=== PATIENT | female | born 1965 | race Caucasian/White ===

== ENCOUNTER → 2017-12-18 07:50 | Outpatient (CLI) | payer MEDICARE, MEDICAID, SELFPAY ==
--- NOTE | 2017-12-18 07:58 | RAD_ITS ---
STUDY: X-RAY CHEST REASON FOR EXAM: Female, 52 years old. COPD and asthma. History of osteosarcoma. TECHNIQUE: PA and lateral views of the chest. COMPARISON: None. FINDINGS: Mild increased linear markings at the lung bases suggestive of underlying atelectasis and/or scarring. Hyperinflation. Scattered calcified granulomas. There is no demonstrated pleural abnormality. Normal size heart. Normal mediastinum and clarissa. Normal visualized pulmonary arteries. Normal visualized aortic arch and descending thoracic aorta. There are degenerative changes of the visualized thoracic spine. Increased kyphosis. Normal visualized ribs, clavicles, and shoulders. There is no demonstrated abnormality of the visualized soft tissue structures of the upper abdomen. RAD/Chest PA and Lateral IMPRESSION: Hyperinflation. Mild increased markings at the lung bases suggestive of likely atelectasis and/or scarring. Electronically Signed: Amado Mayen MD at 13:38 EST Tel [phone], Service support ,
== END ==
PROVIDERS: Family Provider Family Medicine; PCP Family Medicine; Visit Provider Family Medicine
DX: J44.9 Chronic obstructive pulmonary disease, unspecified (principal); R05 Cough
CPT/HCPCS: 71046

== ENCOUNTER → 2018-05-17 08:58 | Outpatient (CLI) | payer MEDICARE, MEDICAID, SELFPAY ==
--- NOTE | 2018-05-17 09:18 | RAD_ITS ---
STUDY: X-RAY - PELVIS AND BILATERAL HIPS REASON FOR EXAM: Female, 53 years old. Bilateral hip pain TECHNIQUE: Radiological exam, hip, bilateral, with pelvis when performed; minimum of 5 views, 5 views obtained COMPARISON: None. FINDINGS: There is a non-specific bowel gas pattern. Normal visualized soft tissue structures. Normal bilateral iliac wings, sacroiliac joints and visualized sacrum. Normal bilateral superior and inferior pubic rami. Normal pubic symphysis. Normal bilateral ischial tuberosities. Normal visualized right femoral head. Normal right acetabulum. Normal right hip joint. Normal visualized left femoral head. Normal left acetabulum. Normal left hip joint. Essure devices noted in the pelvis RAD/Hips B/L min 2 views w/ Pelvis IMPRESSION: Normal x-ray examination of the pelvis and bilateral hips. Electronically Signed: Yan Bird MD at 10:31 EDT , Service support ,
== END ==
PROVIDERS: Family Provider Family Medicine; PCP Family Medicine; Visit Provider Family Medicine
DX: M25.551 Pain in right hip (principal); M25.552 Pain in left hip
CPT/HCPCS: 73521

== ENCOUNTER → 2018-05-24 07:01 | Outpatient (CLI) | payer MEDICARE, MEDICAID, SELFPAY ==
[2018-05-24 10:26] LABS: Hemoglobin A1c 5.4 % (4.2-6.3)
[2018-05-24 10:28] LABS: Microalbumin:Creatinine Ratio 8.1 mg/g CRE (<30 mg/g CRE)
[2018-05-24 10:36] LABS: ALB/GLOB Ratio 1.1 RATIO (0.9-2.4); AST(SGOT) 19 U/L (15-37); Alanine Aminotransfer ALT/SGPT 31 U/L (13-56); Albumin, Serum 3.7 g/dL (3.2-5.0); Alkaline Phosphatase 72 U/L (45-117); Anion Gap 12 (5-15); BUN 24 mg/dL (7-18); BUN/Creat Ratio 20.9 RATIO (10-20); Calcium,Total 8.8 mg/dL (8.5-10.1); Chloride 105 mmol/L (98-107); Cholesterol 166 mg/dL (200); Creatinine, Serum 1.15 mg/dL (0.55-1.02); EST Glomerular Filtration Rate 52 mL/min (>60); Est Glom Filt Rate - Afr Amer 63 mL/min (>60); Globulin 3.3 g/dL (2.2-4.2); Glucose 117 mg/dL (74-106); High Density Lipoprotein 50 mg/dL; Sodium Level 143 mmol/L (136-145); T4 Free Direct 1.07 ng/dL (0.76-1.46); Thyroid Stim Hormone (TSH) 2.76 uIU/mL (0.358-3.74); Triglycerides 212 mg/dL; Very Low Density Lipoprotein 42 mg/dL (5-40)
[2018-05-25 10:23] LABS: T3 Total - Triiodothyronine 1.09 ng/mL (0.6-1.81); Vitamin D,25 Hydroxy 46.7 ng/mL (29.95-100.01)
== END ==
PROVIDERS: Family Provider Family Medicine; PCP Family Medicine; Visit Provider Family Medicine
DX: Z00.00 Encounter for general adult medical examination without abnormal findings (principal); E11.9 Type 2 diabetes mellitus without complications; E55.9 Vitamin D deficiency, unspecified; E03.9 Hypothyroidism, unspecified
CPT/HCPCS: 36415; 80053; 80061; 82043; 82306; 82570; 83036; 84439; 84443; 84480

== ENCOUNTER → 2019-05-27 | Outpatient (CLI) | payer MEDICARE, SELFPAY ==
[2018-09-19 09:04] VITALS: BMI 41.4
[2019-05-27 12:24] LABS: Absolute Lymphocyte Count 1.83 X10^3/uL (0.83-4.51); Absolute Neutrophil Count 3.3 X10^3/uL (2.0-7.7); Basophil# 0.03 X10^3/uL; Basophil% 0.5 % (0-1); Eosinophil# 0.16 X10^3/uL; Eosinophils% 2.8 % (0-5); Hemoglobin 11.1 g/dL (12.0-15.0); Lymphocyte # 1.83 X10^3/ul (4.0); Lymphocyte % 32.4 % (19-41); Mean Corp Hgb Conc 32.6 g/dL (32-36); Mean Corpuscular Hgb 31.3 pg (27.0-32.0); Mean Corpuscular Volume 95.8 fL (81-99); Mean Platelet Vol. 11.5 fl (6.2-12.0); Monocyte# 0.31 X10^3/uL; Monocyte% 5.5 % (0-10); NRBC Flagged by Analyzer 0 % (0-5); Neutrophil # 3.26 X10^3/uL (2.7-7.7); Neutrophil % 57.9 % (47-70); Platelet Count 191 K/mm3 (150-450); RBC Distribution Width CV 13.2 % (11.6-14.6); RBC Distribution Width SD 46.6 fl (35.1-43.9); Red Blood Count 3.55 M/mm3 (4.2-5.4); White Blood Count 5.6 K/mm3 (4.4-11.0)
[2019-05-27 12:48] LABS: ALB/GLOB Ratio 1.1 RATIO (0.9-2.4); AST(SGOT) 19 U/L (15-37); Alanine Aminotransfer ALT/SGPT 33 U/L (13-56); Albumin, Serum 3.6 g/dL (3.2-5.0); Alkaline Phosphatase 77 U/L (45-117); Anion Gap 11 (5-15); BUN 25 mg/dL (7-18); BUN/Creat Ratio 20.8 RATIO (10-20); Chloride 106 mmol/L (98-107); Cholesterol 152 mg/dL (200); EST Glomerular Filtration Rate 49 mL/min (>60); Est Glom Filt Rate - Afr Amer 60 mL/min (>60); Free T3 2.4 pg/mL (2.18-3.98); Globulin 3.4 g/dL (2.2-4.2); Glucose 113 mg/dL (74-106); High Density Lipoprotein 48 mg/dL; Potassium 4.1 mmol/L (3.5-5.1); Sodium Level 144 mmol/L (136-145); Thyroid Stim Hormone (TSH) 1.89 uIU/mL (0.358-3.74); Triglycerides 286 mg/dL; Very Low Density Lipoprotein 57 mg/dL (5-40); Vitamin D,25 Hydroxy 32.7 ng/mL (29.95-100.01)
[2019-05-27 12:55] LABS: Microalbumin,Random Urine 6.2 mg/L (NO RANGE EST.); Microalbumin:Creatinine Ratio 12.5 mg/g CRE (<30 mg/g CRE)
== END | disposition home or self-care (01) ==
LOC: BFHLAB 08:34
PROVIDERS: Family Provider Family Medicine; PCP Family Medicine; Visit Provider Family Medicine
DX: E03.9 Hypothyroidism, unspecified (principal); E11.22 Type 2 diabetes mellitus with diabetic chronic kidney disease; N18.3 Chronic kidney disease, stage 3 (moderate); E55.9 Vitamin D deficiency, unspecified; D64.9 Anemia, unspecified; E78.5 Hyperlipidemia, unspecified
CPT/HCPCS: 36415; 80053; 80061; 82043; 82306; 82570; 84439; 84443; 84481; 85025

== ENCOUNTER → 2019-08-16 | Outpatient (CLI) | payer MEDICARE, SELFPAY ==
[2019-07-12 09:01] VITALS: BMI 38.9
--- NOTE | 2019-08-16 06:00 | ECHOCS_ITS ---
Reason For Study: SOB Procedure This was a 2D Doppler, Color Flow transthoracic echocardiogram. The study was technically difficult. Exam performed in department. Left Ventricle Normal LV size. The estimated ejection fraction is 55 %. Left ventricular systolic function is normal. Stage 1 diastolic dysfunction. No regional wall motion abnormalities noted. Right Ventricle Normal RV size. Normal systolic function. Atria Normal left atrium. Normal right atrium. Mitral Valve Normal mitral valve. Tricuspid Valve Normal tricuspid valve. Aortic Valve The aortic valve is not well visualized. Pulmonic Valve The pulmonic valve is not well visualized. Great Vessels Normal aortic root. The pulmonary artery is normal size. Normal inferior vena cava. Pericardium/Pleural No pericardial effusion. Medication Diluted definity 3ml given slow IV push to enhance endocardial definition. MMode/2D Measurements & Calculations LVIDd: 4.3 cm IVSd: 0.92 cm Ao root diam: 3.3 cm LVIDs: 2.8 cm LVPWd: 1.3 cm RVDd: 2.7 cm FS: 35.8 % LAV(MOD-bp): 46.7 ml LA A4 area: 18.8 cm2 LA dimension(2D): 3.2 cm LAV(MOD-bp) Indexed: 23.8 ml/m2 LAV(MOD-sp2): 33.1 ml LAV(MOD-sp4): 61.9 ml RA A4 area: 11.0 cm2 Doppler Measurements & Calculations MV E max devin: 72.6 cm/sec Lat Peak E' Devin: 6.6 cm/sec Med Peak E' Devin: 6.2 cm/sec MV A max devin: 93.3 cm/sec E/E' lat: 11.0 E/E' med: 11.7 MV E/A: 0.78 Ao V2 max: 128.6 cm/sec LV V1 max: 110.8 cm/sec PA V2 max: 98.0 cm/sec Ao max P.6 mmHg LV V1 max P.9 mmHg Interpretation Summary Normal LV size. The estimated ejection fraction is 55 %. Left ventricular systolic function is normal. Stage 1 diastolic dysfunction. Contrast injection was performed. Ordering Physician: Chauncey Duong Referring Physician: Mimi Martin Performed By: Marie Lindquist RDCS
--- NOTE | 2019-08-16 09:10 | STRESSREP ---
Stress Test Report Pharmacologic myocardial perfusion stress test. 54-year-old lady with a history of shortness of breath. Resting EKG demonstrates normal sinus rhythm with a rate of 96 bpm normal intervals are noted resting blood pressures 132/88 mmHg. 0.4 mg of regadenoson was infused per usual protocol followed by rapid intravenous and flush injection continuous EKG monitoring was performed. Patient maintained sinus rhythm throughout the recording with occasional premature ventricular complexes were noted the maximum heart rate was 129 bpm with a maximum workload of 1 metabolic equivalent. The resting blood pressures 132/88 with a final blood pressure of the same. Myocardial perfusion protocol. 12.0 mCi of technetium 99m sestamibi was injected at rest. 0.4 mg of regadenoson was infused per usual protocol peak infusion 35.0 mCi of technetium 99m sestamibi was injected stress images were obtained stress and rest images were reconstructed and compared in the short axis vertical long horizontal long axis. Gated images were also obtained PACS Perfusion SPECT analysis: Review of the stress images demonstrate normal uptake of tracer noted in all areas of myocardium the resting images similar demonstrate normal uptake of tracer noted in all areas of the myocardium. No areas of reversibility are noted suggest ischemia no previous infarct is noted. Gated SPECT analysis: The gated ejection fraction is noted to be 51%. Conclusion: Normal pharmacologic myocardial perfusion stress test. Preserved ejection fraction.
== END | disposition home or self-care (01) ==
LOC: CVS 05:59
PROVIDERS: Family Provider Family Medicine; PCP Family Medicine; Referring Provider Internal Medicine Cardiovascular Disease; Visit Provider Internal Medicine Cardiovascular Disease
DX: R06.02 Shortness of breath (principal); R06.00 Dyspnea, unspecified; R93.1 Abnormal findings on diagnostic imaging of heart and coronary circulation; I34.0 Nonrheumatic mitral (valve) insufficiency; Z92.21 Personal history of antineoplastic chemotherapy
CPT/HCPCS: 78452; 93017; 93306; A9500; Q9957; A4216; C8929; J2785

== ENCOUNTER → 2019-11-25 08:52 | Outpatient (CLI) | payer MEDICARE, SELFPAY ==
[2019-07-12 09:01] VITALS: BMI 38.9
[2019-11-25 12:22] LABS: Absolute Lymphocyte Count 1.83 X10^3/uL (0.83-4.51); Absolute Neutrophil Count 3.1 X10^3/uL (2.0-7.7); Basophil# 0.03 X10^3/uL; Basophil% 0.5 % (0-1); Eosinophil# 0.17 X10^3/uL; Eosinophils% 3.1 % (0-5); Hemoglobin 11.4 g/dL (12.0-15.0); Lymphocyte # 1.83 X10^3/ul (4.0); Lymphocyte % 33.4 % (19-41); Mean Corp Hgb Conc 32.6 g/dL (32-36); Mean Corpuscular Hgb 31.1 pg (27.0-32.0); Mean Corpuscular Volume 95.6 fL (81-99); Mean Platelet Vol. 11.4 fl (6.2-12.0); Monocyte% 5.5 % (0-10); NRBC Flagged by Analyzer 0 % (0-5); Neutrophil # 3.12 X10^3/uL (2.7-7.7); Platelet Count 185 K/mm3 (150-450); RBC Distribution Width SD 44.9 fl (35.1-43.9); Red Blood Count 3.66 M/mm3 (4.2-5.4); White Blood Count 5.5 K/mm3 (4.4-11.0)
[2019-11-25 12:46] LABS: ALB/GLOB Ratio 1.1 RATIO (0.9-2.4); AST(SGOT) 18 U/L (15-37); Alanine Aminotransfer ALT/SGPT 32 U/L (13-56); Albumin, Serum 3.7 g/dL (3.2-5.0); Alkaline Phosphatase 71 U/L (45-117); Anion Gap 8 (5-15); BUN 29 mg/dL (7-18); Chloride 107 mmol/L (98-107); Creatinine, Serum 1.32 mg/dL (0.55-1.02); EST Glomerular Filtration Rate 44 mL/min (>60); Est Glom Filt Rate - Afr Amer 53 mL/min (>60); Free T3 2.1 pg/mL (2.18-3.98); Globulin 3.4 g/dL (2.2-4.2); Glucose 137 mg/dL (74-106); Potassium 3.9 mmol/L (3.5-5.1); Protein, Total 7.1 g/dL (6.4-8.2); Sodium Level 139 mmol/L (136-145); T4 Free Direct 1.11 ng/dL (0.76-1.46); Thyroid Stim Hormone (TSH) 1.66 uIU/mL (0.358-3.74)
== END ==
PROVIDERS: PCP Family Medicine; Visit Provider Family Medicine
DX: E11.9 Type 2 diabetes mellitus without complications (principal); E03.9 Hypothyroidism, unspecified; R19.7 Diarrhea, unspecified
CPT/HCPCS: 36415; 80053; 84439; 84443; 84481; 85025

== ENCOUNTER → 2019-12-03 08:36 | Outpatient (CLI) | payer MEDICARE, SELFPAY ==
[2019-07-12 09:01] VITALS: BMI 38.9
== END ==
PROVIDERS: PCP Family Medicine; Referring Provider Family Medicine; Visit Provider Family Medicine
DX: E11.9 Type 2 diabetes mellitus without complications (principal); E03.9 Hypothyroidism, unspecified; R19.7 Diarrhea, unspecified
CPT/HCPCS: 83630; 87493; 87506

== ENCOUNTER → 2019-12-11 08:39 | Outpatient (CLI) | payer MEDICARE, MEDICAID, SELFPAY ==
[2019-07-12 09:01] VITALS: BMI 38.9
--- NOTE | 2019-12-11 08:47 | BD_ITS ---
STUDY: DUAL ENERGY X-RAY ABSORPTIOMETRY / DXA REASON FOR EXAM: Female, 54 years old. 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 COMPARISON: None. FINDINGS: Lumbar Spine (L1-L4): g/cm2 (1.062) / T-score (-1.0) / Z-score (-0.1) Findings are suggestive of normal bone density with a low fracture risk. Left Femur Total: g/cm2 (0.848) / T-score (-1.3) / Z-score (-0.5) Left Femoral Neck: g/cm2 (0.877) / T-score (-1.2) / Z-score (-0.1) Right Femur Total: g/cm2 (0.81) / T-score (-1.6) / Z-score (-0.9) Right Femoral Neck: g/cm2 (0.887) / T-score (-1.1) / Z-score (0.0) BD/Dexa Bone Density Study IMPRESSION: The patient is considered osteopenic as outlined below according to World Rajinder Organization (WHO) criteria with a moderate fracture risk. Reference Information: The T-score is the number of standard deviations above or below the standard which is normal for young adults at their peak bone mineral density. The World Health Organization (WHO) interprets the T-scores as follows: Above -1 Normal bone density Between -1 and -2.5 Osteopenia Equal to / or below -2.5 Osteoporosis As a practical clinical guideline, osteopenia may be graded as follows: Mild -1 through -1.5 Moderate -1.6 through -2.0 Severe -2.1 through -2.4 The Z-score is the number of standard deviations above or below age-matched controls. A Z-score of less than -1.5 would be considered abnormal. References: 1. NIH Osteoporosis and Related Bone Diseases http://www.osteo.org 2. International Society for Clinical Densitometry http://www.iscd.org 3. National Osteoporosis Foundation http://www.nof.org Electronically Signed: Amado Mayen, at 9:04 EST , Service support ,
== END ==
PROVIDERS: PCP Family Medicine; Referring Provider Family Medicine; Visit Provider Family Medicine
DX: M81.0 Age-related osteoporosis without current pathological fracture (principal)
CPT/HCPCS: 77080

== ENCOUNTER 2020-03-23 07:55 | Day surgery (SDC) | payer MEDICARE, MEDICAID, SELFPAY ==
[2020-03-17 08:07] VITALS: BMI 42.3
--- NOTE | 2020-03-17 08:11 | HP_ITS ---
Intake Vital Signs 03/17/20 Height 5 ft 1 in 03/17/20 Weight: 224 lb 03/17/20 BMI 42.3 03/17/20 BP 146/89 H 03/17/20 Blood Pressure Location Rt brachial 03/17/20 Position Sitting 03/17/20 Respiration 18 03/17/20 Pulse 87 03/17/20 Pulse Source Monitor 03/17/20 Temp 97.3 F L 03/17/20 Temp Source Temporal 03/17/20 Pulse Oximetry (%) 99 03/17/20 Oxygen Delivery Method room air 03/17/20 BMI 38.9 Intake Visit Reasons: C-Scope/Chronic Diarrhea Chief Complaint: dysuria Allergies pregabalin [From Lyrica] Allergy (Intermediate, Verified 03/17/20 08:09) Diarrhea adhesive tape Allergy (Unknown, Unverified 07/12/19 09:02) uknown hydromorphone [From Dilaudid] Allergy (Unknown, Unverified 07/12/19 09:02) unknown oxycodone Allergy (Unknown, Unverified 07/12/19 09:02) unknown tramadol Allergy (Unknown, Unverified 07/12/19 09:02) unknown [facility] Medical History Hyperlipidemia (Chronic) History of change in bowel patterns (Acute) COPD (chronic obstructive pulmonary disease) (Chronic) Cancer (Chronic) Chronic kidney disease, stage III (moderate) (Chronic) Diabetic neuropathy (Chronic) Hypothyroidism (Chronic) Morbid obesity (Chronic) Obstructive sleep apnea (Chronic) Type 2 diabetes mellitus (Chronic) Osteosarcoma (Resolved 05/2007) Surgical History History of right below knee amputation (Resolved 12/2006) Family History Mother CAD (coronary artery disease) Thyroid disorder Son Asthma Sister Cancer skin cancer Other COPD (chronic obstructive pulmonary disease) Hypertension Social History (Updated 03/17/20 @ 08:[address] Ross Guadalupe MD) Smoking Status: Former smoker quit date: 08/23/06 alcohol intake: never substance use type: does not use HPI HPI Surgical H&P: Yes HPI: LYNDA CARDONA, is a 54 F who presents to the office today for Evaluation for endoscopy. Patient had a colonoscopy done in 2016 which was negative. Over the last year she has been placed on numerous medications for diabetes recently she was placed on Lyrica and developed diarrhea. She subsequently was taken off of that and her bowels started to normalize however she is still having intermittent diarrhea as well as fecal incontinence at nighttime. She has had stool cultures C. difficile has been negative negative for enteric pathogens. She is not complaining of any abdominal pain. She has not had any diarrhea or melena. ROS General General: No weight change, appetite, fatigue, colon cancer, breast cancer or weakness HEENT HEENT: No difficulty swallowing, eye injury, eye surgery, swollen glands or hoarseness Endo Endocrine: Yes thyroid disease and diabetes mellitus; no thyroid cancer, Hair loss, heat intolerance or cold intolerance Skin Skin: No rash or changing moles Breast Breast: No left breast lump, right breast lump, nipple discharge, breast pain, abnormal mammogram, abnormal US or breast enlargement Musc Musculoskeletal: No back problems, arthritis, rheumatoid arthritis, gout or joint pain Cardio Cardiovascular: No murmur, pacemaker, heart disease, atrial fibrillation, high blood pressure, heart attack, heart stent, palpitations, shortness of breat with exertion or chest pain Psych Psychiatric: No depression, anxiety or hearing voices Resp Respiratory: Yes shortness of breath, Yes sleep apnea, No cough, Yes COPD, Yes asthma, No emphysema, No wheezing Neuro Neurologic: No weakness Exam Const General: no acute distress, well developed, well hydrated Orientation: oriented to person, oriented to place, oriented to time [facility] Head: normocephalic, atraumatic Ears: external ears normal Mouth: moist mucous membranes Eyes Sclera: sclerae normal Pupils: normal by confrontation Neck Neck: no lymphadenopathy noted Neck mass: No Thyroid: thyroid normal, symmetrical Chest Chest palpation & inspection: normal inspection of the chest Breast Palpation: No nipple discharge Resp Effort & Inspection: normal respiratory effort Auscultation: clear to auscultation bilaterally Percussion: percussion normal Cardio Rate: regular rate Rhythm: regular rhythm Heart Sounds: no murmurs GI Inspection: obesity Palpation: soft, no hepatosplenomegaly, no masses, nontender Rectal Exam: other Other: Rectal exam deferred. Extrem General: normal to inspection, no clubbing, cyanosis or edema Assessment & Plan Problems 1. Diarrhea, unspecified type R19.7 Plan I have discussed the above with the patient. I have offered the patient colonoscopy for evaluation. I have explained the risks/benefits of the procedure and described the procedure. I have discussed the risks with the patient, including but not limited to: infection, bleeding, perforation of the GI tract requiring emergency surgery, inability to complete the procedure, injury to any internal organs, complications of anesthesia, etc. - the patient understands and agrees to proceed. I have answered all the patient's questions to the patient's satisfaction and the patient has no further questions. The patient has been given instructions for the colon cleansing preparation. We will be doing random colon biopsies. Coding Level of Care Code Off vis,new,level 3 Diagnoses Diarrhea, unspecified type R19.7 ??Diarrhea type: unspecified type 03/17/20 0811 <Electronically signed by Ross conteh MD> Date _ Ross Guadalupe MD I have re-examined the patient. There are no clinical changes since date of exam.
--- NOTE | 2020-03-23 | COLBX_PTH ---
PATIENT: LYNDA CARDONA LOC: EN U#:[id number] AGE/SX: 54/F ROOM: RE03/23/[address]: Dr. Ross Guadalupe MD : 1965 BED: DIS: 03/23/2020 SPEC #: [id number] RECD: 03/23/20 12:14 STATUS: JAUN CORNELIO #: [id number] DAY: 03/23/20 00:[address]: Ross Guadalupe DEPT: SURGICAL PATHOLOGY RECD BY: Caleb De Leon ENTERED: 03/23/20 12:14 SP TYPE: COLON BX OTHR DR: Dr. Mimi Martin DO Tissues: COLON BIOPSY Procedures: Surgery Specimen Level IV HEADER OPERATION: Colonoscopy (MAC) PRE-OP DIAGNOSIS: Diarrhea TISSUE SUBMITTED: Random colonic biopsy MICROSCOPIC DIAGNOSIS Colon, random biopsy: No significant pathologic change. No evidence of colitis. AM:melvina 03/24/20 MICROSCOPIC DESCRIPTION Slides are reviewed. GROSS DESCRIPTION Received in fixative is one container labeled with the patient's name and designated random colon biopsy. The specimen consists of multiple irregular fragments of light hu soft tissue that in aggregate measure 2 x 1 x 0.1 cm. The specimen is totally submitted in one cassette. / AM:melvina 03/23/20 TC:5 CPT: 17694
[2020-03-23 08:23] VITALS: BP 153/88; PULSE 82; RESP 16; TEMP 36.6; O2SAT 98; BMI 41.5
[2020-03-23] MEDS: Lactated Ringers 1,000 ML 100 ML IV (08:46)
[2020-03-23 08:56] LABS: Bedside Glucose 124 mg/dL (70-110)
[2020-03-23 09:35] VITALS: BP 125/82; BP 153/88; PULSE 64; RESP 18; TEMP 36.7; O2SAT 99
--- NOTE | 2020-03-23 09:35 | OP.COLON_ITS ---
Patient Name: Yajaira Bradley Procedure Date: 03/23/2020 9:11 AM Date of : 1965 Age: 54 Procedure: Colonoscopy Indications: Clinically significant diarrhea of unexplained origin Providers: Ross Guadalupe MD Referring MD: Mimi Martin Medicines: See the Anesthesia note for documentation of the administered medications Patient Profile: This is a 54 year old female. Refer to note in patient chart for documentation of history and physical. Last Colonoscopy: 2015. Complications: No immediate complications. Procedure: Pre-Anesthesia Assessment: - Prior to the procedure, a History and Physical was performed, and patient medications and allergies were reviewed. The patient's tolerance of previous anesthesia was also reviewed. The risks and benefits of the procedure and the sedation options and risks were discussed with the patient. All questions were answered, and informed consent was obtained. Prior Anticoagulants: The patient has taken no previous anticoagulant or antiplatelet agents. ASA Grade Assessment: II - A patient with mild systemic disease. After reviewing the risks and benefits, the patient was deemed in satisfactory condition to undergo the procedure. After I obtained informed consent, the scope was passed under direct vision. Throughout the procedure, the patient's blood pressure, pulse, and oxygen saturations were monitored continuously. The colonoscope was introduced through the anus and advanced to the cecum, identified by appendiceal orifice and ileocecal valve. The colonoscopy was performed without difficulty. The patient tolerated the procedure well. The quality of the bowel preparation was good. Scope In: 9:19:31 AM Scope Withdrawal Time 0 hours 7 minutes 18 seconds Scope Out: 9:32:13 AM Total Procedure Duration Time 0 hours 12 minutes 42 seconds Findings: The colon (entire examined portion) appeared normal. Biopsies for histology were taken with a cold forceps from the entire colon for evaluation of microscopic colitis. The exam was otherwise without abnormality. Impression: - The entire examined colon is normal. Biopsied. - The examination was otherwise normal. Recommendation: - Discharge patient to home. - Resume previous diet. - Continue present medications. - Await pathology results. - Repeat colonoscopy in 5 years for surveillance. - Return to my office in 1 week. Procedure Code(s): --- Professional --- 49285, Colonoscopy, flexible; with biopsy, single or multiple Diagnosis Code(s): --- Professional --- R19.7, Diarrhea, unspecified CPT copyright 2017 [employer]. All rights reserved. The codes documented in this report are preliminary and upon clinical nutrition manager review may be revised to meet current compliance requirements. MD Ross Valdovinos MD 03/23/2020 9:35:29 AM This report has been signed electronically. Number of Addenda: 0 Note Initiated On: 03/23/2020 9:11 AM
--- NOTE | 2020-03-23 09:36 | OP.CCLET_ITS ---
03/23/2020 Mimi Martin [address] [place] [address] Re : Colonoscopy procedure for Yajaira Bradley Dear Dr. Martin This procedure was performed on Monday, March 23, 2020. My impressions and recommendations are as follows: Impressions : - The entire examined colon is normal. Biopsied. - The examination was otherwise normal. Recommendations : - Discharge patient to home. - Resume previous diet. - Continue present medications. - Await pathology results. - Repeat colonoscopy in 5 years for surveillance. - Return to my office in 1 week. My findings are described in the full procedure note, which is enclosed. If I can be of further assistance, please feel free to contact me at Doctor phone number(s): , Fax: [phone], Work: . Sincerely, MD Ross Valdovinos MD 03/23/2020 9:35:29 AM This report has been signed electronically.
[2020-03-23 09:40] VITALS: BP 132/78; BP 153/88; PULSE 65; RESP 18; O2SAT 99
[2020-03-23 09:45] VITALS: BP 127/83; BP 153/88; PULSE 63; RESP 18; O2SAT 100
[2020-03-23 09:50] VITALS: BP 145/86; BP 153/88; PULSE 63; RESP 18; TEMP 36.1; O2SAT 100
[2020-03-23 10:26] VITALS: BP 153/88
== END 2020-03-23 10:26 | disposition home or self-care (01) ==
LOC: EN 07:57 → AC 07:58
PROVIDERS: PCP Family Medicine; Referring Provider Family Medicine; Visit Provider Surgery
PROC: 0DJD8ZZ Inspection of Lower Intestinal Tract, Via Natural or Artificial Opening Endoscopic (ICD-10-PCS; CPT 45378; principal; 2020-03-23 09:10)
DX: R19.7 Diarrhea, unspecified (principal); R30.0 Dysuria; E78.5 Hyperlipidemia, unspecified; E11.22 Type 2 diabetes mellitus with diabetic chronic kidney disease; E11.40 Type 2 diabetes mellitus with diabetic neuropathy, unspecified; G47.33 Obstructive sleep apnea (adult) (pediatric); E66.01 Morbid (severe) obesity due to excess calories; E03.9 Hypothyroidism, unspecified; N18.3 Chronic kidney disease, stage 3 (moderate); Z79.899 Other long term (current) drug therapy; Z79.84 Long term (current) use of oral hypoglycemic drugs; Z87.891 Personal history of nicotine dependence; Z11.59 Encounter for screening for other viral diseases
CPT/HCPCS: 45380; 82962; 87635; 88305; G2023; J7120; J2405; U0004

== ENCOUNTER → 2020-05-20 07:01 | Outpatient (CLI) | payer MEDICARE, SELFPAY ==
[2020-05-20 10:00] LABS: Absolute Lymphocyte Count 1.83 X10^3/uL (0.83-4.51); Absolute Neutrophil Count 3.2 X10^3/uL (2.0-7.7); Basophil# 0.03 X10^3/uL; Basophil% 0.5 % (0-1); Eosinophil# 0.19 X10^3/uL; Eosinophils% 3.4 % (0-5); Hematocrit 33.9 % (37-47); Hemoglobin 11.1 g/dL (12.0-15.0); Lymphocyte # 1.83 X10^3/ul (4.0); Lymphocyte % 33.1 % (19-41); Mean Corp Hgb Conc 32.7 g/dL (32-36); Mean Corpuscular Hgb 31.3 pg (27.0-32.0); Mean Corpuscular Volume 95.5 fL (81-99); Mean Platelet Vol. 11.5 fl (6.2-12.0); Monocyte# 0.31 X10^3/uL; Monocyte% 5.6 % (0-10); NRBC Flagged by Analyzer 0 % (0-5); Neutrophil # 3.15 X10^3/uL (2.7-7.7); Platelet Count 192 K/mm3 (150-450); RBC Distribution Width CV 13.4 % (11.6-14.6); RBC Distribution Width SD 46.2 fl (35.1-43.9); Red Blood Count 3.55 M/mm3 (4.2-5.4); White Blood Count 5.5 K/mm3 (4.4-11.0)
[2020-05-20 10:22] LABS: Microalbumin:Creatinine Ratio 13.3 mg/g CRE (<30 mg/g CRE)
[2020-05-20 10:38] LABS: Vitamin D,25 Hydroxy 51.7 ng/mL
[2020-05-20 10:44] LABS: ALB/GLOB Ratio 1.1 RATIO (0.9-2.4); AST(SGOT) 18 U/L (15-37); Alanine Aminotransfer ALT/SGPT 29 U/L (13-56); Albumin, Serum 3.8 g/dL (3.2-5.0); Alkaline Phosphatase 67 U/L (45-117); Anion Gap 6 (5-15); BUN 31 mg/dL (7-18); Calcium,Total 8.9 mg/dL (8.5-10.1); Chloride 105 mmol/L (98-107); Cholesterol 172 mg/dL (200); Creatinine, Serum 1.29 mg/dL (0.55-1.02); EST Glomerular Filtration Rate 45 mL/min (>60); Est Glom Filt Rate - Afr Amer 55 mL/min (>60); Free T3 2.3 pg/mL (2.18-3.98); Globulin 3.5 g/dL (2.2-4.2); Glucose 132 mg/dL (74-106); High Density Lipoprotein 48 mg/dL; Potassium 3.7 mmol/L (3.5-5.1); Protein, Total 7.3 g/dL (6.4-8.2); Sodium Level 137 mmol/L (136-145); T4 Free Direct 1.11 ng/dL (0.76-1.46); Thyroid Stim Hormone (TSH) 3.76 uIU/mL (0.358-3.74); Triglycerides 270 mg/dL; Very Low Density Lipoprotein 54 mg/dL (5-40)
== END ==
LOC: LAB.FUTURE 07:02 → MTLAB 13:05
PROVIDERS: PCP Family Medicine; Referring Provider Family Medicine; Visit Provider Family Medicine
DX: E11.9 Type 2 diabetes mellitus without complications (principal); E03.9 Hypothyroidism, unspecified; N18.3 Chronic kidney disease, stage 3 (moderate); E55.9 Vitamin D deficiency, unspecified; D64.9 Anemia, unspecified; E78.5 Hyperlipidemia, unspecified
CPT/HCPCS: 36415; 80053; 80061; 82043; 82306; 82570; 84439; 84443; 84481; 85025

== ENCOUNTER → 2020-07-09 06:42 | Outpatient (CLI) | payer MEDICARE, MEDICAID, SELFPAY ==
--- NOTE | 2020-07-09 08:15 | CT_ITS ---
STUDY: CT CHEST WITHOUT CONTRAST REASON FOR EXAM: Female, 55 years old. FOLLOW UP PULMONARY NODULES RADIATION DOSAGE (If Supplied By Facility): CTDIvol = ( 16.94 ) mGy, DLP = ( 567.37 ) mGycm TECHNIQUE: Transaxial imaging was performed without the administration of intravenous contrast material. Multiplanar coronal and sagittal images were reformatted. Individualized dose optimization techniques were used for this CT. COMPARISON: Comparison is made with prior study dated 06/20/2019. FINDINGS: Hyperinflation. Stable linear scarring at the left lung base. No significant nodules are seen. There is no demonstrated pleural abnormality. There are calcifications of the coronary arteries. Minimal anterior pericardial thickening. This is unchanged. There are multiple small lymph nodes within the mediastinum, which are normal in size and morphology most compatible with reactive lymph hyperplasia. Normal hilar regions. Normal unenhanced pulmonary arteries. There is atherosclerotic calcification of the aortic arch arch . There are degenerative changes of the thoracic spine. There is no demonstrated abnormality of the visualized upper abdomen. CT/Chest without Contrast IMPRESSION: Hyperinflation and left basilar scarring. No significant nodular densities are seen at this time. Electronically Signed: Amado Mayen, at 9:54 EDT , Service support ,
--- NOTE | 2020-07-09 10:26 | PFTCOMP_ITS ---
COMPLETE PULMONARY FUNCTION TEST INTERPRETATION Brief HPI: Patient is a 55 year old female, currently under the care of Dr. Martin, who presents to [facility] for complete pulmonary function tests secondary to diagnosis of lung nodule. Respiratory therapist reports good effort and reproducible results. Interpretation: Forced expiration spirometry shows a moderate large airways obstructive ventilatory defect with an FEV1 of 63% predicted. There is a significant bronchodilator response in FEV1 and FVC by strict ATS criteria. Spirograms are of good quality and plateau slowly, indicating slowly emptying areas of the lungs. The respiratory flow volume loop shows decreased expiratory flow rates at all lung volumes consistent with airway obstruction. Lung volumes by body plethysmography show a normal total lung capacity at 4.03 L, 93% predicted. All other lung volumes are within normal limits. Diffusion capacity by carbon monoxide is decreased at 67% predicted. The airway resistance is elevated. Compared to previous pulmonary function tests from 07/25/2017, there is been a significant reduction in lung volumes with improvement in DLCO. Impression: Partially reversible moderate large airways obstructive ventilatory defect with a symmetric reduction diffusion capacity, and a pattern consistent with COPD/asthma overlap syndrome.
== END ==
PROVIDERS: PCP Family Medicine; Referring Provider Family Medicine; Visit Provider Family Medicine
DX: J44.9 Chronic obstructive pulmonary disease, unspecified (principal); R91.8 Other nonspecific abnormal finding of lung field
CPT/HCPCS: 71250; 94060; 94726; 94729

== ENCOUNTER → 2020-07-15 08:43 | Outpatient (CLI) | payer MEDICARE, MEDICAID, SELFPAY ==
[2020-07-15 13:32] LABS: ALB/GLOB Ratio 1.1 RATIO (0.9-2.4); AST(SGOT) 22 U/L (15-37); Alanine Aminotransfer ALT/SGPT 30 U/L (13-56); Albumin, Serum 3.6 g/dL (3.2-5.0); Alkaline Phosphatase 73 U/L (45-117); Anion Gap 10 (5-15); BUN 25 mg/dL (7-18); BUN/Creat Ratio 18.4 RATIO (10-20); Calcium,Total 8.6 mg/dL (8.5-10.1); Chloride 106 mmol/L (98-107); Creatinine, Serum 1.36 mg/dL (0.55-1.02); EST Glomerular Filtration Rate 43 mL/min (>60); Est Glom Filt Rate - Afr Amer 52 mL/min (>60); Free T3 2.1 pg/mL (2.18-3.98); Globulin 3.3 g/dL (2.2-4.2); Glucose 164 mg/dL (74-106); Potassium 3.6 mmol/L (3.5-5.1); Protein, Total 6.9 g/dL (6.4-8.2); Sodium Level 139 mmol/L (136-145); T4 Free Direct 1.15 ng/dL (0.76-1.46); Thyroid Stim Hormone (TSH) 1.94 uIU/mL (0.358-3.74)
[2020-07-15 13:36] LABS: Hemoglobin A1c 6.1 % (3.8-5.6)
== END ==
PROVIDERS: PCP Family Medicine; Visit Provider Family Medicine
DX: E11.22 Type 2 diabetes mellitus with diabetic chronic kidney disease (principal); N18.3 Chronic kidney disease, stage 3 (moderate); E03.9 Hypothyroidism, unspecified
CPT/HCPCS: 36415; 80053; 83036; 84439; 84443; 84481

== ENCOUNTER → 2020-07-31 07:31 | Outpatient (CLI) | payer MEDICARE, MEDICAID, SELFPAY ==
[2020-07-28 09:02] VITALS: BMI 40.6
--- NOTE | 2020-07-31 07:35 | BI_ITS ---
MAMMOGRAPHY - BILATERAL SCREENING REASON FOR EXAM: Female, 55 years old. Routine annual screening examination. PERTINENT HISTORY: Non-contributory. TECHNIQUE: Digital bilateral breast jayme (3D mammographic acquisition) in the CC and MLO projections. 2-D mediolateral oblique (MLO) and craniocaudad (CC) views of both breasts were obtained. CAD: Full Field Digital Mammography with Computer Added Detection was performed. COMPARISON: Comparison is made with prior outside examination dated 05/28/2019 and 03/14/2016. FINDINGS: Breast Composition: There are scattered areas of fibroglandular density. There are no dominant masses or suspicious calcifications. No other significant abnormalities are identified. There has been no significant change since the prior study. BI/SCREEN MAMM (CAD) W/JAYME BILAT IMPRESSION: Stable bilateral screening mammogram. Yearly follow-up mammogram recommended. (A) ASSESSMENT CATEGORY: BIRADS Category 2: Benign. A letter regarding these results will be sent to the patient by the facility within 30 days. Approximately 10% of breast cancers are not detected by mammography. A normal mammogram should not delay biopsy of a clinically suspicious abnormality. [id number] Electronically Signed: Amado Mayen, at 14:48 EDT , Service support ,
== END ==
PROVIDERS: PCP Family Medicine; Referring Provider Family Medicine; Visit Provider Family Medicine
DX: Z12.31 Encounter for screening mammogram for malignant neoplasm of breast (principal)
CPT/HCPCS: 77063; 77067

== ENCOUNTER → 2020-09-28 07:48 | Outpatient (CLI) | payer MEDICARE, MEDICAID, SELFPAY ==
[2020-07-28 09:02] VITALS: BMI 40.6
[2020-09-28 10:20] LABS: Hemoglobin A1c 5.9 % (3.8-5.6)
[2020-09-28 10:22] LABS: ALB/GLOB Ratio 1.2 RATIO (0.9-2.4); AST(SGOT) 15 U/L (15-37); Alanine Aminotransfer ALT/SGPT 26 U/L (13-56); Albumin, Serum 3.7 g/dL (3.2-5.0); Alkaline Phosphatase 70 U/L (45-117); Anion Gap 6 (5-15); BUN 23 mg/dL (7-18); BUN/Creat Ratio 17.7 RATIO (10-20); Calcium,Total 9.1 mg/dL (8.5-10.1); Chloride 107 mmol/L (98-107); EST Glomerular Filtration Rate 45 mL/min (>60); Est Glom Filt Rate - Afr Amer 54 mL/min (>60); Free T3 2.1 pg/mL (2.18-3.98); Globulin 3.2 g/dL (2.2-4.2); Glucose 122 mg/dL (74-106); Potassium 3.7 mmol/L (3.5-5.1); Protein, Total 6.9 g/dL (6.4-8.2); Sodium Level 142 mmol/L (136-145); T4 Free Direct 1.14 ng/dL (0.76-1.46); Thyroid Stim Hormone (TSH) 3.26 uIU/mL (0.358-3.74)
== END ==
PROVIDERS: PCP Family Medicine; Referring Provider Family Medicine; Visit Provider Family Medicine
DX: E03.9 Hypothyroidism, unspecified (principal); E11.22 Type 2 diabetes mellitus with diabetic chronic kidney disease; N18.30 Chronic kidney disease, stage 3 unspecified
CPT/HCPCS: 36415; 80053; 83036; 84439; 84443; 84481

== ENCOUNTER → 2020-12-21 07:39 | Outpatient (CLI) | payer MEDICARE, MEDICAID, SELFPAY ==
[2020-07-28 09:02] VITALS: BMI 40.6
[2020-11-03 07:26] VITALS: BMI 40.4
[2020-12-21 10:54] LABS: ALB/GLOB Ratio 1.1 RATIO (0.9-2.4); AST(SGOT) 18 U/L (15-37); Alanine Aminotransfer ALT/SGPT 27 U/L (13-56); Albumin, Serum 3.5 g/dL (3.2-5.0); Alkaline Phosphatase 71 U/L (45-117); Anion Gap 11 (5-15); BUN 24 mg/dL (7-18); BUN/Creat Ratio 17.4 RATIO (10-20); Calcium,Total 8.7 mg/dL (8.5-10.1); Chloride 102 mmol/L (98-107); Creatinine, Serum 1.38 mg/dL (0.55-1.02); EST Glomerular Filtration Rate 42 mL/min (>60); Est Glom Filt Rate - Afr Amer 51 mL/min (>60); Free T3 2.2 pg/mL (2.18-3.98); Globulin 3.3 g/dL (2.2-4.2); Glucose 200 mg/dL (74-106); Potassium 3.8 mmol/L (3.5-5.1); Protein, Total 6.8 g/dL (6.4-8.2); Sodium Level 139 mmol/L (136-145); T4 Free Direct 1.19 ng/dL (0.76-1.46); Thyroid Stim Hormone (TSH) 3.11 uIU/mL (0.358-3.74)
== END ==
PROVIDERS: PCP Family Medicine; Referring Provider Family Medicine; Visit Provider Family Medicine
DX: E03.9 Hypothyroidism, unspecified (principal); N18.30 Chronic kidney disease, stage 3 unspecified
CPT/HCPCS: 36415; 80053; 84439; 84443; 84481

== ENCOUNTER → 2021-03-17 10:03 | Outpatient (CLI) | payer MEDICARE, SELFPAY ==
[2021-01-27 09:06] VITALS: BMI 40.9
--- NOTE | 2021-03-17 10:06 | RAD_ITS ---
STUDY: X-RAY - LEFT KNEE REASON FOR EXAM: Female, 55 years old. PAIN TECHNIQUE: 4 view(s) of the knee. COMPARISON: None. FINDINGS: Normal visualized distal femur. Normal visualized proximal tibia and fibula. Normal proximal tibiofibular articulation. Normal medial femorotibial compartment. Normal lateral femorotibial compartment. Normal patellofemoral articulation. The soft tissue structures are unremarkable. RAD/Knee 4 or More Views IMPRESSION: Normal x-ray examination of the knee. Electronically Signed: Amado Mayen MD at 15:42 EDT , Service support ,
== END ==
PROVIDERS: PCP Family Medicine; Referring Provider Family Medicine; Visit Provider Family Medicine
DX: M25.562 Pain in left knee (principal)
CPT/HCPCS: 73564

== ENCOUNTER → 2021-05-27 07:36 | Outpatient (CLI) | payer MEDICARE, SELFPAY ==
[2021-01-27 09:06] VITALS: BMI 40.9
[2021-05-24 14:40] VITALS: BMI 39.4
[2021-05-27 10:09] LABS: Absolute Lymphocyte Count 2.02 X10^3/uL (0.83-4.51); Absolute Neutrophil Count 3.7 X10^3/uL (2.0-7.7); Basophil# 0.04 X10^3/uL; Basophil% 0.6 % (0-1); Eosinophil# 0.27 X10^3/uL; Eosinophils% 4.2 % (0-5); Hematocrit 32.8 % (37-47); Hemoglobin 10.6 g/dL (12.0-15.0); Lymphocyte # 2.02 X10^3/ul (0.83-4.51); Lymphocyte % 31.4 % (19-41); Mean Corp Hgb Conc 32.3 g/dL (32-36); Mean Corpuscular Hgb 30.5 pg (27.0-32.0); Mean Corpuscular Volume 94.3 fL (81-99); Mean Platelet Vol. 11.2 fl (6.2-12.0); Monocyte# 0.36 X10^3/uL; Monocyte% 5.6 % (0-10); NRBC Flagged by Analyzer 0 % (0-5); Neutrophil # 3.72 X10^3/uL (2.7-7.7); Neutrophil % 57.9 % (47-70); Platelet Count 216 K/mm3 (150-450); RBC Distribution Width CV 13.3 % (11.6-14.6); RBC Distribution Width SD 45.5 fl (35.1-43.9); Red Blood Count 3.48 M/mm3 (4.2-5.4); White Blood Count 6.4 K/mm3 (4.4-11.0)
[2021-05-27 10:39] LABS: Hemoglobin A1c 6.1 % (3.8-5.6)
[2021-05-27 10:49] LABS: ALB/GLOB Ratio 1.1 RATIO (0.9-2.4); AST(SGOT) 15 U/L (15-37); Alanine Aminotransfer ALT/SGPT 25 U/L (13-56); Albumin, Serum 3.7 g/dL (3.2-5.0); Alkaline Phosphatase 71 U/L (45-117); Anion Gap 11 (5-15); BUN 23 mg/dL (7-18); BUN/Creat Ratio 19.2 RATIO (10-20); Calcium,Total 8.8 mg/dL (8.5-10.1); Chloride 102 mmol/L (98-107); Cholesterol 162 mg/dL (200); EST Glomerular Filtration Rate 49 mL/min (>60); Est Glom Filt Rate - Afr Amer 59 mL/min (>60); Free T3 2.4 pg/mL (2.18-3.98); Globulin 3.3 g/dL (2.2-4.2); Glucose 119 mg/dL (74-106); High Density Lipoprotein 52 mg/dL; Potassium 3.8 mmol/L (3.5-5.1); Sodium Level 138 mmol/L (136-145); Thyroid Stim Hormone (TSH) 1.02 uIU/mL (0.358-3.74); Triglycerides 194 mg/dL; Very Low Density Lipoprotein 39 mg/dL (5-40)
== END ==
PROVIDERS: PCP Family Medicine; Referring Provider Family Medicine; Visit Provider Family Medicine
DX: E03.9 Hypothyroidism, unspecified (principal); E11.22 Type 2 diabetes mellitus with diabetic chronic kidney disease; N18.30 Chronic kidney disease, stage 3 unspecified
CPT/HCPCS: 36415; 80053; 80061; 83036; 84439; 84443; 84481; 85025

== ENCOUNTER → 2021-08-02 06:49 | Outpatient (CLI) | payer MEDICARE, MEDICAID, SELFPAY ==
--- NOTE | 2021-08-02 06:51 | CT_ITS ---
STUDY: LOW DOSE CT LUNG CANCER SCREENING REASON FOR EXAM: Female, 56 years old. Smoker and gt; 40 pack years quit 2006 RADIATION DOSAGE (If Supplied By Facility): CTDIvol = ( 4.02 ) mGy, DLP = ( 133.91 ) mGycm TECHNIQUE: No contrast was administered. Low dose technique was utilized (average mAS-38 and kVp 120). 1.25 mm axial source images with a slice interval of 1.25-mm were reconstructed in lung windows. 2.5 mm axial source images with a slice interval of 2.5-mm were reconstructed in lung windows. 5.0 mm axial source images with a slice interval of 5.0-mm were reconstructed in soft tissue windows. Nodule measured using lung windows on PACS and/or independent workstation with automated measurement of minimum and maximum diameter. Nodule measurement reported as average diameter rounded to the nearest whole number. Growth is defined as an increase ins size of greater than 1.5 mm. COMPARISON: Comparison is made with prior examination dated 07/09/2020. NODULES: No suspicious nodules are seen. Emphysema: Hyperinflation. Stable linear scarring at the left lung base. Endobronchial lesion: None Aorta: Atherosclerotic plaque formation of the aortic arch. Coronary arteries: Coronary artery calcification. Heart: Unremarkable Pulmonary artery: Unremarkable Mediastinal nodes: Small mediastinal lymph nodes. Other chest and abdominal findings: CT/Low Dose CT Lung Screening IMPRESSION: Lung-RADS category 2 - Continue annual screening with LDCT in 12 months. IMPORTANT NOTES FOR USE: ACR Lung-RADS Version 1.1 Assessment Categories Release Date: 2018 Category: Coded 0-4 bases on nodule(s) with highest degree of suspicion. Negative screen is defined as categories 1 and 2; a positive screen is defined as categories 3 and 4. Category 3 and 4A nodules that are unchanged on interval CT should be coded as category 2, and individuals returned to screening in 12 months. Category 4X: Category 3 or 4 nodules with additional imaging findings that increase the suspicion of lung cancer, such as spiculation, GGN that doubles in size in 1 year, enlarged lymph notes, etc. Category Modifiers: S (significant finding unrelated to lung cancer) Electronically Signed: Amado Mayen MD at 13:57 EDT , Service support ,
--- NOTE | 2021-08-02 07:07 | BI_ITS ---
MAMMOGRAPHY - BILATERAL SCREENING REASON FOR EXAM: Female, 56 years old. Routine annual screening examination. PERTINENT HISTORY: Non-contributory. TECHNIQUE: Digital bilateral breast jayme (3D mammographic acquisition) in the CC and MLO projections. 2-D mediolateral oblique (MLO) and craniocaudad (CC) views of both breasts were obtained. CAD: Full Field Digital Mammography with Computer Added Detection was performed. COMPARISON: Comparison is made with prior study dated 07/31/2020 and 03/14/2016. FINDINGS: Breast Composition: The breasts are almost entirely fatty. There are no dominant masses or suspicious calcifications. No other significant abnormalities are identified. There has been no significant change since the prior study. BI/SCRN MAMM (CAD)W/JAYME BILAT IMPRESSION: Stable bilateral screening mammogram. Yearly follow-up mammogram recommended. (A) ASSESSMENT CATEGORY: BIRADS Category 1: Negative. A letter regarding these results will be sent to the patient by the facility within 30 days. Approximately 10% of breast cancers are not detected by mammography. A normal mammogram should not delay biopsy of a clinically suspicious abnormality. [id number] Electronically Signed: Amado Mayen MD at 9:07 EDT , Service support ,
== END ==
PROVIDERS: PCP Family Medicine; Referring Provider Nurse Practitioner Acute Care; Visit Provider Nurse Practitioner Acute Care
DX: F17.210 Nicotine dependence, cigarettes, uncomplicated (principal); Z12.31 Encounter for screening mammogram for malignant neoplasm of breast
CPT/HCPCS: 71271; 77063; 77067

== ENCOUNTER 2022-01-25 08:21 | Outpatient (CLI) | payer MEDICARE, MEDICAID, SELFPAY ==
--- NOTE | 2022-01-25 08:28 | BD_ITS ---
STUDY: DUAL ENERGY X-RAY ABSORPTIOMETRY / DXA REASON FOR EXAM: Female, 56 years old. 733.90OsteopeniaBONE DENSITY REASON FOR EXAM TECHNIQUE: Bone Mineral Density (BMD) measurements of lumbar spine and bilateral hips were obtained. COMPARISON: Comparison is made with prior examination of 12/11/2019. FINDINGS: Lumbar Spine (L1-L4): g/cm2 (0.986) / T-score (-0.6) / Z-score (0.8) Findings are suggestive of normal bone density with a low fracture risk. Left Femur Total: g/cm2 (0.830) / T-score (-0.9) / Z-score (0.0) Left Femoral Neck: g/cm2 (0.835) / T-score (-0.1) / Z-score (1.1) Right Femur Total: g/cm2 (0.772) / T-score (-1.4) / Z-score (-0.5) Right Femoral Neck: g/cm2 (0.720) / T-score (-1.2) / Z-score (0.1) The T-Scores on the most recent prior examination were: Lumbar Spine (L1-L4): There has been improvement of bone density since the previous examination. Left Femur Total: which represents an improvement of 5.6%. Right Femur Total: which represents an improvement of 4.2%. BD/Dexa Bone Density Study IMPRESSION: The patient is considered osteopenic as outlined below according to World Rajinder Organization (WHO) criteria with a moderate fracture risk. There has been improvement of bone density since the previous examination. Reference Information: The T-score is the number of standard deviations above or below the standard which is normal for young adults at their peak bone mineral density. The World Health Organization (WHO) interprets the T-scores as follows: Above -1 Normal bone density Between -1 and -2.5 Osteopenia Equal to / or below -2.5 Osteoporosis As a practical clinical guideline, osteopenia may be graded as follows: Mild -1 through -1.5 Moderate -1.6 through -2.0 Severe -2.1 through -2.4 The Z-score is the number of standard deviations above or below age-matched controls. A Z-score of less than -1.5 would be considered abnormal. References: 1. NIH Osteoporosis and Related Bone Diseases www osteo.org 2. International Society for Clinical Densitometry www iscd.org 3. National Osteoporosis Foundation www nof.org Electronically Signed: Amado Mayen MD at 8:35 EDT ,
== END 2022-01-25 23:59 | disposition home or self-care (01) ==
LOC: OPBD 08:22
PROVIDERS: PCP Family Medicine; Referring Provider Family Medicine; Visit Provider Family Medicine
DX: M85.89 Other specified disorders of bone density and structure, multiple sites (principal)
CPT/HCPCS: 77080

== ENCOUNTER → 2022-07-25 | Outpatient (CLI) | payer MEDICARE, SELFPAY ==
[2022-07-25 10:11] LABS: Absolute Lymphocyte Count 1.85 X10^3/uL (0.83-4.51); Absolute Neutrophil Count 3.3 X10^3/uL (2.0-7.7); Basophil# 0.04 X10^3/uL; Basophil% 0.7 % (0-1); Eosinophil# 0.21 X10^3/uL; Eosinophils% 3.7 % (0-5); Hematocrit 32.8 % (37-47); Hemoglobin 11.2 g/dL (12.0-15.0); Lymphocyte # 1.85 X10^3/ul (0.83-4.51); Lymphocyte % 32.5 % (19-41); Mean Corp Hgb Conc 34.1 g/dL (32-36); Mean Corpuscular Hgb 31.5 pg (27.0-32.0); Mean Corpuscular Volume 92.4 fL (81-99); Mean Platelet Vol. 10.4 fl (6.2-12.0); Monocyte# 0.32 X10^3/uL; Monocyte% 5.6 % (0-10); NRBC Flagged by Analyzer 0 % (0-5); Neutrophil # 3.28 X10^3/uL (2.7-7.7); Neutrophil % 57.5 % (47-70); Platelet Count 181 K/mm3 (150-450); RBC Distribution Width CV 12.9 % (11.6-14.6); RBC Distribution Width SD 43.8 fl (35.1-43.9); Red Blood Count 3.55 M/mm3 (4.2-5.4); White Blood Count 5.7 K/mm3 (4.4-11.0)
[2022-07-25 10:35] LABS: Hemoglobin A1c 5.9 % (3.8-5.6)
[2022-07-25 10:56] LABS: AST(SGOT) 18 U/L (15-37); Alanine Aminotransfer ALT/SGPT 24 U/L (13-56); Albumin, Serum 3.7 g/dL (3.2-5.0); Alkaline Phosphatase 75 U/L (45-117); Anion Gap 10 (5-15); BUN 31 mg/dL (7-18); BUN/Creat Ratio 22.8 RATIO (10-20); Calcium,Total 9.2 mg/dL (8.5-10.1); Chloride 107 mmol/L (98-107); Cholesterol 162 mg/dL (200); Creatinine, Serum 1.36 mg/dL (0.55-1.02); EST Glomerular Filtration Rate 42 mL/min (>60); Est Glom Filt Rate - Afr Amer 51 mL/min (>60); Free T3 2.3 pg/mL (2.18-3.98); Globulin 3.6 g/dL (2.2-4.2); Glucose 116 mg/dL (74-106); High Density Lipoprotein 54 mg/dL; Potassium 3.9 mmol/L (3.5-5.1); Protein, Total 7.3 g/dL (6.4-8.2); Sodium Level 141 mmol/L (136-145); T4 Free Direct 1.31 ng/dL (0.76-1.46); Thyroid Stim Hormone (TSH) 2.54 uIU/mL (0.358-3.74); Triglycerides 199 mg/dL; Very Low Density Lipoprotein 40 mg/dL (5-40)
[2022-07-25 11:01] LABS: Microalbumin,Random Urine 29.1 mg/L (NO RANGE EST.)
== END | disposition home or self-care (01) ==
PROVIDERS: PCP Family Medicine; Visit Provider Family Medicine
DX: E03.9 Hypothyroidism, unspecified (principal); E11.22 Type 2 diabetes mellitus with diabetic chronic kidney disease; N18.31 Chronic kidney disease, stage 3a; E55.9 Vitamin D deficiency, unspecified; Z51.81 Encounter for therapeutic drug level monitoring
CPT/HCPCS: 36415; 80053; 80061; 82043; 82306; 82570; 83036; 84439; 84443; 84481; 85025

== ENCOUNTER → 2022-08-11 | Outpatient (CLI) | payer MEDICARE, SELFPAY ==
--- NOTE | 2022-08-11 08:11 | BI_ITS ---
MAMMOGRAPHY - BILATERAL SCREENING 3-D TOMOSYNTHESIS REASON FOR EXAM: Female, 57 years old. Routine screening PERTINENT HISTORY: No significant family history. TECHNIQUE: 2-D mammograms and 3-D Tomosynthesis of the breast (s) were performed. CAD was performed. COMPARISON: 2020, 2019 FINDINGS: The breast composition is almost entirely fat. Scattered benign calcifications are seen. No dense spiculated masses or suspicious microcalcifications are identified. No architectural distortion is identified. There is no skin thickening or retraction. There has been no significant change since the prior study. BI/SCRN MAMM (CAD)W/JAYME BILAT IMPRESSION: No mammographic signs of malignancy. Routine yearly mammograms recommended. ASSESSMENT CATEGORY: BIRADS Category 1: Negative. A letter regarding these results will be sent to the patient by the facility within 30 days. FOLLOW UP RECOMMENDATION: Yearly follow up mammogram recommended. (A) Approximately 10% of breast cancers are not detected by mammography. A normal mammogram should not delay biopsy of a clinically suspicious abnormality. Electronically Signed: Yan Bird MD at 8:57 EDT ,
== END | disposition home or self-care (01) ==
LOC: OPBI 08:10
PROVIDERS: PCP Family Medicine; Referring Provider Family Medicine; Visit Provider Family Medicine
DX: Z12.31 Encounter for screening mammogram for malignant neoplasm of breast (principal)
CPT/HCPCS: 77063; 77067

== ENCOUNTER → 2022-08-22 | Outpatient (CLI) | payer MEDICARE, SELFPAY ==
--- NOTE | 2022-08-22 10:13 | US_ITS ---
INDICATION: Chronic kidney disease. EXAMINATION: Ultrasound US Kidney(s) complete (eg, kidneys and bladder) TECHNIQUE: Pelletier scale and color doppler images were obtained of the kidneys. COMPARISON: None. FINDINGS: RIGHT KIDNEY: The right kidney measures 10.4 cm in length. The renal cortex is of normal echogenicity and measures 1 cm in thickness.. There is no hydronephrosis. No shadowing calculus. There is a 1.8 x 1.9 x 1.6 cm simple cyst. LEFT KIDNEY: The left kidney measures 10.4 cm in length. The cortex is of normal echogenicity and measures 1.3 cm in diameter.. There is no hydronephrosis. No shadowing calculus. There are multiple renal cysts. In the upper pole there is a 1.3 x 1.3 x 1.2 cm simple cyst. In the lower pole there is a 1.4 x 1.2 x 1.2 cm simple cyst. Also in the lower pole there is a 1.9 x 1.1 x 1.4 cm simple cyst. URINARY BLADDER: No acute abnormality. Prevoid volume is 89 mL. Visualization of the left ureteral jet. The right ureteral jet is not seen. US/Kidney and Bladder IMPRESSION: 1. Multiple bilateral simple renal cysts. These require no follow-up. 2. Normal urinary bladder. Electronically Signed: Nikita Aranda DO at 21:44 EDT ,
== END | disposition home or self-care (01) ==
LOC: US 10:12
PROVIDERS: PCP Family Medicine; Referring Provider Internal Medicine Nephrology; Visit Provider Internal Medicine Nephrology
DX: N18.32 Chronic kidney disease, stage 3b (principal)
CPT/HCPCS: 76770

== ENCOUNTER → 2022-12-07 | Outpatient (CLI) | payer MEDICARE, SELFPAY ==
[2022-12-07 11:15] LABS: Albumin, Serum 3.7 g/dL (3.2-5.0); BUN 27 mg/dL (7-18); BUN/Creat Ratio 18.5 RATIO (10-20); Calcium,Total 8.9 mg/dL (8.5-10.1); Chloride 106 mmol/L (98-107); Creatinine, Serum 1.46 mg/dL (0.55-1.02); EST Glomerular Filtration Rate 39 mL/min (>60); Est Glom Filt Rate - Afr Amer 47 mL/min (>60); Glucose 189 mg/dL (74-106); Phosphorus 2.6 mg/dL (2.5-4.9); Potassium 3.6 mmol/L (3.5-5.1); Sodium Level 141 mmol/L (136-145)
== END | disposition home or self-care (01) ==
PROVIDERS: PCP Family Medicine; Referring Provider Internal Medicine Nephrology; Visit Provider Internal Medicine Nephrology
DX: N18.32 Chronic kidney disease, stage 3b (principal)
CPT/HCPCS: 36415; 80069

== ENCOUNTER 2023-01-25 11:57 | Emergency (ER) | payer MEDICARE, MEDICAID, SELFPAY ==
[2023-01-25 11:58] VITALS: BP 154/99; PULSE 90; RESP 18; TEMP 35.8; O2SAT 99
--- NOTE | 2023-01-25 12:33 | ED.VIS.FALL ---
HPI HPI - Fall History of Present Illness Chief Complaint: Fall Informant: patient Narrative Narrative: Patient was visiting a family member upstairs and fell onto her right anterior side. She thinks she may have slipped on something. She has some right anterior lateral rib pain. She did not lose consciousness or hit her head but she did take a moment and felt like she got her breath taken away. She is feeling better but still has some soreness on the right anterior rib cage. It was recommended she be evaluated. She is not on any blood thinners. She denies any pains in the legs or arms. In fact she is up walking when I see her. 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) Type 2 diabetes mellitus Home Medications metformin 1,000 mg tablet 1,000 mg PO BID 09/19/18 [History Last Taken Unknown] simvastatin 10 mg tablet 10 mg PO QHS 07/12/19 [History Last Taken Unknown] levothyroxine 125 mcg tablet 62.5 mcg PO SUTUTHSA 03/18/20 [History Last Taken Unknown] losartan 25 mg tablet 12.5 mg PO DAILY 07/28/20 [History Last Taken Unknown] cholecalciferol (vitamin D3) 25 mcg (1,000 unit) capsule 25 mcg PO DAILY 05/24/21 [History Last Taken Unknown] diclofenac sodium 1 % topical gel (Voltaren Arthritis Pain) 4 g topical ONCE Knee pain #100 grams 05/24/21 [Rx Last Taken Unknown] multivitamin 1 tab PO DAILY 05/24/21 [History Last Taken Unknown] sertraline 25 mg tablet 25 mg PO DAILY 05/24/21 [History Last Taken Unknown] tretinoin 0.025 % topical gel 1 applic topical QHS 05/24/21 [History Last Taken Unknown] cyclobenzaprine 5 mg tablet 5 mg PO QHS PRN 02/07/22 [History Last Taken Unknown] nirmatrelvir 300 mg (150 mg x2)-ritonavir 100 mg tablet,dose pack(EUA) (Paxlovid) See Rx Instructions PO .COMPLEX #30 tabs 04/29/22 [Rx Last Taken Unknown] fluticasone fur. 100 mcg-umeclid 62.5 mcg-vilant 25 mcg inhalat.powder (Trelegy Ellipta) 1 inh inhalation DAILY #60 ea 08/09/22 [Rx Last Taken Unknown] albuterol sulfate 90 mcg/actuation aerosol inhaler (ProAir HFA) 1 inh inhalation Q4H PRN shortness of breath or wheezing #8.5 grams 11/22/22 [Rx Last Taken Unknown] Allergy/AdvReac Type Severity Reaction Status Date / Time pregabalin [From Lyrica] Allergy Intermediate Diarrhea Verified 01/25/23 12:00 adhesive tape Allergy Unknown uknown Verified 01/25/23 12:00 hydromorphone [From Dilaudid] Allergy Unknown unknown Verified 01/25/23 12:00 oxycodone Allergy Unknown unknown Verified 01/25/23 12:00 tramadol Allergy Unknown unknown Verified 01/25/23 12:00 gabapentin Allergy unknown Verified 01/25/23 12:00 Family History Mother CAD (coronary artery disease) Thyroid disorder CVA (cerebral vascular accident) Hypertension Son Asthma Sister Cancer skin cancer Father COPD (chronic obstructive pulmonary disease) Grandmother Thyroid disorder Surgical History History of cataract surgery History of colonoscopy (03/23/20) History of right below knee amputation (12/2006) Social History household members: spouse housing: house Smoking Status: Former smoker quit date: 08/23/06 pack-years: 26 alcohol intake: never substance use type: does not use what type of physical activity do you participate in: walking and other details: silver sneakers frequency: daily do you feel safe at home: Yes ROS ROS ED Constitutional Constitutional ED: Denies fever(s) Eyes Eyes: Denies change in vision Cardiovascular Cardiovascular: Reports chest pain Respiratory/Chest Respiratory/Chest: Denies cough or dyspnea Gastrointestinal Gastrointestinal: Denies abdominal pain, nausea or vomiting Musculoskeletal Musculoskeletal: Denies back pain or neck pain Integumentary Denies Abrasions or rash Neurologic Neurologic: Denies headache(s) Hematologic/Lymphatic Hematologic/Lymphatic: Denies easy bleeding or easy bruising EXAM Physical Exam Narrative Exam Narrative: Patient is awake and alert. She is actually up walking when I entered the room. She is mobile. HEENT shows no sign of trauma Neck is supple no pain with motion Lungs are clear bilaterally. She does have a little bit of tenderness at the anterior lateral rib cage in the anterior axillary line down low. Heart is regular. Not muffled. Abdomen is actually soft and completely nontender. The pain seems to be more up in the rib cage and not in the abdomen. No posterior spinal tenderness Legs and arms show no tenderness or pain with motion. Const Vital Signs: 01/25/23 11:58 Temperature 96.4 F L Temperature Source Temporal Pulse Rate 90 Respiratory Rate 18 Blood Pressure 154/99 H Blood Pressure Mean 117 Pulse Ox 99 Oxygen Delivery Method Room Air MDM MDM MDM Narrative Medical decision making narrative: Independent interpretation the patient's 5 view series of right rib and chest x-ray shows no acute pneumothorax or rib fracture that was noted. Final reading by radiology is no evidence of displaced rib fracture. Patient states she is more sore than painful. She is okay using [id number] meds ice and rest. I explained that not all rib fractures will show up on initial images. Radiography Diagnostic Testing: Clinical Impression(s) from Imaging Studies Ribs w/Chest X-Ray 01/25/23 12:39 IMPRESSION: No evidence of displaced rib fracture. Electronically Signed: Ton Lakhani MD at 13:15 EDT , Discharge Plan Triage Chief Complaint: Fall ED Provider: Bridger Neil Dx/Rx/DC Orders Clinical Impression: Contusion of right chest wall Instructions: ED Chest Wall Contusion Prescriptions: No Action metformin 1,000 mg tablet 1,000 mg PO BID simvastatin 10 mg tablet 10 mg PO QHS losartan 25 mg tablet 12.5 mg PO DAILY sertraline 25 mg tablet 25 mg PO DAILY tretinoin 0.025 % gel 1 applic topical QHS multivitamin Tablet 1 tab PO DAILY cholecalciferol (vitamin D3) 25 mcg (1,000 unit) capsule 25 mcg PO DAILY diclofenac sodium [Voltaren Arthritis Pain] 1 % gel 4 g topical ONCE Qty: 100 0RF cyclobenzaprine 5 mg tablet 5 mg PO QHS PRN Trelegy Ellipta 100-62.5-25 mcg blister with device 1 inh INHALATION DAILY Qty: 60 5RF Paxlovid (EUA) 300 mg (150 mg x 2)-100 mg tablet See Rx Instructions PO .COMPLEX Qty: 30 0RF Rx Instructions: take TWO 150 mg tablets of nirmatrelvir with ONE 100 mg tablet of ritonavir twice daily for 5 days PO levothyroxine 125 MCG tablet [facility] albuterol sulfate [ProAir HFA] 90 mcg/actuation HFA aerosol inhaler 1 inh inhalation Q4H PRN (Reason: shortness of breath or wheezing) Qty: 8.5 2RF Primary Care Provider: Mimi Martin Referrals: Mimi Martin DO [Primary Care Provider] - 3-5 Days if not improving Disposition Disposition: Home, Self Care
--- NOTE | 2023-01-25 12:39 | RAD_ITS ---
INDICATION: Right chest wall pain after injury. EXAMINATION/TECHNIQUE: X-RAY - XR Ribs Unilateral W/ PA Chest Min 3 Views. 5 views. COMPARISON: Chest x-ray December 18, 2017. CT chest July 09, 2020. Report of CTA chest August 02, 2021. FINDINGS: SOFT TISSUES: No chest wall emphysema. Abdominal aortic calcification. BONES: No displaced fracture. No sclerotic or destructive changes observed. LUNGS: No focal contusion. Interstitial scarring most prominent in the lung bases, unchanged. No pneumothorax. MEDIASTINUM: Normal size of the cardiac silhouette. Stable appearance of the pulmonary vasculature. Stable aortic arch calcification. RAD/Ribs Uni Min 3V w/PA Chest IMPRESSION: No evidence of displaced rib fracture. Electronically Signed: Ton Lakhani MD at 13:15 EDT ,
== END 2023-01-25 14:03 | disposition home or self-care (01) ==
PROVIDERS: Emergency Provider Emergency Medicine; PCP Family Medicine; Visit Provider Emergency Medicine
DX: S20.20XA Contusion of thorax, unspecified, initial encounter (principal); I25.10 Atherosclerotic heart disease of native coronary artery without angina pectoris; G47.33 Obstructive sleep apnea (adult) (pediatric); W19.XXXA Unspecified fall, initial encounter; Z87.891 Personal history of nicotine dependence
CPT/HCPCS: 71101; 99282

== ENCOUNTER → 2023-05-17 | Outpatient (CLI) | payer MEDICARE, MEDICAID, SELFPAY ==
[2023-05-17 12:49] LABS: Absolute Lymphocyte Count 1.24 X10^3/uL (0.83-4.51); Absolute Neutrophil Count 3.7 X10^3/uL (2.0-7.7); Basophil# 0.03 X10^3/uL; Basophil% 0.5 % (0-1); Eosinophils% 3.7 % (0-5); Hematocrit 33.8 % (37-47); Hemoglobin 11.3 g/dL (12.0-15.0); Lymphocyte # 1.24 X10^3/ul (0.83-4.51); Lymphocyte % 22.7 % (19-41); Mean Corp Hgb Conc 33.4 g/dL (32-36); Mean Corpuscular Hgb 32.3 pg (27.0-32.0); Mean Corpuscular Volume 96.6 fL (81-99); Mean Platelet Vol. 11.4 fl (6.2-12.0); Monocyte# 0.23 X10^3/uL; Monocyte% 4.2 % (0-10); NRBC Flagged by Analyzer 0 % (0-5); Neutrophil # 3.73 X10^3/uL (2.7-7.7); Neutrophil % 68.4 % (47-70); Platelet Count 204 K/mm3 (150-450); RBC Distribution Width CV 13.4 % (11.6-14.6); RBC Distribution Width SD 47.3 fl (35.1-43.9); White Blood Count 5.5 K/mm3 (4.4-11.0)
[2023-05-17 13:04] LABS: Vitamin B12 458 pg/mL (211-911)
[2023-05-17 13:30] LABS: Ferritin 36 ng/mL (8-252); Free T3 2.2 pg/mL (2.18-3.98); Thyroid Stim Hormone (TSH) 3.06 uIU/mL (0.358-3.74)
== END | disposition home or self-care (01) ==
PROVIDERS: PCP Family Medicine; Referring Provider Family Medicine; Visit Provider Family Medicine
DX: E03.9 Hypothyroidism, unspecified (principal); E53.8 Deficiency of other specified B group vitamins; D64.9 Anemia, unspecified; R53.83 Other fatigue
CPT/HCPCS: 36415; 82607; 82728; 84439; 84443; 84481; 85025

== ENCOUNTER → 2023-08-11 | Outpatient (CLI) | payer MEDICARE, MEDICAID, SELFPAY ==
[2023-08-11 10:19] LABS: Hematocrit 33.4 % (37-47); Hemoglobin 10.6 g/dL (12.0-15.0); Mean Corp Hgb Conc 31.7 g/dL (32-36); Mean Corpuscular Hgb 30.7 pg (27.0-32.0); Mean Corpuscular Volume 96.8 fL (81-99); Mean Platelet Vol. 11.1 fl (6.2-12.0); Platelet Count 192 K/mm3 (150-450); RBC Distribution Width CV 13.4 % (11.6-14.6); RBC Distribution Width SD 47.6 fl (35.1-43.9); Red Blood Count 3.45 M/mm3 (4.2-5.4); White Blood Count 4.4 K/mm3 (4.4-11.0)
[2023-08-11 11:01] LABS: Albumin, Serum 3.4 g/dL (3.2-5.0); BUN 33 mg/dL (7-18); BUN/Creat Ratio 25.2 RATIO (10-20); Chloride 109 mmol/L (98-107); Creatinine, Serum 1.31 mg/dL (0.55-1.02); EST Glomerular Filtration Rate 44 mL/min (>60); Est Glom Filt Rate - Afr Amer 53 mL/min (>60); Glucose 141 mg/dL (74-106); Phosphorus 3.3 mg/dL (2.5-4.9); Sodium Level 140 mmol/L (136-145)
[2023-08-14 09:40] LABS: Vitamin B12 466 pg/mL (211-911)
[2023-08-14 09:44] LABS: Cholesterol 173 mg/dL (200); Ferritin 44 ng/mL (8-252); Free T3 2.4 pg/mL (2.18-3.98); High Density Lipoprotein 50 mg/dL; Iron 56 ug/dL (50-170); T4 Free Direct 1.23 ng/dL (0.76-1.46); Thyroid Stim Hormone (TSH) 0.46 uIU/mL (0.358-3.74); Triglycerides 227 mg/dL; Very Low Density Lipoprotein 45 mg/dL (5-40)
== END | disposition home or self-care (01) ==
PROVIDERS: PCP Family Medicine; Visit Provider Internal Medicine Nephrology
DX: E03.9 Hypothyroidism, unspecified (principal); E11.22 Type 2 diabetes mellitus with diabetic chronic kidney disease; E11.21 Type 2 diabetes mellitus with diabetic nephropathy; N18.32 Chronic kidney disease, stage 3b; E53.8 Deficiency of other specified B group vitamins; D50.9 Iron deficiency anemia, unspecified; E78.5 Hyperlipidemia, unspecified
CPT/HCPCS: 36415; 80061; 80069; 82607; 82728; 83540; 84439; 84443; 84481; 85027

== ENCOUNTER → 2023-08-14 | Outpatient (CLI) | payer MEDICARE, MEDICAID, SELFPAY ==
--- NOTE | 2023-08-14 07:09 | BI_ITS ---
MAMMOGRAPHY - BILATERAL SCREENING REASON FOR EXAM: Female, 58 years old. Routine annual screening examination. PERTINENT HISTORY: Non-contributory. TECHNIQUE: Digital bilateral breast jayme (3D mammographic acquisition) in the CC and MLO projections. 2-D mediolateral oblique (MLO) and craniocaudad (CC) views of both breasts were obtained. CAD: Full Field Digital Mammography with Computer Added Detection was performed. COMPARISON: Comparison is made with prior study August 11, 2022 and August 02, 2021. FINDINGS: Breast Composition: The breasts are almost entirely fatty. There are no dominant masses or suspicious calcifications. No other significant abnormalities are identified. There has been no significant change since the prior study. BI/SCRN MAMM (CAD)W/JAYME BILAT IMPRESSION: Stable bilateral screening mammogram. Yearly follow-up mammogram recommended. (A) ASSESSMENT CATEGORY: BIRADS Category 1: Negative. A letter regarding these results will be sent to the patient by the facility within 30 days. Approximately 10% of breast cancers are not detected by mammography. A normal mammogram should not delay biopsy of a clinically suspicious abnormality. [id number] Electronically Signed: Amado Mayen MD at 9:07 EDT ,
== END | disposition home or self-care (01) ==
LOC: OPBI 07:07
PROVIDERS: PCP Family Medicine; Referring Provider Family Medicine; Visit Provider Family Medicine
DX: Z12.31 Encounter for screening mammogram for malignant neoplasm of breast (principal)
CPT/HCPCS: 77063; 77067

== ENCOUNTER → 2024-01-10 | Outpatient (CLI) | payer MEDICARE, MEDICAID, SELFPAY ==
[2024-01-10 11:30] LABS: Free T3 2.3 pg/mL (2.18-3.98); T4 Free Direct 1.23 ng/dL (0.76-1.46); Thyroid Stim Hormone (TSH) 2.08 uIU/mL (0.358-3.74)
[2024-01-10 12:27] LABS: Vitamin B12 1131 pg/mL (211-911)
[2024-01-10 13:31] LABS: Hemoglobin A1c 5.9 % (3.8-5.6)
== END | disposition home or self-care (01) ==
PROVIDERS: PCP Family Medicine; Referring Provider Family Medicine; Visit Provider Family Medicine
DX: E11.9 Type 2 diabetes mellitus without complications (principal); E03.9 Hypothyroidism, unspecified; E53.8 Deficiency of other specified B group vitamins
CPT/HCPCS: 36415; 82607; 83036; 84439; 84443; 84481

== ENCOUNTER → 2024-05-06 | Outpatient (CLI) | payer MEDICARE, SELFPAY ==
[2024-05-06 10:49] LABS: Vitamin B12 > 2000 pg/mL (211-911); Vitamin D,25 Hydroxy 54.1 ng/mL
[2024-05-06 11:12] LABS: Anion Gap 10 (5-15); BUN 32 mg/dL (7-18); BUN/Creat Ratio 20.9 RATIO (10-20); Calcium,Total 9.2 mg/dL (8.5-10.1); Chloride 105 mmol/L (98-107); Creatinine, Serum 1.53 mg/dL (0.55-1.02); EST Glomerular Filtration Rate 37 mL/min (>60); Est Glom Filt Rate - Afr Amer 44 mL/min (>60); Ferritin 68 ng/mL (8-252); Glucose 105 mg/dL (74-106); Iron 63 ug/dL (50-170); Potassium 3.7 mmol/L (3.5-5.1); Sodium Level 139 mmol/L (136-145); T4 Free Direct 1.11 ng/dL (0.76-1.46); Thyroid Stim Hormone (TSH) 2.56 uIU/mL (0.358-3.74)
== END | disposition home or self-care (01) ==
PROVIDERS: PCP Family Medicine; Referring Provider Family Medicine; Visit Provider Family Medicine
DX: E03.9 Hypothyroidism, unspecified (principal); E11.22 Type 2 diabetes mellitus with diabetic chronic kidney disease; N18.31 Chronic kidney disease, stage 3a; E55.9 Vitamin D deficiency, unspecified; E53.8 Deficiency of other specified B group vitamins; D50.9 Iron deficiency anemia, unspecified
CPT/HCPCS: 36415; 80048; 82306; 82607; 82728; 83540; 84439; 84443

== ENCOUNTER → 2024-05-27 | Outpatient (CLI) | payer MEDICARE, MEDICAID, SELFPAY ==
[2024-05-27 10:44] LABS: Microalbumin,Random Urine 43.8 mg/L (NO RANGE EST.); Microalbumin:Creatinine Ratio 48.7 mg/g CRE (<30 mg/g CRE)
== END | disposition home or self-care (01) ==
LOC: MTLAB 07:08
PROVIDERS: PCP Family Medicine; Referring Provider Family Medicine; Visit Provider Family Medicine
DX: E11.22 Type 2 diabetes mellitus with diabetic chronic kidney disease (principal); N18.31 Chronic kidney disease, stage 3a
CPT/HCPCS: 82043; 82570

== ENCOUNTER → 2024-06-03 | Outpatient (CLI) | payer MEDICARE, MEDICAID, SELFPAY ==
--- NOTE | 2024-06-03 12:43 | US_ITS ---
STUDY: RENAL ULTRASOUND - COMPLETE REASON FOR EXAM: Female, 59 years old. ACUTE ON CHRONIC KIDNEY DISEASE TECHNIQUE: Ultrasound evaluation of the kidneys was performed with real-time and static henson-scale imaging. COMPARISON: 08/22/2022. FINDINGS: RIGHT KIDNEY: Normal location of the right kidney, which is normal in size. The right kidney measures 10.7 x 6.4 x 5.2 cm. There is focal scarring of the renal cortex. The renal cortex measures 1.4 cm. There is a 2.3 cm cyst. There is a 6 mm nonobstructing stone. There is no right hydronephrosis. DISTAL RIGHT URETER: There is non-visualization of the distal right ureter. There is no demonstrated right ureterovesical junction calculus. There is a visualized right ureteral jet. LEFT KIDNEY: Normal location of the left kidney, which is normal in size. The left kidney measures 10.4 x 4.8 x 5.1 cm. There is focal scarring of the renal cortex. The renal cortex measures 1.3 cm. There are cysts measuring 1.7, 2.1, and 2.3 cm. There is a renal stone measuring 5 mm There is no left hydronephrosis. DISTAL LEFT URETER: There is non-visualization of the distal left ureter. There is no demonstrated left ureterovesical junction calculus. There is a visualized left ureteral jet. BLADDER: The distended urinary bladder has volume of 246 ml. There is a normal wall thickness of the distended urinary bladder. There is no demonstrated mass within the urinary bladder. There are no demonstrated bladder calculi. US/Kidney and Bladder IMPRESSION: No acute abnormality. Bilateral cortical scarring. Grossly stable renal cysts. Bilateral nonobstructing stones. Electronically Signed: Tony Jimenez MD at 23:01 EDT ,
== END | disposition home or self-care (01) ==
LOC: US 12:43
PROVIDERS: PCP Family Medicine; Referring Provider Family Medicine; Visit Provider Family Medicine
DX: N18.32 Chronic kidney disease, stage 3b (principal)
CPT/HCPCS: 76770

== ENCOUNTER → 2024-08-15 | Outpatient (CLI) | payer MEDICARE, MEDICAID, SELFPAY ==
--- OUTSIDE RECORDS SUMMARY | 2024-08-15 08:25 | XMS RPT_ITS | CCD ---
Author Organization [facility] Care Team Providers Care Clay Washer Name Role Phone MIMI VALLES Primary Care Unavailable Allergies Allergy Classification Reported Allergen(s) Allergy Type Date of Onset Reaction(s) Facility Adhesive Tape (1 source) Adhesive Tape Substance Allergy 6 Rash [facility] Anti-Epileptic Agents (1 source) gabapentin Drug Allergy 4 Diarrhea [facility] Opioid Agonists (3 sources) HYDROmorphone Drug Allergy 6 Rash, Vomiting [facility] pregabalin (1 source) pregabalin Drug Allergy 4 Diarrhea [facility] (1 source) Adhesive Tape; Translations: [ADHESIVE TAPE (ROSINS)] Propensity to adverse reactions (disorder) 6 [facility] Repository (1 source) HYDROmorphone; Translations: [HYDROMORPHONE (BULK)] Drug Allergy 6 [facility] Repository (1 source) oxyCODONE; Translations: [OXYCODONE HCL] Drug Allergy 6 [facility] Repository (1 source) traMADol; Translations: [TRAMADOL] Drug Allergy 6 [facility] Repository Medications Current Medications Medication Drug Class(es) Dates Sig (Normalized) Sig (Original) [id number] 200 actuat albuterol 0.09 mg/actuat metered dose inhaler (1 source) beta2-Adrenergic Agonist Start: 03-09-2017 take 2 puff(s) by inhalation every four hours as needed for wheezing VENTOLIN HFA 90 mcg/actuation inhaler INHALE 2 PUFFS INSTRUCTED EVERY 4 HOURS NEEDED FOR SHORTNESS OF BREATH OR WHEEZING 54 g 3 03/09/2017 Active aspirin 81 mg oral tablet (1 source) Platelet Aggregation Inhibitor, Nonsteroidal Anti-inflammatory Drug Start: 02-23-2011 take 1 tablet by mouth once daily Aspirin 81 mg ORAL Tab Indications: Type II or unspecified type diabetes mellitus without mention of complication, not stated as uncontrolled Take 1 tablet by mouth once daily. 30 tablet 11 02/23/2011 Active Budesonide / formoterol (1 source) Corticosteroid, beta2-Adrenergic Agonist Start: 03-31-2017 take 2 puff(s) by inhalation twice daily budesonide-formotero l (SYMBICORT) 160-4.5 mcg/actuation inhaler Inhale 2 Puffs as instructed twice daily. 3 Inhaler 3 03/31/2017 Active chlorpheniramine maleate 4 mg oral tablet (1 source) Histamine-1 Receptor Antagonist Start: 03-01-2017 take 1 tablet by mouth every six hours chlorpheniramine (ALLER-CHLOR) 4 mg tablet Indications: Chronic ALFONSO (middle ear effusion), right Take 1 tablet by mouth every 6 hours. 20 tablet 0 03/01/2017 Active COMPOUNDED PRESCRIPTION (1 source) Start: 05-28-2014 COMPOUNDED PRESCRIPTION Left foot brace, arch support. [employer] Dx DM 2 1 Device 0 05/28/2014 Active CPAP (1 source) Start: 08-10-2011 CPAP Indications: Obstructive sleep apnea (adult) (pediatric) 1 Device. 15 CM H2O WITH A 20 MINUTE RAMP, CHIN STRAP, HUMIDITY. LIFETIME SUPPLIES. Dx Code 327.23 1 Units 0 08/10/2011 Active ERGOCALCIFEROL, VITAMIN D2, (VITAMIN D ORAL) (1 source) take 1000 [IU] by mouth once daily ERGOCALCIFEROL, VITAMIN D2, (VITAMIN D ORAL) Take 1,000 Units by mouth once daily. 0 Active 30 actuat fluticasone furoate 0.1 mg/actuat / umeclidinium 0.0625 mg/actuat / vilanterol 0.025 mg/actuat dry powder inhaler (1 source) Anticholinergic, Corticosteroid, beta2-Adrenergic Agonist Start: 02-26-2024 TRELEGY ELLIPTA 100-62.5-25 mcg inhalation powder glimepiride 1 mg oral tablet (1 source) Sulfonylurea Start: 03-17-2024 glimepiride (AMARYL) 1 mg tablet levothyroxine sodium 0.125 mg oral tablet (1 source) l-Thyroxine Start: 03-24-2017 levothyroxine (SYNTHROID) 125 mcg tablet TAKES 1 TABLET FOUR DAYS PER WEEK AND 1/2 TABLET THREE DAYS PER WEEK. 72 tablet 3 03/24/2017 Active losartan potassium 25 mg oral tablet (1 source) Angiotensin 2 Receptor Sai Start: 03-24-2024 losartan (COZAAR) 25 mg tablet meclizine hydrochloride 12.5 mg oral tablet (1 source) Antiemetic Start: 03-01-2017 take 2 tablets by mouth three times daily meclizine (ANTIVERT) 12.5 mg tab Indications: Vertigo Take 2 tablets by mouth three times daily. 20 tablet 0 03/01/2017 Active metFORMIN hydrochloride 1000 mg oral tablet (1 source) Biguanide Start: 09-19-2017 metFORMIN (GLUCOPHAGE) 1,000 mg tablet TAKE 1 TABLET TWICE DAILY 180 tablet 1 09/19/2017 Active predniSONE 10 mg oral tablet (1 source) Start: 03-25-2024 End: 04-03-2024 predniSONE (DELTASONE) 10 mg tablet Indications: Swelling of eyelid, unspecified laterality , Insect bite of head, unspecified part, initial encounter Take 4 tabs daily for 3 days, then 2 tabs daily for 3 days, then 1 tab daily for 3 days with food. 21 tablet 0 03/25/2024 04/03/2024 Active raNITIdine 150 mg oral tablet (1 source) Histamine-2 Receptor Antagonist Start: 12-18-2015 take 1 tablet by mouth twice daily ranitidine (ZANTAC) 150 mg tablet Take 1 tablet by mouth twice daily. 180 tablet 3 12/18/2015 Active simvastatin 10 mg oral tablet (1 source) HMG-CoA Reductase Inhibitor Start: 09-19-2017 simvastatin (ZOCOR) 10 mg tablet TAKE 1 TABLET EVERY DAY AT BEDTIME 90 tablet 1 09/19/2017 Active Zinc (1 source) ZINC ORAL Take 5 0 mg by mouth. 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; Translations: [Malignant neoplasm of long bones of unspecified lower limb] Onset: 09-11-2006 03-09-2009 Chronic Diabetes mellitus without complication (2 sources) Type 2 diabetes mellitus without complication; Translations: [Type 2 diabetes mellitus without complications] Onset: 05-04-2009 Resolved: 12-27-2013 12-27-2013 Chronic Diseases of white blood cells (1 source) Other drug-induced agranulocytosis; Translations: [Drug induced neutropenia] Onset: 10-06-2006 10-06-2006 Chronic Disorders of lipid metabolism (1 source) Hyperlipidemia; Translations: [Hyperlipidemia, unspecified] Onset: 07-07-2014 07-07-2014 Chronic Essential hypertension (1 source) Hypertensive disorder; Translations: [Essential (primary) hypertension] Onset: 05-04-2009 05-31-2016 Chronic Menopausal disorders (1 source) Postmenopausal bleeding; Translations: [Postmenopausal bleeding] Onset: 12-27-2013 12-27-2013 Chronic Nutritional deficiencies (1 source) Vitamin D deficiency; Translations: [Vitamin D deficiency, unspecified] Onset: 03-09-2010 03-09-2010 Chronic Other eye disorders (1 source) Swelling of eyelid; Translations: [Edema of unspecified eye, unspecified eyelid] 03-25-2024 Episodic Other nutritional; endocrine; and metabolic disorders (1 source) Body mass index 30+ - obesity; Translations: [Body mass index (BMI) 39.0-39.9, adult] Onset: 12-27-2014 12-27-2014 Chronic Residual codes; unclassified (1 source) Obstructive sleep apnea syndrome; Translations: [Obstructive sleep apnea (adult) (pediatric)] Onset: 08-10-2011 10-18-2021 Chronic Superficial injury; contusion (1 source) Insect bite of head; Translations: [Insect bite (nonvenomous) of unspecified part of head, initial encounter] 03-25-2024 Episodic Thyroid disorders (2 sources) Toxic multinodular goiter; Translations: [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 storm] Onset: 06-26-2009 06-26-2009 Chronic Past or Other Problems Problem Classification Problem Date Documented Date Episodic/Chronic Complications of surgical procedures or medical care (1 source) Mucositis following therapy; Translations: [Oral mucositis (ulcerative) due to other drugs] Onset: 11-13-2006 11-13-2006 Episodic Other lower respiratory disease (1 source) Disorder of lung; Translations: [Other disorders of lung] Onset: 10-02-2006 03-09-2009 Episodic Other nervous system disorders (1 source) Abnormal gait; Translations: [Unspecified abnormalities of gait and mobility] Onset: 07-27-2007 07-27-2007 Episodic Other nutritional; endocrine; and metabolic disorders (1 source) Obesity; Translations: [Obesity, unspecified] Onset: 08-10-2011 Resolved: 12-27-2014 12-27-2014 Chronic Results Test Name Value Interpretation Reference Range Facil itwero CNOVon 03-25-2024 CNOV Office Visit (UCWSTR ) LYNDA BRADLEY ([id number]) 1965 F Date Time Provider Department 03/25/24 8:15 AM MELANY SAEZ [facility] During your visit today, we recorded the following information about you: Temperature Pulse Respiration Blood pressure 97.9 degrees 90/minute 16/minute 142/70 Weight 98.8 kg Melany Saez APRN.CNP 03/25/2024 8:11 AM Signed ASSESSMENT/PLAN: 1. Swelling of eyelid, unspecified laterality - ICD9: 374.82, ICD10: H02.849 (primary diagnosis) - PREDNISONE 10 MG TABLET - continue cool compresses/ice packs 2. Insect bite of head, unspecified part, initial encounter - ICD9: 910.4, E906.4, ICD10: S00.96XA, W57.XXXA - PREDNISONE 10 MG TABLET - antibiotic ointment over bite area. - Follow-up with your PCP in 3-5 days if symptoms have not improved or sooner if symptoms worsen - Discussed red flags and need for immediate medical evaluation if any occur. - Discussed supportive care treatment with fluids, rest and analgesia. - Discussed expected course of illness ANDIE Ramsey Kathy, APRN.CNP 03/25/2024 8:15 AM Signed Subjective Eye Problem Pertinent negatives include no chills, fever, rash or sore throat. Lynda Mark Anthony Bradley is a 58 year old female who presents with bilateral eyelid swelling. She was bitten or stung by an insect Rickey night (2 days ago) above her right eyebrow. The next morning she had swelling of the right upper eyelid. It has now spread across the bridge of her nose and involves the left upper eyelid. She has used ice packs and put hydrocortisone cream over insect bite. She denies eye pain, visual changes, shortness of breath or trouble swallowing. No fever at home. Review of Systems Constitutional: Negative for chills and fever. HENT: Negative for sore throat. Respiratory: Negative for shortness of breath. Skin: Negative for itching and rash. BP 142/70 Pulse 90 Temp 36.6 ?C (97.9 ?F) Resp 16 Wt 98.8 kg (217 lb 13 oz) LMP 09/02/2011 SpO2 95% BMI 41.16 kg/m? 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 ALLERGIES Dilaudid [Hydromorphone (Bulk)], Adhesive Tape (Rosins), Gabapentin, Lyrica [Pregabalin], Oxycontin [Oxycodone Hcl], and Tramadol MEDICATIONS TRELEGY ELLIPTA 100-62.5-25 mcg inhalation powder glimepiride (AMARYL) 1 mg tablet losartan (COZAAR) 25 mg tablet simvastatin (ZOCOR) 10 mg tablet TAKE 1 TABLET EVERY DAY AT BEDTIME levothyroxine (SYNTHROID) 125 mcg tablet TAKES 1 TABLET FOUR DAYS PER WEEK AND 1/2 TABLET THREE DAYS PER WEEK. VENTOLIN HFA 90 mcg/actuation inhaler INHALE 2 PUFFS INSTRUCTED EVERY 4 HOURS NEEDED FOR SHORTNESS OF BREATH OR WHEEZING chlorpheniramine (ALLER-CHLOR) 4 mg tablet Take 1 tablet by mouth every 6 hours. ranitidine (ZANTAC) 150 mg tablet Take 1 tablet by mouth twice daily. COMPOUNDED PRESCRIPTION Left foot brace, arch support. [employer] Dx DM 2 blood sugar diagnostic (FREESTYLE LITE STRIPS) test strip TEST BLOOD SUGARS DAILY. 250.00 ERGOCALCIFEROL, VITAMIN D2, (VITAMIN D ORAL) Take 1,000 Units by mouth once daily. CPAP 1 Device. 15 CM H2O WITH A 20 MINUTE RAMP, CHIN STRAP, HUMIDITY. LIFETIME SUPPLIES. Dx Code 327.23 ZINC ORAL Take 50 mg by mouth. predniSONE (DELTASONE) 10 mg tablet Take 4 tabs daily for 3 days, then 2 tabs daily for 3 days, then 1 tab daily for 3 days with food. metFORMIN (GLUCOPHAGE) 1,000 mg tablet TAKE 1 TABLET TWICE DAILY (Patient not taking: Reported on 03/25/2024) budesonide-formoterol (SYMBICORT) 160-4.5 mcg/actuation inhaler Inhale 2 Puffs as instructed twice daily. (Patient not taking: Reported on 03/25/2024) meclizine (ANTIVERT) 12.5 mg tab Take 2 tablets by mouth three times daily. (Patient not taking: Reported on 05/28/2019 ) Aspirin 81 mg ORAL Tab Take 1 tablet by mouth once daily. FAMILY HISTORY Problem Relation Age of Onset COPD Father Osteoporosis Mother Heart Mother Murmur Thyroid Mother Heart Attack Mother 2 stents other (Elevated creatinine level) Sister Thyroid Maternal Grandmother Emphysema Paternal Grandmother Diabetes Paternal Grandfather Kidney Disease Paternal Aunt (more content not included)... Normal [facility] Vital Signs Date Time Vital Sign Value Performing Clinician Thaisi mariah 03-25-2024 08:02-0400 Body mass index (BMI) [Ratio] 41.16 kg/m2 Melany Saez APRN.CNP Work Phone: [facility] 03-25-2024 08:02-0400 Body temperature 97.9 [degF] Melany Saez APRN.CNP Work Phone: [facility] 03-25-2024 08:02-0400 Body weight 98.8 kg Melany Saez APRN.CNP Work Phone: [facility] 03-25-2024 08:02-0400 Diastolic blood pressure 70 mm[Hg] Melany Saez APRN.[employer] Work Phone: [facility] 03-25-2024 08:02-0400 Heart rate 90 /min Melany Saez APRN.[employer] Work Phone: [facility] 03-25-2024 08:02-0400 Respiratory rate 16 /min Melany Saez APRN.[employer] Work Phone: [facility] 03-25-2024 08:02-0400 SaO2% (BldA) [Mass fraction] 95 % Melany Saez APRN.CNP Work Phone: [facility] 03-25-2024 08:02-0400 Systolic blood pressure 142 mm[Hg] Melany Saez APRN.[employer] Work Phone: [facility] Encounters Encounter Date Encounter Type Care Provider Facility Start: 03-25-2024 End: 03-25-2024 ambulatory MIMI Sol VALLES Facility:[facility] Start: 03-25-2024 End: 03-25-2024 Patient encounter procedure Melany Saez APRN.CNP Work Phone: [facility] Comment on above: Swelling of eyelid, unspecified laterality (Primary Dx); Insect bite of head, unspecified part, initial encounter Procedures Date Procedure Procedure Detail Performing Clinician Start: 11-26-2015 Colonoscopy Melany Charles APRN.CNP Work Phone: Start: 07-27-2007 History of amputatio n of leg through tibia and fibula Status post below knee amputation Melany Saez APRN.[employer] Work Phone: Plan of Treatment Date Care Activity Detail Author Start: 11-26-2025 Screening for malign ant neoplasm of colon [facility] Start: 06-23-2024 Influenza vaccination Influenz a Vaccine (Season Ended) [facility] Start: 05-28-2024 Screening for malign ant neoplasm of cervix [facility] Start: 10-23-2023 Behavioral Health Screening Behavioral Health Screening [facility] Start: 06-23-2023 Covid-19 Vaccine ( season) Covid-19 Vaccine ( season) [facility] Start: 2023 RSV Vaccine (1 - 1-d ose 60+ series) RSV Vaccine (1 - 1-dose 60+ series) [facility] Start: 05-28-2020 Screening for malign ant neoplasm of breast Mammogram Screening [facility] Start: 03-09-2019 Urine microalbumin profile DTaP,Tdap,Td Vaccine (2 - Td or Tdap) [facility] Start: 01-04-2018 Diabetic foot examination Diabetic F oot Exam [facility] Start: 08-04-2017 Hemoglobin A1c measurement HbA1C [facility] Start: 07-11-2017 Glaucoma screening Dilated Retinal E xam [facility] Start: 05-31-2017 Hepatitis B screening Urine Al bumin:Creatinine Ratio [facility] Start: 05-31-2017 Hepatitis B surface antibody level LDL Cholesterol [facility] Start: 01-23-2016 Screening for malign ant neoplasm of colon Fecal Occult Blood [facility] Start: 2013 Shingrix Vaccine (1 of 2) Shingrix V accine (1 of 2) [facility] Start: 07-27-2008 Pneumococcal vaccination Pneum ococcal Vaccine (2 of 2 - PCV) [facility] Start: 2008 Screening for malign ant neoplasm of colon [facility] Start: 1981 Annual PCP Team Chief Load Dispatcher christian Disease Visit Annual PCP Team Chronic Disease Visit [facility] Start: 1981 BP Controlled (<130/80) BP Controlle d (<130/80) [facility] Start: 1981 HIV screening HIV Screening [facility] Immunizations Immunization Date Immunization Notes Care Provider Agus ziegler 08-05-2019 influenza virus vacc ine, unspecified formulation Melany Saez APRN.[employer] Work Phone: [facility] 07-29-2015 influenza, seasonal, injectable Melany Saez APRN.CNP Work Phone: [facility] 07-17-2013 influenza virus vacc ine, unspecified formulation Melany Saez APRN.[employer] Work Phone: [facility] 08-06-2009 influenza virus vacc ine, unspecified formulation Melany Saez PET TECHNOLOGIST.[employer] Work Phone: [facility] 03-09-2009 tetanus toxoid, redu robert diphtheria toxoid, and acellular pertussis vaccine, adsorbed Melany Parikh-Milan PET TECHNOLOGIST.[employer] Work Phone: [facility] Work Phone: 08-22-2008 influenza virus vacc ine, unspecified formulation Melany Saez PET TECHNOLOGIST.[employer] Work Phone: [facility] Work Phone: 08-21-2007 influenza virus vacc ine, unspecified formulation Melany Parikh-Milan PET TECHNOLOGIST.[employer] Work Phone: [facility] Work Phone: 07-27-2007 pneumococcal polysaccharide vaccine, 23 valent Melany Saez PET TECHNOLOGIST.[employer] Work Phone: [facility] 09-27-2006 influenza virus vacc ine, unspecified formulation Melany Saez PET TECHNOLOGIST.[employer] Work Phone: [facility] 09-27-2006 pneumococcal polysaccharide vaccine, 23 valent Melany Parikh-Milan PET TECHNOLOGIST.[facility] Work Phone: [facility] Payers Date Payer Category Payer Medicaid [employer] [id number] 2023-Present [phone] [address] [place] [address] Medicaid [id number] 2023 Medicaid [id number] Social History Date Type Detail Facility Start: 03-25-[facility]24 [facility] End: 09-08-2006 History of tobacco use Current smoker [facility] End: 09-08-2006 History of tobacco use Cigarette Smoker [facility] Start: 09-27-2020 End: 03-25-2024 Cigarettes smoked current (pack per day) - Reported 2 [facility] Start: 03-25-2024 Tobacco use and exposure Smoke less tobacco non-user [facility] Start: 03-25-2024 Alcohol intake Current non-dr federal appellate law clerk of alcohol (finding) [facility] Start: 09-27-2020 End: 03-25-2024 Tobacco use panel [facility] National Score (1-10 0), lower number is lower risk Not on file [facility] Start: 1965 Sex Assigned At Not on file [facility] Medical Equipment Procedure Code Equipment Code Equipment Origin al Text Equipment Identifier Dates Dev Cncptv Essur e Perm - [id number] Start: 10-27-2011 TEST BLOOD SUGAR S DAILY. 250.00 [id number] Start: 12-13-2013 Progress note 03-25-2024 Note Date & Type Note Facility 03-25-2024 Note HNO ID: [id number] Author: MELANY SAEZ APRN.[employer] Service: ? Author Type: Nurse Practitioner Type: Progress Notes Filed: 03/25/2024 08:15 Note Text: Subjective Eye Problem Pertinent negatives include no chills, fever, rash or sore throat. Lynda Bradley is a 58 year old female who presents with bilateral eyelid swelling. She was bitten or stung by an insect Rickey night (2 days ago) above her right eyebrow. The next morning she had swelling of the right upper eyelid. It has now spread across the bridge of her nose and involves the left upper eyelid. She has used ice packs and put hydrocortisone cream over insect bite. She denies eye pain, visual changes, shortness of breath or trouble swallowing. No fever at home. Review of Systems Constitutional: Negative for chills and fever. HENT: Negative for sore throat. Respiratory: Negative for shortness of breath. Skin: Negative for itching and rash. BP 142/70 Pulse 90 Temp 36.6 ?C (97.9 ?F) Resp 16 Wt 98.8 kg (217 lb 13 oz) LMP 09/02/2011 SpO2 95% BMI 41.16 kg/m? 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) PAST SURGICAL HISTORY OF 10/27/11 Sterilization - Essure procedure PAST SURGICAL HISTORY OF wisdom tooth extraction PAST SURGICAL HISTORY OF port acath right- removed. ALLERGIES Dilaudid [Hydromorphone (Bulk)], Adhesive Tape (Rosins), Gabapentin, Lyrica [Pregabalin], Oxycontin [Oxycodone Hcl], and Tramadol MEDICATIONS TRELEGY ELLIPTA 100-62.5-25 mcg inhalation powder glimepiride (AMARYL) 1 mg tablet losartan (COZAAR) 25 mg tablet simvastatin (ZOCOR) 10 mg tablet TAKE 1 TABLET EVERY DAY AT BEDTIME levothyroxine (SYNTHROID) 125 mcg tablet TAKES 1 TABLET FOUR DAYS PER WEEK AND 1/2 TABLET THREE DAYS PER WEEK. VENTOLIN HFA 90 mcg/actuation inhaler INHALE 2 PUFFS INSTRUCTED EVERY 4 HOURS NEEDED FOR SHORTNESS OF BREATH OR WHEEZING chlorpheniramine (ALLER-CHLOR) 4 mg tablet Take 1 tablet by mouth every 6 hours. ranitidine (ZANTAC) 150 mg tablet Take 1 tablet by mouth twice daily. COMPOUNDED PRESCRIPTION Left foot brace, arch support. [employer] Dx DM 2 blood sugar diagnostic (FREESTYLE LITE STRIPS) test strip TEST BLOOD SUGARS DAILY. 250.00 ERGOCALCIFEROL, VITAMIN D2, (VITAMIN D ORAL) Take 1,000 Units by mouth once daily. CPAP 1 Device. 15 CM H2O WITH A 20 MINUTE RAMP, CHIN STRAP, HUMIDITY. LIFETIME SUPPLIES. Dx Code 327.23 ZINC ORAL Take 50 mg by mouth. predniSONE (DELTASONE) 10 mg tablet Take 4 tabs daily for 3 days, then 2 tabs daily for 3 days, then 1 tab daily for 3 days with food. metFORMIN (GLUCOPHAGE) 1,000 mg tablet TAKE 1 TABLET TWICE DAILY (Patient not taking: Reported on 03/25/2024) budesonide-formoterol (SYMBICORT) 160-4.5 mcg/actuation inhaler Inhale 2 Puffs as instructed twice daily. (Patient not taking: Reported on 03/25/2024) meclizine (ANTIVERT) 12.5 mg tab Take 2 tablets by mouth three times daily. (Patient not taking: Reported on 05/28/2019 ) Aspirin 81 mg ORAL Tab Take 1 tablet by mouth once daily. FAMILY HISTORY Problem Relation Age of Onset COPD Father Osteoporosis Mother Heart Mother Murmur Thyroid Mother Heart Attack Mother 2 stents other (Elevated creatinine level) Sister Thyroid Maternal Grandmother Emphysema Paternal Grandmother Diabetes Paternal Grandfather Kidney Disease Paternal Aunt Social History Tobacco Use Smoking status: Former Packs/day: 2.00 Years: 25.00 Additional pack years: 0.00 Total pack years: 50.00 Types: Cigarettes Quit date: 09/08/2006 Years since quittin.5 Smokeless tobacco: Never Substance Use Topics Alcohol use: No Drug use: No Objective Physical Exam Vitals and nursing note reviewed. Constitutional: General: She is not in acute distress. Appearance: Normal appearance. She is not ill-appearing. HENT: Head: Mouth/Throat: Mouth: Mucous membranes are moist. Pharynx: Oropharynx is clear. No pharyngeal swelling or uvula swelling. Eyes: General: Gaze aligned appropriately. No allergic shiner. Right eye: No discharge. Left eye: No discharge. Conjunctiva/sclera: Right eye: Right conjunctiva is not injected. Left eye: Left conjunctiva is not injected. Cardiovascular: Rate and Rhythm: Normal rate. Pulmonary: Effort: Pulmonary effort is normal. Skin: General: Skin is warm and dry. Findings: No erythema or rash. Neurologica (more content not included)... [facility] History of Present illness Narrative 03-25-2024 Melany Seaz, JERAD.[facility] - 03/25/2024 8:11 AM EDT Note Date & Type Note Facility 03-25-2024 History of Presen t illness Narrative Images from the original note were not included. Subjective Eye Problem Pertinent negatives include no chills, fever, rash or sore throat. Lynda Bradley is a 58 year old female who presents with bilateral eyelid swelling. She was bitten or stung by an insect Rickey night (2 days ago) above her right eyebrow. The next morning she had swelling of the right upper eyelid. It has now spread across the bridge of her nose and involves the left upper eyelid. She has used ice packs and put hydrocortisone cream over insect bite. She denies eye pain, visual changes, shortness of breath or trouble swallowing. No fever at home. Review of Systems Constitutional: Negative for chills and fever. HENT: Negative for sore throat. Respiratory: Negative for shortness of breath. Skin: Negative for itching and rash. 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 ALLERGIES Dilaudid [Hydromorphone (Bulk)], Adhesive Tape (Rosins), Gabapentin, Lyrica [Pregabalin], Oxycontin [Oxycodone Hcl], and Tramadol MEDICATIONS TRELEGY ELLIPTA 100-62.5-25 mcg inhalation powder glimepiride (AMARYL) 1 mg tablet losartan (COZAAR) 25 mg tablet simvastatin (ZOCOR) 10 mg tablet TAKE 1 TABLET EVERY DAY AT BEDTIME levothyroxine (SYNTHROID) 125 mcg tablet TAKES 1 TABLET FOUR DAYS PER WEEK AND 1/2 TABLET THREE DAYS PER WEEK. VENTOLIN HFA 90 mcg/actuation inhaler INHALE 2 PUFFS INSTRUCTED EVERY 4 HOURS NEEDED FOR SHORTNESS OF BREATH OR WHEEZING chlorpheniramine (ALLER-CHLOR) 4 mg tablet Take 1 tablet by mouth every 6 hours. ranitidine (ZANTAC) 150 mg tablet Take 1 tablet by mouth twice daily. COMPOUNDED PRESCRIPTION Left foot brace, arch support. [employer] Dx DM 2 blood sugar diagnostic (FREESTYLE LITE STRIPS) test strip TEST BLOOD SUGARS DAILY. 250.00 ERGOCALCIFEROL, VITAMIN D2, (VITAMIN D ORAL) Take 1,000 Units by mouth once daily. CPAP 1 Device. 15 CM H2O WITH A 20 MINUTE RAMP, CHIN STRAP, HUMIDITY. LIFETIME SUPPLIES. Dx Code 327.23 ZINC ORAL Take 50 mg by mouth. predniSONE (DELTASONE) 10 mg tablet Take 4 tabs daily for 3 days, then 2 tabs daily for 3 days, then 1 tab daily for 3 days with food. metFORMIN (GLUCOPHAGE) 1,000 mg tablet TAKE 1 TABLET TWICE DAILY (Patient not taking: Reported on 03/25/2024) budesonide-formoterol (SYMBICORT) 160-4.5 mcg/actuation inhaler Inhale 2 Puffs as instructed twice daily. (Patient not taking: Reported on 03/25/2024) meclizine (ANTIVERT) 12.5 mg tab Take 2 tablets by mouth three times daily. (Patient not taking: Reported on 05/28/2019 ) Aspirin 81 mg ORAL Tab Take 1 tablet by mouth once daily. FAMILY HISTORY Problem Relation Age of Onset COPD Father Osteoporosis Mother Heart Mother Murmur Thyroid Mother Heart Attack Mother 2 stents other (Elevated creatinine level) Sister Thyroid Maternal Grandmother Emphysema Paternal Grandmother Diabetes Paternal Grandfather Kidney Disease Paternal Aunt Social History Tobacco Use Smoking status: Former Packs/day: 2.00 Years: 25.00 Additional pack years: 0.00 Total pack years: 50.00 Types: Cigarettes Quit date: 09/08/2006 Years since quittin.5 Smokeless tobacco: Never Substance Use Topics Alcohol use: No Drug use: No Objective Physical Exam Vitals and nursing note reviewed. Constitutional: General: She is not in acute distress. Appearance: Normal appearance. She is not ill-appearing. HENT: Head: Mouth/Throat: Mouth: Mucous membranes are moist. Pharynx: Oropharynx is clear. No pharyngeal swelling or uvula swelling. Eyes: General: Gaze aligned appropriately. No allergic shiner. Right eye: No discharge. Left eye: No discharge. Conjunctiva/sclera: Right eye: Right conjunctiva is not injected. Left eye: Left conjunctiva is not injected. Cardiovascular: Rate and Rhythm: Normal rate. Pulmonary: Effort: Pulmonary effort is normal. Skin: General: Skin is warm and dry. Findings: No erythema or rash. Neurological: Mental Status: She is alert. ASSESSMENT/PLAN: 1. Swelling of eyelid, unspecified laterality - ICD9: 374.82, ICD10: H02.849 (primary diagnosis) - PREDNISONE 10 MG TABLET - continue cool compresses/ice packs 2. Insect bite of head, unspecified part, initial encounter - ICD9: 910.4, E906.4, ICD10: S00.96XA, W57.XXXA - PREDNISONE 10 MG TABLET - antibiotic ointment over bite area. - Follow-up with your PCP in 3-5 days if symptoms have not improved or sooner if symptoms worsen - Discussed red flags and need for immediate medical evaluation if any occur. - Discussed supportive care treatment with fluids, rest and analgesia. - Discussed expected course of illness Melany Saez APRN.[employer] CAMERAMAN documented in this encounter [facility] Instructions 03-25-2024 Patient Instructions Note Date & Type Note Facility 03-25-2024 Instructions Melany Saez APRN.[employer] - 03/25/2024 8:11 AM EDT ASSESSMENT/PLAN: 1. Swelling of eyelid, unspecified laterality - ICD9: 374.82, ICD10: H02.849 (primary diagnosis) - PREDNISONE 10 MG TABLET - continue cool compresses/ice packs 2. Insect bite of head, unspecified part, initial encounter - ICD9: 910.4, E906.4, ICD10: S00.96XA, W57.XXXA - PREDNISONE 10 MG TABLET - antibiotic ointment over bite area. - Follow-up with your PCP in 3-5 days if symptoms have not improved or sooner if symptoms worsen - Discussed red flags and need for immediate medical evaluation if any occur. - Discussed supportive care treatment with fluids, rest and analgesia. - Discussed expected course of illness Melany Saez APRN.[employer]ERAM[employer] documented in this encounter [facility] Evaluation note Note Date & Type Note Facility Evaluation note Diagnosis Swelling of eyelid, unspecified laterality- Primary Insect bite of head, unspecified part, initial encounter documented in this encounter [facility] Summary Purpose Family History No Family History Records Found Advance Directives No Advanced Directives Records Found Additional Source Comments INFORMATION SOURCE (unrecogn ized section and content) DATE CREATED AUTHOR 03/25/2024 [facility] Source Comments (unrecognize d section and content) In the event this informatio n is protected by the Federal Confidentiality of Alcohol and Drug Abuse Patient Records regulations: The Federal rules restrict any use of the information to criminally investigate or prosecute any alcohol or drug abuse patient.[facility] Reason for Visit (unrecogniz ed section and content) Reason Comments Eye Problem bilateral eye swelli ng, itching, bites x 1 day Care Teams (unrecognized sec tion and content) Clay Washer Relationship Specialty Start Date End Date Mimi Valles DO [address] [place] [address] PCP - General Family Medicine 09/19/17 FOR RECORDS PERTAINING TO PATIENTS WHO ARE OR HAVE BEEN ENROLLED IN A CHEMICAL DEPENDENCY/SUBSTANCEABUSE PROGRAM, SOME INFORMATION MAY BE OMITTED. This clinical summary was aggregated from multiple sources. Caution should be exercised in using it in the provision of clinical care. This summary normalizes information from multiple sources, and as a consequence, information in this document may materially change the coding, format and clinical context of patient data. In addition, data may be omitted in some cases. CLINICAL DECISIONS SHOULD BE BASED ON THE PRIMARY CLINICAL RECORDS. [employer] provides no warranty or guarantee of the accuracy or completeness of information in this document.
--- NOTE | 2024-08-15 08:26 | BI_ITS ---
MAMMOGRAPHY - BILATERAL SCREENING REASON FOR EXAM: Female, 59 years old. Routine annual screening examination. PERTINENT HISTORY: Non-contributory. TECHNIQUE: Digital bilateral breast jayme (3D mammographic acquisition) in the CC and MLO projections. 2-D mediolateral oblique (MLO) and craniocaudad (CC) views of both breasts were obtained. CAD: Full Field Digital Mammography with Computer Added Detection was performed. COMPARISON: Comparison is made with prior study dated August 14, 2023 and August 11, 2022. FINDINGS: Breast Composition: The breasts are almost entirely fatty. There is a 3.7 mm x 5 mm nodule in the upper lateral aspect of the right breast. Correlation with ultrasound recommended. No other significant abnormalities are identified. BI/SCRN MAMM (CAD)W/JAYME BILAT IMPRESSION: 3.7 mm x 5 mm nodule in the upper lateral aspect of the right breast as described. Correlation with ultrasound recommended. ASSESSMENT CATEGORY: BIRADS Category 0: Incomplete. Need additional imaging evaluation. A letter regarding these results will be sent to the patient by the facility within 30 days. Approximately 10% of breast cancers are not detected by mammography. A normal mammogram should not delay biopsy of a clinically suspicious abnormality. [id number] Electronically Signed: Amado Mayen MD at 9:38 EDT ,
[2024-08-15 08:36] LABS: Hematocrit 34.6 % (37-47); Hemoglobin 11.4 g/dL (12.0-15.0); Mean Corp Hgb Conc 32.9 g/dL (32-36); Mean Corpuscular Hgb 31.2 pg (27.0-32.0); Mean Corpuscular Volume 94.8 fL (81-99); Mean Platelet Vol. 10.3 fl (6.2-12.0); Platelet Count 189 K/mm3 (150-450); RBC Distribution Width CV 13.2 % (11.6-14.6); RBC Distribution Width SD 45.1 fl (35.1-43.9); Red Blood Count 3.65 M/mm3 (4.2-5.4); White Blood Count 7.1 K/mm3 (4.4-11.0)
[2024-08-15 10:58] LABS: Microalbumin,Random Urine 19.8 mg/L (NO RANGE EST.); Microalbumin:Creatinine Ratio 50.1 mg/g CRE (<30 mg/g CRE)
[2024-08-15 14:52] LABS: Albumin, Serum 3.7 g/dL (3.2-5.0); BUN 36 mg/dL (7-18); BUN/Creat Ratio 20.2 RATIO (10-20); Calcium,Total 9.2 mg/dL (8.5-10.1); Chloride 109 mmol/L (98-107); Creatinine, Serum 1.78 mg/dL (0.55-1.02); EST Glomerular Filtration Rate 31 mL/min (>60); Est Glom Filt Rate - Afr Amer 37 mL/min (>60); Ferritin 69 ng/mL (8-252); Glucose 155 mg/dL (74-106); Iron 64 ug/dL (50-170); Iron Binding Capacity,Total 308 ug/dL (250-450); PERCENT IRON SATURATION 20.8 % (15.0-55.0); Phosphorus 3.6 mg/dL (2.5-4.9); Potassium 3.8 mmol/L (3.5-5.1); Sodium Level 138 mmol/L (136-145)
== END | disposition home or self-care (01) ==
LOC: OPBI 08:05
PROVIDERS: PCP Family Medicine; Referring Provider Internal Medicine Nephrology; Visit Provider Family Medicine
DX: Z12.31 Encounter for screening mammogram for malignant neoplasm of breast (principal); E11.22 Type 2 diabetes mellitus with diabetic chronic kidney disease; E11.21 Type 2 diabetes mellitus with diabetic nephropathy; N18.32 Chronic kidney disease, stage 3b; D50.9 Iron deficiency anemia, unspecified
CPT/HCPCS: 36415; 77063; 77067; 80069; 82043; 82570; 82728; 83540; 83550; 85027

== ENCOUNTER → 2024-08-16 | Outpatient (CLI) | payer MEDICARE, MEDICAID, SELFPAY ==
--- OUTSIDE RECORDS SUMMARY | 2024-08-16 07:48 | XMS RPT_ITS | CCD ---
Author Organization [facility] Care Team Providers Care Senior Operations Manager Name Role Phone MIMI VALLES Primary Care Unavailable Allergies Allergy Classification Reported Allergen(s) Allergy Type Date of Onset Reaction(s) Facility Adhesive Tape (1 source) Adhesive Tape Substance Allergy 6 Rash [facility] Anti-Epileptic Agents (1 source) gabapentin Drug Allergy 4 Diarrhea [facility] Opioid Agonists (3 sources) HYDROmorphone Drug Allergy 6 Rash, Vomiting [facility] pregabalin (1 source) pregabalin Drug Allergy 4 Diarrhea [facility] (1 source) Adhesive Tape; Translations: [ADHESIVE TAPE (ROSINS)] Propensity to adverse reactions (disorder) 6 [facility] Repository (1 source) HYDROmorphone; Translations: [HYDROMORPHONE (BULK)] Drug Allergy 6 [facility] Repository (1 source) oxyCODONE; Translations: [OXYCODONE HCL] Drug Allergy 6 [facility] Repository (1 source) traMADol; Translations: [TRAMADOL] Drug Allergy 6 [facility] Repository Medications Current Medications Medication Drug Class(es) Dates Sig (Normalized) Sig (Original) [id number] 200 actuat albuterol 0.09 mg/actuat metered dose [...] COMPOUNDED PRESCRIPTION Left foot brace, arch support. [employer] Dx DM 2 1 Device 0 05/28/2014 [...] CNOV Office Visit (UCWSTR ) LYNDA BRADLEY ([id number]) 1965 F Date Time Provider Department 03/25/24 8:15 AM MELANY SAEZ [facility] During your visit today, we recorded the [...] COMPOUNDED PRESCRIPTION Left foot brace, arch support. [employer] Dx DM 2 blood sugar diagnostic (FREESTYLE [...] Paternal Aunt (more content not included)... Normal [facility] Vital Signs Date Time Vital Sign Value Performing Clinician Thaisi mariah 03-25-2024 08:02-0400 Body mass index (BMI) [Ratio] 41.16 kg/m2 Melany Saez APRN.CNP Work Phone: [facility] 03-25-2024 08:02-0400 Body temperature 97.9 [degF] Melany Saez APRN.CNP Work Phone: [facility] 03-25-2024 08:02-0400 Body weight 98.8 kg Melany Saez APRN.CNP Work Phone: [facility] 03-25-2024 08:02-0400 Diastolic blood pressure 70 mm[Hg] Melany Saez APRN.HEALTH SCIENCES MANAGER Work Phone: [facility] 03-25-2024 08:02-0400 Heart rate 90 /min Melany Saez APRN.HEALTH SCIENCES MANAGER Work Phone: [facility] 03-25-2024 08:02-0400 Respiratory rate 16 /min Melany Saez APRN.HEALTH SCIENCES MANAGER Work Phone: [facility] 03-25-2024 08:02-0400 SaO2% (BldA) [Mass fraction] 95 % Melany Saez APRN.CNP Work Phone: [facility] 03-25-2024 08:02-0400 Systolic blood pressure 142 mm[Hg] Melany Saez APRN.HEALTH SCIENCES MANAGER Work Phone: [facility] Encounters Encounter Date Encounter Type Care Provider Facility Start: 03-25-2024 End: 03-25-2024 ambulatory MIMI Sol VALLES Facility:[facility] Start: 03-25-2024 End: 03-25-2024 Patient encounter procedure Melany Saez APRN.CNP Work Phone: [facility] Comment on above: Swelling of eyelid, unspecified laterality (Primary Dx); Insect bite of head, unspecified part, initial encounter Procedures Date Procedure Procedure Detail Performing Clinician Start: 11-26-2015 Colonoscopy Melany Charles APRN.CNP Work Phone: Start: 07-27-2007 History of amputatio n of leg through tibia and fibula Status post below knee amputation Melany Saez APRN.HEALTH SCIENCES MANAGER Work Phone: Plan of Treatment Date Care Activity Detail Author Start: 11-26-2025 Screening for malign ant neoplasm of colon [facility] Start: 06-23-2024 Influenza vaccination Influenz a Vaccine (Season Ended) [facility] Start: 05-28-2024 Screening for malign ant neoplasm of cervix [facility] Start: 10-23-2023 Behavioral Health Screening Behavioral Health Screening [facility] Start: 06-23-2023 Covid-19 Vaccine ( season) Covid-19 Vaccine ( season) [facility] Start: 2023 RSV Vaccine (1 - 1-d ose 60+ series) RSV Vaccine (1 - 1-dose 60+ series) [facility] Start: 05-28-2020 Screening for malign ant neoplasm of breast Mammogram Screening [facility] Start: 03-09-2019 Urine microalbumin profile DTaP,Tdap,Td Vaccine (2 - Td or Tdap) [facility] Start: 01-04-2018 Diabetic foot examination Diabetic F oot Exam [facility] Start: 08-04-2017 Hemoglobin A1c measurement HbA1C [facility] Start: 07-11-2017 Glaucoma screening Dilated Retinal E xam [facility] Start: 05-31-2017 Hepatitis B screening Urine Al bumin:Creatinine Ratio [facility] Start: 05-31-2017 Hepatitis B surface antibody level LDL Cholesterol [facility] Start: 01-23-2016 Screening for malign ant neoplasm of colon Fecal Occult Blood [facility] Start: 2013 Shingrix Vaccine (1 of 2) Shingrix V accine (1 of 2) [facility] Start: 07-27-2008 Pneumococcal vaccination Pneum ococcal Vaccine (2 of 2 - PCV) [facility] Start: 2008 Screening for malign ant neoplasm of colon [facility] Start: 1981 Annual PCP Team Keg Inspector christian Disease Visit Annual PCP Team Chronic Disease Visit [facility] Start: 1981 BP Controlled (<130/80) BP Controlle d (<130/80) [facility] Start: 1981 HIV screening HIV Screening [facility] Immunizations Immunization Date Immunization Notes Care Provider Agus ziegler 08-05-2019 influenza virus vacc ine, unspecified formulation Melany Saez APRN.HEALTH SCIENCES MANAGER Work Phone: [facility] 07-29-2015 influenza, seasonal, injectable Melany Saez APRN.CNP Work Phone: [facility] 07-17-2013 influenza virus vacc ine, unspecified formulation Melany Saez APRN.HEALTH SCIENCES MANAGER Work Phone: [facility] 08-06-2009 influenza virus vacc ine, unspecified formulation Melany Saez SHOE MAKER.HEALTH SCIENCES MANAGER Work Phone: [facility] 03-09-2009 tetanus toxoid, redu robert diphtheria toxoid, and acellular pertussis vaccine, adsorbed Melany Parikh-Milan SHOE MAKER.HEALTH SCIENCES MANAGER Work Phone: [facility] Work Phone: 08-22-2008 influenza virus vacc ine, unspecified formulation Melany Saez SHOE MAKER.HEALTH SCIENCES MANAGER Work Phone: [facility] Work Phone: 08-21-2007 influenza virus vacc ine, unspecified formulation Melany Parikh-Milan SHOE MAKER.HEALTH SCIENCES MANAGER Work Phone: [facility] Work Phone: 07-27-2007 pneumococcal polysaccharide vaccine, 23 valent Melany Saez SHOE MAKER.HEALTH SCIENCES MANAGER Work Phone: [facility] 09-27-2006 influenza virus vacc ine, unspecified formulation Melany Saez SHOE MAKER.HEALTH SCIENCES MANAGER Work Phone: [facility] 09-27-2006 pneumococcal polysaccharide vaccine, 23 valent Melany Parikh-Milan SHOE MAKER.[facility] Work Phone: [facility] Payers Date Payer Category Payer Medicaid [employer] [id number] 2023-Present [phone] [address] [place] [address] Medicaid [id number] 2023 Medicaid [id number] Social History Date Type Detail Facility Start: 03-25-2024 [facility] End: 09-08-2006 History of tobacco use Current smoker [facility] End: 09-08-2006 History of tobacco use Cigarette Smoker [facility] Start: 09-27-2020 End: 03-25-2024 Cigarettes smoked current (pack per day) - Reported 2 [facility] Start: 03-25-2024 Tobacco use and exposure Smoke less tobacco non-user [facility] Start: 03-25-2024 Alcohol intake Current non-dr conference center coordinator of alcohol (finding) [facility] Start: 09-27-2020 End: 03-25-2024 Tobacco use panel [facility] National Score (1-10 0), lower number is lower risk Not on file [facility] Start: 1965 Sex Assigned At Not on file [facility] Medical Equipment Procedure Code Equipment Code Equipment Origin al Text Equipment Identifier Dates Dev Cncptv Essur e Perm - [id number] Start: 10-27-2011 TEST BLOOD SUGAR S DAILY. 250.00 [id number] Start: 12-13-2013 Progress note 03-25-2024 Note Date & Type Note Facility 03-25-2024 Note HNO ID: [id number] Author: MELANY SAEZ APRN.HEALTH SCIENCES MANAGER Service: ? Author Type: Nurse Practitioner Type: [...] 01/01/2007 right ESOPHAGOGASTRODUODENOSCOPY TRANSORAL DIAGNOSTIC 11/26/15 [place] [place] PAST SURGICAL HISTORY OF 10/27/11 Sterilization - [...] COMPOUNDED PRESCRIPTION Left foot brace, arch support. [employer] Dx DM 2 blood sugar diagnostic (FREESTYLE [...] or rash. Neurologica (more content not included)... [facility] History of Present illness Narrative 03-25-2024 Melany Saez, JERAD.[facility] - 03/25/2024 8:11 AM EDT Note Date [...] COMPOUNDED PRESCRIPTION Left foot brace, arch support. [employer] Dx DM 2 blood sugar diagnostic (FREESTYLE [...] Discussed expected course of illness Melany Saez APRN.HEALTH SCIENCES MANAGER documented in this encounter [facility] Instructions 03-25-2024 Patient Instructions Note Date & Type Note Facility 03-25-2024 Instructions Melany Saez APRN.HEALTH SCIENCES MANAGER - 03/25/2024 8:11 AM EDT ASSESSMENT/PLAN: 1. [...] Discussed expected course of illness Melany Saez APRN.HEALTH SCIENCES MANAGER documented in this encounter [facility] Evaluation note Note Date & Type Note Facility Evaluation note Diagnosis Swelling of eyelid, unspecified laterality- Primary Insect bite of head, unspecified part, initial encounter documented in this encounter [facility] Summary Purpose Family History No Family History Records Found Advance Directives No Advanced Directives Records Found Additional Source Comments INFORMATION SOURCE (unrecogn ized section and content) DATE CREATED AUTHOR 03/25/2024 [facility] Source Comments (unrecognize d section and content) In the event this informatio n is protected by the Federal Confidentiality of Alcohol and Drug Abuse Patient Records regulations: The Federal rules restrict any use of the information to criminally investigate or prosecute any alcohol or drug abuse patient.[facility] Reason for Visit (unrecogniz ed section and content) Reason Comments Eye Problem bilateral eye swelli ng, itching, bites x 1 day Care Teams (unrecognized sec tion and content) Senior Operations Manager Relationship Specialty Start Date End Date Mimi Vallse DO [address] [place] [address] PCP - General Family Medicine 09/19/17 FOR [...] BE BASED ON THE PRIMARY CLINICAL RECORDS. [employer] provides no warranty or guarantee of the accuracy or completeness of information in this document.
--- NOTE | 2024-08-16 07:50 | US_ITS ---
STUDY: ULTRASOUND BREAST - RIGHT REASON FOR EXAM: Female, 59 years old. Abnormal screening mammogram. TECHNIQUE: Axial and longitudinal images of the RIGHT breast were performed with a high resolution ultrasound transducer. # OF IMAGES: 32 COMPARISON: Comparison is made with prior study August 15, 2024. FINDINGS: RIGHT Breast: The upper outer quadrant of the right breast was examined with ultrasound. The mammographic abnormality corresponds to a 5 mm x 5 mm x 2 mm benign-appearing lymph node at the 11:00 position of the breast at 7 cm from the nipple. US/Breast Limited Unilateral IMPRESSION: The mammographic abnormality corresponds to a 5 mm x 5 mm x 2 mm benign-appearing appearing lymph node at the 11:00 position of the breast at 7 cm from the nipple. ASSESSMENT CATEGORY: BIRADS Category 2: Benign. A letter regarding these results will be sent to the patient by the facility within 30 days. Electronically Signed: Amado Mayen MD at 12:21 EDT ,
== END | disposition home or self-care (01) ==
LOC: OPUS 07:46
PROVIDERS: PCP Family Medicine; Referring Provider Family Medicine; Visit Provider Family Medicine
DX: R92.8 Other abnormal and inconclusive findings on diagnostic imaging of breast (principal)
CPT/HCPCS: 76642

== ENCOUNTER → 2024-09-09 | Outpatient (CLI) | payer MEDICARE, MEDICAID, SELFPAY ==
[2024-09-09 10:23] LABS: Hematocrit 37.8 % (37-47); Hemoglobin 12.4 g/dL (12.0-15.0); Mean Corp Hgb Conc 32.8 g/dL (32-36); Mean Corpuscular Hgb 31.3 pg (27.0-32.0); Mean Corpuscular Volume 95.5 fL (81-99); Mean Platelet Vol. 11.1 fl (6.2-12.0); Platelet Count 215 K/mm3 (150-450); RBC Distribution Width CV 13.4 % (11.6-14.6); Red Blood Count 3.96 M/mm3 (4.2-5.4); White Blood Count 7.3 K/mm3 (4.4-11.0)
[2024-09-09 10:39] LABS: Hemoglobin A1c 6.4 % (3.8-5.6)
[2024-09-09 10:50] LABS: Albumin, Serum 3.7 g/dL (3.2-5.0); BUN 36 mg/dL (7-18); BUN/Creat Ratio 21.8 RATIO (10-20); Chloride 108 mmol/L (98-107); Cholesterol 238 mg/dL (200); Creatinine, Serum 1.65 mg/dL (0.55-1.02); EST Glomerular Filtration Rate 34 mL/min (>60); Est Glom Filt Rate - Afr Amer 41 mL/min (>60); Ferritin 83 ng/mL (8-252); Glucose 151 mg/dL (74-106); High Density Lipoprotein 57 mg/dL; Iron 106 ug/dL (50-170); Iron Binding Capacity,Total 324 ug/dL (250-450); PERCENT IRON SATURATION 32.7 % (15.0-55.0); Phosphorus 2.9 mg/dL (2.5-4.9); Potassium 3.7 mmol/L (3.5-5.1); Sodium Level 138 mmol/L (136-145); Triglycerides 296 mg/dL; Very Low Density Lipoprotein 59 mg/dL (5-40)
== END | disposition home or self-care (01) ==
LOC: MTLAB 07:01
PROVIDERS: PCP Family Medicine; Referring Provider Internal Medicine Nephrology; Visit Provider Internal Medicine Nephrology
DX: E11.22 Type 2 diabetes mellitus with diabetic chronic kidney disease (principal); N18.32 Chronic kidney disease, stage 3b; D50.9 Iron deficiency anemia, unspecified; E78.5 Hyperlipidemia, unspecified
CPT/HCPCS: 36415; 80061; 80069; 82728; 83036; 83540; 83550; 85027

== ENCOUNTER → 2025-01-14 | Outpatient (CLI) | payer MEDICARE, MEDICAID, SELFPAY ==
[2025-01-14 11:55] LABS: ALB/GLOB Ratio 1.4 RATIO (0.9-2.4); AST(SGOT) 21 U/L (<=31); Alanine Aminotransfer ALT/SGPT 15 U/L (<=34); Albumin, Serum 3.9 g/dL (3.4-4.8); Alkaline Phosphatase 80 U/L (35-104); Anion Gap 13 (5-15); BUN 23 mg/dL (4-19); BUN/Creat Ratio 14.6 RATIO (10-20); Calcium,Total 8.9 mg/dL (7.6-11.0); Carbon Dioxide 20.3 mmol/L (21.0-32.0); Chloride 108 mmol/L (98-108); EST Glomerular Filtration Rate 36 (>60); Globulin 2.8 g/dL (2.2-4.2); Glucose 114 mg/dL (70-99); Potassium 3.9 mmol/L (3.3-5.1); Protein, Total 6.7 g/dL (5.9-8.4); Sodium Level 141 mmol/L (133-145); Total Bilirubin 0.46 mg/dL (0.00-1.30)
== END | disposition home or self-care (01) ==
LOC: MTLAB 07:25
PROVIDERS: PCP Family Medicine; Referring Provider Nurse Practitioner Family; Visit Provider Nurse Practitioner Family
DX: N17.9 Acute kidney failure, unspecified (principal)
CPT/HCPCS: 36415; 80053

== ENCOUNTER → 2025-04-10 | Outpatient (CLI) | payer MEDICARE, MEDICAID, SELFPAY ==
--- OUTSIDE RECORDS SUMMARY | 2025-04-10 07:08 | XMS RPT_ITS | CCD ---
Author Organization [facility] Care Team Providers Care Bulk Station Operator Name Role Phone Dr. Mimi Martin Primary Care Provider Dr. Mimi Martin Referring Provider YASH Cisse Attending Provider [phone] Dr. Eddy Chen Attending Provider [phone] Mimi Martin Primary Care Provider Dr. Mimi Martin Referring Provider [phone] Jacey CHIEF SCIENTIST, CHIEF SCIENTIST-C Richa Attending Provider MALYS, MIMI A Primary Care Unavailable Veronica DOMimi Primary Care Provider [phone] Dr. Mimi Martin DO Primary Care Provider [phone] Dr. Mimi Martin DO Referring Provider Janey Monteiro Attending Provider Dr. Alena Ahn DO Other Provider Matt DURÁN-Janey Lu Referring Provider Jacey DURÁN-CRicha Attending Provider Malys, Mimi Primary Care Unavailable Malys, Mimi Attending Unavailable Malys, Mimi Referring Unavailable Malys, Mimi Primary Care Unavailable Malys, Mimi Attending Unavailable Alena Ahn Referring Unavailable Malys, Mimi Attending Unavailable Malys, Mimi Primary Care Unavailable Malys, Mimi Referring Unavailable Malys, Mimi Primary Care Unavailable Malys, Mimi Consulting Unavailable Alena Ahn Attending Unavailable Alnea Ahn Referring Unavailable Malys, Mmii Primary Care Unavailable Malys, Mimi Attending Unavailable Malys, Mimi Referring Unavailable Malys, Mimi Primary Care Unavailable Alena Ahn Consulting Unavailable Matt, Janey Attending Unavailable Matt, Janey Referring Unavailable Malys, Mimi Referring Unavailable Malys, Mimi Attending Unavailable Malys, Mimi Primary Care Unavailable Malys, Mimi Primary Care Unavailable Matt, Janey Attending Unavailable Malys, Mimi Referring Unavailable Malys, Mimi Referring Unavailable Richa Mari NP Attending Unavailable Malys, Mimi Primary Care Unavailable Malys, Mimi Primary Care Unavailable Matt, Janey Attending Unavailable Malys, Mimi Referring Unavailable Malys, Mimi Referring Unavailable Malys, Mimi Primary Care Unavailable Malys, Mimi Attending Unavailable Allergies Allergy Classification Reported Allergen(s) Allergy Type Date of Onset Reaction(s) Facility Adhesive Tape (1 source) Adhesive Tape Substance Allergy 6 Rash [facility] Anti-Epileptic Agents (1 source) gabapentin Drug Allergy 4 Diarrhea [facility] Opioid Agonists (3 sources) HYDROmorphone Drug Allergy 6 Rash, Vomiting [facility] pregabalin (1 source) pregabalin Drug Allergy 4 Diarrhea [facility] (13 sources) Adhesive Tape; Translations: [adhesive tape] [facility] All[facility] 1 [facility] (12 sources) HYDROmorphone Drug Allergy 1 unknown, Hives [facility] (12 sources) oxyCODONE Drug Allergy 1 [facility] (12 sources) pregabalin Drug Allergy [address] [facility] (13 sources) traMADol; Translations: [TRAMADOL] Drug Allergy 6 [facility] (1 source) Adhesive Tape; Translations: [ADHESIVE TAPE (ROSINS)] Propensity to adverse reactions (disorder) 6 [facility] (1 source) HYDROmorphone; Translations: [HYDROMORPHONE (BULK)] Drug Allergy 6 [facility] (1 source) oxyCODONE; Translations: [OXYCODONE HCL] Drug Allergy 6 [facility] (3 sources) Lisinopril Drug Allergy 5 Cough [facility] (1 source) gabapentin Drug Allergy 5 [facility] (1 source) HYDROmorphone Drug Allergy 5 [facility] (1 source) Lisinopril Drug Allergy 5 [facility] (1 source) oxyCODONE Drug Allergy 5 [facility] (1 source) pregabalin Drug Allergy 5 [facility] (1 source) traMADol Drug Allergy 5 [facility] Medications Current Medications Medication Drug Class(es) Dates Sig (Normalized) Sig (Original) aspirin 81 mg oral tablet (1 source) Platelet Aggregation Inhibitor, Nonsteroidal Anti-inflammatory Drug Start: 02-23-2011 take 1 tablet by mouth once daily Aspirin 81 mg ORAL Tab Indications: Type II or unspecified type diabetes mellitus without mention of complication, not stated as uncontrolled Take 1 tablet by mouth once daily. 30 tablet 11 02/23/2011 Active chlorpheniramine maleate 4 mg oral tablet (1 source) Histamine-1 Receptor Antagonist Start: 03-01-2017 take 1 tablet by mouth every six hours chlorpheniramine (ALLER-CHLOR) 4 mg tablet Indications: Chronic ALFONSO (middle ear effusion), right Take 1 tablet by mouth every 6 hours. 20 tablet 0 03/01/2017 Active cholecalciferol 0.025 mg oral capsule (20 sources) Vitamin D Start: 01-17-2025 take 1 capsule by mouth once daily Cholecalciferol (Vitamin D3) 25 mcg (1,000 unit) capsule Active 50 ug PO DAILY January 17, 2025 3:40pm Start: 05-24-2021 End: 01-17-2025 take 1 capsule by mouth once daily Cholecalciferol (Vitamin D3) 25 mcg (1,000 unit) capsule Discontinued 25 ug PO DAILY May 24, 2021 12:00am January 17, 2025 3:43pm Start: 03-17-2020 End: 05-24-2021 take 1 capsule by mouth once daily Cholecalciferol (Vitamin D3) 25 mcg (1,000 unit) capsule Discontinued 2000 U PO DAILY March 17, 2020 12:00am May 24, 2021 2:56pm COMPOUNDED PRESCRIPTION (1 source) Start: 05-28-2014 COMPOUNDED PRESCRIPTION Left foot brace, arch support. [place] Dx DM 2 1 Device 0 05/28/2014 Active CPAP (1 source) Start: 08-10-2011 CPAP Indications: Obstructive sleep apnea (adult) (pediatric) 1 Device. 15 CM H2O WITH A 20 MINUTE RAMP, CHIN STRAP, HUMIDITY. LIFETIME SUPPLIES. Dx Code 327.23 1 Units 0 08/10/2011 Active empagliflozin 10 mg oral tablet (11 sources) Sodium-Glucose Cotransporter 2 Inhibitor Start: 09-11-2024 End: 02-26-2025 take 1 tablet by mouth once daily in the morning Empagliflozin (Jardiance) 10 mg tablet Active 10 mg PO EVERY MORNING February 26, 2025 8:03am Start: 09-11-2024 End: 09-11-2024 take 1 tablet by mouth once daily in the morning Empagliflozin (Jardiance) 25 mg tablet Discontinued 25 mg PO EVERY MORNING September 11, 2024 1:00am September 11, 2024 11:05am ERGOCALCIFEROL, VITAMIN D2, (VITAMIN D ORAL) (1 source) take 1000 [IU] by mouth once daily ERGOCALCIFEROL, VITAMIN D2, (VITAMIN D ORAL) Take 1,000 Units by mouth once daily. 0 Active ferrous sulfate 325 mg oral tablet (4 sources) Start: End: Ferrous Sulfate (Ferosul) 325 mg (65 mg iron) tablet Active 325 mg PO .Qweekly April 09, 2025 8:38am Rhiljoyztne-Yrjojgocc-Qr lanter (20 sources) Anticholinergic, Corticosteroid, beta2-Adrenergic Agonist Start: 5 Hivsxumtpdo-Oswhhtams-G ilanter (Trelegy Ellipta) 100-62.5-25 mcg blister with device Active 1 NMA INHALATION DAILY February 10, 2025 8:11am Start: 02-26-2024 TRELEGY ELLIPT A 100-62.5-25 mcg inhalation powder Start: 02-26-2024 End: 02-10-2025 Btlxgmabsxw-Tqvfmpqfu-Fsbhsh er (Trelegy Ellipta) 100-62.5-25 mcg blister with device Discontinued 1 NMA INHALATION DAILY February 26, 2024 8:20am February 10, 2025 8:12am Start: 02-26-2024 Fluticasone-Um eclidin-Vilanter (Trelegy Ellipta) 100-62.5-25 mcg blister with device Active 1 NMA INHALATION DAILY 3 February 26, 2024 8:20am Start: 01-24-2024 End: 02-26-2024 Eoottgstrtx-Tzkffkqzj-Xsvpci er (Trelegy Ellipta) 100-62.5-25 mcg blister with device Discontinued 1 NMA INHALATION DAILY January 24, 2024 8:12am February 26, 2024 8:20am Start: 02-08-2023 End: 01-24-2024 Nytnqkbirbe-Srftzlwvo-Jtpbnz er (Trelegy Ellipta) 100-62.5-25 mcg blister with device Discontinued 1 NMA INHALATION DAILY February 08, 2023 8:05am January 24, 2024 8:13am Start: 02-08-2023 Fluticasone-Um eclidin-Vilanter (Trelegy Ellipta) 100-62.5-25 mcg blister with device Active 1 INH INHALATION DAILY February 08, 2023 8:05am Start: 08-09-2022 End: 02-08-2023 Ewjlrhfodqq-Hgdqmmdlg-Pzggkz er (Trelegy Ellipta) 100-62.5-25 mcg blister with device Discontinued 1 NMA INHALATION DAILY August 09, 2022 6:53am February 08, 2023 8:05am Start: 08-09-2022 End: 02-08-2023 Inljqphbuet-Iujxotuag-Xmfjzk er (Trelegy Ellipta) 100-62.5-25 mcg blister with device Discontinued 1 INH INHALATION DAILY August 09, 2022 6:53am February 08, 2023 8:05am Start: 08-09-2022 Fluticasone-Um eclidin-Vilanter (Trelegy Ellipta) 100-62.5-25 mcg blister with device Active 1 INH INHALATION DAILY August 09, 2022 5:53am Start: 08-09-2022 Fluticasone-Um eclidin-Vilanter (Trelegy Ellipta) 100-62.5-25 mcg blister with device Active 1 INH INHALATION DAILY 60 August 09, 2022 6:53am Start: 02-07-2022 End: 08-09-2022 Wpipzchdpef-Mwuutrxfa-Xtztks er (Trelegy Ellipta) 100-62.5-25 mcg blister with device Discontinued 1 NMA INHALATION DAILY 60 February 07, 2022 8:12am August 09, 2022 6:53am Start: 02-07-2022 End: 08-09-2022 Jpntvrnmqus-Siqxkywom-Hvrugw er (Trelegy Ellipta) 100-62.5-25 mcg blister with device Discontinued 1 INH INHALATION DAILY 60 February 07, 2022 7:12am August 09, 2022 5:53am Start: 02-07-2022 End: 08-09-2022 Wkxkoumxvlb-Foskrsbpl-Ehbysh er (Trelegy Ellipta) 100-62.5-25 mcg blister with device Discontinued 1 INH INHALATION DAILY 60 February 07, 2022 8:12am August 09, 2022 6:53am Start: 08-06-2021 End: 02-07-2022 Xfsrdwdobgp-Qbatqcxte-Klyuhe er (Trelegy Ellipta) 100-62.5-25 mcg blister with device Discontinued 1 NMA INHALATION DAILY 60 August 06, 2021 11:25am February 07, 2022 8:13am Start: 08-06-2021 End: 02-07-2022 Drwtmuqwpyy-Qocufmtrd-Uqrygp er (Trelegy Ellipta) 100-62.5-25 mcg blister with device Discontinued 1 INH INHALATION DAILY 60 August 06, 2021 10:25am February 07, 2022 7:13am Start: 08-06-2021 End: 02-07-2022 Payzxjothbz-Xuvxarjen-Wvhcta er (Trelegy Ellipta) 100-62.5-25 mcg blister with device Discontinued 1 INH INHALATION DAILY 60 August 06, 2021 11:25am February 07, 2022 8:13am Start: 08-06-2021 Fluticasone-Um eclidin-Vilanter (Trelegy Ellipta) 100-62.5-25 mcg blister with device Active 1 INH INHALATION DAILY 60 August 06, 2021 11:25am Start: 11-03-2020 End: 08-06-2021 Bxsuorhbqnp-Ymttsajvu-Hmumek er (Trelegy Ellipta) 100-62.5-25 mcg blister with device Discontinued 1 INH INHALATION DAILY 60 November 03, 2020 8:53am August 06, 2021 11:25am Start: 11-03-2020 End: 08-06-2021 Ydthhmakxxu-Tifufizan-Upaoqj er (Trelegy Ellipta) 100-62.5-25 mcg blister with device Discontinued 1 NMA INHALATION DAILY 60 November 03, 2020 1:00am August 06, 2021 11:25am Start: 11-03-2020 End: 08-06-2021 Wrsuktqfexg-Mawwplabp-Keouhf er (Trelegy Ellipta) 100-62.5-25 mcg blister with device Discontinued 1 INH INHALATION DAILY 60 November 03, 2020 12:00am August 06, 2021 10:25am Start: 11-03-2020 End: 08-06-2021 Qbpjwymuzjv-Zbvvahfad-Sibcwp er (Trelegy Ellipta) 100-62.5-25 mcg blister with device Discontinued 1 INH INHALATION DAILY 60 November 03, 2020 1:00am August 06, 2021 11:25am levothyroxine sodium 0.125 mg oral tablet (20 sources) l-Thyroxine Start: 08-22-2023 End: 01-06-2025 take 1 tablet by mouth once daily Levothyroxine 125 mcg tablet Active 125 ug PO DAILY January 06, 2025 11:14am .5 on monday Start: 03-18-2020 End: 08-22-2023 Levothyroxine 125 MCG tablet Discontinued 62.5 ug PO every Monday, , , Sat March 18, 2020 12:00am August 22, 2023 7:44am Start: 03-18-2020 End: 08-22-2023 take 62.5 ug by mouth once Levothyroxine Discontinued 62.5 MCG PO every Monday, , , Sat March 18, 2020 12:00am August 22, 2023 7:44am Start: 07-12-2019 End: 05-24-2021 Levothyroxine 125 mcg capsul e Discontinued 125 ug PO MOWEJuly 12, 2019 12:00am May 24, 2021 2:55pm Start: 03-24-2017 levothyroxine (SYNTHROID) 125 mcg tablet TAKES 1 TABLET FOUR DAYS PER WEEK AND 1/2 TABLET THREE DAYS PER WEEK. 72 tablet 3 03/24/2017 Active losartan potassium 25 mg oral tablet (16 sources) Angiotensin 2 Receptor Sai Start: 02-26-2024 take 1 tablet by mouth once daily Losartan 25 mg tablet Active 25 mg PO DAILY February 26, 2024 7:58am Start: 07-28-2020 End: 02-26-2024 Losartan 25 mg tablet Discon tinued 12.5 mg PO DAILY July 28, 2020 12:00am February 26, 2024 8:01am Start: 07-28-2020 take 12.5 mg by mout h once daily Losartan Active 12.5 MG PO DAILY July 28, 2020 12:00am meclizine hydrochloride 12.5 mg oral tablet (1 source) Antiemetic Start: 03-01-2017 take 2 tablets by mouth three times daily meclizine (ANTIVERT) 12.5 mg tab Indications: Vertigo Take 2 tablets by mouth three times daily. 20 tablet 0 03/01/2017 Active Multivitamin preparation (9 sources) Start: 05-24-2021 take 1 tablet by mouth once daily Multivitamin Active 1 TABLET PO DAILY May 24, 2021 2:54pm Start: 05-24-2021 take 1 tablet by ana maria th once daily Multivitamin Active 1 TABLET PO DAILY May 23, 2021 11:00pm Start: 05-24-2021 take 1 tablet by ana maria th once daily Multivitamin Active 1 TABLET PO DAILY May 24, 2021 12:00am Polyethylene Glycol 3350 (Miralax) 17 gram/dose powder (3 sources) Start: 01-06-2025 Polyethylene G lycol 3350 (Miralax) 17 gram/dose powder Active 4 g PO ONCE 119 January 06, 2025 12:00am predniSONE 10 mg oral tablet (1 source) [...] twice daily. 180 tablet 3 12/18/2015 Active Semaglutide (11 sources) Start: 02-10-2025 Semaglutide (Ozempic) 0.25 mg or 0.5 mg (2 mg/3 mL) pen injector Active 0.5 mg SC EVERY WEEK 3 February 10, 2025 12:00am Start: 01-16-2025 End: 01-17-2025 Semaglutide (Ozempic) 0.25 m g or 0.5 mg (2 mg/3 mL) pen injector Discontinued 0.5 mg SC EVERY WEEK 3 January 16, 2025 4:11pm January 17, 2025 3:42pm Start: 12-20-2024 End: 01-16-2025 Semaglutide (Ozempic) 0.25 m g or 0.5 mg (2 mg/3 mL) pen injector Discontinued 0.5 mg SC EVERY WEEK 3 December 20, 2024 5:56pm January 16, 2025 4:11pm Start: 10-01-2024 End: 12-20-2024 Semaglutide (Ozempic) 0.25 m g or 0.5 mg (2 mg/3 mL) pen injector Discontinued 0.5 mg SC EVERY WEEK 3 October 01, 2024 1:00am December 20, 2024 5:56pm vitamin b12 0.5 mg oral tablet (4 sources) Vitamin B12 Start: 08-22-2023 take 1 tablet by mouth once daily Cyanocobalamin (Vitamin B-12) 500 mcg tablet Active 500 ug PO DAILY August 22, 2023 12:00am Zinc (1 source) ZINC ORAL Take 5 0 mg by mouth. 0 Active zinc acetate 50 mg oral capsule (3 sources) Start: 02-26-2024 take 1 capsule by mouth once daily Zinc Acetate 50 mg (zinc) capsule Active 50 mg PO DAILY February 26, 2024 12:00am zinc oxide 100 mg/ml topical cream (3 sources) Start: 09-12-2024 Zinc Oxide 10 % cream Active 1 NMA TOPICAL THREE TIMES A DAY September 12, 2024 1:00am Completed/Discontinued Medications Medication Drug Class(es) Dates Sig (Normalized) Sig (Original) [id number] actuat albuterol 0.09 mg/actuat metered dose inhaler (20 sources) beta2-Adrenergic Agonist Start: 08-09-2022 End: 03-05-2025 Albuterol Sulfate 90 mcg/actuation HFA aerosol inhaler Discontinued 1 NMA INHALATION Q4H as needed for shortness of breath or wheezing 8.October 14, 2024 9:49am March 05, 2025 8:04am Start: 08-09-2022 End: 11-29-2023 Albuterol Sulfate (Proair Hf a) 90 mcg/actuation HFA aerosol inhaler Active 1 INH INHALATION Q4H 8.November 29, 2023 8:52am Start: 12-14-2021 Albuterol Sulf ate (Proair Hfa) 90 mcg/actuation HFA aerosol inhaler Active 1 INH INHALATION ONCE 8.December 14, 2021 11:27am Start: 12-09-2021 End: 12-14-2021 Albuterol Sulfate (Proair Hf a) 90 mcg/actuation HFA aerosol inhaler Discontinued 1 INH INHALATION ONCE 8.December 09, 2021 10:56am December 14, 2021 11:27am Start: 08-06-2021 End: 12-09-2021 Albuterol Sulfate (Proair Hf a) 90 mcg/actuation HFA aerosol inhaler Discontinued 1 INH INHALATION ONCE 8.August 06, 2021 11:25am December 09, 2021 10:56am Start: 05-24-2021 End: 08-09-2022 Albuterol Sulfate (Proair Hf a) 90 mcg/actuation HFA aerosol inhaler Discontinued 1 NMA INHALATION ONCE 8.December 14, 2021 11:27am February 07, 2022 8:13am Start: 05-24-2021 End: 08-09-2022 Albuterol Sulfate (Proair Hf a) 90 mcg/actuation HFA aerosol inhaler Discontinued 1 INH INHALATION ONCE 8.5 December 14, 2021 11:27am February 07, 2022 8:13am Start: 03-17-2020 End: 05-24-2021 Albuterol Sulfate (Ventolin Hfa) 90 mcg/actuation HFA aerosol inhaler Discontinued 2 NMA INHALATION Q4H as needed for Sob &/Or Wheezing March 17, 2020 8:10am May 24, 2021 2:55pm Start: 03-17-2020 End: 05-24-2021 take 1 puff(s) by inhalation every four hours Albuterol Sulfate (Ventolin Hfa) 90 mcg/actuation HFA aerosol inhaler Discontinued 2 PUFF INHALATION Q4H March 17, 2020 8:10am May 24, 2021 2:55pm Start: 07-12-2019 End: 03-17-2020 Albuterol Sulfate (Ventolin Hfa) 90 mcg/actuation HFA aerosol inhaler Discontinued 2 NMA INHALATION EVERY 6 HOURS July 12, 2019 12:00am March 17, 2020 8:12am Start: 07-12-2019 End: 03-17-2020 take 1 puff(s) by inhalation every six hours Albuterol Sulfate (Ventolin Hfa) 90 mcg/actuation HFA aerosol inhaler Discontinued 2 PUFF INHALATION EVERY 6 HOURS July 12, 2019 12:00am March 17, 2020 8:12am Start: 03-09-2017 take 2 puff(s) by in halation every four hours as needed for wheezing VENTOLIN HFA 90 mcg/actuation inhaler INHALE 2 PUFFS INSTRUCTED EVERY 4 HOURS NEEDED FOR SHORTNESS OF BREATH OR WHEEZING 54 g 3 03/09/2017 Active Budesonide-Formoterol (13 sources) Corticosteroid, beta2-Adrenergic Agonist Start: 07-28-2020 End: 01-27-2021 take 1 puff(s) by inhalation twice daily Budesonide-Formoterol (Symbicort) 160-4.5 mcg/actuation HFA aerosol inhaler Discontinued 2 PUFF INHALATION TWICE A DAY July 28, 2020 9:11am January 27, 2021 9:08am Start: 07-28-2020 End: 01-27-2021 Budesonide-Formoterol (Symbi alfonso) 160-4.5 mcg/actuation HFA aerosol inhaler Discontinued 2 NMA INHALATION TWICE A DAY July 28, 2020 12:00am January 27, 2021 9:08am Start: 07-28-2020 End: 01-27-2021 take 1 puff(s) by inhalation twice daily Budesonide-Formoterol (Symbicort) 160-4.5 mcg/actuation HFA aerosol inhaler Discontinued 2 PUFF INHALATION TWICE A DAY July 27, 2020 11:00pm January 27, 2021 8:08am Start: 07-28-2020 End: 01-27-2021 take 1 puff(s) by inhalation twice daily Budesonide-Formoterol (Symbicort) 160-4.5 mcg/actuation HFA aerosol inhaler Discontinued 2 PUFF INHALATION TWICE A DAY July 28, 2020 12:00am January 27, 2021 9:08am Start: 03-31-2017 take 2 puff(s) by in halation twice daily budesonide-formoterol (SYMBICORT) 160-4.5 mcg/actuation inhaler Inhale 2 Puffs as instructed twice daily. 3 Inhaler 3 03/31/2017 Active calcium carbonate 1500 mg oral tablet (12 sources) Start: 03-18-2020 End: 05-24-2021 take 1 tablet by mouth once daily Calcium Carbonate 600 MG tablet Discontinued 600 mg PO DAILY March 18, 2020 12:00am May 24, 2021 2:56pm cyclobenzaprine hydrochloride 5 mg oral tablet (20 sources) Muscle Relaxant Start: 05-24-2021 End: 02-26-2024 take 1 tablet by mouth at bedtime as needed Cyclobenzaprine 5 mg tablet Discontinued 5 mg PO AT BEDTIME as needed February 07, 2022 7:52am February 26, 2024 7:58am diclofenac sodium 0.01 mg/mg topical gel (12 sources) Nonsteroidal Anti-inflammatory Drug Start: 05-24-2021 End: 02-08-2023 Diclofenac Sodium (Voltaren Arthritis Pain) 1 % gel Discontinued 4 g TOPICAL ONCE May 24, 2021 12:00am February 08, 2023 7:51am Start: 05-24-2021 End: 02-08-2023 Diclofenac Sodium (Voltaren Arthritis Pain) 1 % gel Discontinued 4 GM TOPICAL ONCE May 24, 2021 12:00am February 08, 2023 7:51am 0.5 ml dulaglutide 3 mg/ml auto-injector (3 sources) GLP-1 Receptor Agonist Start: 01-17-2025 End: 02-10-2025 Dulaglutide (Trulicity) 1.5 mg/0.5 mL pen injector Discontinued 1.5 mg SC EVERY WEEK January 17, 2025 12:00am February 10, 2025 7:35am ferrous fumarate 325 mg oral tablet (4 sources) Start: 08-22-2023 End: 02-26-2024 take 1 tablet by mouth once daily Ferrous Fumarate 325 mg (106 mg iron) tablet Discontinued 325 mg PO DAILY August 22, 2023 12:00am February 26, 2024 7:58am gabapentin 300 mg oral capsule (12 sources) Anti-epileptic Agent Start: 07-12-2019 End: 07-12-2019 take 1 capsule by mouth twice daily Gabapentin 300 mg capsule Discontinued 300 mg PO TWICE A DAY July 12, 2019 12:00am July 12, 2019 10:34am glimepiride 1 mg oral tablet (7 sources) Sulfonylurea Start: 01-17-2025 End: 04-09-2025 take 1 tablet by mouth once daily Glimepiride 1 mg tablet Discontinued 1 mg PO daily January 17, 2025 12:00am April 09, 2025 8:38am Start: 02-26-2024 End: 09-11-2024 take 1 tablet by mouth once daily Glimepiride 1 mg tablet Discontinued 1 mg PO DAILY February 26, 2024 12:00am September 11, 2024 10:26am metFORMIN hydrochloride 1000 mg oral tablet (13 sources) Biguanide Start: 09-19-2017 End: 02-26-2024 take 1 tablet by mouth twice daily Metformin 1,000 mg tablet Discontinued 1000 mg PO TWICE A DAY September 19, 2018 1:00am February 26, 2024 7:59am Multivitamin tablet (6 sources) Start: 01-17-2025 End: 04-09-2025 Multivitamin tablet Discontinued 1 {tbl} PO daily January 17, 2025 12:00am April 09, 2025 8:38am Start: 01-17-2025 Multivitamin t ablet Active 1 {tbl} PO daily January 17, 2025 12:00am Start: 05-24-2021 End: 01-06-2025 Multivitamin tablet Disconti nued 1 {tbl} PO DAILY May 24, 2021 12:00am January 06, 2025 11:15am Nirmatrelvir-Ritonavir (11 sources) Start: 04-29-2022 End: 02-08-2023 Nirmatrelvir-Ritonavir (Paxl ovid (Eua)) 300 mg (150 mg x 2)-100 mg tablet Discontinued 0 PO .COMPLEX April 29, 2022 12:00am February 08, 2023 7:51am take TWO 150 mg tablets of nirmatrelvir with ONE 100 mg tablet of ritonavir twice daily for 5 days PO Start: 04-29-2022 Nirmatrelvir-R itonavir (Paxlovid (Eua)) 300 mg (150 mg x 2)- 100 mg tablet Active 0 PO .COMPLEX April 28, 2022 11:00pm take TWO 150 mg tablets of nirmatrelvir with ONE 100 mg tablet of ritonavir twice daily for 5 days PO Start: 04-29-2022 Nirmatrelvir-R itonavir (Paxlovid (Eua)) 300 mg (150 mg x 2)- 100 mg tablet Active 0 PO .COMPLEX April 29, 2022 12:00am take TWO 150 mg tablets of nirmatrelvir with ONE 100 mg tablet of ritonavir twice daily for 5 days PO nitrofurantoin, macrocrystals 25 mg / nitrofurantoin, monohydrate 75 mg oral capsule (12 sources) Nitrofuran Antibacterial Start: 09-19-2018 End: 07-12-2019 take 1 capsule by mouth twice daily at mealtime Nitrofurantoin Monohyd/M-Cryst (Macrobid) 100 mg capsule Discontinued 100 mg PO TWICE A DAY September 19, 2018 1:00am July 12, 2019 10:34am must administer with a meal/food Tiotropium-Olodatero l (20 sources) Anticholinergic, beta2-Adrenergic Agonist Start: 03-17-2020 End: 07-28-2020 Tiotropium-Olodater ol (Stiolto Respimat) 2.5-2.5 mcg/actuation mist Discontinued 2 NMA INHALATION DAILY March 17, 2020 8:10am July 28, 2020 9:10am Start: 03-17-2020 End: 07-28-2020 Tiotropium-Olodaterol (Stiol to Respimat) 2.5-2.5 mcg/actuation mist Discontinued 2 PUFF INHALATION DAILY March 17, 2020 7:10am July 28, 2020 8:10am Start: 03-17-2020 End: 07-28-2020 Tiotropium-Olodaterol (Stiol to Respimat) 2.5-2.5 mcg/actuation mist Discontinued 2 PUFF INHALATION DAILY March 17, 2020 8:10am July 28, 2020 9:10am Start: 07-12-2019 End: 03-17-2020 Tiotropium-Olodaterol (Stiol to Respimat) 2.5-2.5 mcg/actuation mist Discontinued 2 NMA INHALATION DAILY July 12, 2019 12:00am March 17, 2020 8:12am Start: 07-12-2019 End: 03-17-2020 Tiotropium-Olodaterol (Stiol to Respimat) 2.5-2.5 mcg/actuation mist Discontinued 2 PUFF INHALATION DAILY July 12, 2019 12:00am March 17, 2020 8:12am sertraline 25 mg oral tablet (12 sources) Serotonin Reuptake Inhibitor Start: 05-24-2021 End: 02-08-2023 take 1 tablet by mouth once daily Sertraline 25 mg tablet Discontinued 25 mg PO DAILY May 24, 2021 12:00am February 08, 2023 7:51am simvastatin 5 mg oral tablet (20 sources) HMG-CoA Reductase Inhibitor Start: 09-19-2018 End: 07-12-2019 take 1 tablet by mouth at bedtime Simvastatin 5 mg tablet Discontinued 5 mg PO AT BEDTIME September 19, 2018 1:00am July 12, 2019 9:14am Start: 09-19-2017 take 1 tablet by ana maria th at bedtime Simvastatin 10 mg tablet Active 10 mg PO AT BEDTIME July 12, 2019 12:00am tretinoin 0.62401 mg/mg topical gel (12 sources) Retinoid Start: 05-24-2021 End: 02-26-2024 Tretinoin 0.025 % gel Discontinued 1 NMA TOPICAL AT BEDTIME May 24, 2021 12:00am May 6th, 2024 8:00am Start: 05-24-2021 Tretinoin Acti ve 1 APPLIC TOPICAL AT BEDTIME May 24, 2021 12:00am Problems Active Problems Problem Classification Problem Date Documented Da te Episodic/Chronic Acute and unspecified renal failure (1 source) Acute kidney failure, unspecified; Translations: [Acute kidney failure, unspecified] Onset: 01-18-2025 Episodic Cancer of bone and connective tissue (13 sources) Osteosarcoma of bone; 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, unspecified] Onset: 09-11-2006 07-27-2020 Chronic Comment on above: chemo 05/2007 Chronic kidney disease (7 sources) Chronic kidney disease stage 3; Translations: [Stage 3 chronic kidney disease] Onset: 09-11-2024 01-17-2025 Chronic Chronic kidney disease (1 source) Chronic kidney disease; Translations: [Chronic kidney disease, stage 3b] Onset: 01-06-2025 Chronic obstructive pulmonary disease and bronchiectasis (16 sources) Asthma-chronic obstructive pulmonary disease overlap syndrome; Translations: [Chronic obstructive pulmonary disease, unspecified] Chronic Coronary atherosclerosis and other heart disease (12 sources) Calcification of coronary artery; Translations: [Atherosclerotic heart disease of [place] coronary artery without angina pectoris] 07-27-2020 Chronic Diabetes mellitus with complications (4 sources) Neuropathy due to diabetes mellitus; Translations: [Type 2 diabetes mellitus with diabetic neuropathy, unspecified] Onset: 01-06-2025 01-17-2025 Chronic Diabetes mellitus without complication (12 sources) Type 2 diabetes mellitus without complication; Translations: [Type 2 diabetes mellitus without complications] Onset: 05-04-2009 Resolved: 12-27-2013 12-27-2013 Chronic Diseases of white blood cells (1 source) Other drug-induced agranulocytosis; Translations: [Drug induced neutropenia] Onset: 10-06-2006 10-06-2006 Chronic Disorders of lipid metabolism (17 sources) Hyperlipidemia; Translations: [Hyperlipidemia, unspecified] Onset: 07-07-2014 07-12-2019 Chronic Essential hypertension (7 sources) Hypertensive disorder; Translations: [Essential (primary) hypertension] Onset: 05-04-2009 05-31-2016 Chronic Fever of unknown origin (11 sources) Fever; Translations: [Fever, unspecified] 04-29-2022 Episodic Genitourinary symptoms and ill-defined conditions (7 sources) Microalbuminuria; Translations: [Proteinuria, unspecified] Onset: 09-11-2024 01-17-2025 Episodic Menopausal disorders (1 source) Postmenopausal bleeding; Translations: [Postmenopausal bleeding] Onset: 12-27-2013 12-27-2013 Chronic Nutritional deficiencies (5 sources) Vitamin D deficiency; Translations: [Vitamin D deficiency, unspecified] Onset: 03-09-2010 03-09-2010 Chronic Nutritional deficiencies (1 source) Deficiency of other specified B group vitamins; Translations: [Deficiency of other specified B group vitamins] Onset: 03-10-2025 Episodic Other eye disorders (1 source) Swelling of eyelid; Translations: [Edema of unspecified eye, unspecified eyelid] 03-25-2024 Episodic Other inflammatory condition of skin (3 sources) Disorder of female perineum; Translations: [Anogenital pruritus, unspecified] 01-17-2025 Episodic Other nervous system disorders (4 sources) Abnormal gait; Translations: [Unspecified abnormalities of gait and mobility] Onset: 07-27-2007 07-27-2007 Episodic Other nutritional; endocrine; and metabolic disorders (11 sources) Morbid obesity; Translations: [Morbid (severe) obesity due to excess calories] 11-03-2020 Chronic Other nutritional; endocrine; and metabolic disorders (3 sources) Morbid (severe) obesity due to excess calories; Translations: [Morbid obesity] Chronic Other nutritional; endocrine; and metabolic disorders (1 source) Body mass index 30+ - obesity; Translations: [Body mass index (BMI) 39.0-39.9, adult] Onset: 12-27-2014 12-27-2014 Chronic Other nutritional; endocrine; and metabolic disorders (7 sources) Obesity; Translations: [Obesity, unspecified] Onset: 08-10-2011 Resolved: 12-27-2014 12-27-2014 Chronic Other screening for suspected conditions (not mental disorders or infectious disease) (14 sources) Computed tomography result abnormal; Translations: [Abnormal findings on diagnostic imaging of heart and coronary circulation] Onset: 09-05-2024 07-27-2020 Episodic Residual codes; unclassified (14 sources) Obstructive sleep apnea syndrome; Translations: [Obstructive sleep apnea (adult) (pediatric)] Onset: 08-10-2011 08-06-2021 Chronic Comment on above: CPAP 17 cm of water with residual AHI of 0.2 Residual codes; unclassified (3 sources) Obstructive sleep apnea (adult) (pediatric); Translations: [Obstructive sleep apnea (adult)(pediatric)] Chronic Substance-related disorders (9 sources) Cigarette smoker ; Translations: [Nicotine dependence, cigarettes, uncomplicated] 01-27-2021 Chronic Superficial injury; contusion (9 sources) Contusion of right chest wall; Translations: [Contusion of right front wall of thorax, initial encounter] 01-25-2023 Episodic Thyroid disorders (9 sources) Toxic multinodular goiter; Translations: [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 storm] Onset: 06-26-2009 06-26-2009 Chronic Urinary tract infections (12 sources) Urinary tract infectious disease; Translations: [Urinary tract infection, site not specified] 07-12-2019 Episodic Viral infection (13 sources) Disease caused by 2019-nCoV; Translations: [COVID-19] Episodic Past or Other Problems Problem Classification Problem Date Documented Da te Episodic/Chronic Complications of surgical procedures or medical care (1 source) Mucositis following therapy; Translations: [Oral mucositis (ulcerative) due to other drugs] Onset: 11-13-2006 11-13-2006 Episodic Other lower respiratory disease (1 source) Disorder of lung; Translations: [Other disorders of lung] Onset: 10-02-2006 03-09-2009 Episodic Results Test Name Value Interpretation Reference Range Facility Pulmonary Visit Reporton Pulmonary Visit Report [facility] Pulmonary Medicine of [address] [place] [address] OFFICE VISIT Date of Service: 03/05/25 MR#: [id number] Acct: [id number] Name: LYNDA BRADLEY Rep #: [id number] : 1965 Provider: TRAV Mari Age/Sex: 59/F Location: [facility] [place].[facility] Status: Signed Assessment and Plan Assessment and Plan (1) Asthma-COPD overlap syndrome: Status: Chronic Plan: Stable, she does not appear to be an exacerbation of asthma/COPD today. No need for prednisone or antibiotic. Continue current maintenance medication, symptomatically controlled with the use of Trelegy. No additional testing at this time. Contact the office for any new or worsening symptoms. An acute visit and typically be arranged within 1-2 days. Follow-up in 1 year. (2) Obstructive sleep apnea syndrome: Status: Chronic Comment: CPAP 17 cm of water with residual AHI of 0.2 Plan: She is using and benefiting from PAP therapy. No indication for titration study at this time. Follow-up in 1 year. Contact the office with any new or worsening symptoms in the meantime. (3) Morbid obesity due to excess calories: Status: Chronic Plan: Improving, the patient has now achieved better diabetes/blood sugar control with the use of Jardiance and Ozempic. She has also had some slow weight loss, 6 pounds since August. I instructed her that after a 30 to 40 pound weight loss she may require lower pressure and she should contact the office to add an office visit. She conveys understanding and is agreeable with this plan. Continue to encourage healthy weight loss. Medications: Refilled albuterol sulfate 90 mcg/actuation 1 inh inhalation Q4H PRN 8.5 grams 6RF shortness of breath or wheezing Plan Details Additional Comments: This note was generated with Ever[employer] dictation software. It may contain incorrect words, spelling, and punctuation that were not noted in checking the note before signing. Follow Up: 1 Year HPI 1 Y FU Chief Complaint: Routine follow-up HPI Comments Details: This patient presents to the office today for follow-up of her asthma/COPD overlap syndrome complicated by obstructive sleep apnea. She is ambulatory and currently on room air. She has not recently been seen in the ED or urgent care for any respiratory illness. She has not required any antibiotics or prednisone for any breathing problems. If you recall, she quit smoking back in 2005. She is compliant with use of Trelegy 1 puff daily. She does report rinsing her mouth out after each use. She denies any medication side effects such as sore throat or thrush. She is currently utilizing albuterol 1-2 times per day. She uses it for exercise, she is walking 10-12,000 steps a day. She does have shortness of breath on exertion. She has occasional wheezing, also not more than usual. She denies any cough, sputum production or hemoptysis. She denies any chest pain, chest tightness or palpitations. She also denies any fever, chills or body aches. She wakes up feeling rested and refreshed with use of her Pap device. She is not requiring naps. She is not nodding off to sleep unintentionally. She denies any difficulty with excessive nocturia. She rarely has difficulty with dry mouth. She is not having morning headaches. Compliance report for the past 30 days shows 100% compliance with an average use of 8 hours and 30 minutes per night. Current setting is CPAP 17 cmH2O with residual AHI 0.3 events per hour. Leaks do not appear to be problematic. Intake Vital Signs 02/26/24 08:03 09/11/24 09:27 01/06/25 11:11 03/05/25 07:42 03/05/25 08:02 Height 5 ft 1 in 5 ft 1 in 5 ft 1 in 5 ft 1 in 5 ft 1 in Weight: 206 lb BMI 38.9 BP 155/92 H Blood Pressure Location Lt brachial Position Sitting Respiration 16 Pulse 76 Pulse Source Monitor Temp 96.5 F L Pulse Oximetry (%) 96 Oxygen Delivery Method room air Intake Visit Reasons: 1 Y FU Chief Complaint: f/u diabetes Allergies pregabalin (From Lyrica) Allergy (Intermediate, Verified 03/05/25 07:40) Diarrhea adhesive tape Allergy (Unknown, Verified 03/05/25 07:40) uknown hydromorphone (From Dilaudid) Allergy (Unknown, Verified 03/05/25 07:40) Hives oxycodone Allergy (Unknown, Verified 03/05/25 07:40) unknown tramadol Allergy (Unknown, Verified 03/05/25 07:40) unknown gabapentin Allergy (Verified 03/05/25 07:40) unknown lisinopril Adverse Reaction (Intermediate, Verified 03/05/25 07:40) Cough Medications ???Medication ???Instructions ???Recorded ???Confirmed ???Type simvastatin 10 mg tablet 10 mg PO QHS 07/12/19 03/05/25 His tory cyanocobalamin (vitamin B-12) 500 500 mcg PO DAILY 08/22/23 5 History mcg tablet losartan 25 mg tablet 25 mg PO DAILY 02/26/24 03/05/25 H istory zinc acetate 50 (more content not included)... Normal [facility] Anion gap in Serum or Plasma Ordered By: Janey Gutierrez on 01-14-2025 Anion gap [Moles/Vol] 13 mmol/L 5-15 [facility] BUN/creatinine ratioOrdered By: Janey Gutierrez on 01-14-2025 Urea nitrogen/Creatinine [Mass ratio] 14.6 mg/mg 10-20 [facility] Bilirubin, totalOrdered By: Janey Gutierrez on 01-14-2025 Bilirubin [Mass/Vol] 0.46 mg/dL 0.00-1.30 [facility] Carbon dioxide, total [Moles /volume] in Central venous bloodOrdered By: Janey Gutierrez on 01-14-2025 CO2 [Moles/Vol] 20.3 mmol/L Low 21.0-32.0 [facility] Chloride assayOrdered By: Me kevon Gutierrez on 01-14-2025 Chloride [Moles/Vol] 108 mmol/L 98-108 [facility] Comprehensive Metabolic Prof ilon 01-14-2025 Albumin [Mass/Vol] 3.9 g/dL Normal 3.4-4.8 [facility] Comment on above: Order Comment: JANEY AHN GET RESULTS OF LAB TEST Performed By: #### L [id number] ####[facility] [address] [place], [address] Albumin/Globulin [Mass ratio] 1.4 {ratio} Normal 0.9-2.4 [facility] Comment on above: Order Comment: JANEY AHN GET RESULTS OF LAB TEST Performed By: #### L [id number] ####[facility] [address] [place], [address] ALK PHOS 80 U/L Normal 35-104 [facility] Comment on above: Order Comment: JANEY AHN GET RESULTS OF LAB TEST Performed By: #### L [id number] ####[facility] [address] [place], [address] ALT [Catalytic activity/Vol] 15 U/L Normal <=34 [facility] Comment on above: Order Comment: JANEY AHN GET RESULTS OF LAB TEST Performed By: #### L [id number] ####[facility] [address] [place], [address] AST [Catalytic activity/Vol] 21 U/L Normal <=31 [facility] Comment on above: Order Comment: JANEY GUTIERREZ AND DR. AHN GET RESULTS OF LAB TEST Performed By: #### L [id number] ####[facility] [address] [place], [address] Bilirubin [Mass/Vol] 0.46 mg/dL Normal 0.00-1.30 [facility] Comment on above: Order Comment: JANEY GUTIERREZ AND DR. AHN GET RESULTS OF LAB TEST Performed By: #### L [id number] ####[facility] [address] [place], [address] BUN/CRE 14.6 RATIO Normal 10-20 [facility] Comment on above: Order Comment: JANEY AHN GET RESULTS OF LAB TEST Performed By: #### L [id number] ####[facility] [address] [place], [address] Calcium [Mass/Vol] 8.9 mg/dL Normal 7.6-11.0 [facility] Comment on above: Order Comment: JANEY AHN GET RESULTS OF LAB TEST Performed By: #### L [id number] ####[facility] [address] [place], [address] Chloride [Moles/Vol] 108 mmol/L Normal 98-108 [facility] Comment on above: Order Comment: JANEY AHN GET RESULTS OF LAB TEST Performed By: #### L [id number] ####[facility] [address] [place], [address] CO2 [Moles/Vol] 20.3 mmol/L Low 21.0-32.0 [facility] Comment on above: Order Comment: JANEY AHN GET RESULTS OF LAB TEST Performed By: #### L [id number] ####[facility] [address] [place], [address] Creatinine [Mass/Vol] 1.60 mg/dL High 0.70-1.20 [facility] Comment on above: Order Comment: JANEY GUTIERREZ AND DR. AHN GET RESULTS OF LAB TEST Performed By: #### L [id number] ####[facility] [address] [place], [address] GAP 13 Normal 5-15 [facility] Comment on above: Order Comment: JANEY GUTIERREZ AND DR. AHN GET RESULTS OF LAB TEST Performed By: #### L [id number] ####[facility] [address] [place], [address] GFR/1.73 sq M.predicted among non-blacks MDRD (S/P/Bld) [Vol rate/Area] 36 mL/min/{1.73_m2} Low >60 [facility] Comment on above: Order Comment: JANEY GUTIERREZ AND DR. AHN GET RESULTS OF LAB TEST Result Comment: mL/m in/1.73m2 CKD-EPI Creatinine Equation (2020) Performed By: #### L [id number] ####[facility] [address] [place], [address] Globulin (S) [Mass/Vol] 2.8 g/dL Normal 2.2-4.2 [facility] Comment on above: Order Comment: JANEY AHN GET RESULTS OF LAB TEST Performed By: #### L [id number] ####[facility] [address] [place], [address] Glucose [Mass/Vol] 114 mg/dL High 70-99 [facility] Comment on above: Order Comment: JANEY GUTIERREZ AND DR. AHN GET RESULTS OF LAB TEST Performed By: #### L [id number] ####[facility] [address] [place], [address] Potassium [Moles/Vol] 3.9 mmol/L Normal 3.3-5.1 [facility] Comment on above: Order Comment: JANEY GUTIERREZ AND DR. AHN GET RESULTS OF LAB TEST Performed By: #### L [id number] ####[facility] [address] [place], [address] Sodium [Moles/Vol] 141 mmol/L Normal 133-145 [facility] Comment on above: Order Comment: JANEY GUTIERREZ AND DR. AHN GET RESULTS OF LAB TEST Performed By: #### L [id number] ####[facility] [address] [place], [address] T PROT 6.7 g/dL Normal 5.9-8.4 [facility] Comment on above: Order Comment: JANEY GUTIERREZ AND DR. AHN GET RESULTS OF LAB TEST Performed By: #### L [id number] ####[facility] [address] [place], [address] Urea nitrogen [Mass/Vol] 23 mg/dL High 4-19 [facility] Comment on above: Order Comment: JANEY GUTIERREZ AND DR. AHN GET RESULTS OF LAB TEST Performed By: #### L [id number] ####[facility] [address] [place], [address] GFR/1.73 sq M.predicted shira g non-blacks MDRD (S/P/Bld) [Vol rate/Area]Ordered By: Janey Gutierrez on 01-14-2025 Estimated GFR (MDRD) Non-Af Amer 36 Low >60 [facility] Comment on above: mL/min/1.73m2 CKD-EP I Creatinine Equation (2020) Glomerular filtration rate ( GFR) estimation/1.73 sq m using serum, plasma, or whole bOrdered By: Janey Gutierrez on 01-14-2025 GFR/1.73 sq M.predicted among non-blacks MDRD (S/P/Bld) [Vol rate/Area] 36 mL/min/{1.73_m2} Low >60 [facility] Comment on above: mL/min/1.73m2 CKD-EP I Creatinine Equation (2020) Laboratory - Chemistry and C hemistry - challengeOrdered By: Janey Gutierrez on 01-14-2025 AST [Catalytic activity/Vol] 21 U/L <32 [facility] Potassium (Unsp spec) [Mass/ Vol]Ordered By: Janey Gutierrez on 01-14-2025 Potassium [Moles/Vol] 3.9 mmol/L 3.3-5.1 [facility] Potassium measurement (mass/ volume)Ordered By: Janey Gutierrez on 01-14-2025 Potassium (Unsp spec) [Mass/Vol] 3.9 mmol/L 3.3-5.1 [facility] Serum creatinine measurement (mass/volume)Ordered By: Janey Gutierrez on 01-14-2025 Creatinine [Mass/Vol] 1.60 mg/dL High 0.70-1.20 [facility] Serum globulin measurementOr dered By: Janey Gutierrez on 01-14-2025 Globulin (S) [Mass/Vol] 2.8 g/dL 2.2-4.2 [facility] Serum glucose measurement (m ass/volume)Ordered By: Janey Gutierrez on 01-14-2025 Glucose [Mass/Vol] 114 mg/dL High 70-99 [facility] Serum or plasma alanine sabillon otransferase (ALT) measurementOrdered By: Janey Gutierrez on 01-14-2025 ALT [Catalytic activity/Vol] 15 U/L <35 [facility] Serum or plasma albumin anamaria urement (mass/volume)Ordered By: Janey Gutierrez on 01-14-2025 Albumin [Mass/Vol] 3.9 g/dL 3.4-4.8 [facility] Serum or plasma albumin/glob ulin mass ratioOrdered By: Janey Gutierrez on 01-14-2025 Albumin/Globulin [Mass ratio] 1.4 {ratio} 0.9-2.4 [facility] Serum or plasma alkaline wayne sphatase measurementOrdered By: Janey Gutierrez on 01-14-2025 ALP [Catalytic activity/Vol] 80 U/L 35-104 [facility] Serum or plasma calcium anamaria urement (mass/volume)Ordered By: Janey Gutierrez on 01-14-2025 Calcium [Mass/Vol] 8.9 mg/dL 7.6-11.0 [facility] Serum or plasma urea nitroge n measurement (mass/volume)Ordered By: Janey Gutierrez on 01-14-2025 Urea nitrogen [Mass/Vol] 23 mg/dL High 4-19 [facility] Sodium levelOrdered By: Alek phani Gutierrez on 01-14-2025 Sodium [Moles/Vol] 141 mmol/L 133-145 [facility] Total proteinOrdered By: Karen levi Matt on 01-14-2025 Protein [Mass/Vol] 6.7 g/dL 5.9-8.4 [facility] Endocrinology Visit Reporton 01-06-2025 Endocrinology Visit Report [facility] [address] [place] [address] OFFICE VISIT Date of Service: 01/06/25 MR#: [id number] Acct: [id number] Name: LYNDA BRADLEY Rep #: [id number] : 1965 Provider: TRAV crooks Age/Sex: 59/F Location: [facility] Status: Signed Intake Vital Signs 09/11/24 09:27 01/06/25 11:11 Height 5 ft 1 in 5 ft 1 in Weight: 213 lb 209 lb 2 oz BMI 40.2 39.5 BP 142/82 H 139/92 H Blood Pressure Location Lt brachial Rt brachial Position Sitting Sitting Pulse 79 84 Pulse Source Monitor Monitor Pulse Oximetry (%) 94 96 Oxygen Delivery Method room air room air Intake Visit Reasons: 4 M FU, RS 12/12 Chief Complaint: f/u diabetes Is patient in pain?: No Allergies pregabalin (From Lyrica) Allergy (Intermediate, Verified 01/06/25 11:12) Diarrhea adhesive tape Allergy (Unknown, Verified 01/06/25 11:12) uknown hydromorphone (From Dilaudid) Allergy (Unknown, Verified 01/06/25 11:12) unknown oxycodone Allergy (Unknown, Verified 01/06/25 11:12) unknown tramadol Allergy (Unknown, Verified 01/06/25 11:12) unknown gabapentin Allergy (Verified 01/06/25 11:12) unknown Medications ???Medication ???Instructions ???Recorded ???Confirmed ???Type simvastatin 10 mg tablet 10 mg PO QHS 07/12/19 01/06/25 His tory cholecalciferol (vitamin D3) 25 25 mcg PO DAILY 05/24/21 01/06/25 History mcg (1,000 unit) capsule cyanocobalamin (vitamin B-12) 500 500 mcg PO DAILY 08/22/23 5 History mcg tablet fluticasone fur. 100 mcg-umeclid 1 inh inhalation DAILY #3 ea 02/2501/06/25 Rx 62.5 mcg-vilant 25 mcg inhalat.powder (Trelegy Ellipta) losartan 25 mg tablet 25 mg PO DAILY 02/26/24 01/06/25 H istory zinc acetate 50 mg (zinc) capsule 50 mg PO DAILY 02/26/24 01/06/25 History empagliflozin 10 mg tablet 10 mg PO QAM #30 tabs 09/11/24 Rx (Jardiance) zinc oxide 10 % topical cream 1 applic topical TID #78 grams 01/06/25 Rx albuterol sulfate 90 mcg/actuation 1 inh inhalation Q4H PRN shortne ss 10/14/24 01/06/25 Rx aerosol inhaler of breath or wheezing #8.5 grams semaglutide 0.25 mg or 0.5 mg (2 0.5 mg (0.736 mL) subcut QWEEK #3 12/20/24 01/06/25 Rx mg/3 mL) subcutaneous pen injector mL (Ozempic) levothyroxine 125 mcg tablet 125 mcg PO DAILY 01/06/25 01/06/25 History polyethylene glycol 3350 17 4 g PO ONCE #119 grams 01/06/25 Rx gram/dose oral powder (Miralax) PFSH Medical History Fall Coronary artery calcification History of change in bowel patterns 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) Diabetic neuropathy Chronic kidney disease, stage III (moderate) Obstructive sleep apnea Morbid obesity COPD (chronic obstructive pulmonary disease) Hyperlipidemia Type 2 diabetes mellitus Hypothyroidism Cancer Surgical History History of cataract surgery History of colonoscopy (03/23/20) History of right below knee amputation (12/2006) Family History Mother CAD (coronary artery disease) Thyroid disorder CVA (cerebral vascular accident) Hypertension Son Asthma Sister Cancer skin cancer Father COPD (chronic obstructive pulmonary disease) Grandmother Thyroid disorder Social History household members: spouse housing: house Smoking Status: Former smoker quit date: 08/23/06 pack-years: 26 alcohol intake: never substance use type: does not use what type of physical activity do you participate in: walking and other details: silver sneakers frequency: daily do you feel safe at home: Yes HPI HPI Chief Complaint: f/u diabetes Details: LYNDA BRADLEY, is a 59 F who presents to the office today for evaluation and management of diabetes. A1C today is 5.9%, improved from 09/09/24 at 6.4%. She has lost 4 lbs since her initial appt here on 09/11/24. Currently taking Jardiance 25 mg once daily and Ozempic 0.25 mg qweek- tolerating well. She states that she has made dietary and lifestyle modifications. She is hypothyroid. Currently taking levothyroxine 125 mcg once daily. Reports compliance with medication. BP somewhat improved from initial appt. Currently taking losartan 25 mg once daily. She seems nephrology routinely. She has CKD and microalbuminuria. She has poorly controlled cholesterol. She started taking simvastatin 10 mg every other day for the past month+ as she is fearful of potential association with Alzheimers/dementia. Denies any acute concerns. ROS Const Constitutional: Positive for weight change; No fatigue ENT ENT: No dizziness/ve (more content not included)... Normal [facility] Laboratory - Hematology and Cell countsOrdered By: Janey Gutierrez on 01-06-2025 HbA1c (Bld) [Mass fraction] 5.9 % 4.2-6.3 [facility] Endocrinology Visit Reporton 09-11-2024 Endocrinology Visit Report [facility] [place] [address] OFFICE VISIT Date of Service: 09/11/24 MR#: [id number] Acct: [id number] Name: LYNDA BRADLEY Rep #: [id number] : 1965 Provider: TRAV crooks Age/Sex: 59/F Location: [facility] Status: Signed Intake Vital Signs 02/26/24 08:03 09/11/24 09:27 Height 5 ft 1 in 5 ft 1 in Weight: 213 lb BMI 40.2 BP 142/82 H Blood Pressure Location Lt brachial Position Sitting Pulse 79 Pulse Source Monitor Pulse Oximetry (%) 94 Oxygen Delivery Method room air Intake Visit Reasons: Diabetes Chief Complaint: establish care- diabetes Binding Bench Worker Required: No Accompanied by: Self Is patient in pain?: Yes (Lt side) Pain scale (1-10): 2 Allergies pregabalin (From Lyrica) Allergy (Intermediate, Verified 09/11/24 09:26) Diarrhea adhesive tape Allergy (Unknown, Verified 09/11/24 09:26) uknown hydromorphone (From Dilaudid) Allergy (Unknown, Verified 09/11/24 09:26) unknown oxycodone Allergy (Unknown, Verified 09/11/24 09:26) unknown tramadol Allergy (Unknown, Verified 09/11/24 09:26) unknown gabapentin Allergy (Verified 09/11/24 09:26) unknown Medications ???Medication ???Instructions ???Recorded ???Confirmed ???Type simvastatin 10 mg tablet 10 mg PO QHS 07/12/19 09/11/24 History cholecalciferol (vitamin D3) 25 25 mcg PO DAILY 05/24/21 09/11/24 History mcg (1,000 unit) capsule multivitamin 1 tab PO DAILY 05/24/21 09/11/24 History cyanocobalamin (vitamin B-12) 500 500 mcg PO DAILY 08/22/23 09/11/24 History mcg tablet levothyroxine 125 mcg tablet 125 mcg PO DAILY 08/22/23 09/11/24 History fluticasone fur. 100 mcg-umeclid 1 inh inhalation DAILY #3 ea 02/26/24 09/11/24 Rx 62.5 mcg-vilant 25 mcg inhalat.powder (Trelegy Ellipta) losartan 25 mg tablet 25 mg PO DAILY 02/26/24 09/11/24 History zinc acetate 50 mg (zinc) capsule 50 mg PO DAILY 02/26/24 09/11/24 History albuterol sulfate 90 mcg/actuation 1 inh inhalation Q4H PRN shortness 04/29/24 09/11/24 Rx aerosol inhaler of breath or wheezing #8.5 grams empagliflozin 10 mg tablet 10 mg PO QAM #30 tabs 09/11/24 09/11/24 Rx (Jardiance) PFSH Medical History (Updated 09/11/24 @ 14:12 by Janey Gutierrez NP-C) Fall Coronary artery calcification History of change in bowel patterns 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) Diabetic neuropathy Chronic kidney disease, stage III (moderate) Obstructive sleep apnea Morbid obesity COPD (chronic obstructive pulmonary disease) Hyperlipidemia Type 2 diabetes mellitus Hypothyroidism Cancer Surgical History History of cataract surgery History of colonoscopy (03/23/20) History of right below knee amputation (12/2006) Family History Mother CAD (coronary artery disease) Thyroid disorder CVA (cerebral vascular accident) Hypertension Son Asthma Sister Cancer skin cancer Father COPD (chronic obstructive pulmonary disease) Grandmother Thyroid disorder Social History household members: spouse housing: house Smoking Status: Former smoker quit date: 08/23/06 pack-years: 26 alcohol intake: never substance use type: does not use what type of physical activity do you participate in: walking and other details: silver sneakers frequency: daily do you feel safe at home: Yes HPI HPI Chief Complaint: establish care- diabetes Details: LYNDA BRADLEY, is a 59 F who presents to the office today for evaluation and management of diabetes. Referred by PCP for diabetes and hypothyroid. She was diagnosed with diabetes in 2006 after she started chemotherapy for osteosarcoma. + family history of diabetes. She has neuropathy to left lower extremity. 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 She has CKD and microalbuminuria. Recent A1C with PCP on 09/09/24 was 6.4%, increased from 01/10/24 at 5.9%. She has been on multiple different medications for diabetes. Metformin was discontinued d/t CKD. She was on Farixga; however, she had recurrent yeast infections with use. She was on Trulicity for a little over a month and reported GI upset. She is currently taking Jardiance 10 mg once daily, tolerating well without episodes of yeast infection. Her diet contains a significant amount of processed carbohydrates. Hx of hypertension. BP today slightly elevated. Currently taking losartan 25 mg once daily. Diagnosed with hyperthyroid in 2006 and underweight SANCHEZ. Currently taking levothyroxine 125 mcg 1/2 tab Sundays, 1 full tab Monday-Monday. She takes levothyroxine with her other AM medications, this includes multivitamin. She takes a daily statin. Labs a (more content not included)... Normal [facility] CBC-Complete Blood Cnt No Di ffon 09-09-2024 Erythrocyte distribution width (RBC) [Ratio] 13.4 % Normal 11.6-14.6 [facility] Comment on above: Performed By: #### L 100.0500, L501.9985, L500.3600, L500.4100, L503.6030, L503.6550 ####[facility] [address], [address] Hematocrit (Bld) [Volume fraction] 37.8 % Normal 37-47 [facility] Comment on above: Performed By: #### L 100.0500, L501.9985, L500.3600, L500.4100, L503.6030, L503.6550 ####[facility] [address] [place], [address] Hemoglobin (Bld) [Mass/Vol] 12.4 g/dL Normal 12.0-15.0 [facility] Comment on above: Performed By: #### L 100.0500, L501.9985, L500.3600, L500.4100, L503.6030, L503.6550 ####[facility] [address] [place], [address] MCH (RBC) [Entitic mass] 31.3 pg Normal 27.0-32.0 [facility] Comment on above: Performed By: #### L 100.0500, L501.9985, L500.3600, L500.4100, L503.6030, L503.6550 ####[facility] [address] [place], [address] MCHC (RBC) [Mass/Vol] 32.8 g/dL Normal 32-36 [facility] Comment on above: Performed By: #### L 100.0500, L501.9985, L500.3600, L500.4100, L503.6030, L503.6550 ####[facility] [address] [place], [address] MCV (RBC) [Entitic vol] 95.5 fL Normal 81-99 [facility] Comment on above: Performed By: #### L 100.0500, L501.9985, L500.3600, L500.4100, L503.6030, L503.6550 ####[facility] [address] [place], [address] Platelet mean volume (Bld) [Entitic vol] 11.1 fL Normal 6.2-12.0 [facility] Comment on above: Performed By: #### L 100.0500, L501.9985, L500.3600, L500.4100, L503.6030, L503.6550 ####[facility] [address] [place], [address] Platelets (Bld) [#/Vol] 215 10*3/uL Normal 150-450 [facility] Comment on above: Performed By: #### L 100.0500, L501.9985, L500.3600, L500.4100, L503.6030, L503.6550 ####[facility] [address] [place], [address] RBC (Bld) [#/Vol] 3.96 10*6/uL Low 4.2-5.4 [facility] Comment on above: Performed By: #### L 100.0500, L501.9985, L500.3600, L500.4100, L503.6030, L503.6550 ####[facility] [address] [place], [address] RDW SD 47.0 fl High 35.1-43.9 [facility] Comment on above: Performed By: #### L 100.0500, L501.9985, L500.3600, L500.4100, L503.6030, L503.6550 ####[facility] [address] [place], [address] WBC (Bld) [#/Vol] 7.3 10*3/uL Normal 4.4-11.0 [facility] Comment on above: Performed By: #### L 100.0500, L501.9985, L500.3600, L500.4100, L503.6030, L503.6550 ####[facility] [address] [place], [address] Ferritinon 09-09-2024 Ferritin [Mass/Vol] 83 ng/mL Normal 8-252 [facility] Comment on above: Performed By: #### L 100.0500, L501.9985, L500.3600, L500.4100, L503.6030, L503.6550 ####[facility] [address] [place], [address] Hemoglobin A1con 09-09-2024 HbA1c (Bld) [Mass fraction] 6.4 % High 3.8-5.6 [facility] Comment on above: Result Comment: Norm al < 5.7 % Prediabetic 5.7 - 6.4 % Diabetic >or= 6.5 % Please note range changes. Performed By: #### L 100.0500, L501.9985, L500.3600, L500.4100, L503.6030, L503.6550 ####[facility] [address] [place], [address] Iron+Iron Binding Capacityon 09-09-2024 Iron [Mass/Vol] 106 ug/dL Normal 50-170 [facility] Comment on above: Performed By: #### L 100.0500, L501.9985, L500.3600, L500.4100, L503.6030, L503.6550 ####[facility] [address] [place], [address] IRON SATURATION 32.7 Normal 15.0-55.0 [facility] Comment on above: Performed By: #### L 100.0500, L501.9985, L500.3600, L500.4100, L503.6030, L503.6550 ####[facility] [address] [place], [address] TIBC 324 ug/dL Normal 250-450 [facility] Comment on above: Performed By: #### L 100.0500, L501.9985, L500.3600, L500.4100, L503.6030, L503.6550 ####[facility] [address] [place], [address] Lipid Profileon 09-09-2024 Cholesterol [Mass/Vol] 238 mg/dL High 200 [facility] Comment on above: Result Comment: <200 mg/dL Desirable 200-240 mg/dL Borderline >240 mg/dL High Risk Performed By: #### L 100.0500, L501.9985, L500.3600, L500.4100, L503.6030, L503.6550 ####[facility] [address] [place], [address] Cholesterol in HDL [Mass/Vol] 57 mg/dL Normal [facility] Comment on above: Result Comment: The drugs N-Acetylcysteine and Metamizole may falsely depress this assay. Reference Range HDL <40 mg/dL Low HDL Cholesterol HDL >or= 60 mg/dL High HDL Cholesterol Performed By: #### L 100.0500, L501.9985, L500.3600, L500.4100, L503.6030, L503.6550 ####[facility] [address] [place], [address] Cholesterol in LDL [Mass/Vol] 122 mg/dL Normal 0-130 [facility] Comment on above: Performed By: #### L 100.0500, L501.9985, L500.3600, L500.4100, L503.6030, L503.6550 ####[facility] [address] [place], [address] Cholesterol in VLDL [Mass/Vol] 59 mg/dL High 5-40 [facility] Comment on above: Performed By: #### L 100.0500, L501.9985, L500.3600, L500.4100, L503.6030, L503.6550 ####[facility] [address] [place], [address] Triglyceride [Mass/Vol] 296 mg/dL High [facility] Comment on above: Result Comment: The drugs N-Acetylcysteine and Metamizole may falsely depress this assay. Serum Triglycerides Reference Interval Normal <150 mg/dL Borderline high 150 - 199 mg/dL High 200 - 499 mg/dL Very High > or = 500 mg/dL Performed By: #### L 100.0500, L501.9985, L500.3600, L500.4100, L503.6030, L503.6550 ####[facility] [address] [place], [address] Renal Profileon 09-09-2024 Albumin [Mass/Vol] 3.7 g/dL Normal 3.2-5.0 [facility] Comment on above: Performed By: #### L 100.0500, L501.9985, L500.3600, L500.4100, L503.6030, L503.6550 ####[facility] [address] [place], [address] BUN/CRE 21.8 RATIO High 10-20 [facility] Comment on above: Performed By: #### L 100.0500, L501.9985, L500.3600, L500.4100, L503.6030, L503.6550 ####[facility] [address] [place], [address] CA,Total 9.0 mg/dL Normal 8.5-10.1 [facility] Comment on above: Performed By: #### L 100.0500, L501.9985, L500.3600, L500.4100, L503.6030, L503.6550 ####[facility] [address] [place], [address] Chloride [Moles/Vol] 108 mmol/L High 98-107 [facility] Comment on above: Performed By: #### L 100.0500, L501.9985, L500.3600, L500.4100, L503.6030, L503.6550 ####[facility] [address] [place], [address] CO2 [Moles/Vol] 24.0 mmol/L Normal 21.0-32.0 [facility] Comment on above: Performed By: #### L 100.0500, L501.9985, L500.3600, L500.4100, L503.6030, L503.6550 ####[facility] [address] [place], [address] Creatinine [Mass/Vol] 1.65 mg/dL High 0.55-1.02 [facility] Comment on above: Result Comment: The validity of the calculated GFR GFRAA in patients over 70 years has not been determined. Clinical correlation is essential. Performed By: #### L 100.0500, L501.9985, L500.3600, L500.4100, L503.6030, L503.6550 ####[facility] [address] [place], [address] EST GFR - AA 41 mL/min Low >60 [facility] Comment on above: Result Comment: Afri can Beninese GFR Calc Performed By: #### L 100.0500, L501.9985, L500.3600, L500.4100, L503.6030, L503.6550 ####[facility] [address] [place], [address] GFR/1.73 sq M.predicted among non-blacks MDRD (S/P/Bld) [Vol rate/Area] 34 mL/min/{1.73_m2} Low >60 [facility] Comment on above: Result Comment: Non- GFR Calc Performed By: #### L 100.0500, L501.9985, L500.3600, L500.4100, L503.6030, L503.6550 ####[facility] [address] [place], [address] Glucose [Mass/Vol] 151 mg/dL High 74-106 [facility] Comment on above: Result Comment: Fast ing Glucose result greater than or equal to 126 mg/dL suggests DIABETES MELLITUS per A.D.A. criteria. Performed By: #### L 100.0500, L501.9985, L500.3600, L500.4100, L503.6030, L503.6550 ####[facility] [address] [place], [address] Phosphate [Mass/Vol] 2.9 mg/dL Normal 2.5-4.9 [facility] Comment on above: Performed By: #### L 100.0500, L501.9985, L500.3600, L500.4100, L503.6030, L503.6550 ####[facility] [address] [place], [address] Potassium [Moles/Vol] 3.7 mmol/L Normal 3.5-5.1 [facility] Comment on above: Performed By: #### L 100.0500, L501.9985, L500.3600, L500.4100, L503.6030, L503.6550 ####[facility] [address] [place], [address] Sodium [Moles/Vol] 138 mmol/L Normal 136-145 [facility] Comment on above: Performed By: #### L 100.0500, L501.9985, L500.3600, L500.4100, L503.6030, L503.6550 ####[facility] [address] [place], [address] Urea nitrogen [Mass/Vol] 36 mg/dL High 7-18 [facility] Comment on above: Performed By: #### L 100.0500, L501.9985, L500.3600, L500.4100, L503.6030, L503.6550 ####[facility] [address] [place], [address] Breast Limited Unilateralon 08-16-2024 Breast Limited Unilateral [facility] Imaging Services [address] [place] [address] Breast Limited Unilateral MR#: [id number] Acct: [id number] Name: LYNDA BRADLEY Rep #: [id number] : 1965 F 59 From: Amado horowitz MD PCP: Dr. Mimi Martin DO Status: REG CLI Study: Breast Limited Unilateral Date of Exam: Exam# [id number] Ordering Dr: Mimi Martin DO [id number] STUDY: ULTRASOUND BREAST - RIGHT REASON FOR EXAM: Female, 59 years old. Abnormal screening mammogram. TECHNIQUE: Axial and longitudinal images of the RIGHT breast were performed with a high resolution ultrasound transducer. # OF IMAGES: 32 COMPARISON: Comparison is made with prior study August 15, 2024. FINDINGS: RIGHT Breast: The upper outer quadrant of the right breast was examined with ultrasound. The mammographic abnormality corresponds to a 5 mm x 5 mm x 2 mm benign-appearing lymph node at the 11:00 position of the breast at 7 cm from the nipple. US/Breast Limited Unilateral IMPRESSION: The mammographic abnormality corresponds to a 5 mm x 5 mm x 2 mm benign-appearing appearing lymph node at the 11:00 position of the breast at 7 cm from the nipple. ASSESSMENT CATEGORY: BIRADS Category 2: Benign. A letter regarding these results will be sent to the patient by the facility within 30 days. Electronically Signed: Amado Mayen MD at 12:21 EDT Reading Location ID and State: [address] [place] [address] , Service support , CC: Dr. Mimi Martin, [employer] Executive Director: Signed Normal [facility] CBC-Complete Blood Cnt No Di ffon 08-15-2024 Erythrocyte distribution width (RBC) [Ratio] 13.2 % Normal 11.6-14.6 [facility] Comment on above: Performed By: #### L 100.0500, L502.0250, L500.3600, L503.6030, L503.6550 #### [facility] [address] [place], [place], [address] Hematocrit (Bld) [Volume fraction] 34.6 % Low 37-47 [facility] Comment on above: Performed By: #### L 100.0500, L502.0250, L500.3600, L503.6030, L503.6550 #### [facility] [address] [place], [address] Hemoglobin (Bld) [Mass/Vol] 11.4 g/dL Low 12.0-15.0 [facility] Comment on above: Performed By: #### L 100.0500, L502.0250, L500.3600, L503.6030, L503.6550 #### [facility] [address] [place], [address] MCH (RBC) [Entitic mass] 31.2 pg Normal 27.0-32.0 [facility] Comment on above: Performed By: #### L 100.0500, L502.0250, L500.3600, L503.6030, L503.6550 #### [facility] [address] [place], [address] MCHC (RBC) [Mass/Vol] 32.9 g/dL Normal 32-36 [facility] Comment on above: Performed By: #### L 100.0500, L502.0250, L500.3600, L503.6030, L503.6550 #### [facility] [address] [place], [address] MCV (RBC) [Entitic vol] 94.8 fL Normal 81-99 [facility] Comment on above: Performed By: #### L 100.0500, L502.0250, L500.3600, L503.6030, L503.6550 #### [facility] [address] [place], [address] Platelet mean volume (Bld) [Entitic vol] 10.3 fL Normal 6.2-12.0 [facility] Comment on above: Performed By: #### L 100.0500, L502.0250, L500.3600, L503.6030, L503.6550 #### [facility] [address] [place], [address] Platelets (Bld) [#/Vol] 189 10*3/uL Normal 150-450 [facility] Comment on above: Performed By: #### L 100.0500, L502.0250, L500.3600, L503.6030, L503.6550 #### [facility] [address] [place], [address] RBC (Bld) [#/Vol] 3.65 10*6/uL Low 4.2-5.4 [facility] Comment on above: Performed By: #### L 100.0500, L502.0250, L500.3600, L503.6030, L503.6550 #### [facility] [address] [place], [address] RDW SD 45.1 fl High 35.1-43.9 [facility] Comment on above: Performed By: #### L 100.0500, L502.0250, L500.3600, L503.6030, L503.6550 #### [facility] [address] [place], [address] WBC (Bld) [#/Vol] 7.1 10*3/uL Normal 4.4-11.0 [facility] Comment on above: Performed By: #### L 100.0500, L502.0250, L500.3600, L503.6030, L503.6550 #### [facility] [address] [place], [address] Ferritinon 08-15-2024 Ferritin [Mass/Vol] 69 ng/mL Normal 8-252 [facility] Comment on above: Order Comment: F Performed By: #### L 100.0500, L502.0250, L500.3600, L503.6030, L503.6550 ####[facility] [address] [place], [address] Iron+Iron Binding Capacityon 08-15-2024 Iron [Mass/Vol] 64 ug/dL Normal 50-170 [facility] Comment on above: Order Comment: F Performed By: #### L 100.0500, L502.0250, L500.3600, L503.6030, L503.6550 #### [facility] [address] [place], [address] IRON SATURATION 20.8 Normal 15.0-55.0 [facility] Comment on above: Order Comment: F Performed By: #### L 100.0500, L502.0250, L500.3600, L503.6030, L503.6550 #### [facility] [address] [place], [address] TIBC 308 ug/dL Normal 250-450 [facility] Comment on above: Order Comment: F Performed By: #### L 100.0500, L502.0250, L500.3600, L503.6030, L503.6550 #### [facility] [address] [place], [address] Microalb:Creat Ratio,Random URon 08-15-2024 Creatinine [Mass/Vol] 39.50 mg/dL Normal NO RANGE EST. [facility] Comment on above: Performed By: #### L 100.0500, L502.0250, L500.3600, L503.6030, L503.6550 #### [facility] [address] [place], [address] MALB:CRE 50.1 mg/g CRE High <30 mg/g CRE [facility] Comment on above: Performed By: #### L 100.0500, L502.0250, L500.3600, L503.6030, L503.6550 #### [facility] [address] [place], [address] MICROALBUMIN,UR 19.8 mg/L Normal NO RANGE EST. [facility] Comment on above: Performed By: #### L 100.0500, L502.0250, L500.3600, L503.6030, L503.6550 #### [facility] [address] [place], [address] Renal Profileon 08-15-2024 Albumin [Mass/Vol] 3.7 g/dL Normal 3.2-5.0 [facility] Comment on above: Order Comment: F Performed By: #### L 100.0500, L502.0250, L500.3600, L503.6030, L503.6550 #### [facility] [address] [place], [address] BUN/CRE 20.2 RATIO High 10-20 [facility] Comment on above: Order Comment: F Performed By: #### L 100.0500, L502.0250, L500.3600, L503.6030, L503.6550 #### [facility] [address] [place], [address] CA,Total 9.2 mg/dL Normal 8.5-10.1 [facility] Comment on above: Order Comment: F Performed By: #### L 100.0500, L502.0250, L500.3600, L503.6030, L503.6550 #### [facility] [address] [place], [address] Chloride [Moles/Vol] 109 mmol/L High 98-107 [facility] Comment on above: Order Comment: F Performed By: #### L 100.0500, L502.0250, L500.3600, L503.6030, L503.6550 #### [facility] [address] [place], [address] CO2 [Moles/Vol] 20.0 mmol/L Low 21.0-32.0 [facility] Comment on above: Order Comment: F Performed By: #### L 100.0500, L502.0250, L500.3600, L503.6030, L503.6550 #### [facility] [address] [place], [address] Creatinine [Mass/Vol] 1.78 mg/dL High 0.55-1.02 [facility] Comment on above: Order Comment: F Result Comment: The validity of the calculated GFR GFRAA in patients over 70 years has not been determined. Clinical correlation is essential. Performed By: #### L 100.0500, L502.0250, L500.3600, L503.6030, L503.6550 #### [facility] [address] [place], [address] EST GFR - AA 37 mL/min Low >60 [facility] Comment on above: Order Comment: F Result Comment: Afri can Beninese GFR Calc Performed By: #### L 100.0500, L502.0250, L500.3600, L503.6030, L503.6550 #### [facility] [address] [place], [address] GFR/1.73 sq M.predicted among non-blacks MDRD (S/P/Bld) [Vol rate/Area] 31 mL/min/{1.73_m2} Low >60 [facility] Comment on above: Order Comment: F Result Comment: Non- GFR Calc Performed By: #### L 100.0500, L502.0250, L500.3600, L503.6030, L503.6550 #### [facility] [address] [place], [address] Glucose [Mass/Vol] 155 mg/dL High 74-106 [facility] Comment on above: Order Comment: F Result Comment: Fast ing Glucose result greater than or equal to 126 mg/dL suggests DIABETES MELLITUS per A.D.A. criteria. Performed By: #### L 100.0500, L502.0250, L500.3600, L503.6030, L503.6550 #### [facility] [address] [place], [address] Phosphate [Mass/Vol] 3.6 mg/dL Normal 2.5-4.9 [facility] Comment on above: Order Comment: F Performed By: #### L 100.0500, L502.0250, L500.3600, L503.6030, L503.6550 #### [facility] [address] [place], [address] Potassium [Moles/Vol] 3.8 mmol/L Normal 3.5-5.1 [facility] Comment on above: Order Comment: F Performed By: #### L 100.0500, L502.0250, L500.3600, L503.6030, L503.6550 #### [facility] [address] [place], [address] Sodium [Moles/Vol] 138 mmol/L Normal 136-145 [facility] Comment on above: Order Comment: F Performed By: #### L 100.0500, L502.0250, L500.3600, L503.6030, L503.6550 #### [facility] [address] [place], [address] Urea nitrogen [Mass/Vol] 36 mg/dL High 7-18 [facility] Comment on above: Order Comment: F Performed By: #### L 100.0500, L502.0250, L500.3600, L503.6030, L503.6550 #### [facility] [address] [place], [address] SCRN MAMM (CAD)W/JAYME Murray n 08-15-2024 SCRN MAMM (CAD)W/JAYME BILAT [facility] Imaging Services [address] [place] [address] SCRN MAMM (CAD)W/JAYME BILAT MR#: [id number] Acct: [id number] Name: LYNDA BRADLEY Rep #: [id number] : 1965 F 59 From: Amado horowitz MD PCP: Dr. Mimi Martin DO Status: REG CLI Study: SCRN MAMM (CAD)W/JAYME BILAT Date of Exam: 07/24 02/13 Exam# [id number] Ordering Dr: Mimi Martin DO [id number] MAMMOGRAPHY - BILATERAL SCREENING REASON FOR EXAM: Female, 59 years old. Routine annual screening examination. PERTINENT HISTORY: Non-contributory. TECHNIQUE: Digital bilateral breast jayme (3D mammographic acquisition) in the CC and MLO projections. 2-D mediolateral oblique (MLO) and craniocaudad (CC) views of both breasts were obtained. CAD: Full Field Digital Mammography with Computer Added Detection was performed. COMPARISON: Comparison is made with prior study dated August 14, 2023 and August 11, 2022. FINDINGS: Breast Composition: The breasts are almost entirely fatty. There is a 3.7 mm x 5 mm nodule in the upper lateral aspect of the right breast. Correlation with ultrasound recommended. No other significant abnormalities are identified. BI/SCRN MAMM (CAD)W/JAYME BILAT IMPRESSION: 3.7 mm x 5 mm nodule in the upper lateral aspect of the right breast as described. Correlation with ultrasound recommended. ASSESSMENT CATEGORY: BIRADS Category 0: Incomplete. Need additional imaging evaluation. A letter regarding these results will be sent to the patient by the facility within 30 days. Approximately 10% of breast cancers are not detected by mammography. A normal mammogram should not delay biopsy of a clinically suspicious abnormality. [id number] Electronically Signed: Amado Mayen MD at 9:38 EDT , CC: Dr. Mimi Martin DO [employer] Director: Signed Normal [facility] Kidney and Bladderon 024 Kidney and Bladder [facility] Imaging Services [address] [place], [place] [address] Kidney and Bladder MR#: [id number] Acct: [id number] Name: LYNDA BRADLEY Rep #: [id number] : 1965 F 59 From: Tony fournier MD PCP: Dr. Mimi Martin DO Status: REG CLI Study: Kidney and Bladder Date of Exam: 06/03/24 Exam# [id number] Ordering Dr: Mimi Martin DO [id number] STUDY: RENAL ULTRASOUND - COMPLETE REASON FOR EXAM: Female, 59 years old. ACUTE ON CHRONIC KIDNEY DISEASE TECHNIQUE: Ultrasound evaluation of the kidneys was performed with real-time and static henson-scale imaging. COMPARISON: 08/22/2022. FINDINGS: RIGHT KIDNEY: Normal location of the right kidney, which is normal in size. The right kidney measures 10.7 x 6.4 x 5.2 cm. There is focal scarring of the renal cortex. The renal cortex measures 1.4 cm. There is a 2.3 cm cyst. There is a 6 mm nonobstructing stone. There is no right hydronephrosis. DISTAL RIGHT URETER: There is non-visualization of the distal right ureter. There is no demonstrated right ureterovesical junction calculus. There is a visualized right ureteral jet. LEFT KIDNEY: Normal location of the left kidney, which is normal in size. The left kidney measures 10.4 x 4.8 x 5.1 cm. There is focal scarring of the renal cortex. The renal cortex measures 1.3 cm. There are cysts measuring 1.7, 2.1, and 2.3 cm. There is a renal stone measuring 5 mm There is no left hydronephrosis. DISTAL LEFT URETER: There is non-visualization of the distal left ureter. There is no demonstrated left ureterovesical junction calculus. There is a visualized left ureteral jet. BLADDER: The distended urinary bladder has volume of 246 ml. There is a normal wall thickness of the distended urinary bladder. There is no demonstrated mass within the urinary bladder. There are no demonstrated bladder calculi. US/Kidney and Bladder IMPRESSION: No acute abnormality. Bilateral cortical scarring. Grossly stable renal cysts. Bilateral nonobstructing stones. Electronically Signed: Tony Jimenez MD at 23:01 EDT , CC: Dr. Mimi Martin DO [employer] Director: Signed Normal [facility] Microalb:Creat Ratio,Random URon 05-27-2024 Creatinine [Mass/Vol] 90.00 mg/dL Normal NO RANGE EST. [facility] Comment on above: Performed By: #### L 502.0250 ####[facility] [address] [place], [place], [id number] MALB:CRE 48.7 mg/g CRE High <30 mg/g CRE [facility] Comment on above: Performed By: #### L 502.0250 ####[facility] [address] [facility] [place], [place], [id number] MICROALBUMIN,UR 43.8 mg/L Normal NO RANGE EST. [facility] Comment on above: Performed By: #### L 502.0250 ####[facility] [address] [place], [address] Basic Metabolic Profile (BMP )on 05-06-2024 BUN/CRE 20.9 RATIO High 10-20 [facility] Comment on above: Performed By: #### L 503.0105, L506.1000, L500.2500, L501.9520, L503.6150, L503.6550, L506.0400 ####[facility] [address] [place], [address] CA,Total 9.2 mg/dL Normal 8.5-10.1 [facility] Comment on above: Performed By: #### L 503.0105, L506.1000, L500.2500, L501.9520, L503.6150, L503.6550, L506.0400 ####[facility] [address] [place], [address] Chloride [Moles/Vol] 105 mmol/L Normal 98-107 [facility] Comment on above: Performed By: #### L 503.0105, L506.1000, L500.2500, L501.9520, L503.6150, L503.6550, L506.0400 ####[facility] [address] [place], [address] CO2 [Moles/Vol] 24.0 mmol/L Normal 21.0-32.0 [facility] Comment on above: Performed By: #### L 503.0105, L506.1000, L500.2500, L501.9520, L503.6150, L503.6550, L506.0400 ####[facility] [address] [place], [address] Creatinine [Mass/Vol] 1.53 mg/dL High 0.55-1.02 [facility] Comment on above: Result Comment: The validity of the calculated GFR GFRAA in patients over 70 years has not been determined. Clinical correlation is essential. Performed By: #### L 503.0105, L506.1000, L500.2500, L501.9520, L503.6150, L503.6550, L506.0400 ####[facility] [address] [place], [address] EST GFR - AA 44 mL/min Low >60 [facility] Comment on above: Result Comment: Afri can Beninese GFR Calc Performed By: #### L 503.0105, L506.1000, L500.2500, L501.9520, L503.6150, L503.6550, L506.0400 ####[facility] [address] [place], [address] GAP 10 Normal 5-15 [facility] Comment on above: Performed By: #### L 503.0105, L506.1000, L500.2500, L501.9520, L503.6150, L503.6550, L506.0400 ####[facility] [address] [place], [address] GFR/1.73 sq M.predicted among non-blacks MDRD (S/P/Bld) [Vol rate/Area] 37 mL/min/{1.73_m2} Low >60 [facility] Comment on above: Result Comment: Non- GFR Calc Performed By: #### L 503.0105, L506.1000, L500.2500, L501.9520, L503.6150, L503.6550, L506.0400 ####[facility] [address] [place], [address] Glucose [Mass/Vol] 105 mg/dL Normal 74-106 [facility] Comment on above: Result Comment: Fast ing Glucose result from 100 to 125 mg/dL suggests IMPAIRED HOMEOSTASIS per A.D.A. criteria. Performed By: #### L 503.0105, L506.1000, L500.2500, L501.9520, L503.6150, L503.6550, L506.0400 ####[facility] [address] [place], [address] Potassium [Moles/Vol] 3.7 mmol/L Normal 3.5-5.1 [facility] Comment on above: Performed By: #### L 503.0105, L506.1000, L500.2500, L501.9520, L503.6150, L503.6550, L506.0400 ####[facility] [address] [place], [address] Sodium [Moles/Vol] 139 mmol/L Normal 136-145 [facility] Comment on above: Performed By: #### L 503.0105, L506.1000, L500.2500, L501.9520, L503.6150, L503.6550, L506.0400 ####[facility] [address] [place], [address] Urea nitrogen [Mass/Vol] 32 mg/dL High 7-18 [facility] Comment on above: Performed By: #### L 503.0105, L506.1000, L500.2500, L501.9520, L503.6150, L503.6550, L506.0400 ####[facility] [address] [place], [address] Ferritinon 05-06-2024 Ferritin [Mass/Vol] 68 ng/mL Normal 8-252 [facility] Comment on above: Performed By: #### L 503.0105, L506.1000, L500.2500, L501.9520, L503.6150, L503.6550, L506.0400 ####[facility] [address] [place], [address] Ironon 05-06-2024 Iron [Mass/Vol] 63 ug/dL Normal 50-170 [facility] Comment on above: Performed By: #### L 503.0105, L506.1000, L500.2500, L501.9520, L503.6150, L503.6550, L506.0400 ####[facility] [address] [place], [address] T4 Free Directon 05-06-2024 T4 FREE DIRECT 1.11 ng/dL Normal 0.76-1.46 [facility] Comment on above: Performed By: #### L 503.0105, L506.1000, L500.2500, L501.9520, L503.6150, L503.6550, L506.0400 ####[facility] [address] [place], [address] Thyroid Stim Hormone (TSH)on 05-06-2024 TSH 2.56 uIU/mL Normal 0.358-3.74 [facility] Comment on above: Performed By: #### L 503.0105, L506.1000, L500.2500, L501.9520, L503.6150, L503.6550, L506.0400 ####[facility] [address] [place], [address] Vitamin B12on 05-06-2024 Cobalamin (Vitamin B12) [Mass/Vol] pg/mL High 211-911 [facility] Comment on above: Performed By: #### L 503.0105, L506.1000, L500.2500, L501.9520, L503.6150, L503.6550, L506.0400 ####[facility] [address] [place], [address] Vitamin D,25 Hydroxyon 05-06 Vitamin D 25-OH 54.1 ng/mL Normal [facility] Comment on above: Result Comment: Leisa min D 25(OH) Status Range Deficiency <20 ng/mL (50nmol/L) Insufficiency 20 - 30 ng/mL (50 - 75 nmol/L) Sufficiency 30 - 100 ng/mL (75 - 250 nmol/L) Toxicity >100 ng/mL (>250 nmol/L) Performed By: #### L 503.0105, L506.1000, L500.2500, L501.9520, L503.6150, L503.6550, L506.0400 ####[facility] [address] [place], [address] CNOVon 03-25-2024 CNOV Office Visit (UCWSTR) BRENDANSUSANALYNDA J ([id number]) 1965 F Date Time Provider Department 03/25/24 8:15 AM [facility] During your visit today, we recorded [...] 11/26/15 Colonoscopy (MAC) DISARTICULATION KNEE 01/01/2007 right ESOPHAGOGASTRODUODEN OSCOPY TRANSORAL DIAGNOSTIC 11/26/15 EGD (MAC) PAST SURGICAL [...] COMPOUNDED PRESCRIPTION Left foot brace, arch support. [place] Dx DM 2 blood sugar diagnostic (FREESTYLE [...] DAILY (Patient not taking: Reported on 03/25/2024) budesonide-formotero l (SYMBICORT) 160-4.5 mcg/actuation inhaler Inhale [...] Paternal Aunt (more content not included)... Normal [facility] - Chemistry and C hemistry - challengeOrdered By: Mimi Martin on 01-10-2024 Cobalamin (Vitamin B12) [Mass/Vol] 1131 pg/mL 211-911 [facility] No Panel InformationOrdered By: Mimi Martin on 01-10-2024 Free Triiodothyronine (T3) pg/dL 2.3 pg/mL 2.18-3.98 [facility] Serum or plasma thyroid stim ulating hormone (TSH) measurement (units/volume)Ordered By: Mimi Martin on 01-10-2024 TSH Qn 2.08 uIU/mL 0.358-3.74 [facility] Thin prep Papanicolaou smear with manual screeningOrdered By: Mimi Martin on 01-10-2024 Thin prep Papanicolaou smear with manual screening 1.23 ng/dL 0.76-1.46 [facility] Whole blood hemoglobin A1c/t otal hemoglobin ratio (mass fraction)Ordered By: Mimi Martin on 01-10-2024 HbA1c (Bld) [Mass fraction] 5.9 % 3.8-5.6 [facility] Comment on above: Normal < 5.7 % Predi abetic 5.7 - 6.4 % Diabetic >or= 6.5 % Please note range changes. Laboratory - Chemistry and C hemistry - challengeOrdered By: Alena Ahn on 08-14-2023 Cobalamin (Vitamin B12) [Mass/Vol] 466 pg/mL 211-911 [facility] Basophil percentageOrdered B y: Alena Ahn on 08-11-2023 Basophil percentage 3.3 mg/dL 2.5-4.9 [facility] Chloride [Moles/Vol] 109 mmol/L 98-107 [facility] Cholesterol [Mass/Vol] 173 mg/dL <200 [facility] Comment on above: <200 mg/dL Desirable 200-240 mg/dL Borderline >240 mg/dL High Risk Glucose [Mass/Vol] 141 mg/dL 74-106 [facility] Comment on above: Fasting Glucose resu lt greater than or equal to 126 mg/dL suggests DIABETES MELLITUS per A.D.A. criteria. Potassium [Moles/Vol] 4.0 mmol/L 3.5-5.1 [facility] Sodium [Moles/Vol] 140 mmol/L 136-145 [facility] Triglyceride [Mass/Vol] 227 mg/dL <199 [facility] Comment on above: The drugs N-Acetylcy steine and Metamizole may falsely depress this assay.Serum Triglycerides Reference Interval Normal <150 mg/dL Borderline high 150 - 199 mg/dL High 200 - 499 mg/dL Very High > or = 500 mg/dL WBC (Bld) [#/Vol] 4.4 10*3/uL 4.4-11.0 [facility] Blood erythrocytes count (nu mber/volume)Ordered By: Alena Ahn on 08-11-2023 RBC (Bld) [#/Vol] 3.45 10*6/uL 4.2-5.4 [facility] Blood hemoglobin measurement (mass/volume)Ordered By: Alena Ahn on 08-11-2023 Hemoglobin (Bld) [Mass/Vol] 10.6 g/dL 12.0-15.0 [facility] Blood platelet mean volumeOr dered By: Alena Ahn on 08-11-2023 Platelet mean volume (Bld) [Entitic vol] 11.1 fL 6.2-12.0 [facility] Determination of erythrocyte mean corpuscular volume (MCV)Ordered By: Alena Ahn on 08-11-2023 MCV (RBC) [Entitic vol] 96.8 fL 81-99 [facility] Hematocrit Auto (Bld) [Volum e fraction]Ordered By: Alena Ahn on 08-11-2023 Hematocrit (Bld) [Volume fraction] 33.4 % 37-47 [facility] Iron measurement (mass/mass) Ordered By: Alena Ahn on 08-11-2023 Iron (Unsp spec) [Mass/Mass] 56 ug/dL 50-170 [facility] - Chemistry and C hemistry - challengeOrdered By: Alena Ahn on 08-11-2023 CO2 [Moles/Vol] 23.0 mmol/L 21.0-32.0 [facility] Free T4 [Mass/Vol] 1.23 ng/dL 0.76-1.46 [facility] Urea nitrogen/Creatinine [Mass ratio] 25.2 mg/mg 08-11 [facility] - Hematology and Cell countsOrdered By: Alena Ahn on 08-11-2023 Erythrocyte distribution width (RBC) [Entitic vol] 47.6 fL 35.1-43.9 [facility] Erythrocyte distribution width (RBC) [Ratio] 13.4 % 11.6-14.6 [facility] MCH (RBC) [Entitic mass] 30.7 pg 27.0-32.0 [facility] MCHC Auto (RBC) [Mass/Vol]Or dered By: Alena Ahn on 08-11-2023 MCHC (RBC) [Mass/Vol] 31.7 g/dL 32-36 [facility] No Panel InformationOrdered By: Alena Ahn on 08-11-2023 Estimated GFR (MDRD) Amer 53 mL/min >60 [facility] Comment on above: GFR Calc Estimated GFR (MDRD) Non-Af Amer 44 mL/min >60 [facility] Comment on above: Non- GFR Calc Free Triiodothyronine (T3) pg/dL 2.4 pg/mL 2.18-3.98 [facility] Thyroid Stimulating Hormone (TSH) 0.46 uIU/mL 0.358-3.74 [facility] Platelets bldOrdered By: Destiny Ahn on 08-11-2023 Platelets (Bld) [#/Vol] 192 10*3/uL 150-450 [facility] Serum or plasma albumin anamaria urement (mass/volume)Ordered By: Alena Ahn on 08-11-2023 Albumin [Mass/Vol] 3.4 g/dL 3.2-5.0 [facility] Serum or plasma calcium anamaria urement (mass/volume)Ordered By: Alena Ahn on 08-11-2023 Calcium [Mass/Vol] 9.0 mg/dL 8.5-10.1 [facility] Serum or plasma cholesterol in HDL measurement (mass/volume)Ordered By: Alena Ahn on 08-11-2023 Cholesterol in HDL [Mass/Vol] 50 mg/dL >40 [facility] Comment on above: The drugs N-Acetylcy steine and Metamizole may falsely depress this assay. Reference Range HDL <40 mg/dL Low HDL Cholesterol HDL >or= 60 mg/dL High HDL Cholesterol Serum or plasma cholesterol in VLDL measurement (mass/volume)Ordered By: Alena Ahn on 08-11-2023 Cholesterol in VLDL [Mass/Vol] 45 mg/dL 5-40 [facility] Serum or plasma creatinine m easurement (mass/volume)Ordered By: Alena Ahn on 08-11-2023 Creatinine [Mass/Vol] 1.31 mg/dL 0.55-1.02 [facility] Comment on above: The validity of the calculated GFR & GFRAA in patients over 70 years has not been determined. Clinical correlation is essential. Serum or plasma ferritin rk surement (mass/volume)Ordered By: Alena Ahn on 08-11-2023 Ferritin [Mass/Vol] 44 ng/mL 8-252 [facility] Serum or plasma low density lipoprotein (LDL) cholesterol measurement (mass/volume)Ordered By: Alena Ahn on 08-11-2023 Cholesterol in LDL [Mass/Vol] 78 mg/dL 0-130 [facility] Serum or plasma urea nitroge n measurement (mass/volume)Ordered By: Alena Ahn on 08-11-2023 Urea nitrogen [Mass/Vol] 33 mg/dL 7-18 [facility] Absolute lymphocyte countOrd ered By: Mimi Martin on 05-17-2023 Lymphocytes Auto (Unsp spec) [#/Vol] 1.24 10*3/uL 0.83-4.51 [facility] Basophil percentageOrdered B y: Mimi Martin on 05-17-2023 Basophils/100 WBC (Bld) 0.5 % 0-1 [facility] Eosinophils/100 WBC (Bld) 3.7 % 0-5 [facility] Neutrophils (Bld) [#/Vol] 3.7 10*3/uL 2.0-7.7 [facility] Neutrophils/100 WBC (Bld) 68.4 % 47-70 [facility] WBC (Bld) [#/Vol] 5.5 10*3/uL 4.4-11.0 [facility] Blood erythrocytes count (nu mber/volume)Ordered By: Mimi Martin on 05-17-2023 RBC (Bld) [#/Vol] 3.50 10*6/uL 4.2-5.4 [facility] Blood hemoglobin measurement (mass/volume)Ordered By: Mimi Martin on 05-17-2023 Hemoglobin (Bld) [Mass/Vol] 11.3 g/dL 12.0-15.0 [facility] Blood lymphocytes/100 leukoc ytesOrdered By: Mimi Martin on 05-17-2023 Lymphocytes/100 WBC (Bld) 22.7 % 19-41 [facility] Blood monocytes/100 leukocyt esOrdered By: Mimi Martin on 05-17-2023 Monocytes/100 WBC (Bld) 4.2 % 0-10 [facility] Blood platelet mean volumeOr dered By: Mimi Martin on 05-17-2023 Platelet mean volume (Bld) [Entitic vol] 11.4 fL 6.2-12.0 [facility] Determination of erythrocyte mean corpuscular volume (MCV)Ordered By: Mimi Martin on 05-17-2023 MCV (RBC) [Entitic vol] 96.6 fL 81-99 [facility] Hematocrit Auto (Bld) [Volum e fraction]Ordered By: Mimi Martin on 05-17-2023 Hematocrit (Bld) [Volume fraction] 33.8 % 37-47 [facility] Laboratory - Chemistry and C hemistry - challengeOrdered By: Mimi Martin on 05-17-2023 Cobalamin (Vitamin B12) [Mass/Vol] 458 pg/mL 211-911 [facility] Free T4 [Mass/Vol] 1.20 ng/dL 0.76-1.46 [facility] Laboratory - Hematology and Cell countsOrdered By: Mimi Martin on 05-17-2023 Erythrocyte distribution width (RBC) [Entitic vol] 47.3 fL 35.1-43.9 [facility] Erythrocyte distribution width (RBC) [Ratio] 13.4 % 11.6-14.6 [facility] Immature granulocytes/100 WBC (Bld) 0.500 % 0.0-0.9 [facility] Comment on above: IG% - Immature Granu locytes (promyelocytes, myelocytes and metamyelocytes) > 1% indicates that a LEFT SHIFT is Present. MCH (RBC) [Entitic mass] 32.3 pg 27.0-32.0 [facility] Nucleated RBC/100 WBC (Bld) [Ratio] 0 % 0-5 [facility] MCHC Auto (RBC) [Mass/Vol]Or dered By: Mimi Martin on 05-17-2023 MCHC (RBC) [Mass/Vol] 33.4 g/dL 32-36 [facility] No Panel InformationOrdered By: Mimi Martin on 05-17-2023 Free Triiodothyronine (T3) pg/dL 2.2 pg/mL 2.18-3.98 [facility] Miscellaneous Test See comment [facility] Comment on above: TEST RESULTS LIMITSI anthony 55 ug/dL 38 - 169 TESTING PERFORMED AT [facility]. ORIGINAL REPORT ON FILE IN LAB CONTAINS ADDITIONAL TEST SITE INFORMATION. Thyroid Stimulating Hormone (TSH) 3.06 uIU/mL 0.358-3.74 [facility] Platelets bldOrdered By: Kelly Martin on 05-17-2023 Platelets (Bld) [#/Vol] 204 10*3/uL 150-450 [facility] Serum or plasma ferritin rk surement (mass/volume)Ordered By: Mimi Martin on 05-17-2023 Ferritin [Mass/Vol] 36 ng/mL 8-252 [facility] Basophil percentageOrdered B y: Dr. Ahn on 12-07-2022 Basophil percentage 2.6 mg/dL 2.5-4.9 [facility] Chloride [Moles/Vol] 106 mmol/L 98-107 [facility] Glucose [Mass/Vol] 189 mg/dL 74-106 [facility] Comment on above: Fasting Glucose resu lt greater than or equal to 126 mg/dL suggests DIABETES MELLITUS per A.D.A. criteria. Potassium [Moles/Vol] 3.6 mmol/L 3.5-5.1 [facility] Sodium [Moles/Vol] 141 mmol/L 136-145 [facility] Laboratory - Chemistry and C hemistry - challengeOrdered By: Dr. Ahn on 12-07-2022 CO2 [Moles/Vol] 24.0 mmol/L 21.0-32.0 [facility] Urea nitrogen/Creatinine [Mass ratio] 18.5 mg/mg 10-20 [facility] No Panel InformationOrdered By: Dr. Ahn on 12-07-2022 Estimated GFR (MDRD) Amer 47 mL/min >60 [facility] Comment on above: GFR Calc Estimated GFR (MDRD) Non-Af Amer 39 mL/min >60 [facility] Comment on above: Non- GFR Calc Serum or plasma albumin anamaria urement (mass/volume)Ordered By: Dr. Ahn on 12-07-2022 Albumin [Mass/Vol] 3.7 g/dL 3.2-5.0 [facility] Serum or plasma calcium anamaria urement (mass/volume)Ordered By: Dr. Ahn on 12-07-2022 Calcium [Mass/Vol] 8.9 mg/dL 8.5-10.1 [facility] Serum or plasma creatinine m easurement (mass/volume)Ordered By: Dr. Ahn on 12-07-2022 Creatinine [Mass/Vol] 1.46 mg/dL 0.55-1.02 [facility] Comment on above: The validity of the calculated GFR & GFRAA in patients over 70 years has not been determined. Clinical correlation is essential. Serum or plasma urea nitroge n measurement (mass/volume)Ordered By: Dr. Ahn on 12-07-2022 Urea nitrogen [Mass/Vol] 27 mg/dL 7-18 [facility] Absolute lymphocyte counton 07-25-2022 Lymphocytes Auto (Unsp spec) [#/Vol] 1.85 10*3/uL 0.83-4.51 [facility] Work Phone: Basophil percentageon 2021 Basophils/100 WBC (Bld) 0.7 % 0-1 [facility] Work Phone: Bilirubin [Mass/Vol] 0.60 mg/dL 0.20-1.00 [facility] Work Phone: Comment on above: For patients on eltr ombopag therapy, use of Dimension [place] TBIL is not recommended. Chloride [Moles/Vol] 107 mmol/L 98-107 [facility] [facility] Work Phone: Cholesterol [Mass/Vol] 162 mg/dL <200 [facility] Work Phone: Comment on above: <200 mg/dL Desirable 200-240 mg/dL Borderline >240 mg/dL High Risk Eosinophils/100 WBC (Bld) 3.7 % 0-5 [facility] Work Phone: Glucose [Mass/Vol] 116 mg/dL 74-106 [facility] Work Phone: Comment on above: Fasting Glucose resu lt from 100 to 125 mg/dL suggests IMPAIRED HOMEOSTASIS per A.D.A. criteria. Neutrophils (Bld) [#/Vol] 3.3 10*3/uL 2.0-7.7 [facility] Work Phone: Neutrophils/100 WBC (Bld) 57.5 % 47-70 [facility] Work Phone: Potassium [Moles/Vol] 3.9 mmol/L 3.5-5.1 [facility] Work Phone: Protein [Mass/Vol] 7.3 g/dL 6.4-8.2 [facility] Work Phone: Sodium [Moles/Vol] 141 mmol/L 136-145 [facility] Work Phone: Triglyceride [Mass/Vol] 199 mg/dL <199 [facility] Work Phone: Comment on above: The drugs N-Acetylcy steine and Metamizole may falsely depress this assay.Serum Triglycerides Reference Interval Normal <150 mg/dL Borderline high 150 - 199 mg/dL High 200 - 499 mg/dL Very High > or = 500 mg/dL WBC (Bld) [#/Vol] 5.7 10*3/uL 4.4-11.0 [facility] Work Phone: Blood erythrocytes count (nu mber/volume)on 07-25-2022 RBC (Bld) [#/Vol] 3.55 10*6/uL 4.2-5.4 [facility] Work Phone: Blood hemoglobin measurement (mass/volume)on 07-25-2022 Hemoglobin (Bld) [Mass/Vol] 11.2 g/dL 12.0-15.0 [facility] Work Phone: [phone] Blood lymphocytes/100 leukoc yteson 07-25-2022 Lymphocytes/100 WBC (Bld) 32.5 % 19-41 [facility] Work Phone: Blood monocytes/100 leukocyt eson 07-25-2022 Monocytes/100 WBC (Bld) 5.6 % 0-10 [facility] Work Phone: Blood platelet mean volumeon 07-25-2022 Platelet mean volume (Bld) [Entitic vol] 10.4 fL 6.2-12.0 [facility] Work Phone: Determination of erythrocyte mean corpuscular volume (MCV)on 07-25-2022 MCV (RBC) [Entitic vol] 92.4 fL 81-99 [facility] Work Phone: Hematocrit Auto (Bld) [Volum e fraction]on 07-25-2022 Hematocrit (Bld) [Volume fraction] 32.8 % 37-47 [facility] Work Phone: Laboratory - Chemistry and C hemistry - challengeon 07-25-2022 ALP [Catalytic activity/Vol] 75 U/L 45-117 [facility] Work Phone: ALT [Catalytic activity/Vol] 24 U/L 13-56 [facility] Work Phone: CO2 [Moles/Vol] 24.0 mmol/L 21.0-32.0 [facility] Work Phone: Free T4 [Mass/Vol] 1.31 ng/dL 0.76-1.[address] [facility] Work Phone: Globulin (S) [Mass/Vol] 3.6 g/dL 2.2-4.2 [facility] Work Phone: Urea nitrogen/Creatinine [Mass ratio] 22.8 mg/mg 10-20 [facility] Work Phone: Laboratory - Hematology and Cell countson 10-03-2022 Erythrocyte distribution width (RBC) [Entitic vol] 43.8 fL 35.1-43.9 [facility] Work Phone: Erythrocyte distribution width (RBC) [Ratio] 12.9 % 11.6-14.6 [facility] Work Phone: Immature granulocytes/100 WBC (Bld) 0.000 % 0.0-0.9 [facility] Work Phone: Comment on above: IG% - Immature Granu locytes (promyelocytes, myelocytes and metamyelocytes) > 1% indicates that a LEFT SHIFT is Present. MCH (RBC) [Entitic mass] 31.5 pg 27.0-32.0 [facility] Work Phone: Nucleated RBC/100 WBC (Bld) [Ratio] 0 % 0-5 [facility] Work Phone: MCHC Auto (RBC) [Mass/Vol]on 07-25-2022 MCHC (RBC) [Mass/Vol] 34.1 g/dL 32-36 [facility] Work Phone: No Panel Informationon 07-25 Estimated GFR (MDRD) Amer 51 mL/min >60 [facility] Work Phone: Comment on above: GFR Calc Estimated GFR (MDRD) Non-Af Amer 42 mL/min >60 [facility] Work Phone: Comment on above: Non- GFR Calc Free Triiodothyronine (T3) pg/dL 2.3 pg/mL 2.18-3.98 [facility] Work Phone: Thyroid Stimulating Hormone (TSH) 2.54 uIU/mL 0.358-3.74 [facility] Work Phone: Urine Microalbumin/Creatinine Ratio 35.0 mg/g CRE <30 [facility] Work Phone: Vitamin D 25-Hydroxy 52.0 ng/mL [facility] Work Phone: Comment on above: Vitamin D 25(OH) Sta tus Range Deficiency <20 ng/mL (50nmol/L) Insufficiency 20 - 30 ng/mL (50 - 75 nmol/L) Sufficiency 30 - 100 ng/mL (75 - 250 nmol/L) Toxicity >100 ng/mL (>250 nmol/L) Platelets bldon 07-25-2022 Platelets (Bld) [#/Vol] 181 10*3/uL 150-450 [facility] Work Phone: Serum or plasma albumin anamaria urement (mass/volume)on 07-25-2022 Albumin [Mass/Vol] 3.7 g/dL 3.2-5.0 [facility] Work Phone: Serum or plasma albumin/glob ulin mass ratioon 07-25-2022 Albumin/Globulin [Mass ratio] 1.0 {ratio} 0.9-2.4 [facility] Work Phone: Serum or plasma calcium anamaria urement (mass/volume)on 07-25-2022 Calcium [Mass/Vol] 9.2 mg/dL 8.5-10.1 [facility] Work Phone: Serum or plasma cholesterol in HDL measurement (mass/volume)on 07-25-2022 Cholesterol in HDL [Mass/Vol] 54 mg/dL >40 [facility] Work Phone: Comment on above: The drugs N-Acetylcy steine and Metamizole may falsely depress this assay. Reference Range HDL <40 mg/dL Low HDL Cholesterol HDL >or= 60 mg/dL High HDL Cholesterol Serum or plasma cholesterol in VLDL measurement (mass/volume)on 07-25-2022 Cholesterol in VLDL [Mass/Vol] 40 mg/dL 5-40 [facility] Work Phone: Serum or plasma creatinine m easurement (mass/volume)on 07-25-2022 Creatinine [Mass/Vol] 1.36 mg/dL 0.55-1.02 [facility] Work Phone: Comment on above: The validity of the calculated GFR & GFRAA in patients over 70 years has not been determined. Clinical correlation is essential. Serum or plasma low density lipoprotein (LDL) cholesterol measurement (mass/volume)on 07-25-2022 Cholesterol in LDL [Mass/Vol] 68 mg/dL 0-130 [facility] Work Phone: Serum or plasma urea nitroge n measurement (mass/volume)on 07-25-2022 Urea nitrogen [Mass/Vol] 31 mg/dL 7-18 [facility] Work Phone: Thin prep Papanicolaou smear with manual screeningon 07-25-2022 Thin prep Papanicolaou smear with manual screening 18 U/L 15-37 [facility] Work Phone: Thin prep Papanicolaou smear with manual screening 10 5-15 [facility] Work Phone: Thin prep Papanicolaou smear with manual screening 29.1 mg/L NO RANGE EST. [facility] Work Phone: Urine creatinine measurement (mass/volume)on 07-25-2022 Creatinine (U) [Mass/Vol] 83.20 mg/dL NO RANGE EST. [facility] Work Phone: Whole blood hemoglobin A1c/t otal hemoglobin ratio (mass fraction)on 07-25-2022 HbA1c (Bld) [Mass fraction] 5.9 % 3.8-5.6 [facility] Work Phone: Comment on above: Normal < 5.7 % Predi abetic 5.7 - 6.4 % Diabetic >or= 6.5 % Please note range changes. No Panel Informationon 04-29 POC SARS CoV-2 Antigen Positive [facility] Work Phone: Vital Signs Date Time Vital Sign Value Performing Clinician Faci mariah 04-09-2025 08:33-0400 Body height 154.[address] Mimi Martin DO Work Phone: [facility] 04-09-2025 08:33-0400 Body mass index (BMI) [Ratio] 38.1 kg/m2 Dr. Mimi Martin DO Work Phone: [facility] 04-09-2025 08:33-0400 Body weight 91.[address] Mimi Martin DO Work Phone: [facility] 04-09-2025 08:33-0400 Diastolic blood pressure 80 mm[Hg] Dr. Mimi Martin DO Work Phone: [facility] 04-09-2025 08:33-0400 Heart rate 71 /min Dr. Mimi Martin DO Work Phone: [facility] 04-09-2025 08:33-0400 SaO2% (BldA) [Mass fraction] 97 % Dr. Mimi Martin DO Work Phone: [facility] 04-09-2025 08:33-0400 Systolic blood pressure 123 mm[Hg] Dr. Mimi Martin DO Work Phone: [facility] 03-05-2025 08:02-0400 Body height 154.[address] Mimi Martin DO Work Phone: [facility] 03-05-2025 07:42-0400 Body mass index (BMI) [Ratio] 38.9 kg/m2 Dr. Mimi Martin DO Work Phone: [facility] 03-05-2025 07:42-0400 Body temperature 96.5 [degF] Dr. Mimi Martin DO Work Phone: [facility] 03-05-2025 07:42-0400 Body weight 93.[address] Mimi Martin DO Work Phone: [facility] 03-05-2025 07:42-0400 Diastolic blood pressure 92 mm[Hg] Dr. Mimi Martin DO Work Phone: [facility] 03-05-2025 07:42-0400 Heart rate 76 /min Dr. Mimi Martin DO Work Phone: [facility] 03-05-2025 07:42-0400 Respiratory rate 16 /min Dr. Mimi Martin DO Work Phone: [facility] 03-05-2025 07:42-0400 SaO2% (BldA) [Mass fraction] 96 % Dr. Mimi Martin DO Work Phone: [facility] 03-05-2025 07:42-0400 Systolic blood pressure 155 mm[Hg] Dr. Mimi Martin DO Work Phone: [facility] 01-06-2025 11:11-0400 Body height 154.[address] Mimi Martin DO Work Phone: [facility] 01-06-2025 11:11-0400 Body mass index (BMI) [Ratio] 39.5 kg/m2 Dr. Mimi Martin DO Work Phone: [facility] 01-06-2025 11:11-0400 Body weight 94.[address] Mimi Martin DO Work Phone: [facility] 01-06-2025 11:11-0400 Diastolic blood pressure 92 mm[Hg] Dr. Mimi Martin DO Work Phone: [facility] 01-06-2025 11:11-0400 Heart rate 84 /min Dr. Mimi Martin DO Work Phone: [facility] 01-06-2025 11:11-0400 SaO2% (BldA) [Mass fraction] 96 % Dr. Mimi Martin DO Work Phone: [facility] 01-06-2025 11:11-0400 Systolic blood pressure 139 mm[Hg] Dr. Mimi Martin DO Work Phone: [facility] 03-25-2024 08:02-0400 Body mass index (BMI) [Ratio] 41.16 kg/m2 Melany Saez APRN.SOLAR PROJECT ENGINEER Work Phone: [facility] 03-25-2024 08:02-0400 Body temperature 97.9 [degF] Melany Saez APRN.SOLAR PROJECT ENGINEER Work Phone: [facility] 03-25-2024 08:02-0400 Body weight 98.8 kg Melany Praisler-Wood BILL PEDDLER.SOLAR PROJECT ENGINEER Work Phone: [facility] 03-25-2024 08:02-0400 Diastolic blood pressure 70 mm[Hg] Melany Praisler-Wood BILL PEDDLER.SOLAR PROJECT ENGINEER Work Phone: [facility] 03-25-2024 08:02-0400 Heart rate 90 /min Melany Praisler-Wood BILL PEDDLER.SOLAR PROJECT ENGINEER Work Phone: [facility] 03-25-2024 08:02-0400 Respiratory rate 16 /min Melany Praisler-Wood BILL PEDDLER.SOLAR PROJECT ENGINEER Work Phone: [facility] 03-25-2024 08:02-0400 SaO2% (BldA) [Mass fraction] 95 % Melany Praisler-Wood BILL PEDDLER.SOLAR PROJECT ENGINEER Work Phone: [facility] 03-25-2024 08:02-0400 Systolic blood pressure 142 mm[Hg] Melany Praisler-Wood BILL PEDDLER.SOLAR PROJECT ENGINEER Work Phone: [facility] 02-08-2023 07:39-0400 Body height 154.[address] Mimi Martin Work Phone: [facility] 02-08-2023 07:39-0400 Body mass index (BMI) [Ratio] 40 kg/m2 Dr. Mimi Martin Work Phone: [facility] 02-08-2023 07:39-0400 Body temperature 97.6 [degF] Dr. Mimi Martin Work Phone: [facility] 02-08-2023 07:39-0400 Body weight 96.[address] Mimi Martin Work Phone: [facility] 02-08-2023 07:39-0400 Diastolic blood pressure 95 mm[Hg] Dr. Mimi Martin Work Phone: [facility] 02-08-2023 07:39-0400 Heart rate 98 /min Dr. Mimi Martin Work Phone: [facility] 02-08-2023 07:39-0400 Respiratory rate 18 /min Dr. Mimi Martin Work Phone: [facility] 02-08-2023 07:39-0400 SaO2% (BldA) [Mass fraction] 98 % Dr. Mimi Martin Work Phone: [facility] 02-08-2023 07:39-0400 Systolic blood pressure 171 mm[Hg] Dr. Mimi Martin Work Phone: [facility] 01-25-2023 11:58-0400 Body height 154.94 cm [facility] 01-25-2023 11:58-0400 Body temperature 96.4 [degF] [facility] 01-25-2023 11:58-0400 Diastolic blood pressure 99 mm[Hg] [facility] 01-25-2023 11:58-0400 Heart rate 90 /min [facility] 01-25-2023 11:58-0400 Respiratory rate 18 /min [facility] 01-25-2023 11:58-0400 SaO2% (BldA) [Mass fraction] 99 % [facility] 01-25-2023 11:58-0400 Systolic blood pressure 154 mm[Hg] [facility] 08-09-2022 06:38-0400 Body height 154.[address] Mimi Martin Work Phone: [facility] Work Phone: 08-09-2022 06:38-0400 Body mass index (BMI) [Ratio] 39.5 kg/m2 Dr. Mimi Martin Work Phone: [facility] Work Phone: 08-09-2022 06:38-0400 Body temperature 98.2 [degF] Dr. Mimi Martin Work Phone: [facility] Work Phone: 08-09-2022 06:38-0400 Body weight 94.[address] Mimi Martin Work Phone: [facility] Work Phone: 08-09-2022 06:38-0400 Diastolic blood pressure 88 mm[Hg] Dr. Mimi Martin Work Phone: [facility] Work Phone: 08-09-2022 06:38-0400 Heart rate 67 /min Dr. Mimi Martin Work Phone: [facility] Work Phone: 08-09-2022 06:38-0400 Respiratory rate 16 /min Dr. Mimi Martin Work Phone: [facility] Work Phone: 08-09-2022 06:38-0400 SaO2% (BldA) [Mass fraction] 97 % Dr. Mimi Martin Work Phone: [facility] Work Phone: 08-09-2022 06:38-0400 Systolic blood pressure 154 mm[Hg] Dr. Mimi Martin Work Phone: [facility] Work Phone: 04-29-2022 15:35-0400 Body temperature 99.9 [degF] Dr. Mimi Martin Work Phone: [facility] Work Phone: 04-29-2022 15:35-0400 Diastolic blood pressure 100 mm[Hg] Dr. Mimi Martin Work Phone: [facility] Work Phone: 04-29-2022 15:35-0400 Heart rate 112 /min Dr. Mimi Martin Work Phone: [facility] Work Phone: 04-29-2022 15:35-0400 Respiratory rate 16 /min Dr. Mimi Martin Work Phone: [facility] Work Phone: 04-29-2022 15:35-0400 SaO2% (BldA) [Mass fraction] 99 % Dr. Mimi Martin Work Phone: [facility] Work Phone: 04-29-2022 15:35-0400 Systolic blood pressure 178 mm[Hg] Dr. Mimi Martin Work Phone: [facility] Work Phone: 01-25-2022 08:26-0400 Body height 162.56 cm [facility] Work Phone: Encounters Encounter Date Encounter Type Care Provider Facility Start: 04-09-2025 End: 04-09-[address] Mimi Martin DO Work Phone: [facility] Work Phone: Start: 04-09-2025 End: 04-09-2025 Patient encounter procedure Janey Gutierrez CHIEF SCIENTIST-C -[facility] Work Phone: Start: 03-14-2025 ambulatory Mimi Martin Facility:[facility] Start: 03-05-2025 End: 03-05-2025 Patient encounter procedure Richa Mari CHIEF SCIENTIST-C -[facility] Work Phone: Start: 03-05-2025 End: 03-05-[address] Mimi Martin DO Work Phone: [facility] Work Phone: Start: 01-14-2025 End: 01-14-[address] Mimi Martin DO Work Phone: [facility] Work Phone: Start: 01-14-2025 End: 01-14-2025 Patient encounter procedure Janey Gutierrez CHIEF SCIENTIST-C -[facility] Work Phone: Start: 01-14-2025 End: 01-14-2025 ambulatory Mimi Martin Facility:[facility] Start: 01-06-2025 End: 01-06-2025 Patient encounter procedure Janey RAVI -[facility] Work Phone: Start: 01-06-2025 End: 01-06-2025 ambulatory Mimi Malys Facility:[facility] Start: 09-11-2024 End: 09-11-2024 ambulatory Mimi Malys Facility:[facility] Start: 09-09-2024 End: 09-09-2024 ambulatory Mimi Malys Facility:[facility] Start: 08-16-2024 End: 08-16-2024 ambulatory Mimi Malys Facility:[facility] Start: 08-15-2024 End: 08-15-2024 ambulatory Mimi Malys Facility:[facility] Start: 06-03-2024 End: 06-03-2024 ambulatory Mimi Malys Facility:[facility] Start: 05-27-2024 End: 05-27-2024 ambulatory Mimi Malys Facility:[facility] Start: 05-06-2024 End: 05-06-2024 ambulatory Mimi Malys Facility:[facility] Start: 03-25-2024 End: 03-25-2024 ambulatory MIMI A MALYS Facility:[facility] Start: 03-25-2024 End: 03-25-2024 Patient encounter procedure Melany Saez APRN.[employer]AR PRO[employer] ENGINEER Work Phone: [facility] Comment on above: Swelling of eyelid, unspecified laterality (Primary Dx); Insect bite of head, unspecified part, initial encounter Start: 01-10-2024 End: 01-10-2024 ambulatory [facility] Work Phone: Start: 01-10-2024 End: 01-10-2024 Patient encounter procedure [facility] Work Phone: Start: 08-14-2023 End: 08-14-2023 ambulatory [facility] Work Phone: Start: 08-14-2023 End: 08-14-2023 Patient encounter procedure [facility]-Outpatient Breast Imaging Work Phone: Start: 08-11-2023 End: 08-11-2023 ambulatory [facility] Work Phone: Start: 08-11-2023 End: 08-11-2023 Patient encounter procedure [facility] Work Phone: Start: 05-17-2023 End: 05-17-[address] Mimi Martin Work Phone: [facility] Work Phone: Start: 05-17-2023 End: 05-17-[address] Mimi Martin Work Phone: [facility] Start: 02-08-2023 End: 02-08-[address] Mimi Martin Work Phone: [facility]-Pulmonary Medicine [facility] Work Phone: Start: 01-25-2023 End: 01-25-2023 Emergency department patient visit [facility]-Emergency Department Start: 12-07-2022 End: 12-07-2022 ambulatory [facility] Work Phone: Start: 12-07-2022 End: 12-07-2022 Patient encounter procedure [facility] Start: 08-22-2022 End: 08-22-[address] Mimi Martin Work Phone: [facility] Work Phone: Start: 08-22-2022 End: 08-22-[address] Mimi Martin Work Phone: [facility]-Ultrasound, [facility] Start: 08-11-2022 End: 08-11-[address] Mimi Martin Work Phone: [facility] Work Phone: Start: 08-11-2022 End: 08-11-[address] Mimi Martin Work Phone: [facility]-Outpatient Breast Imaging Start: 08-09-2022 End: 08-09-[address] Mimi Martin Work Phone: [facility]-Pulmonary Medicine [facility] Start: 07-25-2022 End: 07-25-[address] Mimi Martin Work Phone: [facility] Start: 04-29-2022 End: 04-29-[address] Mimi Martin Work Phone: [facility] Start: 01-25-2022 End: 01-25-2022 Patient encounter procedure [facility]-Outpatient Bone Densitometry Procedures Date Procedure Procedure Detail Performing Clinician Start: 08-14-2023 Screening mammography Start: 01-25-2023 X-ray of chest posteroanterior view Start: 08-22-[address] Yaima Martin Work Phone: Start: 08-11-2022 Screening mammography Tomer Martin Work Phone: Start: 01-25-2022 Dual energy X-ray absorptiometry Start: 11-26-2015 Colonoscopy Melany Charles APRN.CNP Work Phone: Start: 07-27-2007 History of amputatio n of leg through tibia and fibula Status post below knee amputation Melany Saez APRN.UBALDO Work Phone: History of cataract extraction History of cataract surgery Comment on above: 03/2021 Plan of Treatment Date Care Activity Detail Author Start: 11-26-2025 Screening for malignant neoplasm of colon [facility] Start: 06-23-2024 Influenza vaccination Influenza Vaccine (Season Ended) [facility] Start: 05-28-2024 Screening for malignant neoplasm of cervix [facility] Start: 10-23-2023 Behavioral Health Screening Behavioral Health Screening [facility] Start: 06-23-2023 Covid-19 Vaccine ( season) Covid-19 Vaccine ( season) [facility] Start: 2023 RSV Vaccine (1 - 1-dose 60+ series) RSV Vaccine (1 - 1-dose 60+ series) [facility] Start: 05-28-2020 Screening for malignant neoplasm of breast Mammogram Screening [facility] Start: 03-09-2019 Urine microalbumin profile DTaP,Tdap,Td Vaccine (2 - Td or Tdap) [facility] Start: 01-04-2018 Diabetic foot examination Diabetic Foot Exam [facility] Start: 08-04-2017 Hemoglobin A1c measurement HbA1C [facility] Start: 07-11-2017 Glaucoma screening Dilated Retinal Exam [facility] Start: 05-31-2017 Hepatitis B screening Urine Albumin:Creatinine Ratio [facility] Start: 05-31-2017 Hepatitis B surface antibody level LDL Cholesterol [facility] Start: 01-23-2016 Screening for malignant neoplasm of colon Fecal Occult Blood [facility] Start: 2013 Shingrix Vaccine (1 of 2) Shingrix Vaccine (1 of 2) [facility] Start: 07-27-2008 Pneumococcal vaccination Pneumococcal Vaccine (2 of 2 - PCV) [facility] Start: 2008 Screening for malignant neoplasm of colon [facility] Start: 1981 Annual PCP Team Chronic Disease Visit Annual PCP Team Chronic Disease Visit [facility] Start: 1981 BP Controlled (<130/80) BP Controlled (<130/80) [facility] in Start: 1981 HIV screening HIV Screening [facility] DXA Bone [Mass/Area] Bone density [facility] Lipid 1996 panel - S vannessa or Plasma [facility] Patient Education ED Chest Wall Contusion [facility] Work Phone: Patient referral [facility] Work Phone: T4 free measurement [facility] Thyroid stimulating hormone measurement [facility] Vitamin D, 25-hydrox y measurement [facility] Immunizations Immunization Date Immunization Notes Care Provider Fa toney 08-05-2019 influenza virus vacc ine, unspecified formulation Melany Saez APRN.[employer]AR PRO[employer] ENGINEER Work Phone: [facility] 07-29-2015 influenza, seasonal, injectable Melany Saez APRN.UBALDO Work Phone: [facility] 07-17-2013 influenza virus vacc ine, unspecified formulation Melany Saez BILL PEDDLER.SOLAR PROJECT ENGINEER Work Phone: [facility] 08-06-2009 influenza virus vacc ine, unspecified formulation Melany Parikh-Wood BILL PEDDLER.SOLAR PROJECT ENGINEER Work Phone: [facility] 03-09-2009 tetanus toxoid, redu robert diphtheria toxoid, and acellular pertussis vaccine, adsorbed Melanydolores Parikh-Wood BILL PEDDLER.SOLAR PROJECT ENGINEER Work Phone: [facility] Work Phone: 08-22-2008 influenza virus vacc ine, unspecified formulation Melany Praisler-Wood BILL PEDDLER.SOLAR PROJECT ENGINEER Work Phone: [facility] Work Phone: 08-21-2007 influenza virus vacc ine, unspecified formulation Melany Praisler-Wood BILL PEDDLER.SOLAR PROJECT ENGINEER Work Phone: [facility] Work Phone: 07-27-2007 pneumococcal polysaccharide vaccine, 23 valent Melany Praisler-Wood BILL PEDDLER.SOLAR PROJECT ENGINEER Work Phone: [facility] 09-27-2006 influenza virus vacc ine, unspecified formulation Melany Parikh-Wood BILL PEDDLER.SOLAR PROJECT ENGINEER Work Phone: [facility] 09-27-2006 pneumococcal polysaccharide vaccine, 23 valent Melany Limaisler-Wood BILL PEDDLER.[facility] Work Phone: [facility] Payers Date Payer Category Payer Unknown [id number] 2024 Medicaid [id number] 2024 Private Health Insurance 101 [id number] 2024 Self-pay [id number] 2023 Medicaid [employer]ICA[employer] [id number] 2023-Present [phone] [address] [place] [address] Medicaid [id number] 2023 Unknown [id number] 2009 Medicare [id number] Unknown [id number]. 462 Unknown [id number] [id number]. 462 Unknown [id number] [id number]. 462 Unknown [id number] 2.16.840.1.514203.3.579.2. 462 Unknown [id number] 2.16.840.1.244190.3.579.2. 462 Unknown [id number] [id number]. 462 Unknown [id number] [id number]. 462 Unknown [id number] [id number]. 462 Unknown [id number] 2.16.840.1.519240.3.579.2. 462 Unknown [id number] [id number]. 462 Unknown [id number]. 462 Social History Date Type Detail Facility Start: 08-06-2021 End: 08-22-2023 Tobacco smoking status [facility] Unknown if ever smoked [facility] Start: 03-18-2020 Non-smoker [facility] Start: 1965 Sex Assigned At Female [facility] Start: 08-22-2023 End: 03-25-2024 Tobacco smoking status NHIS Ex-smoker [facility] End: 09-08-2006 History of tobacco use Current smoker [facility] End: 09-08-2006 History of tobacco use Cigarette Smoker [facility] Start: 09-27-2020 End: 03-25-2024 Cigarettes smoked current (pack per day) - Reported 2 [facility] Start: 03-25-2024 Tobacco use and exposure Smokeless tobacco non-user [facility] Start: 03-25-2024 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 Start: 01-18-2025 Sex Female (finding) [facility] Medical Equipment Procedure Code Equipment Code Equipment Origin al Text Equipment Identifier Dates Dev Cncptv Essur e Perm - [id number] Start: 10-27-2011 TEST BLOOD SUGAR S DAILY. 250.00 [id number] Start: 12-13-2013 Clinical Notes 01-25-2023 to 01-06-2025 Note Date & Type Note Facility 01-06-2025 Evaluation note Diagnosis Onset Date Resolution Diabetes chronic January 06 11:05am Hyperlipidemia chronic December 11:05am Hypertension chronic January 06, 2025 11:05am Hypothyroidism chronic December 11:05am Obesity chronic January 06 11:05am Microalbuminuria resolved January 062024 11:05am CKD (chronic kidney disease) deleted January 06, 2025 11:05am [facility] Work Phone: 1(565) 946-677503-17-2025 Evaluation note* Diagnosis Onset Date Resolution Status Admit Date Diabetes chronic January 06 11:05am Hyperlipidemia chronic December 11:05am Hypertension chronic January 06, 2025 11:05am Hypothyroidism chronic December 11:05am Obesity chronic January 06 11:05am Microalbuminuria resolved January 062024 11:05am CKD (chronic kidney disease) deleted January 06, 2025 11:05am Asthma-COPD overlap syndrome chronic March 05, 2025 7:39am Morbid obesity due to excess calories chronic March 05, 2025 7 :39am Obstructive sleep apnea syndrome chr onic March 05, 2025 7:39am [facility] Work Phone: 1(452) 678-949706-03-2024 NoteHNO ID: [id number] Author: MELANY SAEZ APRN.SOLAR PROJECT ENGINEER Service: ? Author Type: Nurse Practitioner Type: [...] COMPOUNDED PRESCRIPTION Left foot brace, arch support. [place]co Dx DM 2 blood sugar diagnostic (FREESTYLE [...] erythema or rash. Neurologica (more content not included)...[facility]06-03-2024 History of Present illness Narrative* Melany Saez APRN.SOLAR PROJECT ENGINEER - 03/25/2024 8:11 AM EDT Images from the original note were not [...] [Hydromorphone (Bulk)], Adhesive Tape (Rosins), Gabapentin, Lyrica [Pregabalin],Oxycontin [Oxycodone Hcl], and Tramadol MEDICATIONS TRELEGY ELLIPTA [...] COMPOUNDED PRESCRIPTION Left foot brace, arch support. [place] Dx DM 2 blood sugar diagnostic (FREESTYLE [...] initial encounter - ICD9: 910.4, E906.4, ICD10: S00.96XA,W57.XXXA - PREDNISONE 10 MG TABLET - antibiotic ointment over bite area. - Follow-up with your PCP in 3-5 days if symptoms have not improved or sooner if symptoms worsen - Discussed red flags and need for immediate medical evaluation if any occur. - Discussed supportive care treatment with fluids, rest and analgesia. - Discussed expected course of illness Melany Saez APRN.CNP [facility] Instructions* Patient Instructions* Melany Saez APRN.CNP - 03/25/2024 8:11 AM EDT ASSESSMENT/PLAN: 1. Swelling of eyelid, unspecified laterality - ICD9: 374.82, ICD10: H02.849 (primary diagnosis) - PREDNISONE 10 MG TABLET - continue cool compresses/ice packs 2. Insect bite of head, unspecified part, initial encounter - ICD9: 910.4, E906.4, ICD10: S00.96XA,W57.XXXA - PREDNISONE 10 MG TABLET - antibiotic ointment over bite area. - Follow-up with your PCP in 3-5 days if symptoms have not improved or sooner if symptoms worsen - Discussed red flags and need for immediate medical evaluation if any occur. - Discussed supportive care treatment with fluids, rest and analgesia. - Discussed expected course of illness Melany Saez APRN.CNP documented [facility] Neil [facility] January 25, 2023 1:40pm Note Date/Time January 25, 2023 12:3 6pm [facility] Medical Records Department [address] [place] [address] Emergency Department Summary 01/25/23 MR#: [id number] Acct: [id number] Name: FREEDOM BRADLEYSol Hopson Rep #:[id number] : 1965 57 From: Bridger Neil MD PCP: Dr. Mimi Martin, DO Status:REG ER Location: ED HPI HPI - Fall History of Present Illness Chief Complaint: Fall Informant: patient Narrative Narrative: Patient was visiting a family member upstairs and fell onto her right anterior side. She thinks she may have slipped on something. She has some right anterior lateral rib pain. She did not lose consciousness or hit her head but she did take a moment and felt like she got her breath taken away. She is feeling better but still has some soreness on the right anterior rib cage. It was recommended she be evaluated. She is not on any blood thinners. She deniesany pains in the legs or arms. In fact she is up walking when I see her. 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) Type 2 diabetes mellitus Home Medications metformin 1,000 mg tablet 1,000 mg PO BID 09/19/18 [History Last Taken Unknown] simvastatin 10 mg tablet 10 mg PO QHS 07/12/19 [History Last Taken Unknown] levothyroxine 125 mcg tablet 62.5 mcg PO SUTUTHSA 03/18/20 [History Last Taken Unknown] losartan 25 mg tablet 12.5 mg PO DAILY 07/28/20 [History Last Taken Unknown] cholecalciferol (vitamin D3) 25 mcg (1,000 unit) capsule 25 mcg PO DAILY 05/24/21 [History Last Taken Unknown] diclofenac sodium 1 % topical gel (Voltaren Arthritis Pain) 4 g topical ONCE Knee pain #100 grams 05/24/21 [Rx Last Taken Unknown] multivitamin 1 tab PO DAILY 05/24/21 [History Last Taken Unknown] sertraline 25 mg tablet 25 mg PO DAILY 05/24/21 [History Last Taken Unknown] tretinoin 0.025 % topical gel 1 applic topical QHS 05/24/21 [History Last Taken Unknown] cyclobenzaprine 5 mg tablet 5 mg PO QHS PRN 02/07/22 [History Last Taken Unknown] nirmatrelvir 300 mg (150 mg x2)-ritonavir 100 mg tablet,dose pack(EUA) (Paxlovid) See Rx Instructions PO .COMPLEX #30 tabs 04/29/22 [Rx Last Taken Unknown] fluticasone fur. 100 mcg-umeclid 62.5 mcg-vilant 25 mcg inhalat.powder (Trelegy Ellipta) 1 inh inhalation DAILY #60 ea 08/09/22 [Rx Last Taken Unknown] albuterol sulfate 90 mcg/actuation aerosol inhaler (ProAir HFA) 1 inh [id number] PRN shortness of breath or wheezing #8.5 grams 11/22/22 [Rx Last Taken Unknown] Allergy/AdvReac Type Severity Reaction Status Date / Time pregabalin [From Lyrica] Allergy Intermediate Diarrhea Verified 01/25/23 12:00 adhesive tape Allergy Unknown uknown Verified 01/25/23 12:00 hydromorphone [From Dilaudid] Allergy Unknown unknown Verified 01/25/23 12:00 oxycodone Allergy Unknown unknown Verified 01/25/23 12:00 tramadol Allergy Unknown unknown Verified 01/25/23 12:00 gabapentin Allergy unknown Verified 01/25/23 12:00 Family History Mother CAD (coronary artery disease) Thyroid disorder CVA (cerebral vascular accident) Hypertension Son Asthma Sister Cancer skin cancer Father COPD (chronic obstructive pulmonary disease) Grandmother Thyroid disorder Surgical History History of cataract surgery History of colonoscopy (03/23/20) History of right below knee amputation (12/2006) Social History household members: spouse housing: house Smoking Status: Former smoker quit date: 08/23/06 pack-years: 26 alcohol intake: never substance use type: does not use what type of physical activity do you participate in: walking and other details: silver sneakers frequency: daily do you feel safe at home: Yes ROS ROS ED Constitutional Constitutional ED: Denies fever(s) Eyes Eyes: Denies change in vision Cardiovascular Cardiovascular: Reports chest pain Respiratory/Chest Respiratory/Chest: Denies cough or dyspnea Gastrointestinal Gastrointestinal: Denies abdominal pain, nausea or vomiting Musculoskeletal Musculoskeletal: Denies back pain or neck pain Integumentary Denies Abrasions or rash Neurologic Neurologic: Denies headache(s) Hematologic/Lymphatic Hematologic/Lymphatic: Denies easy bleeding or easy bruising EXAM Physical Exam Narrative Exam Narrative: Patient is awake and alert. She is actually up walking when I entered the room. She is mobile. HEENT shows no sign of trauma Neck is supple no pain with motion Lungs are clear bilaterally. She does have a little bit of tenderness at the anterior lateral rib cage in the anterior axillary line down low. Heart is regular. Not muffled. Abdomen is actually soft and completely nontender. The pain seems to be more upin the rib cage and not in the abdomen. No posterior spinal tenderness Legs and arms show no tenderness or pain with motion. Const Vital Signs: 01/25/23 11:58 Temperature 96.4 F L Temperature Source Temporal Pulse Rate 90 Respiratory Rate 18 Blood Pressure 154/99 H Blood Pressure Mean 117 Pulse Ox 99 Oxygen Delivery Method Room Air MDM MDM MDM Narrative Medical decision making narrative: Independent interpretation the patient's 5 view series of right rib and chest x- ray shows no acute pneumothorax or rib fracture that was noted. Final reading by radiology is no evidence of displaced rib fracture. Patient states she is more sore than painful. She is okay using snra-dof-vptieoh meds ice and rest. I explained that not all rib fractures willshow up on initial images. Radiography Diagnostic Testing: Clinical Impression(s) from Imaging Studies Ribs w/Chest X-Ray 01/25/23 12:39 IMPRESSION: No evidence of displaced rib fracture. Electronically Signed: Ton Lakhani MD at 13:15 EDT , Discharge Plan Triage Chief Complaint: Fall ED Provider: Bridger Neil Dx/Rx/DC Orders Clinical Impression: Contusion of right chest wall Instructions: ED Chest Wall Contusion Prescriptions: No Action metformin 1,000 mg tablet 1,000 mg PO BID simvastatin 10 mg tablet 10 mg PO QHS losartan 25 mg tablet 12.5 mg PO DAILY sertraline 25 mg tablet 25 mg PO DAILY tretinoin 0.025 % gel 1 applic topical QHS multivitamin Tablet 1 tab PO DAILY cholecalciferol (vitamin D3) 25 mcg (1,000 unit) capsule 25 mcg PO DAILY diclofenac sodium [Voltaren Arthritis Pain] 1 % gel 4 g topical ONCE Qty: 100 0RF cyclobenzaprine 5 mg tablet 5 mg PO QHS PRN Trelegy Ellipta 100-62.5-25 mcg blister with device 1 inh INHALATION DAILY Qty: 60 5RF Paxlovid (EUA) 300 mg (150 mg x 2)-100 mg tablet See Rx Instructions PO .COMPLEX Qty: 30 0RF Rx Instructions: take TWO 150 mg tablets of nirmatrelvir with ONE 100 mg tablet of ritonavir twice daily for 5 days PO levothyroxine 125 MCG tablet 62.5 mcg PO SUTUTHSA albuterol sulfate [ProAir HFA] 90 mcg/actuation HFA aerosol inhaler 1 inh inhalation Q4H PRN (Reason: shortness of breath or wheezing) Qty: 8.5 2RF Primary Care Provider: Mimi Martin Referrals: Mimi Martin DO [Primary Care Provider] - 3-5 Days if not improving Disposition Disposition: Home, Self Care What to do if you have Problems For any increased pain, shortness of breath, bleeding, nausea or vomiting, chestpain, or any unexpected problems, contact your Primary Care Provider. Call [facility] ([phone]) or report to the closest Emergency Room. Call 911 if necessary. 01/25/23 1340 <Electronically signed by Bridger Neil MD> Cosigner Signature (if applicable): CC: Dr. Mimi Martin DO ~ Signed [facility] Work Phone: Chief complaint+Reason for visit Narrative* Chief Complaint SINUS INFECTION/COVI D TEST 6 M FU SCREENING Reason for Visit COVID-19 Asthma-COPD overlap syndrome Morbid obesity due to excess calories Obstructive sleep apnea syndrome [facility] Work Phone: Evaluation noteNo assessment information available [facility] Work Phone: Evaluation note* Diagnosis Onset Date Resolution Status COVID-19 acute Asthma-COPD overlap syndrome chronic Morbid obesity due to excess calories chronic Obstructive sleep apnea syndrome chronic [facility] Work Phone: Evaluation note* Diagnosis Onset Date Resolution Status Asthma-COPD overlap syndrome chronic Morbid obesity due to excess calories chronic Obstructive sleep apnea syndrome [facility] Work Phone: Evaluation note* Diagnosis Swelling of eyelid, unspecified laterality- Primary Insect bite of head, unspecified part, initial encounter documented in this encounter [facility] for referral (narrative)No reason for referral information availableWReg[facility] Work Phone: Chief Complaint and Reason for Visit Chief Complaint OSTEOPENIA Chief Complaint SINUS INFECTION/COVI D TEST 6 M FU SCREENING CHRONIC KIDNEY DISEASE Reason for Visit COVID-19 Asthma-COPD overlap syndrome Morbid obesity due to excess calories Obstructive sleep apnea syndrome Chief Complaint CHRONIC KIDNEY DISEA SE Chief Complaint FALL Chief Complaint FALL 6 M FU Reason for Visit Asthma-COPD overlap syndrome Morbid obesity due to excess calories Obstructive sleep apnea syndrome Chief Complaint LABS SCREENING Chief Complaint Admit Date 4 M FU, RS 12/12January 06, 2025 11: 05am EORDER AND ADDT. ORDER January 14, 2025 7:22am Reason for Visit Admit Date Diabetes January 06, 2025 11: 05am Hyperlipidemia January 06, 2025 11: 05am Hypertension January 06, 2025 11: 05am Hypothyroidism January 06, 2025 11: 05am Obesity January 06, 2025 11: 05am Microalbuminuria January 06, 2025 11: 05am CKD (chronic kidney disease) January 06, 2025 11:05am Chief Complaint Admit Date 4 M FU, RS 12/12January 06, 2025 11: 05am EORDER AND ADDT. ORDER January 14, 2025 7:22am 1 Y FU March 05, 2025 7:39a m Chief Complaint Admit Date 4 M FU, RS 12/12January 06, 2025 11: 05am EORDER AND ADDT. ORDER January 14, 2025 7:22am 1 Y FU March 05, 2025 7:39a m 3 M FU April 09, 2025 8:32 am Reason for Visit Admit Date Diabetes January 06, 2025 11: 05am Hyperlipidemia January 06, 2025 11: 05am Hypertension January 06, 2025 11: 05am Hypothyroidism January 06, 2025 11: 05am Obesity January 06, 2025 11: 05am Microalbuminuria January 06, 2025 11: 05am CKD (chronic kidney disease) January 06, 2025 11:05am Asthma-COPD overlap syndrome March 05, 2 025 7:39am Morbid obesity due to excess calories Ma y 2024 7:39am Obstructive sleep apnea syndrome February 7:39am Family History Relationship Condition Age at Onset Recorded Date/T danni mother Coronary artery disease Unknown Disorder of thyroid Unknown Cerebrovascular accident (CVA) Unknown Hypertension Unknown son Asthma Unknown sister Malignant neoplasm Unknown father Chronic obstructive pulmonary disease Unk nown grandmother Disorder of thyroid Unknown Advance Directives Advance Directive Response Recorded Date/ Time Living Will No March 18, 2020 1 0:29am Power of Position Description Manager No March 18, 2020 10:29am Advance Directive Response Recorded Date/ Time Living Will No March 18, 2020 9 :29am Power of Position Description Manager No March 18, 2020 9:29am Advance Directive Response Recorded Date/ Time Living Will No January 25, 2023 2:01pm Power of Position Description Manager No January 25 2:01pm Advance Directive Response Recorded Date/ Time Living Will No January 25, 2023 2:01pm Do you have a Healthcare Power of Position Description Manager? No January 25, 2023 2:01pm Summary Purpose Additional Source Comments Goals (unrecognized section and content) Goals may be documented in a n alternate sectionGoals may be documented in an alternate sectionGoals may be documented in an alternate sectionGoals may be documented in an alternate sectionGoals may be documented in an alternate sectionGoals may be documented in an alternate sectionGoals may be documented in an alternate sectionGoals may be documented in an alternate sectionGoals may be documented in an alternate sectionGoals may be documented in an alternate sectionGoals may be documented in an alternate sectionGoals may be documented in an alternate section Care Teams (unrecognized sec tion and content) Team Status: Active Member Role Status Dates Dr. Mimi Martin DO Family Provider Active Dr. Mimi Martin , DO Primary Care Provider Active Team Status: Inactive Member Role Status Dates Dr. Mimi Martin , DO Primary Care Provider Active Dr. Alena Ahn , DO Attending Provider, Referring P rafia Active Team Status: Inactive Member Role Status Dates Dr. Mimi Martin , DO Primary Care Provider Active Dr. Bridger Neil MD Emergency Provider Active Team Status: Inactive Member Role Status Dates Dr. Mimi Martin , DO Primary Care Provider, Referring P rovider Active Richa Mari CHIEF SCIENTIST, CHIEF SCIENTIST-C Attending Provider Active Team Status: Inactive Member Role Status Dates Dr. Mimi Martin DO Primary Care Provider Active Dr. Bridger Neil MD Attending Provider, Emergency Provider Active Team Status: Inactive Member Role Status Dates Dr. Mimi Martin DO Primary Care Provide r, Attending Provider, Referring Provider Active Team Status: Inactive Member Role Status Dates Dr. Mimi Martin DO Primary Care Provider, Other Provi matt Active Dr. Alena Ahn DO Attending Provider Active Alena PETER MD Referring Provider Active Team Status: Active Member Role Status Dates Dr. 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 Mimi Martin DO Primary Care Provider Active Team Status: Inactive Member Role Status Dates Dr. Mimi Martin DO Primary Care Provider Active Start: January 06, 2025 End: January 06, 2025 Dr. Mimi Martin DO Referring Provider Active St art: January 06, 2025 End: January 06, 2025 TRAV Calderón Attending Provider Active Start: January 06, 2025 End: January 06, 2025 Team Status: Inactive Member Role Status Dates Dr. Mimi Martin DO Primary Care Provider Active Start: January 14, 2025 End: January 14, 2025 Dr. Alena Ahn DO Other Provider Active Sta rt: January 14, 2025 End: January 14, 2025 TRAV Calderón Attending Provider Active Start: January 14, 2025 End: January 14, 2025 TRAV Calderón Referring Provider Active Start: January 14, 2025 End: January 14, 2025 Team Status: Inactive Member Role Status Dates Dr. Mimi Martin DO Primary Care Provider Active Start: March 05, 2025 End: March 05, 2025 Dr. Mimi Martin DO Referring Provider Active St art: March 05, 2025 End: March 05, 2025 Richa Mari CHIEF SCIENTIST, CHIEF SCIENTIST-C Attending Provider Active Start: March 05, 2025 End: March 05, 2025 Team Status: Inactive Member Role Status Dates Dr. Mimi Martin DO Primary Care Provider Active Start: April 09, 2025 End: April 09, 2025 Dr. Mimi Martin DO Referring Provider Active St art: April 09, 2025 End: April 09, 2025 RITA CalderónC Attending Provider Active Start: April 09, 2025 End: April 09, 2025 INFORMATION SOURCE (unrecogn ized section and content) DATE CREATED AUTHOR 03/25/2024 [facility] DATE CREATED AUTHOR AUTHOR'S ORGANIZ ATION 03/11/2025 [facility] Source Comments (unrecognize d section and content) In the event this informatio n is protected by the Federal Confidentiality of Alcohol and Drug Abuse Patient Records regulations: The Federal rules restrict any use of the information to criminally investigate or prosecute any alcohol or drug abuse patient.[facility] Reason for Visit (unrecogniz ed section and content) Reason Comments Eye Problem bilateral eye swelli ng, itching, bites x 1 day FOR RECORDS PERTAINING TO PATIENTS WHO ARE [...] BE BASED ON THE PRIMARY CLINICAL RECORDS. [employer] [facility]. provides no warranty or guarantee of the accuracy or completeness of information in this document.
[2025-04-10 11:02] LABS: Cholesterol 170 mg/dL (<=200); High Density Lipoprotein 50 mg/dL; Low Density Lipoprotein Calc. 92 mg/dL; Thyroid Stim Hormone (TSH) 0.972 uIU/mL (0.300-4.200); Triglycerides 139 mg/dL; Very Low Density Lipoprotein 28 mg/dL (5-40); cholesterol:hdl ratio screen 3.39
== END | disposition home or self-care (01) ==
PROVIDERS: PCP Family Medicine; Referring Provider Nurse Practitioner Family; Visit Provider Nurse Practitioner Family
DX: E11.9 Type 2 diabetes mellitus without complications (principal); E55.9 Vitamin D deficiency, unspecified
CPT/HCPCS: 36415; 80061; 82306; 84439; 84443

== ENCOUNTER → 2025-04-17 | Outpatient (CLI) | payer MEDICARE, MEDICAID, SELFPAY ==
--- NOTE | 2025-04-17 08:30 | BD_ITS ---
PROCEDURE: DEXA BONE DENSITY STUDY 04/17/2025 REASON FOR EXAM: POST MENOPAUSAL F, age 59 y/o . Postmenopausal. TECHNIQUE: DEXA BONE DENSITY STUDY COMPARISON: Prior study dated January 25, 2022. FINDINGS: BMD and T-SCORES Lumbar spine: 0.880 g/cm2, T-score -1.5 Levels: L1 through L4 Change from prior: Loss of 10.8%. Left femoral neck: 0.771 g/cm2, T-score -0.7 Femoral neck comparison data not recommended for monitoring change. Left total hip: 0.833 g/cm2, T-score -0.9 Change from prior: Improvement of 0.4%. Right femoral neck: 0.682 g/cm2, T-score -1.5 Femoral neck comparison data not recommended for monitoring change. Right total hip: 0.744 g/cm2, T-score -1.6 Change from prior: Loss of 3.7%. The World Health Organization has defined the following categories based on bone density: Normal bone density: T-score equal to or greater than -1.0 Osteopenia: T-score between -1.0 and -2.5 Osteoporosis: T-score equal to or less than -2.5 The patient does meet the pharmacological treatment recommendations for prevention of osteoporosis. BD/Dexa Bone Density Study IMPRESSION: OSTEOPENIA. Recommend follow-up as clinically warranted. Reading Location: [id number]
== END | disposition home or self-care (01) ==
LOC: OPBD 08:17
PROVIDERS: PCP Family Medicine; Referring Provider Nurse Practitioner Family; Visit Provider Nurse Practitioner Family
DX: Z78.0 Asymptomatic menopausal state (principal)
CPT/HCPCS: 77080

== ENCOUNTER → 2025-05-21 | Outpatient (CLI) | payer MEDICARE, MEDICAID, SELFPAY ==
--- OUTSIDE RECORDS SUMMARY | 2025-05-21 07:07 | XMS RPT_ITS | CCD ---
Author Organization [facility] Care Team Providers Care Keeler Polygraph Operator Name Role Phone Dr. Mimi Martin Primary Care Provider Dr. Mimi Martin Referring Provider YASH Cisse Attending Provider Dr. Eddy Chen Attending Provider Dr. Mimi Martin Primary Care Provider [phone] Dr. Mimi Martin Referring Provider [phone] Jacey FOOD SERVICE ASSOCIATE, FOOD SERVICE ASSOCIATE-C Richa Attending Provider MALYS, MIMI A Primary Care Unavailable Veronica DOMimi Primary Care Provider Dr. Mimi Martin DO Primary Care Provider Dr. Mimi Martin DO Referring Provider Matt DURÁN-Janey Lu Attending Provider [phone] Dr. Alena Ahn DO Other Provider [phone] Matt FOOD SERVICE ASSOCIATE-CJaney Referring Provider Jacey DURÁN-CRicha Attending Provider Rhoda BOJORQUEZ, Dr. Grossman Attending Provider Alena Ahn Attending Unavailable Malys, Mimi Primary Care Unavailable Malys, Mimi Primary Care Unavailable Malys, Mimi Referring Unavailable Malys, Mimi Attending Unavailable Janey Gutierrez Attending Unavailable Janey Gutierrez Referring Unavailable Malys, Mimi Primary Care Unavailable Malys, Mimi Primary Care Unavailable Malys, Mimi Referring Unavailable Jacey FOOD SERVICE ASSOCIATERicha Attending Unavailable Malys, Mimi Primary Care Unavailable Malys, Mimi Referring Unavailable Matt, Janey Attending Unavailable Matt, Janey Attending Unavailable Malys, Mimi Referring Unavailable Malys, Mimi Primary Care Unavailable Malys, Mimi Primary Care Unavailable Malys, Mimi Referring Unavailable Rhoad, [place] Attending Unavailable Malys, Mimi Primary Care Unavailable Malys, Mimi Referring Unavailable Matt, Janey Attending Unavailable Malys, Mimi Referring Unavailable Malys, Mimi Attending Unavailable Malys, Mimi Primary Care Unavailable Malys, Mimi Referring Unavailable Malys, Mimi Attending Unavailable Malys, Mimi Primary Care Unavailable Rashad, Alena Referring Unavailable Malys, Mimi Attending Unavailable Malys, Mimi Primary Care Unavailable Malys, Mimi Primary Care Unavailable Rashad, Alena Referring Unavailable Rashad, Alena Attending Unavailable Malys, Mimi Consulting Unavailable Malys, Mimi Primary Care Unavailable Matt, Janey Referring Unavailable Matt, Janey Attending Unavailable Rashad, Alena Consulting Unavailable Malys, Mimi Referring Unavailable Malys, Mimi Attending Unavailable Malys, Mimi Primary Care Unavailable Matt, Janey Attending Unavailable Matt, Janey Referring Unavailable Malys, Mimi Primary Care Unavailable Malys, Mimi Primary Care Unavailable Rhoda, Chauncey Referring Unavailable Rhoda, Chauncey Attending Unavailable Allergies Allergy Classification Reported Allergen(s) Allergy Type Date of Onset Reaction(s) Facility Adhesive Tape (1 source) Adhesive Tape Substance Allergy 6 Rash [facility] Anti-Epileptic Agents (1 source) gabapentin Drug Allergy 4 Diarrhea [facility] Opioid Agonists (3 sources) HYDROmorphone Drug Allergy 6 Rash, Vomiting [facility] pregabalin (1 source) pregabalin Drug Allergy 4 Diarrhea [facility] (16 sources) Adhesive Tape; Translations: [adhesive tape] Allergy to substance 1 uknon [facility] (15 sources) gabapentin Drug Allergy 1 unknown [facility] (15 sources) HYDROmorphone Drug Allergy 1 unknown, Hives [facility] (15 sources) oxyCODONE Drug Allergy 1 unknown [facility] (15 sources) pregabalin Drug Allergy 1 [facility] (16 sources) traMADol; Translations: [TRAMADOL] Drug Allergy 6 unknown [facility] (1 source) Adhesive Tape; Translations: [ADHESIVE TAPE (ROSINS)] Propensity to adverse reactions (disorder) 6 [facility] (1 source) HYDROmorphone; Translations: [HYDROMORPHONE (BULK)] Drug Allergy 6 [facility] (1 source) oxyCODONE; Translations: [OXYCODONE HCL] Drug Allergy 6 [facility] (6 sources) Lisinopril Drug Allergy 5 [facility] (1 source) gabapentin Drug Allergy 5 [facility] (1 source) HYDROmorphone Drug Allergy 5 [facility] (1 source) Lisinopril Drug Allergy 5 [facility] (1 source) oxyCODONE Drug Allergy 5 [facility] (1 source) pregabalin Drug Allergy 5 [facility] (1 source) traMADol Drug Allergy 5 [facility] Medications Current Medications Medication Drug [...] COMPOUNDED PRESCRIPTION Left foot brace, arch support. Simris Alg Dx DM 2 1 Device 0 05/28/2014 Active CPAP (1 source) Start: 08-10-2011 CPAP Indications: Obstructive sleep apnea (adult) (pediatric) 1 Device. 15 CM H2O WITH A 20 MINUTE RAMP, CHIN STRAP, HUMIDITY. LIFETIME SUPPLIES. Dx Code 327.23 1 Units 0 08/10/2011 Active empagliflozin 10 mg oral tablet (20 sources) Sodium-Glucose Cotransporter 2 Inhibitor Start: 09-11-2024 End: 02-26-2025 take 1 tablet by mouth once daily in the morning Empagliflozin (Jardiance) 10 mg tablet Active 10 mg PO EVERY MORNING 30 5 February 26, 2025 8:03am Microalbuminuria Chronic kidney disease Diabetes mellitus Proteinuria, unspecified Chronic kidney disease, unspecified Type 2 diabetes mellitus without complications Start: 09-11-2024 End: 09-11-2024 take 1 tablet [...] Active ferrous sulfate 325 mg oral tablet (10 sources) Start: End: Ferrous Sulfate (Ferosul) 325 mg (65 mg iron) tablet Active 325 mg PO .Qweekly April 09, 2025 8:38am Niknvdtlejh-Pqzbxjbkg-Ur lanter (20 sources) Anticholinergic, Corticosteroid, beta2-Adrenergic Agonist Start: Whztxkyageg-Fexpsmndi-N ilanter (Trelegy Ellipta) 100-62.5-25 mcg blister with device Active 1 NMA INHALATION DAILY 3 February 10, 2025 8:11am Start: 02-10-2025 Fluticasone-Um eclidin-Vilanter (Trelegy Ellipta) 100-62.5-25 mcg blister with device Active 1 NMA INHALATION DAILY February 10, 2025 8:11am Start: 02-26-2024 TRELEGY ELLIPT A 100-62.5-25 mcg inhalation powder Start: 02-26-2024 End: 02-10-2025 Kbirhmspdnb-Qwlheywpf-Dwialu er (Trelegy Ellipta) 100-62.5-25 mcg blister with device Discontinued 1 NMA INHALATION DAILY 3 February 26, 2024 8:20am February 10, 2025 8:12am Start: 02-26-2024 End: 02-10-2025 Oueqsihdfkb-Dgikmhduf-Eluoak er (Trelegy Ellipta) 100-62.5-25 mcg blister with device Discontinued 1 NMA INHALATION DAILY February 26, 2024 8:20am February 10, 2025 8:12am Start: 02-26-2024 Fluticasone-Um eclidin-Vilanter (Trelegy Ellipta) 100-62.5-25 mcg blister with device Active 1 NMA INHALATION DAILY February 26, 2024 8:20am Start: 01-24-2024 End: 02-26-2024 Mtikllriswv-Erkazktao-Ykbbht er (Trelegy Ellipta) 100-62.5-25 mcg blister with device Discontinued 1 NMA INHALATION DAILY 60 January 24, 2024 8:12am February 26, 2024 8:20am Start: 01-24-2024 End: 02-26-2024 Vjmywdqcxmk-Vseoemgwz-Bzkdff er (Trelegy Ellipta) 100-62.5-25 mcg blister with device Discontinued 1 NMA INHALATION DAILY January 24, 2024 8:12am February 26, 2024 8:20am Start: 02-08-2023 End: 01-24-2024 Qtyyptpwlxf-Dxzdfnpbm-Ehvfzs er (Trelegy Ellipta) 100-62.5-25 mcg blister with device Discontinued 1 NMA INHALATION DAILY 60 February 08, 2023 8:05am January 24, 2024 8:13am Start: 02-08-2023 End: 01-24-2024 Eanmdhsiekc-Jmgkhbwko-Caijna er (Trelegy Ellipta) 100-62.5-25 mcg blister with device Discontinued 1 NMA INHALATION DAILY 60 February 08, 2023 8:05am January 24, 2024 8:13am Start: 02-08-2023 Fluticasone-Um eclidin-Vilanter (Trelegy Ellipta) 100-62.5-25 mcg blister with device Active 1 INH INHALATION DAILY 60 February 08, 2023 8:05am Start: 08-09-2022 End: 02-08-2023 Eivmefefsmp-Nyfhlnxyb-Emkxtx er (Trelegy Ellipta) 100-62.5-25 mcg blister with device Discontinued 1 NMA INHALATION DAILY 60 August 09, 2022 6:53am February 08, 2023 8:05am Start: 08-09-2022 End: 02-08-2023 Disrzjsyckv-Nbzgtjtcf-Wqljyv er (Trelegy Ellipta) 100-62.5-25 mcg blister with device Discontinued 1 NMA INHALATION DAILY August 09, 2022 6:53am February 08, 2023 8:05am Start: 08-09-2022 End: 02-08-2023 Pdcxfqvtltq-Hwjjzdsoa-Tdjbda er (Trelegy Ellipta) 100-62.5-25 mcg blister with [...] 09, 2022 6:53am Start: 02-07-2022 End: 08-09-2022 Wfnwxszotfd-Sejnbcuft-Hnqokb er (Trelegy Ellipta) 100-62.5-25 mcg blister with device Discontinued 1 NMA INHALATION DAILY 60 5 February 07, 2022 8:12am August 09, 2022 6:53am Start: 02-07-2022 End: 08-09-2022 Quhapfstvrm-Drbffjovv-Cdnzhl er (Trelegy Ellipta) 100-62.5-25 mcg blister with device Discontinued 1 NMA INHALATION DAILY 60 February 07, 2022 8:12am August 09, 2022 6:53am Start: 02-07-2022 End: 08-09-2022 Iudutuhunny-Uyobfgdbq-Cttyes er (Trelegy Ellipta) 100-62.5-25 mcg blister with device Discontinued 1 INH INHALATION DAILY 60 February 07, 2022 7:12am August 09, 2022 5:53am Start: 02-07-2022 End: 08-09-2022 Hkhpivhbcjl-Avirmxvxt-Ciefcs er (Trelegy Ellipta) 100-62.5-25 mcg blister with device Discontinued 1 INH INHALATION DAILY 60 February 07, 2022 8:12am August 09, 2022 6:53am Start: 08-06-2021 End: 02-07-2022 Xfkyuzvlagb-Qdnodybib-Wjrnoj er (Trelegy Ellipta) 100-62.5-25 mcg blister with device Discontinued 1 NMA INHALATION DAILY 60 5 August 06, 2021 11:25am February 07, 2022 8:13am Start: 08-06-2021 End: 02-07-2022 Wviksiajxvu-Ukztlvrqj-Xbqzrl er (Trelegy Ellipta) 100-62.5-25 mcg blister with device Discontinued 1 NMA INHALATION DAILY 60 August 06, 2021 11:25am February 07, 2022 8:13am Start: 08-06-2021 End: 02-07-2022 Nwuebegsugu-Kicebbvhv-Tizsij er (Trelegy Ellipta) 100-62.5-25 mcg blister with device Discontinued 1 INH INHALATION DAILY 60 August 06, 2021 10:25am February 07, 2022 7:13am Start: 08-06-2021 End: 02-07-2022 Tauddjhayzf-Rlzbciuvw-Ruohcn er (Trelegy Ellipta) 100-62.5-25 mcg blister with device Discontinued 1 INH INHALATION DAILY 60 August 06, 2021 11:25am February 07, 2022 8:13am Start: 08-06-2021 Fluticasone-Um eclidin-Vilanter (Trelegy Ellipta) 100-62.5-25 mcg blister with device Active 1 INH INHALATION DAILY 60 August 06, 2021 11:25am Start: 11-03-2020 End: 08-06-2021 Suummimipei-Qfzpngczx-Kzermh er (Trelegy Ellipta) 100-62.5-25 mcg blister with device Discontinued 1 INH INHALATION DAILY November 03, 2020 8:53am August 06, 2021 11:25am Start: 11-03-2020 End: 08-06-2021 Pumzxgeqpuc-Cwtvvpnel-Ewexex er (Trelegy Ellipta) 100-62.5-25 mcg blister with device Discontinued 1 NMA INHALATION DAILY 60 November 03, 2020 1:00am August 06, 2021 11:25am Start: 11-03-2020 End: 08-06-2021 Pnmohysxsoc-Lkjyazuil-Xgpxtw er (Trelegy Ellipta) 100-62.5-25 mcg blister with device Discontinued 1 NMA INHALATION DAILY November 03, 2020 1:00am August 06, 2021 11:25am Start: 11-03-2020 End: 08-06-2021 Mismpljakjz-Vmtqfcvgs-Mnfedl er (Trelegy Ellipta) 100-62.5-25 mcg blister with device Discontinued 1 INH INHALATION DAILY November 03, 2020 12:00am August 06, 2021 10:25am Start: 11-03-2020 End: 08-06-2021 Ywitqecawnx-Ghsfdfvgs-Xjvmxx er (Trelegy Ellipta) 100-62.5-25 mcg blister with [...] Active losartan potassium 25 mg oral tablet (20 sources) Angiotensin 2 Receptor Sai Start: 02-26-2024 [...] TABLET PO DAILY May 24, 2021 12:00am polyethylene glycol 3350 88326 mg powder for oral solution (2 sources) Osmotic Laxative Start: 04-16-2025 Polyethylene Glycol 3350 (Miralax) 17 gram/dose powder Active 4 g PO ONCE as needed April 16, 2025 8:58am Diabetes mellitus Type 2 diabetes mellitus with diabetic chronic kidney disease Chronic kidney disease, stage 3b predniSONE 10 mg oral tablet (1 source) [...] daily. 180 tablet 3 12/18/2015 Active Semaglutide (20 sources) Start: 02-10-2025 Semaglutide (Ozempic) 0.25 mg or 0.5 mg (2 mg/3 mL) pen injector Active 0.5 mg SC EVERY WEEK 3 February 10, 2025 12:00am Type 2 diabetes mellitus Type 2 diabetes mellitus without complications Start: 02-10-2025 Semaglutide (O zempic) 0.25 mg or 0.5 mg (2 mg/3 mL) pen injector Active 0.5 mg SC EVERY WEEK February 10, 2025 12:00am Start: 01-16-2025 End: 01-17-2025 Semaglutide (Ozempic) 0.25 m g or 0.5 mg (2 mg/3 mL) pen injector Discontinued 0.5 mg SC EVERY WEEK 3 1 January 16, 2025 4:11pm January 17, 2025 3:42pm Start: 01-16-2025 End: 01-17-2025 Semaglutide (Ozempic) 0.25 m g or 0.5 mg (2 mg/3 mL) pen injector Discontinued 0.5 mg SC EVERY WEEK 3 January 16, 2025 4:11pm January 17, 2025 3:42pm Start: 12-20-2024 End: 01-16-2025 Semaglutide (Ozempic) 0.25 m g or 0.5 mg (2 mg/3 mL) pen injector Discontinued 0.5 mg SC EVERY WEEK 3 1 December 20, 2024 5:56pm January 16, 2025 4:11pm Start: 12-20-2024 End: 01-16-2025 Semaglutide (Ozempic) 0.25 [...] 01, 2024 1:00am December 20, 2024 5:56pm Start: 10-01-2024 End: 12-20-2024 Semaglutide (Ozempic) 0.25 m g or 0.5 mg (2 mg/3 mL) pen injector Discontinued 0.5 mg SC EVERY WEEK 3 October 01, 2024 1:00am December 20, 2024 5:56pm simvastatin 20 mg oral tablet (20 sources) HMG-CoA Reductase Inhibitor Start: 04-18-2025 take 1 tablet by mouth at bedtime Simvastatin 20 mg tablet Active 20 mg PO AT BEDTIME 90 April 18, 2025 8:14am Start: 09-19-2018 End: 07-12-2019 take 1 tablet by mouth at bedtime Simvastatin 5 mg tablet Discontinued 5 mg PO AT BEDTIME September 19, 2018 1:00am July 12, 2019 9:14am Start: 09-19-2017 End: 04-18-2025 take 1 tablet by mouth at bedtime Simvastatin 10 mg tablet Discontinued 10 mg PO AT BEDTIME July 12, 2019 12:00am April 18, 2025 8:15am vitamin b12 0.5 mg oral tablet (7 sources) Vitamin B12 Start: 08-22-2023 take 1 tablet by mouth once daily Cyanocobalamin (Vitamin B-12) 500 mcg tablet Active 500 ug PO DAILY August 22, 2023 12:00am Zinc (1 source) ZINC ORAL Take 5 0 mg by mouth. 0 Active zinc acetate 50 mg oral capsule (6 sources) Start: 02-26-2024 take 1 capsule by mouth once daily Zinc Acetate 50 mg (zinc) capsule Active 50 mg PO DAILY February 26, 2024 12:00am zinc oxide 100 mg/ml topical cream (8 sources) Start: 04-16-2025 Zinc Oxide 10 % cream Active 1 NMA TOPICAL THREE TIMES A DAY as needed April 16, 2025 8:58am Perineal pruritus in female Anogenital pruritus, unspecified Start: 09-12-2024 End: 04-16-2025 Zinc Oxide 10 % cream Discon tinued 1 NMA TOPICAL THREE TIMES A DAY 78 1 September 12, 2024 1:00am April 16, 2025 8:58am Perineal pruritus in female Anogenital pruritus, unspecified Completed/Discontinued Medications Medication Drug Class(es) Dates Sig (Normalized) Sig (Original) [id number] 200 actuat albuterol 0.09 mg/actuat metered dose inhaler (20 sources) beta2-Adrenergic Agonist Start: 08-09-2022 End: 03-05-2025 Albuterol Sulfate 90 mcg/actuation HFA aerosol inhaler Discontinued 1 NMA INHALATION Q4H as needed for shortness of breath or wheezing 8.5 October 14, 2024 9:49am March 05, 2025 8:04am Start: 08-09-2022 End: 11-29-2023 Albuterol Sulfate (Proair Hf a) 90 mcg/actuation HFA aerosol inhaler Active 1 INH INHALATION Q4H 8.5 November 29, 2023 8:52am Start: 12-14-2021 Albuterol Sulf [...] aerosol inhaler Discontinued 1 NMA INHALATION ONCE 8.02 21December 14, 2021 11:27am February 07, 2022 8:13am Start: 05-24-2021 End: 08-09-2022 Albuterol Sulfate (Proair Hf a) 90 mcg/actuation HFA aerosol inhaler Discontinued 1 INH INHALATION ONCE 8.December 14, 2021 11:27am February [...] WHEEZING 54 g 3 03/09/2017 Active Budesonide-Formoterol (16 sources) Corticosteroid, beta2-Adrenergic Agonist Start: 07-28-2020 End: [...] Active calcium carbonate 1500 mg oral tablet (15 sources) Start: 03-18-2020 End: 05-24-2021 take 1 [...] 7:58am diclofenac sodium 0.01 mg/mg topical gel (15 sources) Nonsteroidal Anti-inflammatory Drug Start: 05-24-2021 End: 02-08-2023 Diclofenac Sodium (Voltaren Arthritis Pain) 1 % gel Discontinued 4 g TOPICAL ONCE 100 0 May 24, 2021 12:00am February 08, 2023 7:51am Left knee pain Pain in left knee Knee pain Start: 05-24-2021 End: 02-08-2023 Diclofenac Sodium (Voltaren Arthritis Pain) 1 % gel Discontinued 4 GM TOPICAL ONCE 100 May 24, 2021 12:00am February 08, 2023 7:51am 0.5 ml dulaglutide 3 mg/ml auto-injector (6 sources) GLP-1 Receptor Agonist Start: 01-17-2025 End: 02-10-2025 Dulaglutide (Trulicity) 1.5 mg/0.5 mL pen injector Discontinued 1.5 mg SC EVERY WEEK January 17, 2025 12:00am February 10, 2025 7:35am ferrous fumarate 325 mg oral tablet (7 sources) Start: 08-22-2023 End: 02-26-2024 take 1 tablet by mouth once daily Ferrous Fumarate 325 mg (106 mg iron) tablet Discontinued 325 mg PO DAILY August 22, 2023 12:00am February 26, 2024 7:58am gabapentin 300 mg oral capsule (15 sources) Anti-epileptic Agent Start: 07-12-2019 End: 07-12-2019 take 1 capsule by mouth twice daily Gabapentin 300 mg capsule Discontinued 300 mg PO TWICE A DAY July 12, 2019 12:00am July 12, 2019 10:34am glimepiride 1 mg oral tablet (13 sources) Sulfonylurea Start: 01-17-2025 End: 04-09-2025 take [...] 10:26am metFORMIN hydrochloride 1000 mg oral tablet (16 sources) Biguanide Start: 09-19-2017 End: 02-26-2024 take 1 tablet by mouth twice daily Metformin 1,000 mg tablet Discontinued 1000 mg PO TWICE A DAY September 19, 2018 1:00am February 26, 2024 7:59am Multivitamin tablet (12 sources) Start: 01-17-2025 End: 04-09-2025 Multivitamin tablet Discontinued 1 {tbl} PO daily January 17, 2025 12:00am April 09, 2025 8:38am Start: 01-17-2025 Multivitamin t ablet Active 1 {tbl} PO daily January 17, 2025 12:00am Start: 05-24-2021 End: 01-06-2025 Multivitamin tablet Disconti nued 1 {tbl} PO DAILY May 24, 2021 12:00am January 06, 2025 11:15am Nirmatrelvir-Ritonavir (14 sources) Start: 04-29-2022 End: 02-08-2023 Nirmatrelvir-Ritonavir (Paxl ovid (Eua)) 300 mg (150 mg x 2)-100 mg tablet Discontinued 0 PO .COMPLEX 30 0 April 29, 2022 12:00am February 08, 2023 7:51am take TWO 150 mg tablets of nirmatrelvir with ONE 100 mg tablet of ritonavir twice daily for 5 days PO Start: 04-29-2022 End: 02-08-2023 Nirmatrelvir-Ritonavir (Paxl ovid (Eua)) 300 mg (150 mg x 2)-100 mg tablet Discontinued 0 PO .COMPLEX 30 April 29, 2022 12:00am February 08, 2023 [...] / nitrofurantoin, monohydrate 75 mg oral capsule (15 sources) Nitrofuran Antibacterial Start: 09-19-2018 End: 07-12-2019 [...] 12, 2019 12:00am March 17, 2020 8:12am Polyethylene Glycol 3350 (Miralax) 17 gram/dose powder (6 sources) Start: 01-06-2025 End: 04-16-2025 Polyethylene Glycol 3350 (Miralax) 17 gram/dose powder Discontinued 4 g PO ONCE 119 5 January 06, 2025 12:00am April 16, 2025 8:58am Diabetes mellitus Type 2 diabetes mellitus with diabetic chronic kidney disease Chronic kidney disease, stage 3b Start: 01-06-2025 End: 04-16-2025 Polyethylene Glycol 3350 (Mi ralax) 17 gram/dose powder Discontinued 4 g PO ONCE 119 January 06, 2025 12:00am April 16, 2025 8:58am Start: 01-06-2025 Polyethylene G lycol 3350 (Miralax) 17 gram/dose powder Active 4 g PO ONCE 119 January 06, 2025 12:00am sertraline 25 mg oral tablet (15 sources) Serotonin Reuptake Inhibitor Start: 05-24-2021 End: 02-08-2023 take 1 tablet by mouth once daily Sertraline 25 mg tablet Discontinued 25 mg PO DAILY May 24, 2021 12:00am February 08, 2023 7:51am tretinoin 0.20661 mg/mg topical gel (15 sources) Retinoid Start: 05-24-2021 End: 02-26-2024 Tretinoin 0.025 % gel Discontinued 1 NMA TOPICAL AT BEDTIME May 24, 2021 12:00am February 26, 2024 8:00am Start: 05-24-2021 Tretinoin Acti ve 1 APPLIC TOPICAL AT BEDTIME May 24, 2021 12:00am Problems Active Problems Problem Classification Problem Date Documented Da te Episodic/Chronic Cancer of bone and connective tissue (16 sources) Osteosarcoma of bone; 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, unspecified] Onset: 09-11-2006 07-27-2020 Chronic Comment on above: chemo 05/2007 Chronic kidney disease (16 sources) Chronic kidney disease stage 3; Translations: [Stage 3 chronic kidney disease] Onset: 09-11-2024 01-17-2025 Chronic Chronic kidney disease (2 sources) Chronic kidney disease; Translations: [Chronic kidney disease, stage 3b] Onset: 05-12-2025 Chronic obstructive pulmonary disease and bronchiectasis (20 sources) Asthma-chronic obstructive pulmonary disease overlap syndrome; Translations: [Chronic obstructive pulmonary disease, unspecified] Onset: 04-14-2025 Chronic Coronary atherosclerosis and other heart disease (19 sources) Calcification of coronary artery; Translations: [Atherosclerotic heart disease of [place] coronary artery without angina pectoris] Onset: 04-18-2025 07-27-2020 Chronic Deficiency and other anemia (1 source) Iron deficiency anemia, unspecified; Translations: [Iron deficiency anemia, unspecified] Onset: 05-12-2025 Episodic Diabetes mellitus with complications (12 sources) Neuropathy due to diabetes mellitus; Translations: [Type 2 diabetes mellitus with diabetic neuropathy, unspecified] Onset: 05-12-2025 01-17-2025 Chronic Diabetes mellitus without complication (20 sources) Type 2 diabetes mellitus without complication; Translations: [Type 2 diabetes mellitus without complications] Onset: 05-04-2009 Resolved: 12-27-2013 12-27-2013 Chronic Diseases of white blood cells (1 source) Other drug-induced agranulocytosis; Translations: [Drug induced neutropenia] Onset: 10-06-2006 10-06-2006 Chronic Disorders of lipid metabolism (20 sources) Hyperlipidemia; Translations: [Hyperlipidemia, unspecified] Onset: 07-07-2014 07-12-2019 Chronic Essential hypertension (18 sources) Hypertensive disorder; Translations: [Essential (primary) hypertension] Onset: 05-04-2009 05-31-2016 Chronic Fever of unknown origin (14 sources) Fever; Translations: [Fever, unspecified] 04-29-2022 Episodic Menopausal disorders (1 source) Postmenopausal bleeding; Translations: [Postmenopausal bleeding] Onset: 12-27-2013 12-27-2013 Chronic Nutritional deficiencies (9 sources) Vitamin D deficiency; Translations: [Vitamin D deficiency, unspecified] Onset: 03-09-2010 03-09-2010 Chronic Nutritional deficiencies (1 source) Deficiency of other specified B group vitamins; Translations: [Deficiency of other specified B group vitamins] Onset: 03-10-2025 Episodic Other eye disorders (1 source) Swelling of eyelid; Translations: [Edema of unspecified eye, unspecified eyelid] 03-25-2024 Episodic Other inflammatory condition of skin (6 sources) Disorder of female perineum; Translations: [Anogenital pruritus, unspecified] 01-17-2025 Episodic Other inflammatory condition of skin (1 source) Anogenital pruritus, unspecified; Translations: [Anogenital pruritus, unspecified] Onset: 04-18-2025 Episodic Other nervous system disorders (7 sources) Abnormal gait; Translations: [Unspecified abnormalities of gait and mobility] Onset: 07-27-2007 07-27-2007 Episodic Other nutritional; endocrine; and metabolic disorders (17 sources) Morbid obesity; Translations: [Morbid (severe) obesity due to excess calories] 11-03-2020 Chronic Other nutritional; endocrine; and metabolic disorders (4 sources) Morbid (severe) obesity due to excess calories; Translations: [Morbid obesity] Onset: 05-20-2025 Chronic Other nutritional; endocrine; and metabolic disorders (1 source) Body mass index 30+ - obesity; Translations: [Body mass index (BMI) 39.0-39.9, adult] Onset: 12-27-2014 12-27-2014 Chronic Other nutritional; endocrine; and metabolic disorders (16 sources) Obesity; Translations: [Obesity, unspecified] Onset: 08-10-2011 Resolved: 12-27-2014 12-27-2014 Chronic Other nutritional; endocrine; and metabolic disorders (1 source) Body mass index (BMI) 40.0-44.9, adult; Translations: [Body mass index [BMI] 40.0-44.9, adult] Onset: 05-20-2025 Chronic Residual codes; unclassified (20 sources) Obstructive sleep apnea syndrome; Translations: [Obstructive sleep apnea (adult) (pediatric)] Onset: 08-10-2011 08-06-2021 Chronic Comment on above: CPAP 17 cm of water with residual AHI of 0.2 Residual codes; unclassified (4 sources) Obstructive sleep apnea (adult) (pediatric); Translations: [Obstructive sleep apnea (adult)(pediatric)] Onset: 04-14-2025 Chronic Residual codes; unclassified (6 sources) Postmenopausal state; Translations: [Asymptomatic menopausal state] 04-09-2025 Episodic Residual codes; unclassified (1 source) Asymptomatic menopausal state; Translations: [Asymptomatic menopausal state] Onset: 05-20-2025 Episodic Substance-related disorders (9 sources) Cigarette smoker ; Translations: [Nicotine dependence, cigarettes, uncomplicated] 01-27-2021 Chronic Superficial injury; contusion (12 sources) Contusion of right chest wall; Translations: [Contusion of right front wall of thorax, initial encounter] 01-25-2023 Episodic Thyroid disorders (18 sources) Toxic multinodular goiter; Translations: [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 storm] Onset: 06-26-2009 06-26-2009 Chronic Unclassified (1 source) Obesity, class 3; Translations: [Obesity, class 3] Onset: 05-20-2025 Urinary tract infections (15 sources) Urinary tract infectious disease; Translations: [Urinary tract infection, site not specified] 07-12-2019 Episodic Viral infection (16 sources) Disease caused by 2019-nCoV; Translations: [COVID-19] Episodic Past or Other Problems Problem Classification Problem Date Documented Da te Episodic/Chronic Acute and unspecified renal failure (1 source) Acute kidney failure, unspecified; Translations: [Acute kidney failure, unspecified] Onset: 01-18-2025 Episodic Complications of surgical procedures or medical care (1 source) Mucositis following therapy; Translations: [Oral mucositis (ulcerative) due to other drugs] Onset: 11-13-2006 11-13-2006 Episodic Genitourinary symptoms and ill-defined conditions (13 sources) Microalbuminuria; Translations: [Proteinuria, unspecified] Onset: 09-11-2024 01-17-2025 Episodic Other lower respiratory disease (1 source) Disorder of lung; Translations: [Other disorders of lung] Onset: 10-02-2006 03-09-2009 Episodic Other screening for suspected conditions (not mental disorders or infectious disease) (17 sources) Computed tomography result abnormal; Translations: [Abnormal findings on diagnostic imaging of heart and coronary circulation] Onset: 09-05-2024 07-27-2020 Episodic Results Test Name Value Interpretation Reference Range Facility Cardiology Visit Reporton Cardiology Visit Report [facility] [address] [place], [place] [address] OFFICE VISIT Date of Service: 04/18/25 MR#: [id number] Acct: [id number] Name: LYNDA BRADLEY Rep #: [id number] : 1965 Provider: Dr. Chauncey Duong MD Age/Sex: 59/F Location[place] [facility] [place] Status: Signed HPI HPI History of Present Illness Details: Pleasant 59-year-old lady with a history of hypertension hyperlipidemia abnormal coronary calcium score status post chemotherapy for osteosarcoma utilizing cisplatin, methotrexate, and Adriamycin. She also has a history of diabetes mellitus and hyperlipidemia. She is reestablishing care here. She denies any chest pain or shortness of breath or paroxysmal nocturnal dyspnea pedal edema she has had no neck arm or jaw discomfort suggest angina. She has been compliant with her medications she says she is lost some weight and her hemoglobin A1c has been much better. Her physical exam here today is unremarkable her electrocardiogram demonstrates sinus rhythm with a rate of 76 bpm and poor R wave progression. Her most recent lipid profile demonstrates a total cholesterol of 170, LDL of 92, and HDL of 50. 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 Accompanied by: Self Is patient in pain?: No Allergies pregabalin (From Lyrica) Allergy (Intermediate, Verified 04/18/25 07:51) Diarrhea adhesive tape Allergy (Unknown, Verified 04/18/25 07:51) uknown hydromorphone (From Dilaudid) Allergy (Unknown, Verified 04/18/25 07:51) Hives oxycodone Allergy (Unknown, Verified 04/18/25 07:51) unknown tramadol Allergy (Unknown, Verified 04/18/25 07:51) unknown gabapentin Allergy (Verified 04/18/25 07:51) unknown lisinopril Adverse Reaction (Intermediate, Verified 04/18/25 07:51) Cough Medications ???Medication ???Instructions ???Recorded ???Confirmed ???Type cyanocobalamin (vitamin B-12) 500 500 mcg PO DAILY 08/22/2304/16/ 5 History mcg tablet losartan 25 mg tablet 25 mg PO DAILY 02/26/24 04/16/25 H istory zinc acetate 50 mg (zinc) capsule 50 mg PO DAILY 02/26/24 04/16/25 History levothyroxine 125 mcg tablet 125 mcg PO DAILY 01/06/25 04/16/25 History cholecalciferol (vitamin D3) 25 50 mcg PO DAILY 01/17/25 04/16/25 History mcg (1,000 unit) capsule fluticasone fur. 100 mcg-umeclid 1 inh inhalation DAILY #3 ea 02/1004/16/25 Rx 62.5 mcg-vilant 25 mcg inhalat.powder (Trelegy Ellipta) semaglutide 0.25 mg or 0.5 mg (2 0.5 mg (0.736 mL) subcut QWEEK #3 02/10/25 04/16/25 Rx mg/3 mL) subcutaneous pen injector mL (Ozempic) empagliflozin 10 mg tablet 10 mg PO QAM #30 tabs 02/26/25 Rx (Jardiance) albuterol sulfate 90 mcg/actuation 1 inh inhalation Q4H PRN shortne ss 03/05/25 04/16/25 Rx aerosol inhaler of breath or wheezing #8.5 grams ferrous sulfate 325 mg (65 mg 325 mg PO .Qweekly 04/09/25 History iron) tablet (FeroSul) polyethylene glycol 3350 17 4 g PO ONCE PRN 04/16/25 04/18/25 History gram/dose oral powder (Miralax) zinc oxide 10 % topical cream 1 applic topical TID PRN 04/16/25 04/18/25 History simvastatin 20 mg tablet 20 mg PO QHS #90 tabs 04/18/25 Rx Have you fallen in the past year?: No PFSH Medical History Gait instability Vitamin D deficiency Hypertension Obesity Obstructive sleep apnea syndrome Asthma-COPD overlap syndrome Coronary artery calcification 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) Diabetic neuropathy Chronic kidney disease, stage III (moderate) Hyperlipidemia Type 2 diabetes mellitus Hypothyroidism Surgical History History of cataract surgery History of right below knee amputation (12/2006) [...] use what type of physical activity do (more content not included)... Normal [facility] Bone density reportOrdered B y: Amado Mayen on 04-17-2025 Study report Skeletal system DXA [facility] Imaging Services [address] [place], [place] [address] Dexa Bone Density Study MR#: [id number] Acct: [id number] Name: LYNDA BRADLEY Rep #: [id number] : 1965 F 59 From: Sly Mayen MD PCP: Dr. Mimi Martin, DO Status: REG CLI Study:Dexa Bone Density Study Date of Exam: 04/17/25 Exam# [id number] Ordering Dr: Janey Gutierrez [employer] SERVICE [employer]ATE-C PROCEDURE: DEXA BONE DENSITY STUDY 04/17/2025 REASON FOR EXAM: POST MENOPAUSAL F, age 59 y/o . Postmenopausal. TECHNIQUE: DEXA BONE DENSITY STUDY COMPARISON: Prior study dated January 25, 2022. FINDINGS: BMD and T-SCORES Lumbar spine: 0.880 g/cm2, T-score -1.5 Levels: L1 through L4 Change from prior: Loss of 10.8%. Left femoral neck: 0.771 g/cm2, T-score -0.7 Femoral neck comparison data not recommended for monitoring change. Left total hip: 0.833 g/cm2, T-score -0.9 Change from prior: Improvement of 0.4%. Right femoral neck: 0.682 g/cm2, T-score -1.5 Femoral neck comparison data not recommended for monitoring change. Right total hip: 0.744 g/cm2, T-score -1.6 Change from prior: Loss of 3.7%. The World Health Organization has defined the following categories based on bonedensity: Normal bone density: T-score equal to or greater than -1.0 Osteopenia: T-score between -1.0 and -2.5 Osteoporosis: T-score equal to or less than -2.5 The patient does meet the pharmacological treatment recommendations for prevention of osteoporosis. BD/Dexa Bone Density Study IMPRESSION: OSTEOPENIA. Recommend follow-up as clinically warranted. Reading Location: [id number] CC: TRAV Gutierrez; Dr. Mimi Martin DO ~ [place] Chief: Signed [facility] Dexa Bone Density Studyon Dexa Bone Density Study [facility] Imaging Services [address] [place], [place] [id number] Dexa Bone Density Study MR#: [id number] Acct: [id number] Name: LYNDA BRADLEY Rep #: [id number] : 1965 F 59 From: Amado horowitz MD PCP: Dr. Mimi Martin DO Status: REG CLI Study: Dexa Bone Density Study Date of Exam: 04/17/25 Exam# [id number] Ordering Dr: Janey Gutierrez PROCEDURE: DEXA BONE DENSITY STUDY 04/17/2025 REASON FOR EXAM: POST MENOPAUSAL F, age 59 y/o . Postmenopausal. TECHNIQUE: DEXA BONE DENSITY STUDY COMPARISON: Prior study dated January 25, 2022. FINDINGS: BMD and T-SCORES Lumbar spine: 0.880 g/cm2, T-score -1.5 Levels: L1 through L4 Change from prior: Loss of 10.8%. Left femoral neck: 0.771 g/cm2, T-score -0.7 Femoral neck comparison data not recommended for monitoring change. Left total hip: 0.833 g/cm2, T-score -0.9 Change from prior: Improvement of 0.4%. Right femoral neck: 0.682 g/cm2, T-score -1.5 Femoral neck comparison data not recommended for monitoring change. Right total hip: 0.744 g/cm2, T-score -1.6 Change from prior: Loss of 3.7%. The World Health Organization has defined the following categories based on bone density: Normal bone density: T-score equal to or greater than -1.0 Osteopenia: T-score between -1.0 and -2.5 Osteoporosis: T-score equal to or less than -2.5 The patient does meet the pharmacological treatment recommendations for prevention of osteoporosis. BD/Dexa Bone Density Study IMPRESSION: OSTEOPENIA. Recommend follow-up as clinically warranted. Reading Location: [id number] CC: TRAV Gutierrez; Dr. Mimi Martin DO [place] Chief: Signed Normal [facility] Calculated very low density lipoprotein (VLDL) cholesterol measurementOrdered By: Janey Gutierrez on 04-10-2025 Calculated very low density lipoprotein (VLDL) cholesterol measurement 28 mg/dL 5-40 [facility] LDL calc ser/plasOrdered By: Janey Gutierrez on 04-10-2025 Cholesterol in LDL [Mass/Vol] 92 mg/dL [facility] Comment on above: Cjpewnfiga=036-683 m g/dL & Higher Ekqg=286 mg/dL or greater Lipid Profileon 04-10-2025 CHOL:HDL 3.39 Normal [facility] Comment on above: Performed By: #### L 506.0400, L501.9520, L500.4100, L506.1001 ####[facility] [address] [place], [address] Cholesterol [Mass/Vol] 170 mg/dL Normal <=200 [facility] Comment on above: Result Comment: Chol esterol level, Desirable <200 mg/dL Borderline high cholesterol 200-239 mg/dL High cholesterol >=240 mg/dL Recommendations of the NCEP Adult Treatment Panel for the following risk-cutoff thresholds for the [place] population. Performed By: #### L 506.0400, L501.9520, L500.4100, L506.1001 ####[facility] [address] [place], [address] Cholesterol in HDL [Mass/Vol] 50 mg/dL Normal [facility] Comment on above: Result Comment: Yeny onal Cholesterol Education Program (NCEP) guidelines: <40 mg/dL: Low HDL-cholesterol (major risk factor for CHD) >= 60 mg/dL: High HDL-cholesterol (negative risk factor for CHD) HDL-cholesterol is affected by a number of factors, e.g. smoking, exercise, hormones, sex and age. Performed By: #### L 506.0400, L501.9520, L500.4100, L506.1001 ####[facility] [address] [place], [address] Cholesterol in LDL [Mass/Vol] 92 mg/dL Normal [facility] Comment on above: Result Comment: Bord iqqdbv=291-590 mg/dL Higher Vjue=513 mg/dL or greater Performed By: #### L 506.0400, L501.9520, L500.4100, L506.1001 ####[facility] [address] [place], [address] Cholesterol in VLDL [Mass/Vol] 28 mg/dL Normal 5-40 [facility] Comment on above: Performed By: #### L 506.0400, L501.9520, L500.4100, L506.1001 ####[facility] [address] [place], [address] Triglyceride [Mass/Vol] 139 mg/dL Normal [facility] Comment on above: Result Comment: The drugs N-Acetylcysteine and Metamizole may falsely depress this assay. Normal range: <150 mg/dL Borderline High: 150-199 mg/dL High: 200-499 mg/dL Very High: >500 mg/dL Performed By: #### L 506.0400, L501.9520, L500.4100, L506.1001 ####[facility] [address] [place], [place], [id number] Screening total cholesterol/ high density lipoprotein (HDL) cholesterol ratioOrdered By: Janey Gutierrez on 04-10-2025 Cholesterol.total/Sharon sterol in HDL [Mass ratio] 3.39 {ratio} [facility] Serum or plasma cholesterol in HDL measurement (mass/volume)Ordered By: Janey Gutierrez on 04-10-2025 Cholesterol in HDL [Mass/Vol] 50 mg/dL >40 [facility] Comment on above: National Cholesterol Education Program (NCEP) guidelines:<40 mg/dL: Low HDL-cholesterol (major risk factor for CHD)>= 60 mg/dL: High HDL-cholesterol (negative risk factor for CHD)HDL-cholesterol is affected by a number of factors, e.g. smoking, exercise, hormones, sex and age. Serum or plasma cholesterol measurement (mass/volume)Ordered By: Janey Gutierrez on 04-10-2025 Cholesterol [Mass/Vol] 170 mg/dL <201 [facility] Comment on above: Cholesterol level, D esirable <200 mg/dLBorderline high cholesterol 200-239 mg/dLHigh cholesterol >=240 mg/dLRecommendations of the NCEP Adult Treatment Panel for the following risk-cutoff thresholds for the [place] population. T4 Free Directon 04-10-2025 T4 FREE DIRECT 1.40 ng/dL Normal 0.76-1.46 [facility] Comment on above: Performed By: #### L 506.0400, L501.9520, L500.4100, L506.1001 ####[facility] [address] [place], [place], [id number] T4 freeOrdered By: Emilie on 04-10-2025 Free T4 [Mass/Vol] 1.40 ng/dL 0.76-1.46 [facility] TSH DL <= 0.005 mIU/L QnOrde red By: Janey Gutierrez on 04-10-2025 TSH Qn 0.972 uIU/mL 0.300-4.200 [facility] Thyroid Stim Hormone (TSH)on 04-10-2025 TSH 0.972 uIU/mL Normal 0.300-4.200 [facility] Comment on above: Performed By: #### L 506.0400, L501.9520, L500.4100, L506.1001 ####[facility] [address] [place], [place], [address] Triglycerides measurementOrd ered By: Janey Gutierrez on 04-10-2025 Triglyceride [Mass/Vol] 139 mg/dL <199 [facility] Comment on above: The drugs N-Acetylcy steine and Metamizole may falsely depress this assay. Normal range: <150 mg/dLBorderline High: 150-199 mg/dLHigh: 200-499 mg/dLVery High: >500 mg/dL Vitamin D,25 Hydroxyon 04-10 Vitamin D 25-OH 49.0 ng/mL Normal 30-100 [facility] Comment on above: Result Comment: Leisa min D Status Deficiency: <20 ng/mL (50nmol/L) Insufficiency: 20-30 ng/mL (50-75 nmol/L) Sufficiency: 30-100 ng/mL (75-250 nmol/L) Toxicity: >100 ng/mL (>250 nmol/L) Performed By: #### L 506.0400, L501.9520, L500.4100, L506.1001 ####[facility] [address] [place], [address] Endocrinology Visit Reporton 04-09-2025 Endocrinology Visit Report [facility] [address] 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 Accompanied by: Self Is patient in pain?: No Allergies pregabalin (From Lyrica) Allergy (Intermediate, Verified 04/09/25 08:38) Diarrhea adhesive tape Allergy (Unknown, Verified 04/09/25 08:38) uknown hydromorphone (From Dilaudid) Allergy (Unknown, Verified 04/09/25 08:38) Hives oxycodone Allergy (Unknown, Verified 04/09/25 08:38) unknown tramadol Allergy (Unknown, Verified 04/09/25 08:38) unknown gabapentin Allergy (Verified 04/09/25 08:38) unknown lisinopril Adverse Reaction (Intermediate, Verified 04/09/25 08:38) Cough Medications ???Medication ???Instructions ???Recorded ???Confirmed ???Type simvastatin 10 mg tablet 10 mg PO QHS 07/12/19 04/09/25 His tory cyanocobalamin (vitamin B-12) 500 500 mcg PO DAILY 08/22/23 5 History mcg tablet losartan 25 mg tablet 25 mg PO DAILY 02/26/24 04/09/25 H istory zinc acetate 50 mg (zinc) capsule 50 mg PO DAILY 02/26/24 04/09/25 History zinc oxide 10 % topical cream 1 applic topical TID #78 grams 04/09/25 Rx levothyroxine 125 mcg tablet 125 mcg PO DAILY 01/06/25 04/09/25 History polyethylene glycol 3350 17 4 g PO ONCE #119 grams 01/06/25 Rx gram/dose oral powder (Miralax) cholecalciferol (vitamin D3) 25 50 mcg PO DAILY 01/17/25 04/09/25 History mcg (1,000 unit) capsule fluticasone fur. 100 mcg-umeclid 1 inh inhalation DAILY #3 ea 02/1004/09/25 Rx 62.5 mcg-vilant 25 mcg inhalat.powder (Trelegy Ellipta) semaglutide 0.25 mg or 0.5 mg (2 0.5 mg (0.736 mL) subcut QWEEK #3 02/10/25 04/09/25 Rx mg/3 mL) subcutaneous pen injector mL (Ozempic) empagliflozin 10 mg tablet 10 mg PO QAM #30 tabs 02/26/25 Rx (Jardiance) albuterol sulfate 90 mcg/actuation 1 inh inhalation Q4H PRN shortne ss 03/05/25 04/09/25 Rx aerosol inhaler of breath or wheezing #8.5 grams ferrous sulfate 325 mg (65 mg 325 mg PO .Qweekly 04/09/25 History iron) tablet (FeroSul) [facility] Medical History (Updated 04/09/25 @ 09:24 by TRAV Calderón) Gait instability Vitamin D deficiency Hypertension Obesity Obstructive sleep apnea syndrome Asthma-COPD overlap syndrome Coronary artery calcification 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) Diabetic neuropathy Chronic kidney disease, stage III (moderate) Hyperlipidemia Type 2 diabetes mellitus Hypothyroidism Surgical History History of cataract surgery History of right below knee amputation (12/2006) [...] and management of diabetes. A1C today is 5.7%,, improved from 01/06/25 at 5.9%. She has lost 7 lbs since that time. Currently taking Jardiance 10 mg once daily and Ozempic 0.5 mg qweek- tolerating well. She has continued to make dietary modifications. BP is controlled. Currently taking losartan 25 mg once daily. She has CKD with microalbuminuria. She sees nephrology routinely, her next appt is in July. Currently taking simvastatin 10 mg qod, she was instructed at her last appt to increase daily d/t poorly controlled cholesterol; however, she is fearful of potential risk of Alzheimer's/dementia as she has a family hx. We discussed at her last appt that risk for Alzheimer's/dementia is associated with tightly controlled choleste (more content not included)... Normal [facility] Laboratory - Hematology and Cell countsOrdered By: Janey Gutierrez on 04-09-2025 HbA1c (Bld) [Mass fraction] 5.7 % 4.2-6.3 [facility] Pulmonary Visit Reporton Pulmonary Visit Report [facility] [place] [address] [place] [address]. [address] [place] [address] OFFICE VISIT Date of Service: 03/05/25 MR#: [id number] Acct: [id number] Name: LYNDA BRADLEY Rep #: [id number] : 1965 Provider: TRAV Mari Age/Sex: 59/F [facility] Status: Signed Assessment and Plan Assessment and [...] Additional Comments: This note was generated with [employer] dictation software. It may contain incorrect words, [...] acetate 50 (more content not included)... Normal [facility] Anion gap in Serum or Plasma Ordered By: Janey Gutierrez on 01-14-2025 Anion gap [Moles/Vol] 13 mmol/L - [facility] BUN/creatinine ratioOrdered By: Janey Gutierrez on 01-14-2025 Urea nitrogen/Creatinine [Mass ratio] 14.6 mg/mg 10-20 [facility] Bilirubin, totalOrdered By: Janey Gutierrez on 01-14-2025 Bilirubin [Mass/Vol] 0.46 mg/dL 0.00-1.30 [facility] Carbon dioxide, total [Moles /volume] in Central venous bloodOrdered By: Janey Gutierrez on 01-14-2025 CO2 [Moles/Vol] 20.3 mmol/L Low 21.0-32.0 [facility] Chloride assayOrdered By: Me kevon Gutierrez on 01-14-2025 Chloride [Moles/Vol] 108 mmol/L 98-108 [facility] Comprehensive Metabolic Prof ilon 01-14-2025 Albumin [Mass/Vol] 3.9 g/dL Normal 3.4-4.8 [facility] Comment on above: Order Comment: JANEY GUTIERREZ AND DR. AHN GET RESULTS OF LAB TEST Performed By: #### L 500.4050 ####[facility] [address] [place], [address] Albumin/Globulin [Mass ratio] 1.4 {ratio} Normal 0.9-2.4 [facility] Comment on above: Order Comment: JANEY AHN GET RESULTS OF LAB TEST Performed By: #### L 500.4050 ####[facility] [address] [place], [address] ALK PHOS 80 U/L Normal 35-104 [facility] Comment on above: Order Comment: JANEY AHN GET RESULTS OF LAB TEST Performed By: #### L 500.4050 ####[facility] [address] [place], [address] ALT [Catalytic activity/Vol] 15 U/L Normal <=34 [facility] Comment on above: Order Comment: JANEY AHN GET RESULTS OF LAB TEST Performed By: #### L 500.4050 ####[facility] [address] [place], [address] AST [Catalytic activity/Vol] 21 U/L Normal <=31 [facility] Comment on above: Order Comment: JANEY GUTIERREZ AND DR. AHN GET RESULTS OF LAB TEST Performed By: #### L 500.4050 ####[facility] [address] [place], [address] Bilirubin [Mass/Vol] 0.46 mg/dL Normal 0.00-1.30 [facility] Comment on above: Order Comment: JANEY GUTIERREZ AND DR. AHN GET RESULTS OF LAB TEST Performed By: #### L 500.4050 ####[facility] [address] [place], [address] BUN/CRE 14.6 RATIO Normal 10-20 [facility] Comment on above: Order Comment: JANEY GUTIERREZ AND DR. AHN GET RESULTS OF LAB TEST Performed By: #### L 500.4050 ####[facility] [address] [place], [address] Calcium [Mass/Vol] 8.9 mg/dL Normal 7.6-11.0 [facility] Comment on above: Order Comment: JANEY AHN GET RESULTS OF LAB TEST Performed By: #### L 500.4050 ####[facility] [address] [place], [address] Chloride [Moles/Vol] 108 mmol/L Normal 98-108 [facility] Comment on above: Order Comment: JANEY AHN GET RESULTS OF LAB TEST Performed By: #### L 500.4050 ####[facility] [address] [place], [address] CO2 [Moles/Vol] 20.3 mmol/L Low 21.0-32.0 [facility] Comment on above: Order Comment: JANEY AHN GET RESULTS OF LAB TEST Performed By: #### L 500.4050 ####[facility] [address] [place], [address] Creatinine [Mass/Vol] 1.60 mg/dL High 0.70-1.20 [facility] Comment on above: Order Comment: JANEY GUTIERREZ AND DR. AHN GET RESULTS OF LAB TEST Performed By: #### L 500.4050 ####[facility] [address] [place], [address] GAP 13 Normal 5-15 [facility] Comment on above: Order Comment: JANEY GUTIERREZ AND DR. AHN GET RESULTS OF LAB TEST Performed By: #### L 500.4050 ####[facility] [address] [place], [address] GFR/1.73 sq M.predicted among non-blacks MDRD (S/P/Bld) [Vol rate/Area] 36 mL/min/{1.73_m2} Low >60 [facility] Comment on above: Order Comment: JANEY GUTIERREZ AND DR. AHN GET RESULTS OF LAB TEST Result Comment: mL/m in/1.73m2 CKD-EPI Creatinine Equation (2020) Performed By: #### L 500.4050 ####[facility] [address] [place], [address] Globulin (S) [Mass/Vol] 2.8 g/dL Normal 2.2-4.2 [facility] Comment on above: Order Comment: JANEY AHN GET RESULTS OF LAB TEST Performed By: #### L 500.4050 ####[facility] [address] [place], [address] Glucose [Mass/Vol] 114 mg/dL High 70-99 [facility] Comment on above: Order Comment: JANEY AHN GET RESULTS OF LAB TEST Performed By: #### L 500.4050 ####[facility] [address] [place], [address] Potassium [Moles/Vol] 3.9 mmol/L Normal 3.3-5.1 [facility] Comment on above: Order Comment: JANEY AHN GET RESULTS OF LAB TEST Performed By: #### L 500.4050 ####[facility] [address] [place], [address] Sodium [Moles/Vol] 141 mmol/L Normal 133-145 [facility] Comment on above: Order Comment: JANEY GUTIERREZ AND DR. AHN GET RESULTS OF LAB TEST Performed By: #### L 500.4050 ####[facility] [address] [place], [address] T PROT 6.7 g/dL Normal 5.9-8.4 [facility] Comment on above: Order Comment: JANEY GUTIERREZ AND DR. AHN GET RESULTS OF LAB TEST Performed By: #### L 500.4050 ####[facility] [address] [place], [address] Urea nitrogen [Mass/Vol] 23 mg/dL High 4-19 [facility] Comment on above: Order Comment: JANEY GUTIERREZ AND DR. AHN GET RESULTS OF LAB TEST Performed By: #### L 500.4050 ####[facility] [address] [place], [address] GFR/1.73 sq M.predicted shira g non-blacks MDRD (S/P/Bld) [Vol rate/Area]Ordered By: Janey Gutierrez on 01-14-2025 Estimated GFR (MDRD) Non-Af Amer 36 Low >60 [facility] Comment on above: mL/min/1.73m2 CKD-EP I Creatinine Equation (2020) Glomerular filtration rate ( GFR) estimation/1.73 sq m using serum, plasma, or whole bOrdered By: Janey Gutierrez on 01-14-2025 GFR/1.73 sq M.predicted among non-blacks MDRD (S/P/Bld) [Vol rate/Area] 36 mL/min/{1.73_m2} Low >60 [facility] Comment on above: mL/min/1.73m2 CKD-EP I Creatinine Equation (2020) Laboratory - Chemistry and C hemistry - challengeOrdered By: Janey Gutierrez on 01-14-2025 AST [Catalytic activity/Vol] 21 U/L <32 [facility] Potassium (Unsp spec) [Mass/ Vol]Ordered By: Janey Gutierrez on 01-14-2025 Potassium [Moles/Vol] 3.9 mmol/L 3.3-5.1 [facility] Potassium measurement (mass/ volume)Ordered By: Janey Gutierrez on 01-14-2025 Potassium (Unsp spec) [Mass/Vol] 3.9 mmol/L 3.3-5.1 [facility] Serum creatinine measurement (mass/volume)Ordered By: Janey Gutierrez on 01-14-2025 Creatinine [Mass/Vol] 1.60 mg/dL High 0.70-1.20 [facility] Serum globulin measurementOr dered By: Janey Gutierrez on 01-14-2025 Globulin (S) [Mass/Vol] 2.8 g/dL 2.2-4.2 [facility] Serum glucose measurement (m ass/volume)Ordered By: Janey Gutierrez on 01-14-2025 Glucose [Mass/Vol] 114 mg/dL High 70-99 [facility] Serum or plasma alanine sabillon otransferase (ALT) measurementOrdered By: Janey Gutierrez on 01-14-2025 ALT [Catalytic activity/Vol] 15 U/L <35 [facility] Serum or plasma albumin anamaria urement (mass/volume)Ordered By: Janey Gutierrez on 01-14-2025 Albumin [Mass/Vol] 3.9 g/dL 3.4-4.8 [facility] Serum or plasma albumin/glob ulin mass ratioOrdered By: Janey Gutierrez on 01-14-2025 Albumin/Globulin [Mass ratio] 1.4 {ratio} 0.9-2.4 [facility] Serum or plasma alkaline wayne sphatase measurementOrdered By: Janey Gutierrez on 01-14-2025 ALP [Catalytic activity/Vol] 80 U/L 35-104 [facility] Serum or plasma calcium anamaria urement (mass/volume)Ordered By: Janey Gutierrez on 01-14-2025 Calcium [Mass/Vol] 8.9 mg/dL 7.6-11.0 [facility] Serum or plasma urea nitroge n measurement (mass/volume)Ordered By: Janey Gutierrez on 03-25-2025 Urea nitrogen [Mass/Vol] 23 mg/dL High 4-19 [facility] Sodium levelOrdered By: Alek jeronimo Matt on 01-14-2025 Sodium [Moles/Vol] 141 mmol/L 133-145 [facility] Total proteinOrdered By: Karen Gutierrez on 01-14-2025 Protein [Mass/Vol] 6.7 g/dL 5.9-8.4 [facility] Endocrinology Visit Reporton 01-06-2025 Endocrinology Visit Report [facility] [address] [place] [address] OFFICE VISIT Date of Service: 01/06/25 MR#: [id number] Acct: [id number] Name: LYNDA BRADLEY Rep #: [id number] : 1965 Provider: TRAV crooks Age/Sex: 59/F Location[place] [facility] [place] Status: Signed Intake Vital Signs 09/11/24 09:27 [...] air Intake Visit Reasons: 4 M FU, 12/12 Chief Complaint: f/u diabetes Is patient [...] No dizziness/ve (more content not included)... Normal [facility] Laboratory - Hematology and Cell countsOrdered By: Janey Gutierrez on 01-06-2025 HbA1c (Bld) [Mass fraction] 5.9 % 4.2-6.3 [facility] Endocrinology Visit Reporton 09-11-2024 Endocrinology Visit Report [facility] [address] [place] [address]. 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 Normal [facility] CBC-Complete Blood Cnt No Di ffon 09-09-2024 Erythrocyte distribution width (RBC) [Ratio] 13.4 % Normal 11.6-14.6 [facility] Comment on above: Performed By: #### L 503.6030, L501.9985, L500.3600, L100.0500, L500.4100, L503.6550 ####[facility] [address] [place], [place], [phone] Hematocrit (Bld) [Volume fraction] 37.8 % Normal 37-47 [facility] Comment on above: Performed By: #### L 503.6030, L501.9985, L500.3600, L100.0500, L500.4100, L503.6550 ####[facility] [address] [place], [address] Hemoglobin (Bld) [Mass/Vol] 12.4 g/dL Normal 12.0-15.0 [facility] Comment on above: Performed By: #### L 503.6030, L501.9985, L500.3600, L100.0500, L500.4100, L503.6550 ####[facility] [address] [place], [address] MCH (RBC) [Entitic mass] 31.3 pg Normal 27.0-32.0 [facility] Comment on above: Performed By: #### L 503.6030, L501.9985, L500.3600, L100.0500, L500.4100, L503.6550 ####[facility] [address] [place], [address] MCHC (RBC) [Mass/Vol] 32.8 g/dL Normal 32-36 [facility] Comment on above: Performed By: #### L 503.6030, L501.9985, L500.3600, L100.0500, L500.4100, L503.6550 ####[facility] [address] [place], [address] MCV (RBC) [Entitic vol] 95.5 fL Normal 81-99 [facility] Comment on above: Performed By: #### L 503.6030, L501.9985, L500.3600, L100.0500, L500.4100, L503.6550 ####[facility] [address] [place], [address] Platelet mean volume (Bld) [Entitic vol] 11.1 fL Normal 6.2-12.0 [facility] Comment on above: Performed By: #### L 503.6030, L501.9985, L500.3600, L100.0500, L500.4100, L503.6550 ####[facility] [address] [place], [address] Platelets (Bld) [#/Vol] 215 10*3/uL Normal 150-450 [facility] Comment on above: Performed By: #### L 503.6030, L501.9985, L500.3600, L100.0500, L500.4100, L503.6550 ####[facility] [address] [place], [address] RBC (Bld) [#/Vol] 3.96 10*6/uL Low 4.2-5.4 [facility] Comment on above: Performed By: #### L 503.6030, L501.9985, L500.3600, L100.0500, L500.4100, L503.6550 ####[facility] [address] [place], [address] RDW SD 47.0 fl High 35.1-43.9 [facility] Comment on above: Performed By: #### L 503.6030, L501.9985, L500.3600, L100.0500, L500.4100, L503.6550 ####[facility] [address] [place], [address] WBC (Bld) [#/Vol] 7.3 10*3/uL Normal 4.4-11.0 [facility] Comment on above: Performed By: #### L 503.6030, L501.9985, L500.3600, L100.0500, L500.4100, L503.6550 ####[facility] [address] [place], [address] Ferritinon 09-09-2024 Ferritin [Mass/Vol] 83 ng/mL Normal 8-252 [facility] Comment on above: Performed By: #### L 503.6030, L501.9985, L500.3600, L100.0500, L500.4100, L503.6550 ####[facility] [address] [place], [address] Hemoglobin A1con 09-09-2024 HbA1c (Bld) [Mass fraction] 6.4 % High 3.8-5.6 [facility] Comment on above: Result Comment: Norm al < 5.7 % Prediabetic 5.7 - 6.4 % Diabetic >or= 6.5 % Please note range changes. Performed By: #### L 503.6030, L501.9985, L500.3600, L100.0500, L500.4100, L503.6550 ####[facility] [address] [place], [place], [phone] Iron+Iron Binding Capacityon 09-09-2024 Iron [Mass/Vol] 106 ug/dL Normal 50-170 [facility] Comment on above: Performed By: #### L 503.6030, L501.9985, L500.3600, L100.0500, L500.4100, L503.6550 ####[facility] [address] [place], [address] IRON SATURATION 32.7 Normal 15.0-55.0 [facility] Comment on above: Performed By: #### L 503.6030, L501.9985, L500.3600, L100.0500, L500.4100, L503.6550 ####[facility] [address] [place], [address] TIBC 324 ug/dL Normal 250-450 [facility] Comment on above: Performed By: #### L 503.6030, L501.9985, L500.3600, L100.0500, L500.4100, L503.6550 ####[facility] [address] [place], [address] Lipid Profileon 09-09-2024 Cholesterol [Mass/Vol] 238 mg/dL High 200 [facility] Comment on above: Result Comment: <200 mg/dL Desirable 200-240 mg/dL Borderline >240 mg/dL High Risk Performed By: #### L 503.6030, L501.9985, L500.3600, L100.0500, L500.4100, L503.6550 ####[facility] [address] [place], [place], [phone] Cholesterol in HDL [Mass/Vol] 57 mg/dL Normal [facility] Comment on above: Result Comment: The drugs N-Acetylcysteine and Metamizole may falsely depress this assay. Reference Range HDL <40 mg/dL Low HDL Cholesterol HDL >or= 60 mg/dL High HDL Cholesterol Performed By: #### L 503.6030, L501.9985, L500.3600, L100.0500, L500.4100, L503.6550 ####[facility] [address] [place], [address] Cholesterol in LDL [Mass/Vol] 122 mg/dL Normal 0-130 [facility] Comment on above: Performed By: #### L 503.6030, L501.9985, L500.3600, L100.0500, L500.4100, L503.6550 ####[facility] [address] [place], [address] Cholesterol in VLDL [Mass/Vol] 59 mg/dL High 5-40 [facility] Comment on above: Performed By: #### L 503.6030, L501.9985, L500.3600, L100.0500, L500.4100, L503.6550 ####[facility] [address] [place], [address] Triglyceride [Mass/Vol] 296 mg/dL High [facility] Comment on above: Result Comment: The drugs N-Acetylcysteine and Metamizole may falsely depress this assay. Serum Triglycerides Reference Interval Normal <150 mg/dL Borderline high 150 - 199 mg/dL High 200 - 499 mg/dL Very High > or = 500 mg/dL Performed By: #### L 503.6030, L501.9985, L500.3600, L100.0500, L500.4100, L503.6550 ####[facility] [address] [place], [address] Renal Profileon 09-09-2024 Albumin [Mass/Vol] 3.7 g/dL Normal 3.2-5.0 [facility] Comment on above: Performed By: #### L 503.6030, L501.9985, L500.3600, L100.0500, L500.4100, L503.6550 ####[facility] [address] [place], [address] BUN/CRE 21.8 RATIO High 10-20 [facility] Comment on above: Performed By: #### L 503.6030, L501.9985, L500.3600, L100.0500, L500.4100, L503.6550 ####[facility] [address] [place], [address] CA,Total 9.0 mg/dL Normal 8.5-10.1 [facility] Comment on above: Performed By: #### L 503.6030, L501.9985, L500.3600, L100.0500, L500.4100, L503.6550 ####[facility] [address] [place], [address] Chloride [Moles/Vol] 108 mmol/L High 98-107 [facility] Comment on above: Performed By: #### L 503.6030, L501.9985, L500.3600, L100.0500, L500.4100, L503.6550 ####[facility] [address] [place], [address] CO2 [Moles/Vol] 24.0 mmol/L Normal 21.0-32.0 [facility] Comment on above: Performed By: #### L 503.6030, L501.9985, L500.3600, L100.0500, L500.4100, L503.6550 ####[facility] [address] [place], [address] Creatinine [Mass/Vol] 1.65 mg/dL High 0.55-1.02 [facility] Comment on above: Result Comment: The validity of the calculated GFR GFRAA in patients over 70 years has not been determined. Clinical correlation is essential. Performed By: #### L 503.6030, L501.9985, L500.3600, L100.0500, L500.4100, L503.6550 ####[facility] [address] [place], [address] EST GFR - AA 41 mL/min Low >60 [facility] Comment on above: Result Comment: Afri can Faroese GFR Calc Performed By: #### L 503.6030, L501.9985, L500.3600, L100.0500, L500.4100, L503.6550 ####[facility] [address] [place], [address] GFR/1.73 sq M.predicted among non-blacks MDRD (S/P/Bld) [Vol rate/Area] 34 mL/min/{1.73_m2} Low >60 [facility] Comment on above: Result Comment: Non- GFR Calc Performed By: #### L 503.6030, L501.9985, L500.3600, L100.0500, L500.4100, L503.6550 ####[facility] [address] [place], [address] Glucose [Mass/Vol] 151 mg/dL High 74-106 [facility] Comment on above: Result Comment: Fast ing Glucose result greater than or equal to 126 mg/dL suggests DIABETES MELLITUS per A.D.A. criteria. Performed By: #### L 503.6030, L501.9985, L500.3600, L100.0500, L500.4100, L503.6550 ####[facility] [address] [place], [address] Phosphate [Mass/Vol] 2.9 mg/dL Normal 2.5-4.9 [facility] Comment on above: Performed By: #### L 503.6030, L501.9985, L500.3600, L100.0500, L500.4100, L503.6550 ####[facility] [address] [place], [address] Potassium [Moles/Vol] 3.7 mmol/L Normal 3.5-5.1 [facility] Comment on above: Performed By: #### L 503.6030, L501.9985, L500.3600, L100.0500, L500.4100, L503.6550 ####[facility] [address] [place], [address] Sodium [Moles/Vol] 138 mmol/L Normal 136-145 [facility] Comment on above: Performed By: #### L 503.6030, L501.9985, L500.3600, L100.0500, L500.4100, L503.6550 ####[facility] [address] [place], [address] Urea nitrogen [Mass/Vol] 36 mg/dL High -18 [facility] Comment on above: Performed By: #### L 503.6030, L501.9985, L500.3600, L100.0500, L500.4100, L503.6550 ####[facility] [address] [place], [address] Breast Limited Unilateralon 08-16-2024 Breast Limited Unilateral [facility] Services [address] [place] [address] Breast Limited Unilateral MR#: [id number] Acct: [id number] Name: LYNDA BRADLEY Rep #: [id number] : 1965 F 59 From: Amado horowitz MD PCP: Dr. Mimi Martin DO Status: REG [facility] Study: Breast Limited Unilateral Date of Exam: Exam# [id number] Ordering Dr: Mimi Martin DO [id number] STUDY: ULTRASOUND BREAST - RIGHT REASON FOR [...] 12:21 EDT Reading Location ID and State: [address] [place] [address] , Service support , CC: Dr. Mimi Martin, [place] Chief: Signed Normal [facility] CBC-Complete Blood Cnt No Di ffon 08-15-2024 Erythrocyte distribution width (RBC) [Ratio] 13.2 % Normal 11.6-14.6 [facility] Comment on above: Performed By: #### L 503.6030, L500.3600, L503.6550, L502.0250, L100.0500 #### [facility] [address] [place], [place], [id number] Hematocrit (Bld) [Volume fraction] 34.6 % Low 37-47 [facility] Comment on above: Performed By: #### L 503.6030, L500.3600, L503.6550, L502.0250, L100.0500 #### [facility] [address] [place], [address] Hemoglobin (Bld) [Mass/Vol] 11.4 g/dL Low 12.0-15.0 [facility] Comment on above: Performed By: #### L 503.6030, L500.3600, L503.6550, L502.0250, L100.0500 #### [facility] [address] [place], [address] MCH (RBC) [Entitic mass] 31.2 pg Normal 27.0-32.0 [facility] Comment on above: Performed By: #### L 503.6030, L500.3600, L503.6550, L502.0250, L100.0500 #### [facility] [address] [place], [address] MCHC (RBC) [Mass/Vol] 32.9 g/dL Normal 32-36 [facility] Comment on above: Performed By: #### L 503.6030, L500.3600, L503.6550, L502.0250, L100.0500 #### [facility] [address] [place], [address] MCV (RBC) [Entitic vol] 94.8 fL Normal 81-99 [facility] Comment on above: Performed By: #### L 503.6030, L500.3600, L503.6550, L502.0250, L100.0500 #### [facility] [address] [place], [address] Platelet mean volume (Bld) [Entitic vol] 10.3 fL Normal 6.2-12.0 [facility] Comment on above: Performed By: #### L 503.6030, L500.3600, L503.6550, L502.0250, L100.0500 #### [facility] [address] [place], [address] Platelets (Bld) [#/Vol] 189 10*3/uL Normal 150-450 [facility] Comment on above: Performed By: #### L 503.6030, L500.3600, L503.6550, L502.0250, L100.0500 #### [facility] [address] [place], [address] RBC (Bld) [#/Vol] 3.65 10*6/uL Low 4.2-5.4 [facility] Comment on above: Performed By: #### L 503.6030, L500.3600, L503.6550, L502.0250, L100.0500 #### [facility] [address] [place], [address] RDW SD 45.1 fl High 35.1-43.9 [facility] Comment on above: Performed By: #### L 503.6030, L500.3600, L503.6550, L502.0250, L100.0500 #### [facility] [address] [place], [address] WBC (Bld) [#/Vol] 7.1 10*3/uL Normal 4.4-11.0 [facility] Comment on above: Performed By: #### L 503.6030, L500.3600, L503.6550, L502.0250, L100.0500 #### [facility] [address] [place], [address] Ferritinon 08-15-2024 Ferritin [Mass/Vol] 69 ng/mL Normal 8-252 [facility] Comment on above: Order Comment: F Performed By: #### L 503.6030, L500.3600, L503.6550, L502.0250, L100.0500 #### [facility] [address] [place], [address] Iron+Iron Binding Capacityon 08-15-2024 Iron [Mass/Vol] 64 ug/dL Normal 50-170 [facility] Comment on above: Order Comment: F Performed By: #### L 503.6030, L500.3600, L503.6550, L502.0250, L100.0500 #### [facility] [address] [place], [address] IRON SATURATION 20.8 Normal 15.0-55.0 [facility] Comment on above: Order Comment: F Performed By: #### L 503.6030, L500.3600, L503.6550, L502.0250, L100.0500 #### [facility] [address] [place], [address] TIBC 308 ug/dL Normal 250-450 [facility] Comment on above: Order Comment: F Performed By: #### L 503.6030, L500.3600, L503.6550, L502.0250, L100.0500 #### [facility] [address] [place], [address] Microalb:Creat Ratio,Random URon 08-15-2024 Creatinine [Mass/Vol] 39.50 mg/dL Normal NO RANGE EST. [facility] Comment on above: Performed By: #### L 503.6030, L500.3600, L503.6550, L502.0250, L100.0500 #### [facility] [address] [place], [address] MALB:CRE 50.1 mg/g CRE High <30 mg/g CRE [facility] Comment on above: Performed By: #### L 503.6030, L500.3600, L503.6550, L502.0250, L100.0500 #### [facility] Laboratory [address] [place], [address] MICROALBUMIN,UR 19.8 mg/L Normal NO RANGE EST. [facility] Comment on above: Performed By: #### L 503.6030, L500.3600, L503.6550, L502.0250, L100.0500 #### [facility] [address] [place], [address] Renal Profileon 08-15-2024 Albumin [Mass/Vol] 3.7 g/dL Normal 3.2-5.0 [facility] Comment on above: Order Comment: F Performed By: #### L 503.6030, L500.3600, L503.6550, L502.0250, L100.0500 #### [facility] [address] [place], [address] BUN/CRE 20.2 RATIO High 10-20 [facility] Comment on above: Order Comment: F Performed By: #### L 503.6030, L500.3600, L503.6550, L502.0250, L100.0500 #### [facility] [address] [place], [address] CA,Total 9.2 mg/dL Normal 8.5-10.1 [facility] Comment on above: Order Comment: F Performed By: #### L 503.6030, L500.3600, L503.6550, L502.0250, L100.0500 #### [facility] [address] [place], [address] Chloride [Moles/Vol] 109 mmol/L High 98-107 [facility] Comment on above: Order Comment: F Performed By: #### L 503.6030, L500.3600, L503.6550, L502.0250, L100.0500 #### [facility] [address] [place], [address] CO2 [Moles/Vol] 20.0 mmol/L Low 21.0-32.0 [facility] Comment on above: Order Comment: F Performed By: #### L 503.6030, L500.3600, L503.6550, L502.0250, L100.0500 #### [facility] [address] [place], [address] Creatinine [Mass/Vol] 1.78 mg/dL High 0.55-1.02 [facility] Comment on above: Order Comment: F Result Comment: The validity of the calculated GFR GFRAA in patients over 70 years has not been determined. Clinical correlation is essential. Performed By: #### L 503.6030, L500.3600, L503.6550, L502.0250, L100.0500 #### [facility] [address] [place], [address] EST GFR - AA 37 mL/min Low >60 [facility] Comment on above: Order Comment: F Result Comment: Afri can Faroese GFR Calc Performed By: #### L 503.6030, L500.3600, L503.6550, L502.0250, L100.0500 #### [facility] [address] [place], [address] GFR/1.73 sq M.predicted among non-blacks MDRD (S/P/Bld) [Vol rate/Area] 31 mL/min/{1.73_m2} Low >60 [facility] Comment on above: Order Comment: F Result Comment: Non- GFR Calc Performed By: #### L 503.6030, L500.3600, L503.6550, L502.0250, L100.0500 #### [facility] [address] [place], [address] Glucose [Mass/Vol] 155 mg/dL High 74-106 [facility] Comment on above: Order Comment: F Result Comment: Fast ing Glucose result greater than or equal to 126 mg/dL suggests DIABETES MELLITUS per A.D.A. criteria. Performed By: #### L 503.6030, L500.3600, L503.6550, L502.0250, L100.0500 #### [facility] [address] [place], [address] Phosphate [Mass/Vol] 3.6 mg/dL Normal 2.5-4.9 [facility] Comment on above: Order Comment: F Performed By: #### L 503.6030, L500.3600, L503.6550, L502.0250, L100.0500 #### [facility] [address] [place], [address] Potassium [Moles/Vol] 3.8 mmol/L Normal 3.5-5.1 [facility] Comment on above: Order Comment: F Performed By: #### L 503.6030, L500.3600, L503.6550, L502.0250, L100.0500 #### [facility] [address] [place], [address] Sodium [Moles/Vol] 138 mmol/L Normal 136-145 [facility] Comment on above: Order Comment: F Performed By: #### L 503.6030, L500.3600, L503.6550, L502.0250, L100.0500 #### [facility] [address] [place], [address] Urea nitrogen [Mass/Vol] 36 mg/dL High 7-18 [facility] Comment on above: Order Comment: F Performed By: #### L 503.6030, L500.3600, L503.6550, L502.0250, L100.0500 #### [facility] [address] [place], [address] SCRN MAMM (CAD)W/JAYME BILATo n 08-15-2024 SCRN MAMM (CAD)W/JAYME BILAT [facility] Imaging Services [address] [place] [address] SCRN MAMM (CAD)W/JAYME BILAT MR#: [id number] Acct: [id number] Name: LYNDA BRADLEY Rep #: [id number] : 1965 F 59 From: Amado horowitz MD PCP: Dr. Mimi Martin DO Status: REG [facility] Study: SCRN MAMM (CAD)W/JAYME BILAT Date of Exam: 07/24 02/13 Exam# [id number] Ordering Dr: Mimi Martin DO [id number] MAMMOGRAPHY - BILATERAL SCREENING REASON FOR EXAM: [...] delay biopsy of a clinically suspicious abnormality. [id number] Electronically Signed: Amado Mayen MD at 9:38 EDT , CC: Dr. Mimi Martin DO [place] Chief: Signed Normal [facility] Kidney and Bladderon 024 Kidney and Bladder [facility] Imaging Services [address] [place], [place] [address] Kidney and Bladder MR#: [id number] Acct: [id number] Name: LYNDA BRADLEY Rep #: [id number] : 1965 F 59 From: Tony fournier MD PCP: Dr. Mimi Martin DO Status: [facility] CL Study: Kidney and Bladder Date of Exam: 06/03/24 Exam# [id number] Ordering Dr: Mimi Martin DO [id number] STUDY: RENAL ULTRASOUND - COMPLETE REASON FOR [...] at 23:01 EDT , CC: Dr. Mimi Martin, [place] Chief: Signed Normal [facility] Microalb:Creat Ratio,Random URon 05-27-2024 Creatinine [Mass/Vol] 90.00 mg/dL Normal NO RANGE EST. [facility] Comment on above: Performed By: #### L 502.0250 #### [facility] [address] [place], [place], [address] MALB:CRE 48.7 mg/g CRE High <30 mg/g CRE [facility] Comment on above: Performed By: #### L 502.0250 #### [facility] [address] [place], [place], [address] MICROALBUMIN,UR 43.8 mg/L Normal NO RANGE EST. [facility] Comment on above: Performed By: #### L 502.0250 #### [facility] [address] [place], [address] CNOVon 03-25-2024 CNOV Office Visit (UCWSTR ) LYNDA BRADLEY ([id number]) 1965 F Date Time Provider Department 03/25/24 8:15 AM MELANY SAEZ [facility] During your visit today, we recorded [...] DX W/COLLJ SPEC WHEN PFRMD 11/26/15 Colonoscopy ([facility]) DISARTICULATION KNEE 01/01/2007 right ESOPHAGOGASTRODUODENO SCOPY TRANSORAL DIAGNOSTIC 11/26/15 EGD ([facility]) PAST SURGICAL HISTORY OF 10/27/11 Sterilization - [...] COMPOUNDED PRESCRIPTION Left foot brace, arch support. Simris Alg Dx DM 2 blood sugar diagnostic (FREESTYLE [...] Paternal Aunt (more content not included)... Normal [facility] Laboratory - Chemistry and C hemistry - challengeOrdered By: Mimi Martin on 01-10-2024 Cobalamin (Vitamin B12) [Mass/Vol] 1131 pg/mL 211-911 [facility] No Panel InformationOrdered By: Mimi Martin on 01-10-2024 Free Triiodothyronine (T3) pg/dL 2.3 pg/mL 2.18-3.98 [facility] Serum or plasma thyroid stim ulating hormone (TSH) measurement (units/volume)Ordered By: Mimi Martin on 01-10-2024 TSH Qn 2.08 uIU/mL 0.358-3.74 [facility] Thin prep Papanicolaou smear with manual screeningOrdered By: Mimi Martin on 01-10-2024 Thin prep Papanicolaou smear with manual screening 1.23 ng/dL 0.76-1.46 [facility] Whole blood hemoglobin A1c/t otal hemoglobin ratio (mass fraction)Ordered By: Mimi Martin on 01-10-2024 HbA1c (Bld) [Mass fraction] 5.9 % 3.8-5.6 [facility] Comment on above: Normal < 5.7 % Predi abetic 5.7 - 6.4 % Diabetic >or= 6.5 % Please note range changes. Laboratory - Chemistry and C hemistry - challengeOrdered By: Alena Ahn on 08-14-2023 Cobalamin (Vitamin B12) [Mass/Vol] 466 pg/mL 211-911 [facility] Basophil percentageOrdered B y: Alena Ahn on 08-11-2023 Basophil percentage 3.3 mg/dL 2.5-4.9 [facility] Chloride [Moles/Vol] 109 mmol/L 98-107 [facility] Cholesterol [Mass/Vol] 173 mg/dL <200 [facility] Comment on above: <200 mg/dL Desirable 200-240 mg/dL Borderline >240 mg/dL High Risk Glucose [Mass/Vol] 141 mg/dL 74-106 [facility] Comment on above: Fasting Glucose resu lt greater than or equal to 126 mg/dL suggests DIABETES MELLITUS per A.D.A. criteria. Potassium [Moles/Vol] 4.0 mmol/L 3.5-5.1 [facility] Sodium [Moles/Vol] 140 mmol/L 136-145 [facility] Triglyceride [Mass/Vol] 227 mg/dL <199 [facility] Comment on above: The drugs N-Acetylcy steine and Metamizole may falsely depress this assay.Serum Triglycerides Reference Interval Normal <150 mg/dL Borderline high 150 - 199 mg/dL High 200 - 499 mg/dL Very High > or = 500 mg/dL WBC (Bld) [#/Vol] 4.4 10*3/uL 4.4-11.0 [facility] Blood erythrocytes count (nu mber/volume)Ordered By: Alena Ahn on 08-11-2023 RBC (Bld) [#/Vol] 3.45 10*6/uL 4.2-5.4 [facility] Blood hemoglobin measurement (mass/volume)Ordered By: Alena Ahn on 08-11-2023 Hemoglobin (Bld) [Mass/Vol] 10.6 g/dL 12.0-15.0 [facility] Blood platelet mean volumeOr dered By: Alena Ahn on 08-11-2023 Platelet mean volume (Bld) [Entitic vol] 11.1 fL 6.2-12.0 [facility] Determination of erythrocyte mean corpuscular volume (MCV)Ordered By: Alena Ahn on 08-11-2023 MCV (RBC) [Entitic vol] 96.8 fL 81-99 [facility] Hematocrit Auto (Bld) [Volum e fraction]Ordered By: Alena Ahn on 08-11-2023 Hematocrit (Bld) [Volume fraction] 33.4 % 37-47 [facility] Iron measurement (mass/mass) Ordered By: Alena Ahn on 08-11-2023 Iron (Unsp spec) [Mass/Mass] 56 ug/dL 50-170 [facility] Laboratory - Chemistry and C hemistry - challengeOrdered By: Alena Ahn on 08-11-2023 CO2 [Moles/Vol] 23.0 mmol/L 21.0-32.0 [facility] Free T4 [Mass/Vol] 1.23 ng/dL 0.76-1.46 [facility] Urea nitrogen/Creatinine [Mass ratio] 25.2 mg/mg 08-11 [facility] Laboratory - Hematology and Cell countsOrdered By: Alena Ahn on 08-11-2023 Erythrocyte distribution width (RBC) [Entitic vol] 47.6 fL 35.1-43.9 [facility] Erythrocyte distribution width (RBC) [Ratio] 13.4 % 11.6-14.6 [facility] MCH (RBC) [Entitic mass] 30.7 pg 27.0-32.0 [facility] MCHC Auto (RBC) [Mass/Vol]Or dered By: Alena Ahn on 08-11-2023 MCHC (RBC) [Mass/Vol] 31.7 g/dL 32-36 [facility] No Panel InformationOrdered By: Alena Ahn on 08-11-2023 Estimated GFR (MDRD) Amer 53 mL/min >60 [facility] Comment on above: GFR Calc Estimated GFR (MDRD) Non-Af Amer 44 mL/min >60 [facility] Comment on above: Non- GFR Calc Free Triiodothyronine (T3) pg/dL 2.4 pg/mL 2.18-3.98 [facility] Thyroid Stimulating Hormone (TSH) 0.46 uIU/mL 0.358-3.74 [facility] Platelets bldOrdered By: Destiny siddhartha Rashad on 08-11-2023 Platelets (Bld) [#/Vol] 192 10*3/uL 150-450 [facility] Serum or plasma albumin anamaria urement (mass/volume)Ordered By: Alena Ahn on 08-11-2023 Albumin [Mass/Vol] 3.4 g/dL 3.2-5.0 [facility] Serum or plasma calcium anamaria urement (mass/volume)Ordered By: Alena Ahn on 08-11-2023 Calcium [Mass/Vol] 9.0 mg/dL 8.5-10.1 [facility] Serum or plasma cholesterol in HDL measurement (mass/volume)Ordered By: Alena Ahn on 08-11-2023 Cholesterol in HDL [Mass/Vol] 50 mg/dL >40 [facility] Comment on above: The drugs N-Acetylcy steine and Metamizole may falsely depress this assay. Reference Range HDL <40 mg/dL Low HDL Cholesterol HDL >or= 60 mg/dL High HDL Cholesterol Serum or plasma cholesterol in VLDL measurement (mass/volume)Ordered By: Alena Ahn on 08-11-2023 Cholesterol in VLDL [Mass/Vol] 45 mg/dL 5-40 [facility] Serum or plasma creatinine m easurement (mass/volume)Ordered By: Alena Ahn on 08-11-2023 Creatinine [Mass/Vol] 1.31 mg/dL 0.55-1.02 [facility] Comment on above: The validity of the calculated GFR & GFRAA in patients over 70 years has not been determined. Clinical correlation is essential. Serum or plasma ferritin rk surement (mass/volume)Ordered By: Alena Ahn on 08-11-2023 Ferritin [Mass/Vol] 44 ng/mL 8-252 [facility] Serum or plasma low density lipoprotein (LDL) cholesterol measurement (mass/volume)Ordered By: Alena Ahn on 08-11-2023 Cholesterol in LDL [Mass/Vol] 78 mg/dL 0-130 [facility] Serum or plasma urea nitroge n measurement (mass/volume)Ordered By: Alena Ahn on 08-11-2023 Urea nitrogen [Mass/Vol] 33 mg/dL 7-18 [facility] Absolute lymphocyte countOrd ered By: Mimi Martin on 05-17-2023 Lymphocytes Auto (Unsp spec) [#/Vol] 1.24 10*3/uL 0.83-4.51 [facility] Basophil percentageOrdered B y: Mimi Martin on 05-17-2023 Basophils/100 WBC (Bld) 0.5 % 0-1 [facility] Eosinophils/100 WBC (Bld) 3.7 % 0-5 [facility] Neutrophils (Bld) [#/Vol] 3.7 10*3/uL 2.0-7.7 [facility] Neutrophils/100 WBC (Bld) 68.4 % 47-70 [facility] WBC (Bld) [#/Vol] 5.5 10*3/uL 4.4-11.0 [facility] Blood erythrocytes count (nu mber/volume)Ordered By: Mimi Martin on 05-17-2023 RBC (Bld) [#/Vol] 3.50 10*6/uL 4.2-5.4 [facility] Blood hemoglobin measurement (mass/volume)Ordered By: Mimi Martin on 05-17-2023 Hemoglobin (Bld) [Mass/Vol] 11.3 g/dL 12.0-15.0 [facility] Blood lymphocytes/100 leukoc ytesOrdered By: Mimi Martin on 05-17-2023 Lymphocytes/100 WBC (Bld) 22.7 % 19-41 [facility] Blood monocytes/100 leukocyt esOrdered By: Mimi Martin on 05-17-2023 Monocytes/100 WBC (Bld) 4.2 % 0-10 [facility] Blood platelet mean volumeOr dered By: Mimi Martin on 05-17-2023 Platelet mean volume (Bld) [Entitic vol] 11.4 fL 6.2-12.0 [facility] Determination of erythrocyte mean corpuscular volume (MCV)Ordered By: Mimi Martin on 05-17-2023 MCV (RBC) [Entitic vol] 96.6 fL 81-99 [facility] Hematocrit Auto (Bld) [Volum e fraction]Ordered By: Mimi Martin on 05-17-2023 Hematocrit (Bld) [Volume fraction] 33.8 % 37-47 [facility] Laboratory - Chemistry and C hemistry - challengeOrdered By: Mimi Martin on 05-17-2023 Cobalamin (Vitamin B12) [Mass/Vol] 458 pg/mL 211-911 [facility] Free T4 [Mass/Vol] 1.20 ng/dL 0.76-1.46 [facility] Laboratory - Hematology and Cell countsOrdered By: Mimi Martin on 05-17-2023 Erythrocyte distribution width (RBC) [Entitic vol] 47.3 fL 35.1-43.9 [facility] Erythrocyte distribution width (RBC) [Ratio] 13.4 % 11.6-14.6 [facility] Immature granulocytes/100 WBC (Bld) 0.500 % 0.0-0.9 [facility] Comment on above: IG% - Immature Granu locytes (promyelocytes, myelocytes and metamyelocytes) > 1% indicates that a LEFT SHIFT is Present. MCH (RBC) [Entitic mass] 32.3 pg 27.0-32.0 [facility] Nucleated RBC/100 WBC (Bld) [Ratio] 0 % 0-5 [facility] MCHC Auto (RBC) [Mass/Vol]Or dered By: Mimi Martin on 05-17-2023 MCHC (RBC) [Mass/Vol] 33.4 g/dL 32-36 [facility] No Panel InformationOrdered By: Mimi Martin on 05-17-2023 Free Triiodothyronine (T3) pg/dL 2.2 pg/mL 2.18-3.98 [facility] Miscellaneous Test See comment [facility] Comment on above: TEST RESULTS LIMITSI anthony 55 ug/dL 38 - 169 TESTING PERFORMED AT [facility]. ORIGINAL REPORT ON FILE IN LAB CONTAINS ADDITIONAL TEST SITE INFORMATION. Thyroid Stimulating Hormone (TSH) 3.06 uIU/mL 0.358-3.74 [facility] Platelets bldOrdered By: Kelly Martin on 05-17-2023 Platelets (Bld) [#/Vol] 204 10*3/uL 150-450 [facility] Serum or plasma ferritin rk surement (mass/volume)Ordered By: Mimi Martin on 05-17-2023 Ferritin [Mass/Vol] 36 ng/mL 8-252 [facility] Basophil percentageOrdered B y: Dr. Ahn on 12-07-2022 Basophil percentage 2.6 mg/dL 2.5-4.9 [facility] Chloride [Moles/Vol] 106 mmol/L 98-107 [facility] Glucose [Mass/Vol] 189 mg/dL 74-106 [facility] Comment on above: Fasting Glucose resu lt greater than or equal to 126 mg/dL suggests DIABETES MELLITUS per A.D.A. criteria. Potassium [Moles/Vol] 3.6 mmol/L 3.5-5.1 [facility] Sodium [Moles/Vol] 141 mmol/L 136-145 [facility] Laboratory - Chemistry and C hemistry - challengeOrdered By: Dr. Ahn on 12-07-2022 CO2 [Moles/Vol] 24.0 mmol/L 21.0-32.0 [facility] Urea nitrogen/Creatinine [Mass ratio] 18.5 mg/mg 10-20 [facility] No Panel InformationOrdered By: Dr. Ahn on 12-07-2022 Estimated GFR (MDRD) Amer 47 mL/min >60 [facility] Comment on above: GFR Calc Estimated GFR (MDRD) Non-Af Amer 39 mL/min >60 [facility] Comment on above: Non- GFR Calc Serum or plasma albumin anamarai urement (mass/volume)Ordered By: Dr. Ahn on 12-07-2022 Albumin [Mass/Vol] 3.7 g/dL 3.2-5.0 [facility] Serum or plasma calcium anamaria urement (mass/volume)Ordered By: Dr. Ahn on 12-07-2022 Calcium [Mass/Vol] 8.9 mg/dL 8.5-10.1 [facility] Serum or plasma creatinine m easurement (mass/volume)Ordered By: Dr. Ahn on 12-07-2022 Creatinine [Mass/Vol] 1.46 mg/dL 0.55-1.02 [facility] Comment on above: The validity of the calculated GFR & GFRAA in patients over 70 years has not been determined. Clinical correlation is essential. Serum or plasma urea nitroge n measurement (mass/volume)Ordered By: Dr. Ahn on 12-07-2022 Urea nitrogen [Mass/Vol] 27 mg/dL 7-18 [facility] Absolute lymphocyte counton 07-25-2022 Lymphocytes Auto (Unsp spec) [#/Vol] 1.85 10*3/uL 0.83-4.51 [facility] Work Phone: Basophil percentageon 2021 Basophils/100 WBC (Bld) 0.7 % 0-1 [facility] Work Phone: Bilirubin [Mass/Vol] 0.60 mg/dL 0.20-1.00 [facility] Work Phone: Comment on above: For patients on eltr ombopag therapy, use of Dimension [place] [facility] TBIL is not recommended. Chloride [Moles/Vol] 107 mmol/L 98-107 [facility] Work Phone: Cholesterol [Mass/Vol] 162 mg/dL <200 [facility] Work Phone: Comment on above: <200 mg/dL Desirable 200-240 mg/dL Borderline >240 mg/dL High Risk Eosinophils/100 WBC (Bld) 3.7 % 0-5 [facility] Work Phone: Glucose [Mass/Vol] 116 mg/dL 74-106 [facility] Work Phone: Comment on above: Fasting Glucose resu lt from 100 to 125 mg/dL suggests IMPAIRED HOMEOSTASIS per A.D.A. criteria. Neutrophils (Bld) [#/Vol] 3.3 10*3/uL 2.0-7.7 [facility] Work Phone: Neutrophils/100 WBC (Bld) 57.5 % 47-70 [facility] Work Phone: [phone] Potassium [Moles/Vol] 3.9 mmol/L 3.5-5.1 [facility] Work Phone: Protein [Mass/Vol] 7.3 g/dL 6.4-8.2 [facility] Work Phone: Sodium [Moles/Vol] 141 mmol/L 136-145 [facility] Work Phone: Triglyceride [Mass/Vol] 199 mg/dL <199 [facility] Work Phone: Comment on above: The drugs N-Acetylcy steine and Metamizole may falsely depress this assay.Serum Triglycerides Reference Interval Normal <150 mg/dL Borderline high 150 - 199 mg/dL High 200 - 499 mg/dL Very High > or = 500 mg/dL WBC (Bld) [#/Vol] 5.7 10*3/uL 4.4-11.0 [facility] Work Phone: Blood erythrocytes count (nu mber/volume)on 07-25-2022 RBC (Bld) [#/Vol] 3.55 10*6/uL 4.2-5.4 [facility] Work Phone: Blood hemoglobin measurement (mass/volume)on 07-25-2022 Hemoglobin (Bld) [Mass/Vol] 11.2 g/dL 12.0-15.0 [facility] Work Phone: Blood lymphocytes/100 leukoc yteson 07-25-2022 Lymphocytes/100 WBC (Bld) 32.5 % 19-41 [facility] Work Phone: [phone] Blood monocytes/100 leukocyt eson 07-25-2022 Monocytes/100 WBC (Bld) 5.6 % 0-10 [facility] Work Phone: Blood platelet mean volumeon 07-25-2022 Platelet mean volume (Bld) [Entitic vol] 10.4 fL 6.2-12.0 [facility] Work Phone: Determination of erythrocyte mean corpuscular volume (MCV)on 07-25-2022 MCV (RBC) [Entitic vol] 92.4 fL 81-99 [facility] Work Phone: Hematocrit Auto (Bld) [Volum e fraction]on 07-25-2022 Hematocrit (Bld) [Volume fraction] 32.8 % 37-47 [facility] Work Phone: Laboratory - Chemistry and C hemistry - challengeon 07-25-2022 ALP [Catalytic activity/Vol] 75 U/L 45-117 [facility] Work Phone: ALT [Catalytic activity/Vol] 24 U/L 13-56 [facility] Work Phone: CO2 [Moles/Vol] 24.0 mmol/L 21.0-32.0 [facility] Work Phone: Free T4 [Mass/Vol] 1.31 ng/dL 0.76-1.46 [facility] Work [facility]: Globulin (S) [Mass/Vol] 3.6 g/dL 2.2-4.2 [facility] Work Phone: Urea nitrogen/Creatinine [Mass ratio] 22.8 mg/mg 10-20 [facility] Work Phone: Laboratory - Hematology and Cell countson 07-25-2022 Erythrocyte distribution width (RBC) [Entitic vol] 43.8 fL 35.1-43.9 [facility] Work Phone: Erythrocyte distribution width (RBC) [Ratio] 12.9 % 11.6-14.6 [facility] [facility] Work Phone: Immature granulocytes/100 WBC (Bld) 0.000 % 0.0-0.9 [facility] Work Phone: Comment on above: IG% - Immature Granu locytes (promyelocytes, myelocytes and metamyelocytes) > 1% indicates that a LEFT SHIFT is Present. MCH (RBC) [Entitic mass] 31.5 pg 27.0-32.0 [facility] Work Phone: Nucleated RBC/100 WBC (Bld) [Ratio] 0 % 0-5 [facility] Work Phone: MCHC Auto (RBC) [Mass/Vol]on 07-25-2022 MCHC (RBC) [Mass/Vol] 34.1 g/dL 32-36 [facility] Work Phone: No Panel Informationon 07-25 Estimated GFR (MDRD) Amer 51 mL/min >60 [facility] Work Phone: Comment on above: GFR Calc Estimated GFR (MDRD) Non-Af Amer 42 mL/min >60 [facility] Work Phone: Comment on above: Non- GFR Calc Free Triiodothyronine (T3) pg/dL 2.3 pg/mL 2.18-3.98 [facility] Work Phone: Thyroid Stimulating Hormone (TSH) 2.54 uIU/mL 0.358-3.74 [facility] Work Phone: Urine Microalbumin/Creatinine Ratio 35.0 mg/g CRE <30 [facility] Work Phone: Vitamin D 25-Hydroxy 52.0 ng/mL [facility] Work Phone: Comment on above: Vitamin D 25(OH) Sta tus Range Deficiency <20 ng/mL (50nmol/L) Insufficiency 20 - 30 ng/mL (50 - 75 nmol/L) Sufficiency 30 - 100 ng/mL (75 - 250 nmol/L) Toxicity >100 ng/mL (>250 nmol/L) Platelets bldon 07-25-2022 Platelets (Bld) [#/Vol] 181 10*3/uL 150-450 [facility] Work Phone: Serum or plasma albumin anamaria urement (mass/volume)on 07-25-2022 Albumin [Mass/Vol] 3.7 g/dL 3.2-5.0 [facility] Work Phone: Serum or plasma albumin/glob ulin mass ratioon 07-25-2022 Albumin/Globulin [Mass ratio] 1.0 {ratio} 0.9-2.4 [facility] Work Phone: Serum or plasma calcium anamaria urement (mass/volume)on 07-25-2022 Calcium [Mass/Vol] 9.2 mg/dL 8.5-10.1 [facility] Work Phone: Serum or plasma cholesterol in HDL measurement (mass/volume)on 07-25-2022 Cholesterol in HDL [Mass/Vol] 54 mg/dL >40 [facility] Work Phone: Comment on above: The drugs N-Acetylcy steine and Metamizole may falsely depress this assay. Reference Range HDL <40 mg/dL Low HDL Cholesterol HDL >or= 60 mg/dL High HDL Cholesterol Serum or plasma cholesterol in VLDL measurement (mass/volume)on 07-25-2022 Cholesterol in VLDL [Mass/Vol] 40 mg/dL 5-40 [facility] Work Phone: Serum or plasma creatinine m easurement (mass/volume)on 07-25-2022 Creatinine [Mass/Vol] 1.36 mg/dL 0.55-1.02 [facility] Work Phone: Comment on above: The validity of the calculated GFR & GFRAA in patients over 70 years has not been determined. Clinical correlation is essential. Serum or plasma low density lipoprotein (LDL) cholesterol measurement (mass/volume)on 07-25-2022 Cholesterol in LDL [Mass/Vol] 68 mg/dL 0-130 [facility] Work Phone: Serum or plasma urea nitroge n measurement (mass/volume)on 07-25-2022 Urea nitrogen [Mass/Vol] 31 mg/dL 7-18 [facility] Work Phone: Thin prep Papanicolaou smear with manual screeningon 07-25-2022 Thin prep Papanicolaou smear with manual screening 18 U/L 15-37 [facility] Work Phone: Thin prep Papanicolaou smear with manual screening 10 5-15 [facility] Work Phone: Thin prep Papanicolaou smear with manual screening 29.1 mg/L NO RANGE EST. [facility] Work Phone: Urine creatinine measurement (mass/volume)on 07-25-2022 Creatinine (U) [Mass/Vol] 83.20 mg/dL NO RANGE EST. [facility] Work Phone: Whole blood hemoglobin A1c/t otal hemoglobin ratio (mass fraction)on 07-25-2022 HbA1c (Bld) [Mass fraction] 5.9 % 3.8-5.6 [facility] Work Phone: Comment on above: Normal < 5.7 % Predi abetic 5.7 - 6.4 % Diabetic >or= 6.5 % Please note range changes. No Panel Informationon 04-29 POC SARS CoV-2 Antigen Positive [facility] Work Phone: Vital Signs Date Time Vital Sign Value Performing Clinician Kvng lemus 04-18-2025 07:52-0400 Body height 154.[address] Mimi Martin DO Work Phone: [facility] 04-18-2025 07:52-0400 Body mass index (BMI) [Ratio] 38 kg/m2 Dr. Mimi Martin DO Work Phone: [facility] 04-18-2025 07:52-0400 Body weight 91.[address] Mimi Martin DO Work Phone: [facility] 04-18-2025 07:52-0400 Diastolic blood pressure 77 mm[Hg] Dr. Mimi Martin DO Work Phone: [facility] 04-18-2025 07:52-0400 Heart rate 75 /min Dr. Mimi Martin DO Work Phone: [facility] 04-18-2025 07:52-0400 Respiratory rate 16 /min Dr. Mimi Martin DO Work Phone: [facility] 04-18-2025 07:52-0400 Systolic blood pressure 132 mm[Hg] Dr. Mimi Martin DO Work Phone: [facility] 04-09-2025 08:33-0400 Body height 154.[address] Mimi Martin DO Work Phone: [facility] 04-09-2025 08:33-0400 Body mass index (BMI) [Ratio] 38.1 kg/m2 Dr. Mimi Martin DO Work Phone: [facility] 04-09-2025 08:33-0400 Body weight 91.[address] Mimi Martin DO Work Phone: [facility] 04-09-2025 08:33-0400 Diastolic blood pressure 80 mm[Hg] Dr. Mimi Martin DO Work Phone: [facility] 04-09-2025 08:33-0400 Heart rate 71 /min Dr. Mimi Martin DO Work Phone: [facility] 04-09-2025 08:33-0400 SaO2% (BldA) [Mass fraction] 97 % Dr. Mimi Martin DO Work Phone: [facility] 04-09-2025 08:33-0400 Systolic blood pressure 123 mm[Hg] Dr. Mimi Martin DO Work Phone: [facility] 03-05-2025 08:02-0400 Body height 154.[address] Mimi Martin DO Work Phone: [facility] 03-05-2025 07:42-0400 Body mass index (BMI) [Ratio] 38.9 kg/m2 Dr. Mimi Martin DO Work Phone: [facility] 03-05-2025 07:42-0400 Body temperature 96.5 [degF] Dr. Mimi Martin DO Work Phone: [facility] 03-05-2025 07:42-0400 Body weight 93.[address] Mimi Martin DO Work Phone: [facility] 03-05-2025 07:42-0400 Diastolic blood pressure 92 mm[Hg] Dr. Mimi Martin DO Work Phone: [facility] 03-05-2025 07:42-0400 Heart rate 76 /min Dr. Mimi Martin DO Work Phone: [facility] 03-05-2025 07:42-0400 Respiratory rate 16 /min Dr. Mimi Martin DO Work Phone: [facility] 03-05-2025 07:42-0400 SaO2% (BldA) [Mass fraction] 96 % Dr. Mimi Martin DO Work Phone: [facility] 03-05-2025 07:42-0400 Systolic blood pressure 155 mm[Hg] Dr. Mimi Martin DO Work Phone: [facility] 01-06-2025 11:11-0400 Body height 154.[address] Mimi Martin DO Work Phone: [facility] 01-06-2025 11:11-0400 Body mass index (BMI) [Ratio] 39.5 kg/m2 Dr. Mimi Martin DO Work Phone: [facility] 01-06-2025 11:11-0400 Body weight 94.[address] Mimi Martin DO Work Phone: [facility] 01-06-2025 11:11-0400 Diastolic blood pressure 92 mm[Hg] Dr. Mimi Martin DO Work Phone: [facility] 01-06-2025 11:11-0400 Heart rate 84 /min Dr. Mimi Martin DO Work Phone: [facility] 01-06-2025 11:11-0400 SaO2% (BldA) [Mass fraction] 96 % Dr. Mimi Martin DO Work Phone: [facility] 01-06-2025 11:11-0400 Systolic blood pressure 139 mm[Hg] Dr. Mimi Martin DO Work Phone: [facility] 03-25-2024 08:02-0400 Body mass index (BMI) [Ratio] 41.16 kg/m2 Melany Praisler-Wood VENDOR MANAGEMENT CONSULTANT.HEALTH SERVICES MANAGER Work Phone: [facility] 03-25-2024 08:02-0400 Body temperature 97.9 [degF] Melany Praisler-Wood VENDOR MANAGEMENT CONSULTANT.HEALTH SERVICES MANAGER Work Phone: [facility] 03-25-2024 08:02-0400 Body weight 98.8 kg Melany Praisler-Wood VENDOR MANAGEMENT CONSULTANT.HEALTH SERVICES MANAGER Work Phone: [facility] 03-25-2024 08:02-0400 Diastolic blood pressure 70 mm[Hg] Melany Praisler-Wood VENDOR MANAGEMENT CONSULTANT.HEALTH SERVICES MANAGER Work Phone: [facility] 03-25-2024 08:02-0400 Heart rate 90 /min Melany Praisler-Wood VENDOR MANAGEMENT CONSULTANT.HEALTH SERVICES MANAGER Work Phone: [facility] 03-25-2024 08:02-0400 Respiratory rate 16 /min Melany Praisler-Wood VENDOR MANAGEMENT CONSULTANT.HEALTH SERVICES MANAGER Work Phone: [facility] 03-25-2024 08:02-0400 SaO2% (BldA) [Mass fraction] 95 % Melany Praisler-Wood VENDOR MANAGEMENT CONSULTANT.HEALTH SERVICES MANAGER Work Phone: [facility] 03-25-2024 08:02-0400 Systolic blood pressure 142 mm[Hg] Melany Praisler-Wood VENDOR MANAGEMENT CONSULTANT.HEALTH SERVICES MANAGER Work Phone: [facility] 02-08-2023 07:39-0400 Body height 154.[address] Mimi Martin Work Phone: [facility] 02-08-2023 07:39-0400 Body mass index (BMI) [Ratio] 40 kg/m2 Dr. Mimi Martin Work Phone: [facility] 02-08-2023 07:39-0400 Body temperature 97.6 [degF] Dr. Mimi Martin Work Phone: [facility] 02-08-2023 07:39-0400 Body weight 96.[address] Mimi Martin Work Phone: [facility] 02-08-2023 07:39-0400 Diastolic blood pressure 95 mm[Hg] Dr. Mimi Martin Work Phone: [facility] 02-08-2023 07:39-0400 Heart rate 98 /min Dr. Mimi Martin Work Phone: [facility] 02-08-2023 07:39-0400 Respiratory rate 18 /min Dr. Mimi Martni Work Phone: [facility] 02-08-2023 07:39-0400 SaO2% (BldA) [Mass fraction] 98 % Dr. Mimi Martin Work Phone: [facility] 02-08-2023 07:39-0400 Systolic blood pressure 171 mm[Hg] Dr. Mimi Martin Work Phone: [facility] 01-25-2023 11:58-0400 Body height 154.94 cm [facility] 01-25-2023 11:58-0400 Body temperature 96.4 [degF] [facility] 01-25-2023 11:58-0400 Diastolic blood pressure 99 mm[Hg] [facility] 01-25-2023 11:58-0400 Heart rate 90 /min [facility] 01-25-2023 11:58-0400 Respiratory rate 18 /min [facility] 01-25-2023 11:58-0400 SaO2% (BldA) [Mass fraction] 99 % [facility] 01-25-2023 11:58-0400 Systolic blood pressure 154 mm[Hg] [facility] 08-09-2022 06:38-0400 Body height 154.[address] Mimi Martin Work Phone: [facility] Work Phone: 08-09-2022 06:38-0400 Body mass index (BMI) [Ratio] 39.5 kg/m2 Dr. Mimi Martin Work Phone: [facility] Work Phone: 08-09-2022 06:38-0400 Body temperature 98.2 [degF] Dr. Mimi Martin Work Phone: [facility] Work Phone: 08-09-2022 06:38-0400 Body weight 94.[address] Mimi Martin Work Phone: [facility] Work Phone: 08-09-2022 06:38-0400 Diastolic blood pressure 88 mm[Hg] Dr. Mimi Martin Work Phone: [facility] Work Phone: 08-09-2022 06:38-0400 Heart rate 67 /min Dr. Mimi Martin Work Phone: [facility] Work Phone: 08-09-2022 06:38-0400 Respiratory rate 16 /min Dr. Mimi Martin Work Phone: [facility] Work Phone: 08-09-2022 06:38-0400 SaO2% (BldA) [Mass fraction] 97 % Dr. Mimi Martin Work Phone: [facility] Work Phone: 08-09-2022 06:38-0400 Systolic blood pressure 154 mm[Hg] Dr. Mimi Martin Work Phone: [facility] Work Phone: 04-29-2022 15:35-0400 Body temperature 99.9 [degF] Dr. Mimi Martin Work Phone: [facility] Work Phone: 04-29-2022 15:35-0400 Diastolic blood pressure 100 mm[Hg] Dr. Mimi Martin Work Phone: [facility] Work Phone: 04-29-2022 15:35-0400 Heart rate 112 /min Dr. Mimi Martin Work Phone: [facility] Work Phone: 04-29-2022 15:35-0400 Respiratory rate 16 /min Dr. Mimi Martin Work Phone: [facility] Work Phone: 04-29-2022 15:35-0400 SaO2% (BldA) [Mass fraction] 99 % Dr. Mimi Martin Work Phone: [facility] Work Phone: 04-29-2022 15:35-0400 Systolic blood pressure 178 mm[Hg] Dr. Mimi Martin Work Phone: [facility] Work Phone: 01-25-2022 08:26-0400 Body height 162.56 cm [facility] Work Phone: Encounters Encounter Date Encounter Type Care Provider Facility Start: 06-03-2025 ambulatory Mimi Martin Facility:[facility] Start: 05-12-2025 ambulatory Alena Ahn Facility: [facility] Start: 04-18-2025 End: 04-18-[address] Chauncey Duong MD -[facility] Work Phone: Start: 04-18-2025 End: 04-18-[address] Mimi Martin DO Work Phone: [facility] Work Phone: Start: 04-17-2025 End: 04-17-[address] Mimi Martin DO Work Phone: -[facility]patient [facility] Start: 04-17-2025 End: 04-17-2025 Patient encounter procedure Janey Gutierrez FOOD SERVICE ASSOCIATE-C -[facility] Work Phone: Start: 04-17-2025 End: 04-17-2025 ambulatory Janey Gutierrez Facility:[facility] Start: 04-10-2025 End: 04-10-[address] Mimi Martin DO Work Phone: [facility] Work Phone: Start: 04-10-2025 End: 04-10-2025 Patient encounter procedure Janey Gutierrez FOOD SERVICE ASSOCIATE-C -[facility] [place] Work Phone: Start: 04-09-2025 End: 04-09-2025 Patient encounter procedure Janey Guteirrez NP-C -[facility] Work Phone: Start: 04-09-2025 End: 04-10-[address] Mimi Martin DO Work Phone: [facility] Work Phone: Start: 03-14-2025 ambulatory Mimi Martin Facility:[facility] Start: 03-05-2025 End: 03-05-2025 Patient encounter procedure Richa Mari FOOD SERVICE ASSOCIATE-C -[facility] Work Phone: Start: 03-05-2025 End: 03-05-[address] Mimi Martin DO Work Phone: [facility] Work Phone: Start: 01-14-2025 End: 01-14-[address] Mimi Martin DO Work Phone: [facility] Work Phone: Start: 01-14-2025 End: 01-14-2025 Patient encounter procedure Janey Gutierrez NP-C -[facility] [place] Work Phone: Start: 01-14-2025 End: 01-14-2025 ambulatory Mimi Malys Facility:[facility] Start: 01-06-2025 End: 01-06-2025 Patient encounter procedure Janey RAIV -[facility] Work Phone: Start: 01-06-2025 End: 01-06-2025 ambulatory Mimi Malys Facility:[facility] Start: 09-11-2024 End: 09-11-2024 ambulatory Mimi Malys Facility:[facility] Start: 09-09-2024 End: 09-09-2024 ambulatory Mimi Malys Facility:[facility] Start: 08-16-2024 End: 08-16-2024 ambulatory Mimi Malys Facility:[facility] Start: 08-15-2024 End: 08-15-2024 ambulatory Alena Ahn Facility:[facility] Start: 06-03-2024 End: 06-03-2024 ambulatory Mimi Malys Facility:[facility] Start: 05-27-2024 End: 05-27-2024 ambulatory Mimi Malys Facility:[facility] Start: 03-25-2024 End: 03-25-2024 ambulatory MIMI A MALYS Facility:[facility] Start: 03-25-2024 End: 03-25-2024 Patient encounter procedure Melany Saez APRN.CNP Work Phone: [facility] Comment on above: Swelling of eyelid, unspecified laterality (Primary Dx); Insect bite of head, unspecified part, initial encounter Start: 01-10-2024 End: 01-10-2024 ambulatory [facility] Work Phone: Start: 01-10-2024 End: 01-10-2024 Patient encounter procedure [facility] Work Phone: Start: 08-14-2023 End: 08-14-2023 ambulatory [facility] Work Phone: Start: 08-14-2023 End: 08-14-2023 Patient encounter procedure [facility]-Outpatient Breast Imaging Work Phone: Start: 08-11-2023 End: 08-11-2023 ambulatory [facility] Work Phone: Start: 08-11-2023 End: 08-11-2023 Patient encounter procedure [facility] Work Phone: Start: 05-17-2023 End: 05-17-[address] Mimi Martin Work Phone: [facility] Work Phone: Start: 05-17-2023 End: 05-17-[address] Mimi Martin Work Phone: [facility] Start: 02-08-2023 End: 02-08-[address] Mimi Martin Work Phone: [facility]-Pulmonary Medicine [facility] Work Phone: Start: 01-25-2023 End: 01-25-2023 Emergency department patient visit [facility]-Emergency Department Start: 12-07-2022 End: 12-07-2022 ambulatory [facility] Work Phone: Start: 12-07-2022 End: 12-07-2022 Patient encounter procedure [facility] Start: 08-22-2022 End: 08-22-[address] Mimi Martin Work Phone: [facility] Work Phone: Start: 08-22-2022 End: 08-22-[address] Mimi Martin Work Phone: [facility]-Ultrasound, [facility] Start: 08-11-2022 End: 08-11-[address] Mimi Martin Work Phone: [facility] Work Phone: Start: 08-11-2022 End: 08-11-[address] Mimi Martin Work Phone: [facility]-Outpatient Breast Imaging Start: 08-09-2022 End: 08-09-[address] Mimi Martin Work Phone: [facility]-Pulmonary Medicine [facility] Start: 07-25-2022 End: 07-25-[address] Mimi Martin Work Phone: [facility] Start: 04-29-2022 End: 04-29-[address] Mimi Martin Work Phone: [facility] Start: 01-25-2022 End: 01-25-2022 Patient encounter procedure [facility]-Outpatient Bone Densitometry Procedures Date Procedure Procedure Detail Performing Clinician Start: 04-17-2025 Dual energy X-ray absorptiometry Dr. iMmi Martin DO Work Phone: Start: 04-10-2025 Vitamin D, 25-hydrox y measurement Dr. Mimi Martin DO Work Phone: Comment on above: Vitamin D StatusDefi ciency: <20 ng/mL (50nmol/L)Insufficiency: 20-30 ng/mL (50-75 nmol/L)Sufficiency: 30-100 ng/mL (75-250 nmol/L)Toxicity: >100 ng/mL (>250 nmol/L) Start: 08-14-2023 Screening mammography Start: 01-25-2023 X-ray of chest posteroanterior view Start: 08-22-[address] Yaima Martin Work Phone: Start: 08-11-2022 Screening mammography Tomer Martin Work Phone: Start: 01-25-2022 Dual energy X-ray absorptiometry Start: 11-26-2015 Colonoscopy Melany Charles APRN.HEALTH SERVICES MANAGER Work Phone: Start: 07-27-2007 History of amputatio n of leg through tibia and fibula Status post below knee amputation Melany Saez APRN.HEALTH SERVICES MANAGER Work Phone: History of cataract extraction History of cataract surgery Comment on above: 03/2021 Plan of Treatment Date Care Activity Detail Author Start: 11-26-2025 Screening for malignant neoplasm of colon [facility] Start: 04-17-2025 DXA Bone [Mass/Area] Bone density [facility] Start: 04-16-2025 Evaluation of diagnostic study results [facility] Start: 06-23-2024 Influenza vaccination Influenza Vaccine (Season Ended) [facility] Start: 05-28-2024 Screening for malignant neoplasm of cervix [facility] Start: 10-23-2023 Behavioral Health Screening Behavioral Health Screening [facility] Start: 06-23-2023 Covid-19 Vaccine ( season) Covid-19 Vaccine ( season) [facility] Start: 2023 RSV Vaccine (1 - 1-dose 60+ series) RSV Vaccine (1 - 1-dose 60+ series) [facility] Start: 05-28-2020 Screening for malignant neoplasm of breast Mammogram Screening [facility] Start: 03-09-2019 Urine microalbumin profile DTaP,Tdap,Td Vaccine (2 - Td or Tdap) [facility] Start: 01-04-2018 Diabetic foot examination Diabetic Foot Exam [facility] Start: 08-04-2017 Hemoglobin A1c measurement HbA1C [facility] Start: 07-11-2017 Glaucoma screening Dilated Retinal Exam [facility] Start: 05-31-2017 Hepatitis B screening Urine Albumin:Creatinine Ratio [facility] Start: 05-31-2017 Hepatitis B surface antibody level LDL Cholesterol [facility] Start: 01-23-2016 Screening for malignant neoplasm of colon Fecal Occult Blood [facility] Start: 2013 Shingrix Vaccine (1 of 2) Shingrix Vaccine (1 of 2) [facility] Start: 07-27-2008 Pneumococcal vaccination Pneumococcal Vaccine (2 of 2 - PCV) [facility] Start: 2008 Screening for malignant neoplasm of colon [facility] Start: 1981 Annual PCP Team Chronic Disease Visit Annual PCP Team Chronic Disease Visit [facility] Start: 1981 BP Controlled (<130/80) BP Controlled (<130/80) [facility] Start: 1981 HIV screening HIV Screening [facility] DXA Bone [Mass/Area] Bone density [facility] Lipid 1996 panel - S vannessa or Plasma [facility] Patient Education ED Chest Wall Contusion [facility] Work Phone: Patient referral [facility] Work Phone: T4 free measurement [facility] Thyroid stimulating hormone measurement [facility] Vitamin D, 25-hydrox y measurement [facility] Immunizations Immunization Date Immunization Notes Care Provider Agus ziegler 08-05-2019 influenza virus vacc ine, unspecified formulation Melany Praisler-Wood VENDOR MANAGEMENT CONSULTANT.HEALTH SERVICES MANAGER Work Phone: [facility] 07-29-2015 influenza, seasonal, injectable Melany Praisler-Wood VENDOR MANAGEMENT CONSULTANT.HEALTH SERVICES MANAGER Work Phone: [facility] 07-17-2013 influenza virus vacc ine, unspecified formulation Melany Praisler-Wood VENDOR MANAGEMENT CONSULTANT.HEALTH SERVICES MANAGER Work Phone: [facility] 08-06-2009 influenza virus vacc ine, unspecified formulation Melany Praisler-Wood VENDOR MANAGEMENT CONSULTANT.HEALTH SERVICES MANAGER Work Phone: [facility] 03-09-2009 tetanus toxoid, redu robert diphtheria toxoid, and acellular pertussis vaccine, adsorbed Melany Praisler-Wood VENDOR MANAGEMENT CONSULTANT.HEALTH SERVICES MANAGER Work Phone: [facility] Work Phone: 08-22-2008 influenza virus vacc ine, unspecified formulation Melany Praisler-Wood VENDOR MANAGEMENT CONSULTANT.HEALTH SERVICES MANAGER Work Phone: [facility] Work Phone: 08-21-2007 influenza virus vacc ine, unspecified formulation Melany Praisler-Wood VENDOR MANAGEMENT CONSULTANT.HEALTH SERVICES MANAGER Work Phone: [facility] Work Phone: 07-27-2007 pneumococcal polysaccharide vaccine, 23 valent Melany Praisler-Wood VENDOR MANAGEMENT CONSULTANT.HEALTH SERVICES MANAGER Work Phone: [facility] 09-27-2006 influenza virus vacc ine, unspecified formulation Melany Praisler-Wood VENDOR MANAGEMENT CONSULTANT.HEALTH SERVICES MANAGER Work Phone: [facility] 09-27-2006 pneumococcal polysaccharide vaccine, 23 valent Melany Praisler-Wood VENDOR MANAGEMENT CONSULTANT.HEALTH SERVICES MANAGER Work Phone: [facility] Payers Date Payer Category Payer Unknown [id number] 2024 Medicaid [id number] 2024 Self-pay [id number] 2024 Private Health Insurance 101 [id number] 2023 Medicaid [employer] [id number] 2023-Present [phone] [address] [place] [address] Medicaid [id number] 2023 Unknown [id number] 2009 Medicare [id number] Unknown [id number] 2.16.840.1.654884.3.579.2. 462 Unknown [id number] 2.16.840.1.060974.3.579.2. 462 Unknown [id number] 2.16.840.1.143645.3.579.2. 462 Unknown [id number] 2.16.840.1.244715.3.579.2. 462 Unknown [id number] 2.16.840.1.802993.3.579.2. 462 Unknown [id number] 2.16840.1.503389.3.579.2. 462 Unknown [id number] 2.16.840.1.855762.3.579.2. 462 Unknown [id number] 2.16.840.1.622757.3.579.2. 462 Unknown [id number] 2.16.840.1.621505.3.579.2. 462 Unknown [id number] 2.16.840.1.265844.3.579.2. 462 Unknown [id number] 2.16.840.1.320737.3.579.2. 462 Unknown [id number] 2.16.840.1.356717.3.579.2. 462 Unknown [id number] 2.16.840.1.517870.3.579.2. 462 Unknown [id number] 2.16.840.1.623493.3.579.2. 462 Unknown [id number] 2.16.840.1.848194.3.579.2. 462 Unknown [id number] 2.16.840.1.848557.3.579.2. 462 Social History Date Type Detail Facility Start: 08-06-2021 End: 08-22-2023 Tobacco smoking status [facility] Unknown if ever smoked [facility] Start: 03-18-2020 Non-smoker [facility] Start: 1965 Sex Assigned At Female W [facility] Start: 08-22-2023 End: 03-25-2024 Tobacco smoking status SDIS Ex-smoker [facility] End: 09-08-2006 History of tobacco use Current smoker [facility] End: 09-08-2006 History of tobacco use Cigarette Smoker [facility] Start: 09-27-2020 End: 03-25-2024 Cigarettes smoked current (pack per day) - Reported 2 [facility] Start: 03-25-2024 Tobacco use and exposure Smokeless tobacco non-user [facility] Start: 03-25-2024 Alcohol intake Current non-dr pattern painter of alcohol (finding) [facility] Start: 09-27-2020 End: 03-25-2024 Tobacco use panel [facility] National Score (1-10 0), lower number is lower risk Not on file [facility] Start: 1965 Sex Assigned At Not on file [facility] Start: 01-18-2025 Sex Female (finding) [facility] Medical Equipment Procedure Code Equipment Code Equipment Origin al Text Equipment Identifier Dates Dev Cncptv Essur e Perm - [id number] Start: 10-27-2011 TEST BLOOD SUGAR S DAILY. [id number] Start: 12-13-2013 Clinical Notes 01-25-2023 to 01-06-2025 Note Date & Type Note Facility 01-06-2025 Evaluation note Diagnosis Onset Date Resolution Diabetes chronic January 06 11:05am Hyperlipidemia chronic December 11:05am Hypertension chronic January 06, 2025 11:05am Hypothyroidism chronic December 11:05am Obesity chronic January 06 11:05am Microalbuminuria resolved January 062024 11:05am CKD (chronic kidney disease) deleted January 06, 2025 11:05am [facility] Work Phone: 1(216) 878-675403-17-2025 Evaluation note* Diagnosis Onset Date Resolution Status [...] 2025 7 :39am Obstructive sleep apnea syndrome [facility] March 05, 2025 7:39am [facility] Work Phone: 1(273) 605-295803-17-2025 Evaluation note* Diagnosis Onset Date Resolution Status [...] 2025 7 :39am Obstructive sleep apnea syndrome [facility] March 05, 2025 7:39am Chronic kidney disease, stag e III (moderate) chronic April 09, 2025 8:32am Diabetic neuropathy chronic April 09, 2025 8:32am Hyperlipidemia chronic April 09, 2025 8:32am Hypertension chronic April 09, 2 025 8:32am Hypothyroidism chronic April 09, 2025 8:32am Obesity chronic April 09 8:32am Post-menopausal chronic March 8:32am Type 2 diabetes mellitus chronic April 09, 2025 8:32am [facility] Work Phone: 1(131) 275-511703-17-2025 Evaluation note* Diagnosis Onset Date Resolution Status [...] 2025 7 :39am Obstructive sleep apnea syndrome [facility] March 05, 2025 7:39am Chronic kidney disease, stag e III (moderate) chronic April 09, 2025 8:32am Diabetic neuropathy chronic April 09, 2025 8:32am Hyperlipidemia chronic April 09, 2025 8:32am Hypertension chronic April 09, 2 025 8:32am Hypothyroidism chronic April 09, 2025 8:32am Obesity chronic April 09 8:32am Post-menopausal chronic March 8:32am Type 2 diabetes mellitus chronic April 09, 2025 8:32am Coronary artery calcification chroni c April 18, 2025 7:49am Hyperlipidemia chronic April 18, 2025 7:49am Hypertension chronic April 18, 2 025 7:49am [facility] Work Phone: 1(152) 234-386706-03-2024 NoteHNO ID: [id number] Author: MELANY SAEZ APRN.HEALTH SERVICES MANAGER Service: ? Author Type: Nurse Practitioner [...] COMPOUNDED PRESCRIPTION Left foot brace, arch support. Simris Alg Dx DM 2 blood sugar diagnostic (FREESTYLE [...] erythema or rash. Neurologica (more content not included)...[facility]06-03-2024 History of Present illness Narrative* Melany Saez APRN.HEALTH SERVICES MANAGER - 03/25/2024 8:11 AM EDT Images from [...] 01/01/2007 right ESOPHAGOGASTRODUODENOSCOPY TRANSORAL DIAGNOSTIC 11/26/15 EGD ([facility]) PAST SURGICAL HISTORY OF 10/27/11 Sterilization - [...] COMPOUNDED PRESCRIPTION Left foot brace, arch support. Simris Alg Dx DM 2 blood sugar diagnostic (FREESTYLE [...] illness Melany Saez APRN.CNP [facility] Instructions* Patient Instructions* Melany Saez APRN.CNP - [...] illness Melany Saez APRN.CNP documented [facility] Neil [facility] January 25, 2023 1:40pm Note Date/Time January 25, 2023 12:3 6pm [facility] Medical Records Department [address] [place] [address] Emergency Department Summary 01/25/23 MR#: [id number] Acct: [id number] Name: LYNDA BRADLEY Rep #:[id number] : 1965 57 From: Bridger Neil MD [...] is up walking when I see her. [facility] Medical History Cancer Chronic kidney disease, stage [...] mcg/actuation aerosol inhaler (ProAir HFA) 1 inh [id number] PRN shortness of breath or wheezing #8.5 [...] sore than painful. She is okay using [id number] meds ice and rest. I explained that [...] Primary Care Provider: Mimi Martin Referrals: Mimi Martin, [Primary Care Provider] - 3-5 Days if not improving Disposition Disposition: Home, Self Care What to do if you have Problems For any increased pain, shortness of breath, bleeding, nausea or vomiting, chestpain, or any unexpected problems, contact your Primary Care Provider. Call [facility] ([phone]) or report to the closest Emergency Room. Call 911 if necessary. 01/25/23 1340 <Electronically signed by Bridger Neil MD> Cosigner Signature (if applicable): CC: Dr. Mimi Martin, ~ Signed [facility] Work Phone: Chief complaint+Reason for visit Narrative* Chief Complaint SINUS INFECTION/COVI D TEST 6 M FU SCREENING Reason for Visit COVID-19 Asthma-COPD overlap syndrome Morbid obesity due to excess calories Obstructive sleep apnea syndrome [facility] Work Phone: Evaluation noteNo assessment information available [facility] Work Phone: Evaluation note* Diagnosis Onset Date Resolution Status COVID-19 acute Asthma-COPD overlap syndrome chronic Morbid obesity due to excess calories chronic Obstructive sleep apnea syndrome chronic [facility] Work Phone: Evaluation note* Diagnosis Onset Date Resolution Status Asthma-COPD overlap syndrome chronic Morbid obesity due to excess calories chronic Obstructive sleep apnea syndrome chronic [facility] Work Phone: Evaluation note* Diagnosis Swelling of eyelid, unspecified laterality- Primary Insect bite of head, unspecified part, initial encounter documented in this encounter [facility] for referral (narrative)No reason for referral information availableGrand [facility] Work Phone: Chief Complaint and Reason for [...] 2025 11:05am Asthma-COPD overlap syndrome March 05, 7:39am Morbid obesity due to excess calories Ma 2024 7:39am Obstructive sleep apnea syndrome February 7:39am Chief Complaint Admit Date 4 M FU, RS 12/12January 06, 2025 11: 05am EORDER AND ADDT. ORDER January 14, 2025 7:22am 1 Y FU March 05, 2025 7:39a m 3 M FU April 09, 2025 8:32 am E-ORDER April 10, 2025 7:04 am Reason for Visit Admit Date Diabetes [...] Morbid obesity due to excess calories Ma 2024 7:39am Obstructive sleep apnea syndrome February 7:39am Chronic kidney disease, stage III (moder ate) April 09, 2025 8:32am Diabetic neuropathy April 09, 2025 8:32 am Hyperlipidemia April 09, 2025 8:32 am Hypertension April 09, 2025 8:32 am Hypothyroidism April 09, 2025 8:32 am Obesity April 09, 2025 8:32 am Post-menopausal April 09, 2025 8:32 am Type 2 diabetes mellitus April 09, 2025 8:32am Chief Complaint Admit Date 4 M FU, RS 12/12January 06, 2025 11: 05am EORDER AND ADDT. ORDER January 14, 2025 7:22am 1 Y FU March 05, 2025 7:39a m 3 M FU April 09, 2025 8:32 am E-ORDER April 10, 2025 7:04 am post menopausal April 17, 2025 8:16 am RE-EST (SELF) April 18, 2025 7:49 am Reason for Visit Admit Date Diabetes January 06, 2025 11: 05am Hyperlipidemia January 06, 2025 11: 05am Hypertension January 06, 2025 11: 05am Hypothyroidism January 06, 2025 11: 05am Obesity January 06, 2025 11: 05am Microalbuminuria January 06, 2025 11: 05am CKD (chronic kidney disease) January 06, 2025 11:05am Asthma-COPD overlap syndrome March 05 025 7:39am Morbid obesity due to excess calories Ma y 2024 7:39am Obstructive sleep apnea syndrome February 7:39am Chronic kidney disease, stage III (moder ate) April 09, 2025 8:32am Diabetic neuropathy April 09, 2025 8:32 am Hyperlipidemia April 09, 2025 8:32 am Hypertension April 09, 2025 8:32 am Hypothyroidism April 09, 2025 8:32 am Obesity April 09, 2025 8:32 am Post-menopausal April 09, 2025 8:32 am Type 2 diabetes mellitus April 09, 2025 8:32am Coronary artery calcification April 18, 2025 7:49am Hyperlipidemia April 18, 2025 7:49 am Hypertension April 18, 2025 7:49 am Family History No Family History Records Found Relationship Condition Age at Onset Recorded Date/T danni mother Coronary artery disease Unknown Disorder of thyroid Unknown Cerebrovascular accident (CVA) Unknown Hypertension Unknown son Asthma Unknown sister Malignant neoplasm Unknown father Chronic obstructive pulmonary disease Unk nown grandmother Disorder of thyroid Unknown Advance Directives No Advanced Directives Records Found Advance Directive Response Recorded Date/ Time Living Will No March 18, 2020 1 0:29am Power of Surgical Scrub Technologist No March 18, 2020 10:29am Advance Directive Response Recorded Date/ Time Living Will No March 18, 2020 9 :29am Power of Surgical Scrub Technologist No March 18, 2020 9:29am Advance Directive Response Recorded Date/ Time Living Will No January 25, 2023 2:01pm Power of Surgical Scrub Technologist No January 25 2:01pm Advance Directive Response Recorded Date/ Time Living Will No January 25, 2023 2:01pm Do you have a Healthcare Power of Surgical Scrub Technologist? No January 25, 2023 2:01pm Summary Purpose [...] DO Family Provider Active Dr. Mimi Martin DO Primary Care Provider Active Team Status: Inactive Member Role Status Dates Dr. Mimi Martin DO Primary Care Provider Active Dr. Alena Ahn DO Attending Provider, Referring P rovider Active Team Status: Inactive Member Role Status Dates Dr. Mimi Martin DO Primary Care Provider Active Dr. Bridger Neil MD Emergency Provider Active Team Status: Inactive Member Role Status Dates Dr. Mimi Martin DO Primary Care Provider, Referring P rovider Active Richa Mari NP, FOOD SERVICE ASSOCIATE-C Attending Provider Active Team Status: Inactive Member [...] Provide r, Attending Provider, Referring Provider Active Keeler Polygraph Operator Relationship Specialty Start Date End Date Mimi Martin DO [address] [place] [address] PCP - General Family Medicine 09/19/17 Team Status: Active Member Role Status Dates Dr. Mimi Martin DO Primary Care Provider Active Team Status: Inactive Member Role Status Dates Dr. Mimi Martin DO Primary Care Provider Active Start: January 06, 2025 End: January 06, 2025 Dr. Mimi Martin DO Referring Provider Active St art: January 06, 2025 End: January 06, 2025 RITA CalderónC Attending Provider Active Start: January 06, 2025 End: January 06, 2025 Team Status: Inactive Member Role Status Dates Dr. Mimi Martin DO Primary Care Provider Active Start: January 14, 2025 End: January 14, 2025 Dr. Alena Ahn DO Other Provider Active Sta rt: January 14, 2025 End: January 14, 2025 Janey Gutierrez , FOOD SERVICE ASSOCIATE-C Attending Provider Active Start: January 14, 2025 End: January 14, 2025 Janey Gutierrez , FOOD SERVICE ASSOCIATE-C Referring Provider Active Start: January 14, 2025 End: January 14, 2025 Team Status: Inactive Member Role Status Dates Dr. Mimi Martin DO Primary Care Provider Active Start: March 05, 2025 End: March 05, 2025 Dr. Mimi Martin DO Referring Provider Active St art: March 05, 2025 End: March 05, 2025 Richa Mari NP, FOOD SERVICE ASSOCIATE-C Attending Provider Active Start: March 05, 2025 End: March 05, 2025 Team Status: Inactive Member Role Status Dates Dr. Mimi Martin DO Primary Care Provider Active Start: April 09, 2025 End: April 09, 2025 Dr. Mimi Martin DO Referring Provider Active St art: April 09, 2025 End: April 09, 2025 Janey Gutierrez , FOOD SERVICE ASSOCIATE-C Attending Provider Active Start: April 09, 2025 End: April 09, 2025 Team Status: Inactive Member Role Status Dates Dr. Mimi Martin DO Primary Care Provider Active Start: April 10, 2025 End: April 10, 2025 Janey Gutierrez , FOOD SERVICE ASSOCIATE-C Attending Provider Active Start: April 10, 2025 End: April 10, 2025 Janey Gutierrez , FOOD SERVICE ASSOCIATE-C Referring Provider Active Start: April 10, 2025 End: April 10, 2025 Team Status: Active Member Role Status Dates Dr. Mimi Martin DO Primary Care Provider Active Start: April 17, 2025 Janey Gutierrez , FOOD SERVICE ASSOCIATE-C Attending Provider Active Start: April 17, 2025 Janey Gutierrez , FOOD SERVICE ASSOCIATE-C Referring Provider Active Start: April 17, 2025 Team Status: Inactive Member Role Status Dates Dr. Mimi Martin DO Primary Care Provider Active Start: April 18, 2025 End: April 18, 2025 Dr. Mimi Martin DO Referring Provider Active St art: April 18, 2025 End: April 18, 2025 Dr. Chauncey Duong MD Attending Provider Active S tart: April 18, 2025 End: April 18, 2025 Team Status: Active Member Role/Relationship Status Dates Dr. Mimi Martin DO Primary Care Provider Active Team Status: Inactive Member Role/Relationship Status Dates Dr. Mimi Martin DO Primary Care Provider Active Start: January 06, 2025 End: January 06, 2025 Dr. Mimi Martin DO Referring Provider Active St art: January 06, 2025 End: January 06, 2025 Janey Gutierrez FOOD SERVICE ASSOCIATE-C Attending Provider Active Start: January 06, 2025 End: January 06, 2025 Team Status: Inactive Member Role/Relationship Status Dates Dr. Mimi Martin DO Primary Care Provider Active Start: January 14, 2025 End: January 14, 2025 Dr. Alena Ahn DO Other Provider Active Sta rt: January 14, 2025 End: January 14, 2025 Janey Gutierrez FOOD SERVICE ASSOCIATE-C Attending Provider Active Start: January 14, 2025 End: January 14, 2025 TRAV Calderón Referring Provider Active Start: January 14, 2025 End: January 14, 2025 Team Status: Inactive Member Role/Relationship Status Dates Dr. Mimi Martin DO Primary Care Provider Active Start: March 05, 2025 End: March 05, 2025 Dr. Mimi Martin DO Referring Provider Active St art: March 05, 2025 End: March 05, 2025 Richa Mari NP FOOD SERVICE ASSOCIATE-C Attending Provider Active Start: March 05, 2025 End: March 05, 2025 Team Status: Inactive Member Role/Relationship Status Dates Dr. Mimi Martin DO Primary Care Provider Active Start: April 09, 2025 End: April 09, 2025 Dr. Mimi Martin DO Referring Provider Active St art: April 09, 2025 End: April 09, 2025 Janey Gutierrez FOOD SERVICE ASSOCIATE-C Attending Provider Active Start: April 09, 2025 End: April 09, 2025 Team Status: Inactive Member Role/Relationship Status Dates Dr. Mimi Martin DO Primary Care Provider Active Start: April 10, 2025 End: April 10, 2025 Janey Gutierrez FOOD SERVICE ASSOCIATE-C Attending Provider Active Start: April 10, 2025 End: April 10, 2025 TRAV Calderón Referring Provider Active Start: April 10, 2025 End: April 10, 2025 Team Status: Inactive Member Role/Relationship Status Dates Dr. Mimi Martin DO Primary Care Provider Active Start: April 17, 2025 End: April 17, 2025 TRAV Calderón Attending Provider Active Start: April 17, 2025 End: April 17, 2025 TRAV Calderón Referring Provider Active Start: April 17, 2025 End: April 17, 2025 Team Status: Inactive Member Role/Relationship Status Dates Dr. Mimi Martin DO Primary Care Provider Active Start: April 18, 2025 End: April 18, 2025 Dr. Mimi Martin DO Referring Provider Active St art: April 18, 2025 End: April 18, 2025 Dr. Chauncey Duong MD Attending Provider Active S tart: April 18, 2025 End: April 18, 2025 INFORMATION SOURCE (unrecogn ized section and content) DATE CREATED AUTHOR 03/25/2024 [facility] DATE CREATED AUTHOR AUTHOR'S ORGANIZ ATION 05/20/2025 [facility] Comments (unrecognize d section and content) In the event this informatio n is protected by the Federal Confidentiality of Alcohol and Drug Abuse Patient Records regulations: The Federal rules restrict any use of the information to criminally investigate or prosecute any alcohol or drug abuse patient.[facility] Reason for Visit (unrecogniz ed section and [...] BE BASED ON THE PRIMARY CLINICAL RECORDS. [facility]. provides no warranty or guarantee of the accuracy or completeness of information in this document.
[2025-05-21 10:41] LABS: Hematocrit 35.9 % (37-47); Hemoglobin 12.0 g/dL (12.0-15.0); Mean Corp Hgb Conc 33.4 g/dL (32-36); Mean Corpuscular Volume 91.3 fL (81-99); Mean Platelet Vol. 11.4 fl (6.2-12.0); Platelet Count 182 K/mm3 (150-450); RBC Distribution Width CV 13.1 % (11.6-14.6); RBC Distribution Width SD 44.1 fl (35.1-43.9); Red Blood Count 3.93 M/mm3 (4.2-5.4); White Blood Count 6.0 K/mm3 (4.4-11.0)
[2025-05-21 11:27] LABS: PTHIN 75 pg/mL (11-61)
[2025-05-21 11:51] LABS: Albumin, Serum 4.2 g/dL (3.4-4.8); Anion Gap 14 (5-15); BUN 32 mg/dL (4-19); BUN/Creat Ratio 21.3 RATIO (10-20); Calcium,Total 9.4 mg/dL (7.6-11.0); Carbon Dioxide 20.3 mmol/L (21.0-32.0); Chloride 105 mmol/L (98-108); Ferritin 137 ng/mL (22-378); Glucose 107 mg/dL (70-99); Potassium 4.0 mmol/L (3.3-5.1)
[2025-05-21 13:42] LABS: Creatinine, Urine (random) 70.80 mg/dL (28.00-217.00); Microalbumin,Random Urine 20.2 mg/L (<20 mg/L)
[2025-05-21 15:27] LABS: Iron 60 ug/dL (50-170); Iron Binding Capacity,Total 290 ug/dL (250-450); Iron Binding Capacity,Unsat 230 ug/dL (228-428)
== END | disposition home or self-care (01) ==
LOC: MTLAB 07:05
PROVIDERS: PCP Family Medicine; Referring Provider Internal Medicine Nephrology; Visit Provider Internal Medicine Nephrology
DX: E11.22 Type 2 diabetes mellitus with diabetic chronic kidney disease (principal); E11.21 Type 2 diabetes mellitus with diabetic nephropathy; N18.32 Chronic kidney disease, stage 3b; D50.9 Iron deficiency anemia, unspecified
CPT/HCPCS: 36415; 80069; 82043; 82570; 82728; 83540; 83550; 83970; 85027

== ENCOUNTER → 2025-06-03 | Outpatient (CLI) | payer MEDICARE, MEDICAID, SELFPAY ==
--- OUTSIDE RECORDS SUMMARY | 2025-06-03 06:34 | XMS RPT_ITS | CCD ---
Author Organization [facility] Care Team Providers Care Administrative Tech Name Role Phone Dr. Mimi Martin Primary Care Provider Dr. Mimi Martin Referring Provider YASH Cisse Attending Provider Dr. Eddy Chen Attending Provider Dr. Mimi Martin Primary Care Provider Dr. Mimi Martin Referring Provider [phone] Jacey CASH CLERK, CASH CLERK-C Richa Attending Provider MIMI MARTIN Primary Care Unavailable Mimi Martin DO Primary Care Provider Dr. Mimi Martin DO Primary Care Provider Dr. Mimi Martin DO Referring Provider [phone] Matt DURÁN-Janey Lu Attending Provider [phone] Dr. Alena Ahn DO Other Provider [phone] Janey Monteiro Referring Provider Jacey DURÁN-Richa Lu Attending Provider Dr. Chauncey Duong MD Attending Provider [phone] Dr. Mimi Martin DO Primary Care Provider [phone] Mimi Martin DO Referring Provider Matt DURÁN-Janey Lu Attending Provider Matt DURÁN-CJaney Referring Provider [phone] Alena Ahn DO Attending Provider Dr. Alena Ahn DO Referring Provider Malys, Mimi Primary Care Unavailable Rhoda, [place] Referring Unavailable Rhoda, Chauncey Attending Unavailable Malys, Mimi Referring Unavailable Malys, Mimi Attending Unavailable Malys, Mimi Primary Care Unavailable Malys, Mimi Primary Care Unavailable Matt, Janey Attending Unavailable Matt, Janey Referring Unavailable Malys, Mimi Referring Unavailable Richa Mari NP Attending Unavailable Malys, Mimi Primary Care Unavailable Malys, Mimi Primary Care Unavailable Malys, Mimi Referring Unavailable Matt, Janey Attending Unavailable Malys, Mimi Referring Unavailable Matt, Janey Attending Unavailable Malys, Mimi Primary Care Unavailable Malys, Mimi Referring Unavailable Rhoda, Chauncey Attending Unavailable Malys, Mimi Primary Care Unavailable Malys, Mmii Referring Unavailable Matt, Janey Attending Unavailable Malys, Mimi Primary Care Unavailable Malys, Mimi Primary Care Unavailable Matt, Janey Attending Unavailable Matt, Janey Referring Unavailable Rashad, Alena Referring Unavailable Rashad, Alena Attending Unavailable Malys, Mimi Primary Care Unavailable [...] Unavailable Rashad, Alena Consulting Unavailable Malys, Mimi Primary Care Unavailable Allergies Allergy Classification Reported Allergen(s) Allergy Type Date of Onset Reaction(s) Facility Adhesive Tape (1 source) Adhesive Tape Substance Allergy 6 Rash [facility] Anti-Epileptic Agents (1 source) gabapentin Drug Allergy 4 Diarrhea [facility] Opioid Agonists (3 sources) HYDROmorphone Drug Allergy 6 Rash, Vomiting [facility] pregabalin (1 source) pregabalin Drug Allergy 4 Diarrhea [facility] (17 sources) Adhesive Tape; Translations: [adhesive tape] Allergy to substance 1 uknown [facility] (16 sources) gabapentin Drug Allergy 1 unknown [facility] (16 sources) HYDROmorphone Drug Allergy 1 unknown, Hives [facility] (16 sources) oxyCODONE Drug Allergy 1 unknown [facility] (16 sources) pregabalin Drug Allergy 1 Diarrhea [facility] (17 sources) traMADol; Translations: [TRAMADOL] Drug Allergy 6 unknown [facility] (1 source) Adhesive Tape; Translations: [ADHESIVE TAPE (ROSINS)] Propensity to adverse reactions (disorder) 6 [facility] (1 source) HYDROmorphone; Translations: [HYDROMORPHONE (BULK)] Drug Allergy 6 [facility] (1 source) oxyCODONE; Translations: [OXYCODONE HCL] Drug Allergy 6 [facility] (7 sources) Lisinopril Drug Allergy 5 Cough [facility] (1 source) gabapentin Drug Allergy 5 [facility] (1 source) HYDROmorphone Drug Allergy 5 [facility] (1 source) Lisinopril Drug Allergy 5 [facility] (1 source) oxyCODONE Drug Allergy 5 [facility] (1 source) pregabalin Drug Allergy 5 [facility] (1 source) traMADol Drug Allergy 5 [facility] Medications Current Medications Medication Drug [...] tablet by mouth once daily. 30 tablet 02/23/2011 Active Blood-Glucose Meter (Freestyle [place] Lite) kit (1 source) Start: 05-19-2025 Blood-Glucose Meter (Freestyle [place] Lite) kit Active 0 .Route 1 0 May 19, 2025 12:00am As directed chlorpheniramine maleate 4 mg oral tablet (1 [...] COMPOUNDED PRESCRIPTION Left foot brace, arch support. [employer] Dx DM 2 1 Device 0 05/28/2014 [...] Active ferrous sulfate 325 mg oral tablet (12 sources) Start: End: Ferrous Sulfate (Ferosul) 325 mg (65 mg iron) tablet Active 325 mg PO .Qweekly April 09, 2025 8:38am Qnmtyyodcul-Lfrimwdnw-Py lanter (20 sources) Anticholinergic, Corticosteroid, beta2-Adrenergic Agonist Start: Xfslsuumbli-Kelycgauw-K ilanter (Trelegy Ellipta) 100-62.5-25 mcg blister with device Active 1 NMA INHALATION DAILY 3 February 10, 2025 8:11am Start: 02-10-2025 Fluticasone-Um eclidin-Vilanter (Trelegy Ellipta) 100-62.5-25 mcg blister with device Active 1 NMA INHALATION DAILY February 10, 2025 8:11am Start: 02-26-2024 TRELEGY ELLIPT A 100-62.5-25 mcg inhalation powder Start: 02-26-2024 End: 02-10-2025 Mhrtyonivvu-Axvlssknc-Jnvuba er (Trelegy Ellipta) 100-62.5-25 mcg blister with device Discontinued 1 NMA INHALATION DAILY 3 February 26, 2024 8:20am February 10, 2025 8:12am Start: 02-26-2024 End: 02-10-2025 Gomrnjvhupu-Kwfaffvnx-Wohzdt er (Trelegy Ellipta) 100-62.5-25 mcg blister with device Discontinued 1 NMA INHALATION DAILY February 26, 2024 8:20am February 10, 2025 8:12am Start: 02-26-2024 Fluticasone-Um eclidin-Vilanter (Trelegy Ellipta) 100-62.5-25 mcg blister with device Active 1 NMA INHALATION DAILY February 26, 2024 8:20am Start: 01-24-2024 End: 02-26-2024 Emxoufzoeso-Odogaevdv-Zmymfb er (Trelegy Ellipta) 100-62.5-25 mcg blister with device Discontinued 1 NMA INHALATION DAILY 60 January 24, 2024 8:12am February 26, 2024 8:20am Start: 01-24-2024 End: 02-26-2024 Gavpmqquspj-Wqagzptwt-Oqdpao er (Trelegy Ellipta) 100-62.5-25 mcg blister with device Discontinued 1 NMA INHALATION DAILY 60 January 24, 2024 8:12am February 26, 2024 8:20am Start: 02-08-2023 End: 01-24-2024 Ykjxifxuqqc-Jrysnyesq-Ywrzqb er (Trelegy Ellipta) 100-62.5-25 mcg blister with device Discontinued 1 NMA INHALATION DAILY 60 February 08, 2023 8:05am January 24, 2024 8:13am Start: 02-08-2023 End: 01-24-2024 Ixqsldlukab-Hmgaaxssa-Ixetrt er (Trelegy Ellipta) 100-62.5-25 mcg blister with device Discontinued 1 NMA INHALATION DAILY 60 February 08, 2023 8:05am January 24, 2024 8:13am Start: 02-08-2023 Fluticasone-Um eclidin-Vilanter (Trelegy Ellipta) 100-62.5-25 mcg blister with device Active 1 INH INHALATION DAILY 60 February 08, 2023 8:05am Start: 08-09-2022 End: 02-08-2023 Hvbgnynzjdt-Wfmiwwxvn-Thvqfp er (Trelegy Ellipta) 100-62.5-25 mcg blister with device Discontinued 1 NMA INHALATION DAILY 60 5 August 09, 2022 6:53am February 08, 2023 8:05am Start: 08-09-2022 End: 02-08-2023 Ldngiuchvwm-Oejkkwhgk-Mehzfk er (Trelegy Ellipta) 100-62.5-25 mcg blister with device Discontinued 1 NMA INHALATION DAILY August 09, 2022 6:53am February 08, 2023 8:05am Start: 08-09-2022 End: 02-08-2023 Hsnsbtpgblc-Dlexrujec-Njdisc er (Trelegy Ellipta) 100-62.5-25 mcg blister with device Discontinued 1 INH INHALATION DAILY 60 August 09, 2022 6:53am February 08, 2023 8:05am Start: 08-09-2022 Fluticasone-Um eclidin-Vilanter (Trelegy Ellipta) 100-62.5-25 mcg blister with device Active 1 INH INHALATION DAILY 60 August 09, 2022 5:53am Start: 08-09-2022 Fluticasone-Um eclidin-Vilanter (Trelegy Ellipta) 100-62.5-25 mcg blister with device Active 1 INH INHALATION DAILY 60 August 09, 2022 6:53am Start: 02-07-2022 End: 08-09-2022 Wgchvyxkumz-Gtkljcxrn-Dlpaom er (Trelegy Ellipta) 100-62.5-25 mcg blister with device Discontinued 1 NMA INHALATION DAILY 60 February 07, 2022 8:12am August 09, 2022 6:53am Start: 02-07-2022 End: 08-09-2022 Wsgugkztmue-Prcubiumm-Olmypw er (Trelegy Ellipta) 100-62.5-25 mcg blister with device Discontinued 1 NMA INHALATION DAILY 60 February 07, 2022 8:12am August 09, 2022 6:53am Start: 02-07-2022 End: 08-09-2022 Potkbovfoiz-Cadjxjmte-Xrahwb er (Trelegy Ellipta) 100-62.5-25 mcg blister with device Discontinued 1 INH INHALATION DAILY 60 February 07, 2022 7:12am August 09, 2022 5:53am Start: 02-07-2022 End: 08-09-2022 Edpurlwhtsm-Yntdyoxxt-Edsypn er (Trelegy Ellipta) 100-62.5-25 mcg blister with device Discontinued 1 INH INHALATION DAILY 60 February 07, 2022 8:12am August 09, 2022 6:53am Start: 08-06-2021 End: 02-07-2022 Yglbftojpxy-Hbqetvbvb-Ubajnv er (Trelegy Ellipta) 100-62.5-25 mcg blister with device Discontinued 1 NMA INHALATION DAILY 60 August 06, 2021 11:25am February 07, 2022 8:13am Start: 08-06-2021 End: 02-07-2022 Rxeypooxvmi-Qlqmfndiu-Ivqugs er (Trelegy Ellipta) 100-62.5-25 mcg blister with device Discontinued 1 NMA INHALATION DAILY 60 August 06, 2021 11:25am February 07, 2022 8:13am Start: 08-06-2021 End: 02-07-2022 Tjfuqzaflcd-Ajshpmlxd-Qvoaox er (Trelegy Ellipta) 100-62.5-25 mcg blister with device Discontinued 1 INH INHALATION DAILY 60 August 06, 2021 10:25am February 07, 2022 7:13am Start: 08-06-2021 End: 02-07-2022 Eszvjgexcey-Azwtuwrwi-Eazohe er (Trelegy Ellipta) 100-62.5-25 mcg blister with device Discontinued 1 INH INHALATION DAILY 60 August 06, 2021 11:25am February 07, 2022 8:13am Start: 08-06-2021 Fluticasone-Um eclidin-Vilanter (Trelegy Ellipta) 100-62.5-25 mcg blister with device Active 1 INH INHALATION DAILY 60 August 06, 2021 11:25am Start: 11-03-2020 End: 08-06-2021 Qjkixpimfim-Wtqktqcig-Ohosah er (Trelegy Ellipta) 100-62.5-25 mcg blister with device Discontinued 1 INH INHALATION DAILY November 03, 2020 8:53am August 06, 2021 11:25am Start: 11-03-2020 End: 08-06-2021 Dbljwrwmjjk-Lyxlowcvk-Lqtneq er (Trelegy Ellipta) 100-62.5-25 mcg blister with device Discontinued 1 NMA INHALATION DAILY 60 5 November 03, 2020 1:00am August 06, 2021 11:25am Start: 11-03-2020 End: 08-06-2021 Nwzptgfdjnf-Kwotfcrnz-Elyjaa er (Trelegy Ellipta) 100-62.5-25 mcg blister with device Discontinued 1 NMA INHALATION DAILY 60 November 03, 2020 1:00am August 06, 2021 11:25am Start: 11-03-2020 End: 08-06-2021 Ujgyivdnfja-Rphjmfcim-Kvwzou er (Trelegy Ellipta) 100-62.5-25 mcg blister with device Discontinued 1 INH INHALATION DAILY 60 November 03, 2020 12:00am August 06, 2021 10:25am Start: 11-03-2020 End: 08-06-2021 Lingtgkfmik-Xecrfmlnq-Girvzi er (Trelegy Ellipta) 100-62.5-25 mcg blister with [...] mcg capsul e Discontinued 125 ug PO MOJuly 12, 2019 12:00am May 24, 2021 2:55pm [...] May 24, 2021 12:00am polyethylene glycol 3350 06483 mg powder for oral solution (3 sources) Osmotic Laxative Start: 04-16-2025 Polyethylene Glycol [...] Active 20 mg PO AT BEDTIME 90 3 April 18, 2025 8:14am Start: 09-19-2018 End: [...] 8:15am vitamin b12 0.5 mg oral tablet (8 sources) Vitamin B12 Start: 08-22-2023 take 1 tablet by mouth once daily Cyanocobalamin (Vitamin B-12) 500 mcg tablet Active 500 ug PO DAILY August 22, 2023 12:00am Zinc (1 source) ZINC ORAL Take 5 0 mg by mouth. 0 Active zinc acetate 50 mg oral capsule (7 sources) Start: 02-26-2024 take 1 capsule by mouth once daily Zinc Acetate 50 mg (zinc) capsule Active 50 mg PO DAILY February 26, 2024 12:00am zinc oxide 100 mg/ml topical cream (10 sources) Start: 04-16-2025 Zinc Oxide 10 % [...] Drug Class(es) Dates Sig (Normalized) Sig (Original) [id number] 200 actuat albuterol 0.09 mg/actuat metered dose [...] WHEEZING 54 g 3 03/09/2017 Active Budesonide-Formoterol (17 sources) Corticosteroid, beta2-Adrenergic Agonist Start: 07-28-2020 End: [...] Active calcium carbonate 1500 mg oral tablet (16 sources) Start: 03-18-2020 End: 05-24-2021 take 1 [...] 7:58am diclofenac sodium 0.01 mg/mg topical gel (16 sources) Nonsteroidal Anti-inflammatory Drug Start: 05-24-2021 End: [...] 7:51am 0.5 ml dulaglutide 3 mg/ml auto-injector (7 sources) GLP-1 Receptor Agonist Start: 01-17-2025 End: 02-10-2025 Dulaglutide (Trulicity) 1.5 mg/0.5 mL pen injector Discontinued 1.5 mg SC EVERY WEEK January 17, 2025 12:00am February 10, 2025 7:35am ferrous fumarate 325 mg oral tablet (8 sources) Start: 08-22-2023 End: 02-26-2024 take 1 tablet by mouth once daily Ferrous Fumarate 325 mg (106 mg iron) tablet Discontinued 325 mg PO DAILY August 22, 2023 12:00am February 26, 2024 7:58am gabapentin 300 mg oral capsule (16 sources) Anti-epileptic Agent Start: 07-12-2019 End: 07-12-2019 take 1 capsule by mouth twice daily Gabapentin 300 mg capsule Discontinued 300 mg PO TWICE A DAY July 12, 2019 12:00am July 12, 2019 10:34am glimepiride 1 mg oral tablet (15 sources) Sulfonylurea Start: 01-17-2025 End: 04-09-2025 take [...] 10:26am metFORMIN hydrochloride 1000 mg oral tablet (17 sources) Biguanide Start: 09-19-2017 End: 02-26-2024 take 1 tablet by mouth twice daily Metformin 1,000 mg tablet Discontinued 1000 mg PO TWICE A DAY September 19, 2018 1:00am February 26, 2024 7:59am Multivitamin tablet (14 sources) Start: 01-17-2025 End: 04-09-2025 Multivitamin tablet Discontinued 1 {tbl} PO daily January 17, 2025 12:00am April 09, 2025 8:38am Start: 01-17-2025 Multivitamin t ablet Active 1 {tbl} PO daily January 17, 2025 12:00am Start: 05-24-2021 End: 01-06-2025 Multivitamin tablet Disconti nued 1 {tbl} PO DAILY May 24, 2021 12:00am January 06, 2025 11:15am Nirmatrelvir-Ritonavir (15 sources) Start: 04-29-2022 End: 04-19-2023 Nirmatrelvir-Ritonavir (Paxl ovid (Eua)) 300 mg (150 [...] / nitrofurantoin, monohydrate 75 mg oral capsule (16 sources) Nitrofuran Antibacterial Start: 09-19-2018 End: 07-12-2019 take 1 capsule by mouth twice daily at mealtime Nitrofurantoin Monohyd/M-Cryst (Macrobid) 100 mg capsule Discontinued 100 mg PO TWICE A DAY 10 September 19, 2018 1:00am July 12, 2019 [...] Polyethylene Glycol 3350 (Miralax) 17 gram/dose powder (7 sources) Start: 01-06-2025 End: 04-16-2025 Polyethylene Glycol [...] 2025 12:00am sertraline 25 mg oral tablet (16 sources) Serotonin Reuptake Inhibitor Start: 05-24-2021 End: 02-08-2023 take 1 tablet by mouth once daily Sertraline 25 mg tablet Discontinued 25 mg PO DAILY May 24, 2021 12:00am February 08, 2023 7:51am tretinoin 0.46264 mg/mg topical gel (16 sources) Retinoid Start: 05-24-2021 End: 02-26-2024 Tretinoin 0.025 % gel Discontinued 1 NMA TOPICAL AT BEDTIME May 24, 2021 12:00am February 26, 2024 8:00am Start: 05-24-2021 Tretinoin Acti ve 1 APPLIC TOPICAL AT BEDTIME May 24, 2021 12:00am Problems Active Problems Problem Classification Problem Date Documented Da te Episodic/Chronic Cancer of bone and connective tissue (17 sources) Osteosarcoma of bone; 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, unspecified] Onset: 09-11-2006 07-27-2020 Chronic Comment on above: chemo 05/2007 Chronic kidney disease (18 sources) Chronic kidney disease stage 3; Translations: [Stage 3 chronic kidney disease] Onset: 09-11-2024 01-17-2025 Chronic Chronic kidney disease (1 source) Chronic kidney disease; Translations: [Chronic kidney disease, stage 3b] Onset: 05-21-2025 Chronic obstructive pulmonary disease and bronchiectasis (20 sources) Asthma-chronic obstructive pulmonary disease overlap syndrome; Translations: [Chronic obstructive pulmonary disease, unspecified] Onset: 04-14-2025 Chronic Coronary atherosclerosis and other heart disease (20 sources) Calcification of coronary artery; Translations: [Atherosclerotic heart disease of [place] coronary artery without angina pectoris] Onset: 05-21-2025 07-27-2020 Chronic Diabetes mellitus with complications (13 sources) Neuropathy due to diabetes mellitus; Translations: [Type 2 diabetes mellitus with diabetic neuropathy, unspecified] Onset: 05-20-2025 01-17-2025 Chronic Diabetes mellitus without complication (20 sources) Type 2 diabetes mellitus without complication; Translations: [Type 2 diabetes mellitus without complications] Onset: 05-04-2009 Resolved: 12-27-2013 12-27-2013 Chronic Diseases of white blood cells (1 source) Other drug-induced agranulocytosis; Translations: [Drug induced neutropenia] Onset: 10-06-2006 10-06-2006 Chronic Disorders of lipid metabolism (20 sources) Hyperlipidemia; Translations: [Hyperlipidemia, unspecified] Onset: 07-07-2014 07-12-2019 Chronic Essential hypertension (20 sources) Hypertensive disorder; Translations: [Essential (primary) hypertension] Onset: 05-04-2009 05-31-2016 Chronic Fever of unknown origin (15 sources) Fever; Translations: [Fever, unspecified] 04-29-2022 Episodic Menopausal disorders (1 source) Postmenopausal bleeding; Translations: [Postmenopausal bleeding] Onset: 12-27-2013 12-27-2013 Chronic Nutritional deficiencies (10 sources) Vitamin D deficiency; Translations: [Vitamin D deficiency, unspecified] Onset: 03-09-2010 03-09-2010 Chronic Nutritional deficiencies (1 source) Deficiency of other specified B group vitamins; Translations: [Deficiency of other specified B group vitamins] Onset: 03-10-2025 Episodic Other eye disorders (1 source) Swelling of eyelid; Translations: [Edema of unspecified eye, unspecified eyelid] 03-25-2024 Episodic Other inflammatory condition of skin (7 sources) Disorder of female perineum; Translations: [Anogenital pruritus, unspecified] 01-17-2025 Episodic Other inflammatory condition of skin (1 source) Anogenital pruritus, unspecified; Translations: [Anogenital pruritus, unspecified] Onset: 05-21-2025 Episodic Other nervous system disorders (8 sources) Abnormal gait; Translations: [Unspecified abnormalities of gait and mobility] Onset: 07-27-2007 07-27-2007 Episodic Other nutritional; endocrine; and metabolic disorders (19 sources) Morbid obesity; Translations: [Morbid (severe) obesity [...] Chronic Other nutritional; endocrine; and metabolic disorders (18 sources) Obesity; Translations: [Obesity, unspecified] Onset: 08-10-2011 [...] (adult)(pediatric)] Onset: 04-14-2025 Chronic Residual codes; unclassified (8 sources) Postmenopausal state; Translations: [Asymptomatic menopausal state] 04-09-2025 Episodic Residual codes; unclassified (1 source) Asymptomatic menopausal state; Translations: [Asymptomatic menopausal state] Onset: 05-20-2025 Episodic Substance-related disorders (9 sources) Cigarette smoker ; Translations: [Nicotine dependence, cigarettes, uncomplicated] 01-27-2021 Chronic Superficial injury; contusion (13 sources) Contusion of right chest wall; Translations: [Contusion of right front wall of thorax, initial encounter] 01-25-2023 Episodic Thyroid disorders (20 sources) Toxic multinodular goiter; Translations: [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 storm] Onset: 06-26-2009 06-26-2009 Chronic Unclassified (1 source) Obesity, class 3; Translations: [Obesity, class 3] Onset: 05-20-2025 Urinary tract infections (16 sources) Urinary tract infectious disease; Translations: [Urinary tract infection, site not specified] 07-12-2019 Episodic Viral infection (17 sources) Disease caused by 2019-nCoV; Translations: [COVID-19] [...] 11-13-2006 Episodic Genitourinary symptoms and ill-defined conditions (14 sources) Microalbuminuria; Translations: [Proteinuria, unspecified] Onset: 09-11-2024 01-17-2025 Episodic Other lower respiratory disease (1 source) Disorder of lung; Translations: [Other disorders of lung] Onset: 10-02-2006 03-09-2009 Episodic Other screening for suspected conditions (not mental disorders or infectious disease) (18 sources) Computed tomography result abnormal; Translations: [Abnormal findings on diagnostic imaging of heart and coronary circulation] Onset: 09-05-2024 07-27-2020 Episodic Results Test Name Value Interpretation Reference Range Facility Anion gap in Serum or Plasma Ordered By: Alena Ahn on 05-21-2025 Anion gap [Moles/Vol] 14 mmol/L 03-06 [facility] BUN/creatinine ratioOrdered By: Alena Ahn on 05-21-2025 Urea nitrogen/Creatinine [Mass ratio] 21.3 mg/mg High 08-11 [facility] CBC-Complete Blood Cnt No Di ffon 05-21-2025 Erythrocyte distribution width (RBC) [Ratio] 13.1 % Normal 11.6-14.6 [facility] Comment on above: Performed By: #### L 509.1000, L100.0500, L503.6030, L500.3600, L503.6550, L502.0250 #### [facility] [address] [place], [address] Hematocrit (Bld) [Volume fraction] 35.9 % Low 37-47 [facility] Comment on above: Performed By: #### L 509.1000, L100.0500, L503.6030, L500.3600, L503.6550, L502.0250 #### [facility] [address] [place], [address] Hemoglobin (Bld) [Mass/Vol] 12.0 g/dL Normal 12.0-15.0 [facility] Comment on above: Performed By: #### L 509.1000, L100.0500, L503.6030, L500.3600, L503.6550, L502.0250 #### [facility] [address] [place], [address] MCH (RBC) [Entitic mass] 30.5 pg Normal 27.0-32.0 [facility] Comment on above: Performed By: #### L 509.1000, L100.0500, L503.6030, L500.3600, L503.6550, L502.0250 #### [facility] [address] [place], [address] MCHC (RBC) [Mass/Vol] 33.4 g/dL Normal 32-36 [facility] Comment on above: Performed By: #### L 509.1000, L100.0500, L503.6030, L500.3600, L503.6550, L502.0250 #### [facility] [address] [place], [address] MCV (RBC) [Entitic vol] 91.3 fL Normal 81-99 [facility] Comment on above: Performed By: #### L 509.1000, L100.0500, L503.6030, L500.3600, L503.6550, L502.0250 #### [facility] [address] [place], [address] Platelet mean volume (Bld) [Entitic vol] 11.4 fL Normal 6.2-12.0 [facility] Comment on above: Performed By: #### L 509.1000, L100.0500, L503.6030, L500.3600, L503.6550, L502.0250 #### [facility] [address] [place], [address] Platelets (Bld) [#/Vol] 182 10*3/uL Normal 150-450 [facility] Comment on above: Performed By: #### L 509.1000, L100.0500, L503.6030, L500.3600, L503.6550, L502.0250 #### [facility] [address] [place], [address] RBC (Bld) [#/Vol] 3.93 10*6/uL Low 4.2-5.4 [facility] Comment on above: Performed By: #### L 509.1000, L100.0500, L503.6030, L500.3600, L503.6550, L502.0250 #### [facility] [address] [place], [address] RDW SD 44.1 fl High 35.1-43.9 [facility] Comment on above: Performed By: #### L 509.1000, L100.0500, L503.6030, L500.3600, L503.6550, L502.0250 #### [facility] [address] [place], [address] WBC (Bld) [#/Vol] 6.0 10*3/uL Normal 4.4-11.0 [facility] Comment on above: Performed By: #### L 509.1000, L100.0500, L503.6030, L500.3600, L503.6550, L502.0250 #### [facility] [address] [place], [address] Carbon dioxide, total [Moles /volume] in Central venous bloodOrdered By: Alena Ahn on 05-21-2025 CO2 [Moles/Vol] 20.3 mmol/L Low 21.0-32.0 [facility] Chloride assayOrdered By: Nick Ahn on 05-21-2025 Chloride [Moles/Vol] 105 mmol/L 98-108 [facility] Erythrocyte distribution wid th ratioOrdered By: Alena Ahn on 05-21-2025 Erythrocyte distribution width (RBC) [Ratio] 13.1 % 11.6-14.6 [facility] Erythrocyte distribution wid th standard deviationOrdered By: Alena Ahn on 05-21-2025 Erythrocyte distribution width (RBC) [Ratio] 44.1 fl High 35.1-43.9 [facility] Ferritinon 05-21-2025 Ferritin [Mass/Vol] 137 ng/mL Normal 22-378 [facility] Comment on above: Performed By: #### L 509.1000, L100.0500, L503.6030, L500.3600, L503.6550, L502.0250 ####[facility] [id number] [place], [address] Glomerular filtration rate ( GFR) estimation/1.73 sq m using serum, plasma, or whole bOrdered By: Alena Ahn on 05-21-2025 GFR/1.73 sq M.predicted among non-blacks MDRD (S/P/Bld) [Vol rate/Area] 39 mL/min/{1.73_m2} Low >60 [facility] Comment on above: mL/min/1.73m2 CKD-EP I Creatinine Equation (2020) Hematocrit Auto (Bld) [Volum e fraction]Ordered By: Alena Ahn on 05-21-2025 Hematocrit (Bld) [Volume fraction] 35.9 % Low 37-47 [facility] Hemoglobin measurementOrdere d By: Alena Ahn on 05-21-2025 Hemoglobin (Bld) [Mass/Vol] 12.0 g/dL 12.0-15.0 [facility] Iron measurement (mass/mass) Ordered By: Alena Ahn on 05-21-2025 Iron (Unsp spec) [Mass/Mass] 60 ug/dL 50-170 [facility] Iron+Iron Binding Capacityon 05-21-2025 Iron [Mass/Vol] 60 ug/dL Normal 50-170 [facility] Comment on above: Performed By: #### L 509.1000, L100.0500, L503.6030, L500.3600, L503.6550, L502.0250 ####[facility] [address] [place], [address] IRON SATURATION 21.0 Normal 13-59 [facility] Comment on above: Performed By: #### L 509.1000, L100.0500, L503.6030, L500.3600, L503.6550, L502.0250 ####[facility] [address] [place], [address] TIBC 290 ug/dL Normal 250-450 [facility] Comment on above: Performed By: #### L 509.1000, L100.0500, L503.6030, L500.3600, L503.6550, L502.0250 ####[facility] [address] [place], [address] UIBC 230 ug/dL Normal 228-428 [facility] Comment on above: Performed By: #### L 509.1000, L100.0500, L503.6030, L500.3600, L503.6550, L502.0250 ####[facility] [address] [place], [address] MCV (mean corpuscular volume ) determinationOrdered By: Alena Ahn on 05-21-2025 MCV (RBC) [Entitic vol] 91.3 fL 81-99 [facility] Mean corpuscular hemoglobin (MCH) determinationOrdered By: Alena Ahn on 05-21-2025 MCH (RBC) [Entitic mass] 30.5 pg 27.0-32.0 [facility] Mean corpuscular hemoglobin concentration (MCHC) determinationOrdered By: Alena Ahn on 05-21-2025 MCHC (RBC) [Mass/Vol] 33.4 g/dL 32-36 [facility] Mean platelet volume determi nationOrdered By: Alnea Ahn on 05-21-2025 Platelet mean volume (Bld) [Entitic vol] 11.4 fL 6.2-12.0 [facility] Microalb:Creat Ratio,Random URon 05-21-2025 Creatinine [Mass/Vol] 70.80 mg/dL Normal 28.00-217.00 [facility] Comment on above: Performed By: #### L 509.1000, L100.0500, L503.6030, L500.3600, L503.6550, L502.0250 ####[facility] [address] [place], [address] MALB:CREAT 28.5 mg/g CRE Normal <30 mg/g CRE [facility] Comment on above: Performed By: #### L 509.1000, L100.0500, L503.6030, L500.3600, L503.6550, L502.0250 ####[facility] [address] [place], [address] MICROALBUMIN,UR 20.2 mg/L Normal <20 mg/L [facility] Comment on above: Performed By: #### L 509.1000, L100.0500, L503.6030, L500.3600, L503.6550, L502.0250 ####[facility] [address] [place], [address] No Panel InformationOrdered By: Alena Ahn on 05-21-2025 Unsaturated Iron Binding Capacity 230 ug/dL 228-428 [facility] PTHINon 05-21-2025 PTH 75 pg/mL High 11-61 [facility] Comment on above: Performed By: #### L 509.1000, L100.0500, L503.6030, L500.3600, L503.6550, L502.0250 #### [facility] [address] [place], [address] Platelet countOrdered By: Nick Ahn on 05-21-2025 Platelets (Bld) [#/Vol] 182 10*3/uL 150-450 [facility] Potassium measurement (mass/ volume)Ordered By: Alena Ahn on 05-21-2025 Potassium (Unsp spec) [Mass/Vol] 4.0 mmol/L 3.3-5.1 [facility] RBC Auto (Bld) [#/Vol]Ordere d By: Alena Ahn on 05-21-2025 RBC (Bld) [#/Vol] 3.93 10*6/uL Low 4.2-5.4 [facility] Random urine creatinine anamaria urement (mass/volume)Ordered By: Alena Ahn on 05-21-2025 Creatinine Unsp time (U) [Mass/Vol] 70.80 mg/dL 28.00-217.00 [facility] Renal Profileon 05-21-2025 Phosphate [Mass/Vol] 3.5 mg/dL Normal 2.7-4.5 [facility] Comment on above: Performed By: #### L 509.1000, L100.0500, L503.6030, L500.3600, L503.6550, L502.0250 ####[facility] [address] [place], [place], [address] Serum creatinine measurement (mass/volume)Ordered By: Alena Ahn on 05-21-2025 Creatinine [Mass/Vol] 1.50 mg/dL High 0.70-1.20 [facility] Serum glucose measurement (m ass/volume)Ordered By: Alena Ahn on 05-21-2025 Glucose [Mass/Vol] 107 mg/dL High 70-99 [facility] Serum or plasma albumin anamaria urement (mass/volume)Ordered By: Alena Ahn on 05-21-2025 Albumin [Mass/Vol] 4.2 g/dL 3.4-4.8 [facility] Serum or plasma calcium anamaria urement (mass/volume)Ordered By: Alena Ahn on 05-21-2025 Calcium [Mass/Vol] 9.4 mg/dL 7.6-11.0 [facility] Serum or plasma ferritin rk surement (mass/volume)Ordered By: Alena Ahn on 05-21-2025 Ferritin [Mass/Vol] 137 ng/mL 22-378 [facility] Serum or plasma iron saturat ion measurement (mass fraction)Ordered By: Alena Ahn on 05-21-2025 Iron saturation [Mass fraction] 21.0 % 13-59 [facility] Serum or plasma urea nitroge n measurement (mass/volume)Ordered By: lAena Ahn on 05-21-2025 Urea nitrogen [Mass/Vol] 32 mg/dL High 4-19 [facility] Sodium levelOrdered By: Everardo Ahn on 05-21-2025 Sodium [Moles/Vol] 139 mmol/L 133-145 [facility] Urine albumin measurement [facility] detection limit of 20 mg/L or less (mass/volume)Ordered By: Alena Ahn on 05-21-2025 Albumin DL <= 20 mg/L (U) [Mass/Vol] 20.2 mg/L <20 mg/L [facility] White blood cell (WBC) count Ordered By: Alena Ahn on 05-21-2025 WBC (Bld) [#/Vol] 6.0 10*3/uL 4.4-11.0 [facility] Cardiology Visit Reporton Cardiology Visit Report [facility] [address] [place], [place] [address] OFFICE VISIT Date of Service: 04/18/25 MR#: [id number] Acct: [id number] Name: LYNDA BRADLEY Rep #: [id number] : 1965 Provider: Dr. Chauncey Duong MD Age/Sex: 59/F Location: [facility] Status: Signed HPI HPI History of [...] room air Intake Visit Reasons: RE-EST (SELF) Mortgage Loan Funder Required: No Accompanied by: Self Is patient [...] activity do (more content not included)... Normal [facility] Bone density reportOrdered B y: Amado Mayen on 04-17-2025 Study report Skeletal system DXA [facility] Imaging Services [address] [place], [place] [id number] Dexa Bone Density Study MR#: [id number] Acct: [id number] Name: BRADLEYLYNDA J Rep #: [id number] : 1965 F 59 From: Sly Mayen MD PCP: Dr. Mimi Martin DO Status: REG CLI Study:Dexa Bone Density Study Date of Exam: 04/17/25 Exam# [id number] Ordering Dr: Janey Gutierrez PROCEDURE: DEXA BONE [...] Recommend follow-up as clinically warranted. Reading Location: [facility] CC: TRAV Gutierrez; Dr. Mimi Martin DO ~ [employer]: Signed [facility] Dexa Bone Density Studyon Dexa Bone Density Study [facility] Imaging Services [address] [place] [id number] Dexa Bone Density Study MR#: [id number] Acct: [id number] Name: LYNDA BRADLEY Rep #: [id number] : 1965 F 59 From: Amado horowitz MD PCP: Dr. Mimi Martin DO Status: REG CLI Study: Dexa Bone Density Study Date of Exam: 04/17/25 Exam# [id number] Ordering Dr: Janey Gutierrez PROCEDURE: DEXA BONE [...] Recommend follow-up as clinically warranted. Reading Location: [facility] CC: TRAV Gutierrez; Dr. Mimi Martin DO [employer]: Signed Normal [facility] Calculated very low density lipoprotein (VLDL) cholesterol measurementOrdered By: Janey Gutierrez on 04-10-2025 Calculated very low density lipoprotein (VLDL) cholesterol measurement 28 mg/dL 5-40 [facility] LDL calc ser/plasOrdered By: Janey Gutierrez on 04-10-2025 Cholesterol in LDL [Mass/Vol] 92 mg/dL [facility] Comment on above: Dgmdvlqhbz=030-306 m g/dL & Higher Kuxx=893 mg/dL or greater Lipid Profileon 04-10-2025 CHOL:HDL 3.39 Normal [facility] Comment on above: Performed By: #### L 506.0400, L501.9520, L500.4100, L506.1001 ####[facility] [address] [place], [address] Cholesterol [Mass/Vol] 170 mg/dL Normal <=200 [facility] Comment on above: Result Comment: Chol esterol level, Desirable <200 mg/dL Borderline high cholesterol 200-239 mg/dL High cholesterol >=240 mg/dL Recommendations of the NCEP Adult Treatment Panel for the following risk-cutoff thresholds for the [place] population. Performed By: #### L 506.0400, L501.9520, L500.4100, L506.1001 ####[facility] [address] [place], [address] Cholesterol in HDL [Mass/Vol] 50 mg/dL Normal [facility] Comment on above: Result Comment: Yeny onal Cholesterol Education Program (NCEP) guidelines: <40 mg/dL: Low HDL-cholesterol (major risk factor for CHD) >= 60 mg/dL: High HDL-cholesterol (negative risk factor for CHD) HDL-cholesterol is affected by a number of factors, e.g. smoking, exercise, hormones, sex and age. Performed By: #### L 506.0400, L501.9520, L500.4100, L506.1001 ####[facility] [address] [place], [address] Cholesterol in LDL [Mass/Vol] 92 mg/dL Normal [facility] Comment on above: Result Comment: Bord voaqsj=611-584 mg/dL Higher Bjag=394 mg/dL or greater Performed By: #### L 506.0400, L501.9520, L500.4100, L506.1001 ####[facility] [address] [place], [address] Cholesterol in VLDL [Mass/Vol] 28 mg/dL Normal 5-40 [facility] Comment on above: Performed By: #### L 506.0400, L501.9520, L500.4100, L506.1001 ####[facility] [address] [place], [address] Triglyceride [Mass/Vol] 139 mg/dL Normal [facility] Comment on above: Result Comment: The drugs N-Acetylcysteine and Metamizole may falsely depress this assay. Normal range: <150 mg/dL Borderline High: 150-199 mg/dL High: 200-499 mg/dL Very High: >500 mg/dL Performed By: #### L 506.0400, L501.9520, L500.4100, L506.1001 ####[facility] [address] [place], [address] Screening total cholesterol/ high density lipoprotein (HDL) cholesterol ratioOrdered By: Janey Gutierrez on 04-10-2025 Cholesterol.total/Choles terol in HDL [Mass ratio] 3.39 {ratio} [facility] Serum or plasma cholesterol in HDL measurement (mass/volume)Ordered By: Janey Gutierrez on 04-10-2025 Cholesterol in HDL [Mass/Vol] 50 mg/dL >40 [facility] Comment on above: National Cholesterol Education Program (NCEP) guidelines:<40 mg/dL: Low HDL-cholesterol (major risk factor for CHD)>= 60 mg/dL: High HDL-cholesterol (negative risk factor for CHD)HDL-cholesterol is affected by a number of factors, e.g. smoking, exercise, hormones, sex and age. Serum or plasma cholesterol measurement (mass/volume)Ordered By: Janey Gutierrez on 04-10-2025 Cholesterol [Mass/Vol] 170 mg/dL <201 [facility] Comment on above: Cholesterol level, D esirable <200 mg/dLBorderline high cholesterol 200-239 mg/dLHigh cholesterol >=240 mg/dLRecommendations of the NCEP Adult Treatment Panel for the following risk-cutoff thresholds for the [place] population. T4 Free Directon 04-10-2025 T4 FREE DIRECT 1.40 ng/dL Normal 0.76-1.46 [facility] Comment on above: Performed By: #### L 506.0400, L501.9520, L500.4100, L506.1001 ####[facility] [address] [place], [address] T4 freeOrdered By: Emilie on 04-10-2025 Free T4 [Mass/Vol] 1.40 ng/dL 0.76-1.46 [facility] TSH DL <= 0.005 mIU/L QnOrde red By: Janey Gutierrez on 04-10-2025 TSH Qn 0.972 uIU/mL 0.300-4.200 [facility] Thyroid Stim Hormone (TSH)on 04-10-2025 TSH 0.972 uIU/mL Normal 0.300-4.200 [facility] Comment on above: Performed By: #### L 506.0400, L501.9520, L500.4100, L506.1001 ####[facility] [address] [place], [place], [address] Triglycerides measurementOrd ered By: Janey Gutierrez on 04-10-2025 Triglyceride [Mass/Vol] 139 mg/dL <199 [facility] Comment on above: The drugs N-Acetylcy steine and Metamizole may falsely depress this assay. Normal range: <150 mg/dLBorderline High: 150-199 mg/dLHigh: 200-499 mg/dLVery High: >500 mg/dL Vitamin D,25 Hydroxyon 04-10 Vitamin D 25-OH 49.0 ng/mL Normal 30-100 [facility] Comment on above: Result Comment: Leisa min D Status Deficiency: <20 ng/mL (50nmol/L) Insufficiency: 20-30 ng/mL (50-75 nmol/L) Sufficiency: 30-100 ng/mL (75-250 nmol/L) Toxicity: >100 ng/mL (>250 nmol/L) Performed By: #### L 506.0400, L501.9520, L500.4100, L506.1001 ####[facility] [address] [place], [address] Endocrinology Visit Reporton 04-09-2025 Endocrinology Visit Report [facility] [address] [place] [address] OFFICE VISIT Date of Service: 04/09/25 MR#: [id number] Acct: [id number] Name: LYNDA BRADLEY Rep #: [id number] : 1965 Provider: TRAV crooks Age/Sex: 59/F Location: [facility] Status: Signed Intake Vital Signs 01/06/25 11:11 03/05/25 08:02 04/09/25 08:33 Height 5 ft 1 in 5 ft 1 in 5 ft 1 in Weight: 202 lb BMI 38.1 BP 123/80 H Blood Pressure Location Rt brachial Position Sitting Pulse 71 Pulse Source Monitor Pulse Oximetry (%) 97 Oxygen Delivery Method room air Intake Visit Reasons: 3 M FU Chief Complaint: f/u diabetes Mortgage Loan Funder Required: No Accompanied by: Self Is patient [...] PO .Qweekly 04/09/25 History iron) tablet (FeroSul) PFSH Medical History (Updated 04/09/25 @ 09:24 by [...] controlled choleste (more content not included)... Normal [facility] - Hematology and Cell countsOrdered By: Janey Gutierrez on 04-09-2025 HbA1c (Bld) [Mass fraction] 5.7 % 4.2-6.3 [facility] Pulmonary Visit Reporton Pulmonary Visit Report [facility] [place] [address] [place] [address] OFFICE VISIT Date of Service: 03/05/25 MR#: [id number] Acct: [id number] Name: LYNDA BRADLEY Rep #: [id number] : 1965 Provider: TRAV Mari Age/Sex: 59/F Location: [facility] Status: Signed Assessment and Plan Assessment and [...] Additional Comments: This note was generated with [employer] dictation software. It may contain incorrect words, [...] (vitamin B-12) 500 500 mcg PO DAILY 10/31/23 05/14/2 5 History mcg tablet losartan 25 mg tablet 25 mg PO DAILY 02/26/24 03/05/25 H istory zinc acetate 50 (more content not included)... Normal [facility] Anion gap in Serum or Plasma Ordered By: Janey Gutierrez on 01-14-2025 Anion gap [Moles/Vol] 13 mmol/L 5-15 [facility] BUN/creatinine ratioOrdered By: Janey Gutierrez on 01-14-2025 Urea nitrogen/Creatinine [Mass ratio] 14.6 mg/mg 10- [facility] Bilirubin, totalOrdered By: Janey Gutierrez on 01-14-2025 Bilirubin [Mass/Vol] 0.46 mg/dL 0.00-1.30 [facility] Carbon dioxide, total [Moles /volume] in Central venous bloodOrdered By: Janey Gutierrez on 01-14-2025 CO2 [Moles/Vol] 20.3 mmol/L Low 21.0-32.0 [facility] Chloride assayOrdered By: Me kevon Gutierrez on 01-14-2025 Chloride [Moles/Vol] 108 mmol/L 98-108 [facility] Comprehensive Metabolic Prof ilon 01-14-2025 Albumin [Mass/Vol] 3.9 g/dL Normal 3.4-4.8 [facility] Comment on above: Order Comment: JANEY AHN GET RESULTS OF LAB TEST Performed By: #### L 500.4050 ####[facility] [address] [place], [place], [address] Albumin/Globulin [Mass ratio] 1.4 {ratio} Normal 0.9-2.4 [facility] Comment on above: Order Comment: JANEY AHN GET RESULTS OF LAB TEST Performed By: #### L 500.4050 ####[facility] [address] [place], [address] ALK PHOS 80 U/L Normal 35-104 [facility] Comment on above: Order Comment: JANEY AHN GET RESULTS OF LAB TEST Performed By: #### L 500.4050 ####[facility] [address] [place], [address] ALT [Catalytic activity/Vol] 15 U/L Normal <=34 [facility] Comment on above: Order Comment: JANEY GUTIERREZ AND DR. AHN GET RESULTS OF LAB TEST Performed By: #### L 500.4050 ####[facility] [address] [place], [address] AST [Catalytic activity/Vol] 21 U/L Normal <=31 [facility] Comment on above: Order Comment: JANEY GUTIERREZ AND DR. AHN GET RESULTS OF LAB TEST Performed By: #### L 500.4050 ####[facility] [address] [place], [address] Bilirubin [Mass/Vol] 0.46 mg/dL Normal 0.00-1.30 [facility] Comment on above: Order Comment: JANEY AHN GET RESULTS OF LAB TEST Performed By: #### L 500.4050 ####[facility] [address] [place], [address] BUN/CRE 14.6 RATIO Normal 10-20 [facility] Comment on above: Order Comment: JANEY HAN GET RESULTS OF LAB TEST Performed By: #### L 500.4050 ####[facility] [address] [place], [address] Calcium [Mass/Vol] 8.9 mg/dL Normal 7.6-11.0 [facility] Comment on above: Order Comment: JANEY AHN GET RESULTS OF LAB TEST Performed By: #### L 500.4050 ####[facility] [address] [place], [address] Chloride [Moles/Vol] 108 mmol/L Normal 98-108 [facility] Comment on above: Order Comment: JANEY AHN GET RESULTS OF LAB TEST Performed By: #### L 500.4050 ####[facility] [address] [place], [address] CO2 [Moles/Vol] 20.3 mmol/L Low 21.0-32.0 [facility] Comment on above: Order Comment: JANEY GUTIERREZ AND DR. AHN GET RESULTS OF LAB TEST Performed By: #### L 500.4050 ####[facility] [address] [place], [address] Creatinine [Mass/Vol] 1.60 mg/dL High 0.70-1.20 [facility] Comment on above: Order Comment: JANEY GUTIERREZ AND DR. AHN GET RESULTS OF LAB TEST Performed By: #### L 500.4050 ####[facility] [address] [place], [address] GAP 13 Normal 5-15 [facility] Comment on above: Order Comment: JANEY AHN GET RESULTS OF LAB TEST Performed By: #### L 500.4050 ####[facility] [address] [place], [address] GFR/1.73 sq M.predicted among non-blacks MDRD (S/P/Bld) [Vol rate/Area] 36 mL/min/{1.73_m2} Low >60 [facility] Comment on above: Order Comment: JANEY AHN GET RESULTS OF LAB TEST Result Comment: mL/m in/1.73m2 CKD-EPI Creatinine Equation (2020) Performed By: #### L 500.4050 ####[facility] [address] [place], [address] Globulin (S) [Mass/Vol] 2.8 g/dL Normal 2.2-4.2 [facility] Comment on above: Order Comment: JANEY AHN GET RESULTS OF LAB TEST Performed By: #### L 500.4050 ####[facility] [address], [address] Glucose [Mass/Vol] 114 mg/dL High 70-99 [facility] Comment on above: Order Comment: JANEY GUTIERREZ AND DR. AHN GET RESULTS OF LAB TEST Performed By: #### L 500.4050 ####[facility] [address] [place], [address] Potassium [Moles/Vol] 3.9 mmol/L Normal 3.3-5.1 [facility] Comment on above: Order Comment: JANEY GUTIERREZ AND DR. AHN GET RESULTS OF LAB TEST Performed By: #### L 500.4050 ####[facility] [address] [place], [address] Sodium [Moles/Vol] 141 mmol/L Normal 133-145 [facility] Comment on above: Order Comment: JANEY GUTIERREZ AND DR. AHN GET RESULTS OF LAB TEST Performed By: #### L 500.4050 ####[facility] [address] [place], [address] T PROT 6.7 g/dL Normal 5.9-8.4 [facility] Comment on above: Order Comment: JANEY GUTIERREZ AND DR. AHN GET RESULTS OF LAB TEST Performed By: #### L 500.4050 ####[facility] [address] [place], [address] Urea nitrogen [Mass/Vol] 23 mg/dL High 4-19 [facility] Comment on above: Order Comment: JANEY AHN GET RESULTS OF LAB TEST Performed By: #### L 500.4050 ####[facility] [address] [place], [address] GFR/1.73 sq M.predicted shira g non-blacks MDRD (S/P/Bld) [Vol rate/Area]Ordered By: Janey Gutierrez on 01-14-2025 Estimated GFR (MDRD) Non-Af Amer 36 Low >60 [facility] Comment on above: mL/min/1.73m2 CKD-EP I Creatinine Equation (2020) Glomerular filtration rate ( GFR) estimation/1.73 sq m using serum, plasma, or whole bOrdered By: Janey Gutierrez on 01-14-2025 GFR/1.73 sq M.predicted among non-blacks MDRD (S/P/Bld) [Vol rate/Area] 36 mL/min/{1.73_m2} Low >60 [facility] Comment on above: mL/min/1.73m2 CKD-EP I Creatinine Equation (2020) Laboratory - Chemistry and C hemistry - challengeOrdered By: Janey Gutierrez on 01-14-2025 AST [Catalytic activity/Vol] 21 U/L <32 [facility] Potassium (Unsp spec) [Mass/ Vol]Ordered By: Janey Gutierrez on 01-14-2025 Potassium [Moles/Vol] 3.9 mmol/L 3.3-5.1 [facility] Potassium measurement (mass/ volume)Ordered By: Janey Gutierrez on 01-14-2025 Potassium (Unsp spec) [Mass/Vol] 3.9 mmol/L 3.3-5.1 [facility] Serum creatinine measurement (mass/volume)Ordered By: Janey Gutierrez on 01-14-2025 Creatinine [Mass/Vol] 1.60 mg/dL High 0.70-1.20 [facility] Serum globulin measurementOr dered By: Janey Gutierrez on 01-14-2025 Globulin (S) [Mass/Vol] 2.8 g/dL 2.2-4.2 [facility] Serum glucose measurement (m ass/volume)Ordered By: Janey Gutierrez on 01-14-2025 Glucose [Mass/Vol] 114 mg/dL High 70-99 [facility] Serum or plasma alanine sabillon otransferase (ALT) measurementOrdered By: Janey Gutierrez on 01-14-2025 ALT [Catalytic activity/Vol] 15 U/L <35 [facility] Serum or plasma albumin anamaria urement (mass/volume)Ordered By: Janey Gutierrez on 01-14-2025 Albumin [Mass/Vol] 3.9 g/dL 3.4-4.8 [facility] Serum or plasma albumin/glob ulin mass ratioOrdered By: Janey Gutierrez on 01-14-2025 Albumin/Globulin [Mass ratio] 1.4 {ratio} 0.9-2.4 [facility] Serum or plasma alkaline wayne sphatase measurementOrdered By: Janey Gutierrez on 01-14-2025 ALP [Catalytic activity/Vol] 80 U/L 35-104 [facility] Serum or plasma calcium anamaria urement (mass/volume)Ordered By: Janey Gutierrez on 01-14-2025 Calcium [Mass/Vol] 8.9 mg/dL 7.6-11.0 [facility] Serum or plasma urea nitroge n measurement (mass/volume)Ordered By: Janey Gutierrez on 01-14-2025 Urea nitrogen [Mass/Vol] 23 mg/dL High 4-19 [facility] Sodium levelOrdered By: Alek Gutierrez on 01-14-2025 Sodium [Moles/Vol] 141 mmol/L 133-145 [facility] Total proteinOrdered By: Karen Gutierrez on 01-14-2025 Protein [Mass/Vol] 6.7 g/dL 5.9-8.4 [facility] Endocrinology Visit Reporton 01-06-2025 Endocrinology Visit Report [facility] [address] [place] [address] OFFICE VISIT Date of Service: 01/06/25 MR#: [id number] Acct: [id number] Name: LYNDA BRADLEY Rep #: [id number] : 1965 Provider: TRAV crooks Age/Sex: 59/F Location: [facility] [place] Status: Signed Intake Vital Signs 09/11/24 09:27 [...] room air Intake Visit Reasons: 4 M JOSEF, RS 12/12 Chief Complaint: f/u diabetes Is [...] No dizziness/ve (more content not included)... Normal [facility] - Hematology and Cell countsOrdered By: Janey Gutierrez on 01-06-2025 HbA1c (Bld) [Mass fraction] 5.9 % 4.2-6.3 [facility] Endocrinology Visit Reporton 09-11-2024 Endocrinology Visit Report [facility] [address] [place] [address] OFFICE VISIT Date of Service: 09/11/24 MR#: [id number] Acct: [id number] Name: LYNDA BRADLEY Rep #: [id number] : 1965 Provider: TRAV crooks Age/Sex: 59/F Location: [facility] [place] Status: Signed Intake Vital Signs 02/26/24 08:03 09/11/24 09:27 Height 5 ft 1 in 5 ft 1 in Weight: 213 lb BMI 40.2 BP 142/82 H Blood Pressure Location Lt brachial Position Sitting Pulse 79 Pulse Source Monitor Pulse Oximetry (%) 94 Oxygen Delivery Method room air Intake Visit Reasons: Diabetes Chief Complaint: establish care- diabetes Mortgage Loan Funder Required: No Accompanied by: Self Is patient [...] Labs a (more content not included)... Normal [facility] CBC-Complete Blood Cnt No Di ffon 09-09-2024 Erythrocyte distribution width (RBC) [Ratio] 13.4 % Normal 11.6-14.6 [facility] Comment on above: Performed By: #### L 503.6030, L501.9985, L500.3600, L100.0500, L500.4100, L503.6550 ####[facility] [address] [place], [address] Hematocrit (Bld) [Volume fraction] 37.8 % Normal 37-47 [facility] Comment on above: Performed By: #### L 503.6030, L501.9985, L500.3600, L100.0500, L500.4100, L503.6550 ####[facility] [address] [place], [address] Hemoglobin (Bld) [Mass/Vol] 12.4 g/dL Normal 12.0-15.0 [facility] Comment on above: Performed By: #### L 503.6030, L501.9985, L500.3600, L100.0500, L500.4100, L503.6550 ####[facility] [address] [place], [address] MCH (RBC) [Entitic mass] 31.3 pg Normal 27.0-32.0 [facility] Comment on above: Performed By: #### L 503.6030, L501.9985, L500.3600, L100.0500, L500.4100, L503.6550 ####[facility] [address] [place], [address] MCHC (RBC) [Mass/Vol] 32.8 g/dL Normal 32-36 [facility] Comment on above: Performed By: #### L 503.6030, L501.9985, L500.3600, L100.0500, L500.4100, L503.6550 ####[facility] [address] [place], [address] MCV (RBC) [Entitic vol] 95.5 fL Normal 81-99 [facility] Comment on above: Performed By: #### L 503.6030, L501.9985, L500.3600, L100.0500, L500.4100, L503.6550 ####[facility] [address] [place], [address] Platelet mean volume (Bld) [Entitic vol] 11.1 fL Normal 6.2-12.0 [facility] Comment on above: Performed By: #### L 503.6030, L501.9985, L500.3600, L100.0500, L500.4100, L503.6550 ####[facility] [address] [place], [address] Platelets (Bld) [#/Vol] 215 10*3/uL Normal 150-450 [facility] Comment on above: Performed By: #### L 503.6030, L501.9985, L500.3600, L100.0500, L500.4100, L503.6550 ####[facility] [address] [place], [address] RBC (Bld) [#/Vol] 3.96 10*6/uL Low 4.2-5.4 [facility] Comment on above: Performed By: #### L 503.6030, L501.9985, L500.3600, L100.0500, L500.4100, L503.6550 ####[facility] [address] [place], [address] RDW SD 47.0 fl High 35.1-43.9 [facility] Comment on above: Performed By: #### L 503.6030, L501.9985, L500.3600, L100.0500, L500.4100, L503.6550 ####[facility] [address] [place], [address] WBC (Bld) [#/Vol] 7.3 10*3/uL Normal 4.4-11.0 [facility] Comment on above: Performed By: #### L 503.6030, L501.9985, L500.3600, L100.0500, L500.4100, L503.6550 ####[facility] [address] [place], [address] Ferritinon 09-09-2024 Ferritin [Mass/Vol] 83 ng/mL Normal 8-252 [facility] Comment on above: Performed By: #### L 503.6030, L501.9985, L500.3600, L100.0500, L500.4100, L503.6550 ####[facility] [address] [place], [address] Hemoglobin A1con 09-09-2024 HbA1c (Bld) [Mass fraction] 6.4 % High 3.8-5.6 [facility] Comment on above: Result Comment: Norm al < 5.7 % Prediabetic 5.7 - 6.4 % Diabetic >or= 6.5 % Please note range changes. Performed By: #### L 503.6030, L501.9985, L500.3600, L100.0500, L500.4100, L503.6550 ####[facility] [address] [place], [address] Iron+Iron Binding Capacityon 09-09-2024 Iron [Mass/Vol] 106 ug/dL Normal 50-170 [facility] Comment on above: Performed By: #### L 503.6030, L501.9985, L500.3600, L100.0500, L500.4100, L503.6550 ####[facility] [address] [place], [address] IRON SATURATION 32.7 Normal 15.0-55.0 [facility] Comment on above: Performed By: #### L 503.6030, L501.9985, L500.3600, L100.0500, L500.4100, L503.6550 ####[facility] [address] [place], [address] TIBC 324 ug/dL Normal 250-450 [facility] Comment on above: Performed By: #### L 503.6030, L501.9985, L500.3600, L100.0500, L500.4100, L503.6550 ####[facility] [address] [place], [address] Lipid Profileon 09-09-2024 Cholesterol [Mass/Vol] 238 mg/dL High 200 [facility] Comment on above: Result Comment: <200 mg/dL Desirable 200-240 mg/dL Borderline >240 mg/dL High Risk Performed By: #### L 503.6030, L501.9985, L500.3600, L100.0500, L500.4100, L503.6550 ####[facility] [address] [place], [address] Cholesterol in HDL [Mass/Vol] 57 mg/dL Normal [facility] Comment on above: Result Comment: The drugs N-Acetylcysteine and Metamizole may falsely depress this assay. Reference Range HDL <40 mg/dL Low HDL Cholesterol HDL >or= 60 mg/dL High HDL Cholesterol Performed By: #### L 503.6030, L501.9985, L500.3600, L100.0500, L500.4100, L503.6550 ####[facility] [address] [place], [address] Cholesterol in LDL [Mass/Vol] 122 mg/dL Normal 0-130 [facility] Comment on above: Performed By: #### L 503.6030, L501.9985, L500.3600, L100.0500, L500.4100, L503.6550 ####[facility] [address] [place], [address] Cholesterol in VLDL [Mass/Vol] 59 mg/dL High 5-40 [facility] Comment on above: Performed By: #### L 503.6030, L501.9985, L500.3600, L100.0500, L500.4100, L503.6550 ####[facility] [address] [place], [address] Triglyceride [Mass/Vol] 296 mg/dL High [facility] Comment on above: Result Comment: The drugs N-Acetylcysteine and Metamizole may falsely depress this assay. Serum Triglycerides Reference Interval Normal <150 mg/dL Borderline high 150 - 199 mg/dL High 200 - 499 mg/dL Very High > or = 500 mg/dL Performed By: #### L 503.6030, L501.9985, L500.3600, L100.0500, L500.4100, L503.6550 ####[facility] [address] [place], [address] Renal Profileon 09-09-2024 Albumin [Mass/Vol] 3.7 g/dL Normal 3.2-5.0 [facility] Comment on above: Performed By: #### L 503.6030, L501.9985, L500.3600, L100.0500, L500.4100, L503.6550 ####[facility] [address] [place], [address] BUN/CRE 21.8 RATIO High 10-20 [facility] Comment on above: Performed By: #### L 503.6030, L501.9985, L500.3600, L100.0500, L500.4100, L503.6550 ####[facility] [address] [place], [address] CA,Total 9.0 mg/dL Normal 8.5-10.1 [facility] Comment on above: Performed By: #### L 503.6030, L501.9985, L500.3600, L100.0500, L500.4100, L503.6550 ####[facility] [address] [place], [address] Chloride [Moles/Vol] 108 mmol/L High 98-107 [facility] Comment on above: Performed By: #### L 503.6030, L501.9985, L500.3600, L100.0500, L500.4100, L503.6550 ####[facility] [address] [place], [address] CO2 [Moles/Vol] 24.0 mmol/L Normal 21.0-32.0 [facility] Comment on above: Performed By: #### L 503.6030, L501.9985, L500.3600, L100.0500, L500.4100, L503.6550 ####[facility] [address] [place], [address] Creatinine [Mass/Vol] 1.65 mg/dL High 0.55-1.02 [facility] Comment on above: Result Comment: The validity of the calculated GFR GFRAA in patients over 70 years has not been determined. Clinical correlation is essential. Performed By: #### L 503.6030, L501.9985, L500.3600, L100.0500, L500.4100, L503.6550 ####[facility] [address] [place], [address] EST GFR - AA 41 mL/min Low >60 [facility] Comment on above: Result Comment: Afri can Egyptian GFR Calc Performed By: #### L 503.6030, L501.9985, L500.3600, L100.0500, L500.4100, L503.6550 ####[facility] [address] [place], [address] GFR/1.73 sq M.predicted among non-blacks MDRD (S/P/Bld) [Vol rate/Area] 34 mL/min/{1.73_m2} Low >60 [facility] Comment on above: Result Comment: Non- GFR Calc Performed By: #### L 503.6030, L501.9985, L500.3600, L100.0500, L500.4100, L503.6550 ####[facility] [address] [place], [address] Glucose [Mass/Vol] 151 mg/dL High 74-106 [facility] Comment on above: Result Comment: Fast ing Glucose result greater than or equal to 126 mg/dL suggests DIABETES MELLITUS per A.D.A. criteria. Performed By: #### L 503.6030, L501.9985, L500.3600, L100.0500, L500.4100, L503.6550 ####[facility] [address] [place], [address] Phosphate [Mass/Vol] 2.9 mg/dL Normal 2.5-4.9 [facility] Comment on above: Performed By: #### L 503.6030, L501.9985, L500.3600, L100.0500, L500.4100, L503.6550 ####[facility] [address] [place], [address] Potassium [Moles/Vol] 3.7 mmol/L Normal 3.5-5.1 [facility] Comment on above: Performed By: #### L 503.6030, L501.9985, L500.3600, L100.0500, L500.4100, L503.6550 ####[facility] [address] [place], [address] Sodium [Moles/Vol] 138 mmol/L Normal 136-145 [facility] Comment on above: Performed By: #### L 503.6030, L501.9985, L500.3600, L100.0500, L500.4100, L503.6550 ####[facility] [address] [place], [address] Urea nitrogen [Mass/Vol] 36 mg/dL High 7-18 [facility] Comment on above: Performed By: #### L 503.6030, L501.9985, L500.3600, L100.0500, L500.4100, L503.6550 ####[facility] [address] [place], [address] Breast Limited Unilateralon 08-16-2024 Breast Limited Unilateral [facility] Imaging Services [address] [place] [address] Breast Limited Unilateral MR#: [id number] Acct: [id number] Name: LYNDA BRADLEY Rep #: [id number] : 1965 F 59 From: Amado horowitz MD PCP: Dr. Mimi Martin, DO Status: REG CLI Study: Breast Limited Unilateral Date of Exam: Exam# [id number] Ordering Dr: Mimi Martin DO [id number] STUDY: ULTRASOUND BREAST - RIGHT REASON FOR [...] Signed: Amado Mayen MD at 12:21 EDT , CC: Dr. Mimi Martin DO [employer]: Signed Normal [facility] CBC-Complete Blood Cnt No Di ffon 08-15-2024 Erythrocyte distribution width (RBC) [Ratio] 13.2 % Normal 11.6-14.6 [facility] Comment on above: Performed By: #### L 502.0250, L100.0500, L503.6030, L500.3600, L503.6550 ####[facility] [address] [place], [address] Hematocrit (Bld) [Volume fraction] 34.6 % Low 37-47 [facility] Comment on above: Performed By: #### L 502.0250, L100.0500, L503.6030, L500.3600, L503.6550 ####[facility] [address] [place], [address] Hemoglobin (Bld) [Mass/Vol] 11.4 g/dL Low 12.0-15.0 [facility] Comment on above: Performed By: #### L 502.0250, L100.0500, L503.6030, L500.3600, L503.6550 ####[facility] [address] [place], [address] MCH (RBC) [Entitic mass] 31.2 pg Normal 27.0-32.0 [facility] Comment on above: Performed By: #### L 502.0250, L100.0500, L503.6030, L500.3600, L503.6550 ####[facility] [address] [place], [address] MCHC (RBC) [Mass/Vol] 32.9 g/dL Normal 32-36 [facility] Comment on above: Performed By: #### L 502.0250, L100.0500, L503.6030, L500.3600, L503.6550 ####[facility] [address] [place], [address] MCV (RBC) [Entitic vol] 94.8 fL Normal 81-99 [facility] Comment on above: Performed By: #### L 502.0250, L100.0500, L503.6030, L500.3600, L503.6550 ####[facility] [address] [place], [address] Platelet mean volume (Bld) [Entitic vol] 10.3 fL Normal 6.2-12.0 [facility] Comment on above: Performed By: #### L 502.0250, L100.0500, L503.6030, L500.3600, L503.6550 ####[facility] [address] [place], [address] Platelets (Bld) [#/Vol] 189 10*3/uL Normal 150-450 [facility] Comment on above: Performed By: #### L 502.0250, L100.0500, L503.6030, L500.3600, L503.6550 ####[facility] [address] [place], [address] RBC (Bld) [#/Vol] 3.65 10*6/uL Low 4.2-5.4 [facility] Comment on above: Performed By: #### L 502.0250, L100.0500, L503.6030, L500.3600, L503.6550 ####[facility] [address] [place], [address] RDW SD 45.1 fl High 35.1-43.9 [facility] Comment on above: Performed By: #### L 502.0250, L100.0500, L503.6030, L500.3600, L503.6550 ####[facility] [address] [place], [address] WBC (Bld) [#/Vol] 7.1 10*3/uL Normal 4.4-11.0 [facility] Comment on above: Performed By: #### L 502.0250, L100.0500, L503.6030, L500.3600, L503.6550 ####[facility] [address] [place], [address] Ferritinon 08-15-2024 Ferritin [Mass/Vol] 69 ng/mL Normal 8-252 [facility] Comment on above: Order Comment: F Performed By: #### L 502.0250, L100.0500, L503.6030, L500.3600, L503.6550 ####[facility] [address] [place], [address] Iron+Iron Binding Capacityon 08-15-2024 Iron [Mass/Vol] 64 ug/dL Normal 50-170 [facility] Comment on above: Order Comment: F Performed By: #### L 502.0250, L100.0500, L503.6030, L500.3600, L503.6550 ####[facility] [address] [place], [place], [address] IRON SATURATION 20.8 Normal 15.0-55.0 [facility] Comment on above: Order Comment: F Performed By: #### L 502.0250, L100.0500, L503.6030, L500.3600, L503.6550 ####[facility] [address] [place], [address] TIBC 308 ug/dL Normal 250-450 [facility] Comment on above: Order Comment: F Performed By: #### L 502.0250, L100.0500, L503.6030, L500.3600, L503.6550 ####[facility] [address] [place], [address] Microalb:Creat Ratio,Random URon 08-15-2024 Creatinine [Mass/Vol] 39.50 mg/dL Normal NO RANGE EST. [facility] Comment on above: Performed By: #### L 502.0250, L100.0500, L503.6030, L500.3600, L503.6550 ####[facility] [address] [place], [address] MALB:CRE 50.1 mg/g CRE High <30 mg/g CRE [facility] Comment on above: Performed By: #### L 502.0250, L100.0500, L503.6030, L500.3600, L503.6550 ####[facility] [address] [place], [address] MICROALBUMIN,UR 19.8 mg/L Normal NO RANGE EST. [facility] Comment on above: Performed By: #### L 502.0250, L100.0500, L503.6030, L500.3600, L503.6550 ####[facility] [address] [place], [address] Renal Profileon 08-15-2024 Albumin [Mass/Vol] 3.7 g/dL Normal 3.2-5.0 [facility] Comment on above: Order Comment: F Performed By: #### L 502.0250, L100.0500, L503.6030, L500.3600, L503.6550 ####[facility] [address] [place], [address] BUN/CRE 20.2 RATIO High 10-20 [facility] Comment on above: Order Comment: F Performed By: #### L 502.0250, L100.0500, L503.6030, L500.3600, L503.6550 ####[facility] [address] [place], [address] CA,Total 9.2 mg/dL Normal 8.5-10.1 [facility] Comment on above: Order Comment: F Performed By: #### L 502.0250, L100.0500, L503.6030, L500.3600, L503.6550 ####[facility] [address] [place], [address] Chloride [Moles/Vol] 109 mmol/L High 98-107 [facility] Comment on above: Order Comment: F Performed By: #### L 502.0250, L100.0500, L503.6030, L500.3600, L503.6550 ####[facility] [address] [place], [address] CO2 [Moles/Vol] 20.0 mmol/L Low 21.0-32.0 [facility] Comment on above: Order Comment: F Performed By: #### L 502.0250, L100.0500, L503.6030, L500.3600, L503.6550 ####[facility] [address] [place], [address] Creatinine [Mass/Vol] 1.78 mg/dL High 0.55-1.02 [facility] Comment on above: Order Comment: F Result Comment: The validity of the calculated GFR GFRAA in patients over 70 years has not been determined. Clinical correlation is essential. Performed By: #### L 502.0250, L100.0500, L503.6030, L500.3600, L503.6550 ####[facility] [address] [place], [address] EST GFR - AA 37 mL/min Low >60 [facility] Comment on above: Order Comment: F Result Comment: Afri can Egyptian GFR Calc Performed By: #### L 502.0250, L100.0500, L503.6030, L500.3600, L503.6550 ####[facility] [address] [place], [address] GFR/1.73 sq M.predicted among non-blacks MDRD (S/P/Bld) [Vol rate/Area] 31 mL/min/{1.73_m2} Low >60 [facility] Comment on above: Order Comment: F Result Comment: Non- GFR Calc Performed By: #### L 502.0250, L100.0500, L503.6030, L500.3600, L503.6550 ####[facility] [address] [place], [address] Glucose [Mass/Vol] 155 mg/dL High 74-106 [facility] Comment on above: Order Comment: F Result Comment: Fast ing Glucose result greater than or equal to 126 mg/dL suggests DIABETES MELLITUS per A.D.A. criteria. Performed By: #### L 502.0250, L100.0500, L503.6030, L500.3600, L503.6550 ####[facility] [address] [place], [address] Phosphate [Mass/Vol] 3.6 mg/dL Normal 2.5-4.9 [facility] Comment on above: Order Comment: F Performed By: #### L 502.0250, L100.0500, L503.6030, L500.3600, L503.6550 ####[facility] [address] [place], [address] Potassium [Moles/Vol] 3.8 mmol/L Normal 3.5-5.1 [facility] Comment on above: Order Comment: F Performed By: #### L 502.0250, L100.0500, L503.6030, L500.3600, L503.6550 ####[facility] [address] [place], [address] Sodium [Moles/Vol] 138 mmol/L Normal 136-145 [facility] Comment on above: Order Comment: F Performed By: #### L 502.0250, L100.0500, L503.6030, L500.3600, L503.6550 ####[facility] [address] [place], [address] Urea nitrogen [Mass/Vol] 36 mg/dL High 7-18 [facility] Comment on above: Order Comment: F Performed By: #### L 502.0250, L100.0500, L503.6030, L500.3600, L503.6550 ####[facility] [address] [place], [address] SCRN MAMM (CAD)W/JAYME BILATo n 08-15-2024 SCRN MAMM (CAD)W/JAYME BILAT [facility] Imaging Services [address] [place] [address] SCRN MAMM (CAD)W/JAYME BILAT MR#: [id number] Acct: [id number] Name: LYNDA BRADLEY Rep #: [id number] : 1965 F 59 From: Amado horowitz MD PCP: Dr. Mimi Martin DO Status: [facility] Study: SCRN MAMM (CAD)W/JAYME BILAT Date of Exam: 07/24 02/13 Exam# [id number] Ordering Dr: Mimi Martin DO [id number] MAMMOGRAPHY - BILATERAL SCREENING REASON FOR EXAM: [...] delay biopsy of a clinically suspicious abnormality. [id number] Electronically Signed: Amado Mayen MD at 9:38 EDT , CC: Dr. Mimi Martin DO [employer]: Signed Normal [facility] Kidney and Bladderon 024 Kidney and Bladder [facility] Imaging Services [address] [place] [id number] Kidney and Bladder MR#: [id number] Acct: [id number] Name: LYNDA BRADLEY Rep #: [id number] : 1965 F 59 From: Tony fournier MD PCP: Dr. Mimi Martin DO Status: [facility] CLI Study: Kidney and Bladder Date of Exam: 06/03/24 Exam# [id number] Ordering Dr: Mimi Martin DO [id number] STUDY: RENAL ULTRASOUND - COMPLETE REASON FOR [...] EDT , CC: Dr. Mimi Martin DO [employer]: Signed Normal [facility] CNOVon 03-25-2024 CNOV Office Visit ([facility] ) LYNDA BRADLEY ([id number]) 1965 F Date Time Provider Department 03/25/24 8:15 AM MELANY SAEZ [facility] During your visit today, we recorded the [...] 11/26/15 Colonoscopy (MAC) DISARTICULATION KNEE 01/01/2007 right ESOPHAGOGASTRODUODENO SCOPY TRANSORAL DIAGNOSTIC 11/26/15 EGD ([facility]) PAST SURGICAL HISTORY OF 10/27/11 Sterilization - [...] COMPOUNDED PRESCRIPTION Left foot brace, arch support. [employer] Dx DM 2 blood sugar diagnostic (FREESTYLE [...] Paternal Aunt (more content not included)... Normal [facility] Laboratory - Chemistry and C hemistry - challengeOrdered By: Mimi Martin on 01-10-2024 Cobalamin (Vitamin B12) [Mass/Vol] 1131 pg/mL 211-911 [facility] No Panel InformationOrdered By: Mimi Martin on 01-10-2024 Free Triiodothyronine (T3) pg/dL 2.3 pg/mL 2.18-3.98 [facility] Serum or plasma thyroid stim ulating hormone (TSH) measurement (units/volume)Ordered By: Mimi Martin on 01-10-2024 TSH Qn 2.08 uIU/mL 0.358-3.74 [facility] Thin prep Papanicolaou smear with manual screeningOrdered By: Mimi Martin on 01-10-2024 Thin prep Papanicolaou smear with manual screening 1.23 ng/dL 0.76-1.46 [facility] Whole blood hemoglobin A1c/t otal hemoglobin ratio (mass fraction)Ordered By: Mimi Martin on 01-10-2024 HbA1c (Bld) [Mass fraction] 5.9 % 3.8-5.6 [facility] Comment on above: Normal < 5.7 % Predi abetic 5.7 - 6.4 % Diabetic >or= 6.5 % Please note range changes. Laboratory - Chemistry and C hemistry - challengeOrdered By: Alena Ahn on 08-14-2023 Cobalamin (Vitamin B12) [Mass/Vol] 466 pg/mL 211-911 [facility] Basophil percentageOrdered B y: Alena Ahn on 08-11-2023 Basophil percentage 3.3 mg/dL 2.5-4.9 [facility] Chloride [Moles/Vol] 109 mmol/L 98-107 [facility] Cholesterol [Mass/Vol] 173 mg/dL <200 [facility] Comment on above: <200 mg/dL Desirable 200-240 mg/dL Borderline >240 mg/dL High Risk Glucose [Mass/Vol] 141 mg/dL 74-106 [facility] Comment on above: Fasting Glucose resu lt greater than or equal to 126 mg/dL suggests DIABETES MELLITUS per A.D.A. criteria. Potassium [Moles/Vol] 4.0 mmol/L 3.5-5.1 [facility] Sodium [Moles/Vol] 140 mmol/L 136-145 [facility] Triglyceride [Mass/Vol] 227 mg/dL <199 [facility] Comment on above: The drugs N-Acetylcy steine and Metamizole may falsely depress this assay.Serum Triglycerides Reference Interval Normal <150 mg/dL Borderline high 150 - 199 mg/dL High 200 - 499 mg/dL Very High > or = 500 mg/dL WBC (Bld) [#/Vol] 4.4 10*3/uL 4.4-11.0 [facility] Blood erythrocytes count (nu mber/volume)Ordered By: Alena Ahn on 08-11-2023 RBC (Bld) [#/Vol] 3.45 10*6/uL 4.2-5.4 [facility] Blood hemoglobin measurement (mass/volume)Ordered By: Alena Ahn on 08-11-2023 Hemoglobin (Bld) [Mass/Vol] 10.6 g/dL 12.0-15.0 [facility] Blood platelet mean volumeOr dered By: Alena Ahn on 08-11-2023 Platelet mean volume (Bld) [Entitic vol] 11.1 fL 6.2-12.0 [facility] Determination of erythrocyte mean corpuscular volume (MCV)Ordered By: Alena Ahn on 08-11-2023 MCV (RBC) [Entitic vol] 96.8 fL 81-99 [facility] Hematocrit Auto (Bld) [Volum e fraction]Ordered By: Alena Ahn on 08-11-2023 Hematocrit (Bld) [Volume fraction] 33.4 % 37-47 [facility] Iron measurement (mass/mass) Ordered By: Alena Ahn on 08-11-2023 Iron (Unsp spec) [Mass/Mass] 56 ug/dL 50-170 [facility] Laboratory - Chemistry and C hemistry - challengeOrdered By: Alena Ahn on 08-11-2023 CO2 [Moles/Vol] 23.0 mmol/L 21.0-32.0 [facility] Free T4 [Mass/Vol] 1.23 ng/dL 0.76-1.46 [facility] Urea nitrogen/Creatinine [Mass ratio] 25.2 mg/mg 08-11 [facility] Laboratory - Hematology and Cell countsOrdered By: Alena Ahn on 08-11-2023 Erythrocyte distribution width (RBC) [Entitic vol] 47.6 fL 35.1-43.9 [facility] Erythrocyte distribution width (RBC) [Ratio] 13.4 % 11.6-14.6 [facility] MCH (RBC) [Entitic mass] 30.7 pg 27.0-32.0 [facility] MCHC Auto (RBC) [Mass/Vol]Or dered By: Alena Ahn on 08-11-2023 MCHC (RBC) [Mass/Vol] 31.7 g/dL 32-36 [facility] No Panel InformationOrdered By: Alena Ahn on 08-11-2023 Estimated GFR (MDRD) Amer 53 mL/min >60 [facility] Comment on above: GFR Calc Estimated GFR (MDRD) Non-Af Amer 44 mL/min >60 [facility] Comment on above: Non- GFR Calc Free Triiodothyronine (T3) pg/dL 2.4 pg/mL 2.18-3.98 [facility] Thyroid Stimulating Hormone (TSH) 0.46 uIU/mL 0.358-3.74 [facility] Platelets bldOrdered By: Destiny Ahn on 08-11-2023 Platelets (Bld) [#/Vol] 192 10*3/uL 150-450 [facility] Serum or plasma albumin anamaria urement (mass/volume)Ordered By: Alena Ahn on 08-11-2023 Albumin [Mass/Vol] 3.4 g/dL 3.2-5.0 [facility] Serum or plasma calcium anamaria urement (mass/volume)Ordered By: Alena Ahn on 08-11-2023 Calcium [Mass/Vol] 9.0 mg/dL 8.5-10.1 [facility] Serum or plasma cholesterol in HDL measurement (mass/volume)Ordered By: Alena Ahn on 08-11-2023 Cholesterol in HDL [Mass/Vol] 50 mg/dL >40 [facility] Comment on above: The drugs N-Acetylcy steine and Metamizole may falsely depress this assay. Reference Range HDL <40 mg/dL Low HDL Cholesterol HDL >or= 60 mg/dL High HDL Cholesterol Serum or plasma cholesterol in VLDL measurement (mass/volume)Ordered By: Alena Ahn on 08-11-2023 Cholesterol in VLDL [Mass/Vol] 45 mg/dL 5-40 [facility] Serum or plasma creatinine m easurement (mass/volume)Ordered By: Alena Ahn on 08-11-2023 Creatinine [Mass/Vol] 1.31 mg/dL 0.55-1.02 [facility] Comment on above: The validity of the calculated GFR & GFRAA in patients over 70 years has not been determined. Clinical correlation is essential. Serum or plasma ferritin rk surement (mass/volume)Ordered By: Alena Ahn on 08-11-2023 Ferritin [Mass/Vol] 44 ng/mL 8-252 [facility] Serum or plasma low density lipoprotein (LDL) cholesterol measurement (mass/volume)Ordered By: Alena Ahn on 08-11-2023 Cholesterol in LDL [Mass/Vol] 78 mg/dL 0-130 [facility] Serum or plasma urea nitroge n measurement (mass/volume)Ordered By: Alena Ahn on 08-11-2023 Urea nitrogen [Mass/Vol] 33 mg/dL 7-18 [facility] Absolute lymphocyte countOrd ered By: Mimi Martin on 05-17-2023 Lymphocytes Auto (Unsp spec) [#/Vol] 1.24 10*3/uL 0.83-4.51 [facility] Basophil percentageOrdered B y: Mimi Martin on 05-17-2023 Basophils/100 WBC (Bld) 0.5 % 0-1 [facility] Eosinophils/100 WBC (Bld) 3.7 % 0-5 [facility] Neutrophils (Bld) [#/Vol] 3.7 10*3/uL 2.0-7.7 [facility] Neutrophils/100 WBC (Bld) 68.4 % 47-70 [facility] WBC (Bld) [#/Vol] 5.5 10*3/uL 4.4-11.0 [facility] Blood erythrocytes count (nu mber/volume)Ordered By: Mimi Martin on 05-17-2023 RBC (Bld) [#/Vol] 3.50 10*6/uL 4.2-5.4 [facility] Blood hemoglobin measurement (mass/volume)Ordered By: Mimi Martin on 05-17-2023 Hemoglobin (Bld) [Mass/Vol] 11.3 g/dL 12.0-15.0 [facility] Blood lymphocytes/100 leukoc ytesOrdered By: Mimi Martin on 05-17-2023 Lymphocytes/100 WBC (Bld) 22.7 % 19-41 [facility] Blood monocytes/100 leukocyt esOrdered By: Mimi Martin on 05-17-2023 Monocytes/100 WBC (Bld) 4.2 % 0-10 [facility] Blood platelet mean volumeOr dered By: Mimi Martin on 05-17-2023 Platelet mean volume (Bld) [Entitic vol] 11.4 fL 6.2-12.0 [facility] Determination of erythrocyte mean corpuscular volume (MCV)Ordered By: Mimi Martin on 05-17-2023 MCV (RBC) [Entitic vol] 96.6 fL 81-99 [facility] Hematocrit Auto (Bld) [Volum e fraction]Ordered By: Mimi Martin on 05-17-2023 Hematocrit (Bld) [Volume fraction] 33.8 % 37-47 [facility] Laboratory - Chemistry and C hemistry - challengeOrdered By: Mimi Martin on 05-17-2023 Cobalamin (Vitamin B12) [Mass/Vol] 458 pg/mL 211-911 [facility] Free T4 [Mass/Vol] 1.20 ng/dL 0.76-1.46 [facility] Laboratory - Hematology and Cell countsOrdered By: Mimi Martin on 05-17-2023 Erythrocyte distribution width (RBC) [Entitic vol] 47.3 fL 35.1-43.9 [facility] Erythrocyte distribution width (RBC) [Ratio] 13.4 % 11.6-14.6 [facility] Immature granulocytes/100 WBC (Bld) 0.500 % 0.0-0.9 [facility] Comment on above: IG% - Immature Granu locytes (promyelocytes, myelocytes and metamyelocytes) > 1% indicates that a LEFT SHIFT is Present. MCH (RBC) [Entitic mass] 32.3 pg 27.0-32.0 [facility] Nucleated RBC/100 WBC (Bld) [Ratio] 0 % 0-5 [facility] MCHC Auto (RBC) [Mass/Vol]Or dered By: Mimi Martin on 05-17-2023 MCHC (RBC) [Mass/Vol] 33.4 g/dL 32-36 [facility] No Panel InformationOrdered By: Mimi Martin on 05-17-2023 Free Triiodothyronine (T3) pg/dL 2.2 pg/mL 2.18-3.98 [facility] Miscellaneous Test See comment [facility] Comment on above: TEST RESULTS LIMITSI anthony 55 ug/dL 38 - 169 TESTING PERFORMED AT [facility]. ORIGINAL REPORT ON FILE IN LAB CONTAINS ADDITIONAL TEST SITE INFORMATION. Thyroid Stimulating Hormone (TSH) 3.06 uIU/mL 0.358-3.74 [facility] Platelets bldOrdered By: Kelly Martin on 05-17-2023 Platelets (Bld) [#/Vol] 204 10*3/uL 150-450 [facility] Serum or plasma ferritin rk surement (mass/volume)Ordered By: Mimi Martin on 05-17-2023 Ferritin [Mass/Vol] 36 ng/mL 8-252 [facility] Basophil percentageOrdered B y: Dr. Ahn on 12-07-2022 Basophil percentage 2.6 mg/dL 2.5-4.9 [facility] Chloride [Moles/Vol] 106 mmol/L 98-107 [facility] Glucose [Mass/Vol] 189 mg/dL 74-106 [facility] Comment on above: Fasting Glucose resu lt greater than or equal to 126 mg/dL suggests DIABETES MELLITUS per A.D.A. criteria. Potassium [Moles/Vol] 3.6 mmol/L 3.5-5.1 [facility] Sodium [Moles/Vol] 141 mmol/L 136-145 [facility] - Chemistry and C hemistry - challengeOrdered By: Dr. Ahn on 12-07-2022 CO2 [Moles/Vol] 24.0 mmol/L 21.0-32.0 [facility] Urea nitrogen/Creatinine [Mass ratio] 18.5 mg/mg 10-20 [facility] No Panel InformationOrdered By: Dr. Ahn on 12-07-2022 Estimated GFR (MDRD) Amer 47 mL/min >60 [facility] Comment on above: GFR Calc Estimated GFR (MDRD) Non-Af Amer 39 mL/min >60 [facility] Comment on above: Non- GFR Calc Serum or plasma albumin anamaria urement (mass/volume)Ordered By: Dr. Ahn on 12-07-2022 Albumin [Mass/Vol] 3.7 g/dL 3.2-5.0 [facility] Serum or plasma calcium anamaria urement (mass/volume)Ordered By: Dr. Ahn on 12-07-2022 Calcium [Mass/Vol] 8.9 mg/dL 8.5-10.1 [facility] Serum or plasma creatinine m easurement (mass/volume)Ordered By: Dr. Ahn on 12-07-2022 Creatinine [Mass/Vol] 1.46 mg/dL 0.55-1.02 [facility] Comment on above: The validity of the calculated GFR & GFRAA in patients over 70 years has not been determined. Clinical correlation is essential. Serum or plasma urea nitroge n measurement (mass/volume)Ordered By: Dr. Ahn on 12-07-2022 Urea nitrogen [Mass/Vol] 27 mg/dL 7-18 [facility] Absolute lymphocyte counton 07-25-2022 Lymphocytes Auto (Unsp spec) [#/Vol] 1.85 10*3/uL 0.83-4.51 [facility] Work Phone: Basophil percentageon 2021 Basophils/100 WBC (Bld) 0.7 % 0-1 [facility] Work Phone: Bilirubin [Mass/Vol] 0.60 mg/dL 0.20-1.00 [facility] Work Phone: Comment on above: For patients on eltr ombopag therapy, use of Dimension [place] TBIL is not recommended. Chloride [Moles/Vol] 107 mmol/L 98-107 [facility] Work Phone: Cholesterol [Mass/Vol] 162 mg/dL <200 [facility] Work Phone: Comment on above: <200 mg/dL Desirable 200-240 mg/dL Borderline >240 mg/dL High Risk Eosinophils/100 WBC (Bld) 3.7 % 0-5 [facility] Work Phone: Glucose [Mass/Vol] 116 mg/dL 74-106 [facility] Work Phone: Comment on above: Fasting Glucose resu lt from 100 to 125 mg/dL suggests IMPAIRED HOMEOSTASIS per A.D.A. criteria. Neutrophils (Bld) [#/Vol] 3.3 10*3/uL 2.0-7.7 [facility] Work Phone: Neutrophils/100 WBC (Bld) 57.5 % 47-70 [facility] Work Phone: Potassium [Moles/Vol] 3.9 mmol/L 3.5-5.1 [facility] Work Phone: Protein [Mass/Vol] 7.3 g/dL 6.4-8.2 [facility] Work Phone: [phone] Sodium [Moles/Vol] 141 mmol/L 136-145 [facility] Work Phone: [phone] Triglyceride [Mass/Vol] 199 mg/dL <199 [facility] Work Phone: [phone] Comment on above: The drugs N-Acetylcy steine and Metamizole may falsely depress this assay.Serum Triglycerides Reference Interval Normal <150 mg/dL Borderline high 150 - 199 mg/dL High 200 - 499 mg/dL Very High > or = 500 mg/dL WBC (Bld) [#/Vol] 5.7 10*3/uL 4.4-11.0 [facility] Work Phone: [phone] Blood erythrocytes count (nu mber/volume)on 07-25-2022 RBC (Bld) [#/Vol] 3.55 10*6/uL 4.2-5.4 [facility] Work Phone: [phone] Blood hemoglobin measurement (mass/volume)on 07-25-2022 Hemoglobin (Bld) [Mass/Vol] 11.2 g/dL 12.0-15.0 [facility] Work Phone: [phone] Blood lymphocytes/100 leukoc yteson 07-25-2022 Lymphocytes/100 WBC (Bld) 32.5 % 19-41 [facility] Work Phone: [phone] Blood monocytes/100 leukocyt eson 07-25-2022 Monocytes/100 WBC (Bld) 5.6 % 0-10 [facility] Work Phone: [phone] Blood platelet mean volumeon 07-25-2022 Platelet mean volume (Bld) [Entitic vol] 10.4 fL 6.2-12.0 [facility] Work Phone: [phone] Determination of erythrocyte mean corpuscular volume (MCV)on 07-25-2022 MCV (RBC) [Entitic vol] 92.4 fL 81-99 [facility] Work Phone: [phone] Hematocrit Auto (Bld) [Volum e fraction]on 07-25-2022 Hematocrit (Bld) [Volume fraction] 32.8 % 37-47 [facility] Work Phone: [phone] Laboratory - Chemistry and C hemistry - challengeon 07-25-2022 ALP [Catalytic activity/Vol] 75 U/L 45-117 [facility] Work Phone: [phone] ALT [Catalytic activity/Vol] 24 U/L 13-56 [facility] Work Phone: [phone] CO2 [Moles/Vol] 24.0 mmol/L 21.0-32.0 [facility] Work Phone: [phone] Free T4 [Mass/Vol] 1.31 ng/dL 0.76-1.46 [facility] Work Phone: [phone] Globulin (S) [Mass/Vol] 3.6 g/dL 2.2-4.2 [facility] Work Phone: [phone] Urea nitrogen/Creatinine [Mass ratio] 22.8 mg/mg 10-20 [facility] Work Phone: [phone] Laboratory - Hematology and Cell countson 07-25-2022 Erythrocyte distribution width (RBC) [Entitic vol] 43.8 fL 35.1-43.9 [facility] Work Phone: [phone] Erythrocyte distribution width (RBC) [Ratio] 12.9 % 11.6-14.6 [facility] Work Phone: [phone] Immature granulocytes/100 WBC (Bld) 0.000 % 0.0-0.9 [facility] Work Phone: [phone] Comment on above: IG% - Immature Granu locytes (promyelocytes, myelocytes and metamyelocytes) > 1% indicates that a LEFT SHIFT is Present. MCH (RBC) [Entitic mass] 31.5 pg 27.0-32.0 [facility] Work Phone: [phone] Nucleated RBC/100 WBC (Bld) [Ratio] 0 % 0-5 [facility] Work Phone: [phone] MCHC Auto (RBC) [Mass/Vol]on 07-25-2022 MCHC (RBC) [Mass/Vol] 34.1 g/dL 32-36 [facility] Work Phone: No Panel Informationon 07-25 Estimated GFR (MDRD) Amer 51 mL/min >60 [facility] Work Phone: Comment on above: GFR Calc Estimated GFR (MDRD) Non-Af Amer 42 mL/min >60 [facility] Work Phone: Comment on above: Non- GFR Calc Free Triiodothyronine (T3) pg/dL 2.3 pg/mL 2.18-3.98 [facility] Work Phone: [phone] Thyroid Stimulating Hormone (TSH) 2.54 uIU/mL 0.358-3.74 [facility] Work Phone: [phone] Urine Microalbumin/Creatinine Ratio 35.0 mg/g CRE <30 [facility] Work Phone: [phone] Vitamin D 25-Hydroxy 52.0 ng/mL [facility] Work Phone: Comment on above: Vitamin D 25(OH) Sta tus Range Deficiency <20 ng/mL (50nmol/L) Insufficiency 20 - 30 ng/mL (50 - 75 nmol/L) Sufficiency 30 - 100 ng/mL (75 - 250 nmol/L) Toxicity >100 ng/mL (>250 nmol/L) Platelets bldon 07-25-2022 Platelets (Bld) [#/Vol] 181 10*3/uL 150-450 [facility] Work Phone: [phone] Serum or plasma albumin anamaria urement (mass/volume)on 07-25-2022 Albumin [Mass/Vol] 3.7 g/dL 3.2-5.0 [facility] Work Phone: [phone] Serum or plasma albumin/glob ulin mass ratioon 07-25-2022 Albumin/Globulin [Mass ratio] 1.0 {ratio} 0.9-2.4 [facility] Work Phone: [phone] Serum or plasma calcium anamaria urement (mass/volume)on 07-25-2022 Calcium [Mass/Vol] 9.2 mg/dL 8.5-10.1 [facility] Work Phone: [phone] Serum or plasma cholesterol in HDL measurement (mass/volume)on 07-25-2022 Cholesterol in HDL [Mass/Vol] 54 mg/dL >40 [facility] Work Phone: Comment on above: The drugs N-Acetylcy steine and Metamizole may falsely depress this assay. Reference Range HDL <40 mg/dL Low HDL Cholesterol HDL >or= 60 mg/dL High HDL Cholesterol Serum or plasma cholesterol in VLDL measurement (mass/volume)on 07-25-2022 Cholesterol in VLDL [Mass/Vol] 40 mg/dL 5-40 [facility] Work Phone: [phone] Serum or plasma creatinine m easurement (mass/volume)on 07-25-2022 Creatinine [Mass/Vol] 1.36 mg/dL 0.55-1.02 [facility] Work Phone: Comment on above: The validity of the calculated GFR & GFRAA in patients over 70 years has not been determined. Clinical correlation is essential. Serum or plasma low density lipoprotein (LDL) cholesterol measurement (mass/volume)on 07-25-2022 Cholesterol in LDL [Mass/Vol] 68 mg/dL 0-130 [facility] Work Phone: [phone] Serum or plasma urea nitroge n measurement (mass/volume)on 07-25-2022 Urea nitrogen [Mass/Vol] 31 mg/dL 7-18 [facility] Work Phone: [phone] Thin prep Papanicolaou smear with manual screeningon 07-25-2022 Thin prep Papanicolaou smear with manual screening 18 U/L 15-37 [facility] Work Phone: [phone] Thin prep Papanicolaou smear with manual screening 10 5-15 [facility] Work Phone: [phone] Thin prep Papanicolaou smear with manual screening 29.1 mg/L NO RANGE EST. [facility] Work Phone: [phone] Urine creatinine measurement (mass/volume)on 07-25-2022 Creatinine (U) [Mass/Vol] 83.20 mg/dL NO RANGE EST. [facility] Work Phone: Whole blood hemoglobin A1c/t otal hemoglobin ratio (mass fraction)on 07-25-2022 HbA1c (Bld) [Mass fraction] 5.9 % 3.8-5.6 [facility] Work Phone: Comment on above: Normal < 5.7 % Predi abetic 5.7 - 6.4 % Diabetic >or= 6.5 % Please note range changes. No Panel Informationon 04-29 POC SARS CoV-2 Antigen Positive [facility] Work Phone: Vital Signs Date Time Vital Sign Value Performing Clinician Kvng lemus 04-18-2025 07:52-0400 Body height 154.[address] Mimi Martin DO Work Phone: [facility] 04-18-2025 07:52-0400 Body mass index (BMI) [Ratio] 38 kg/m2 Dr. Mimi Martin DO Work Phone: [facility] 04-18-2025 07:52-0400 Body weight 91.[address] Mimi Martin DO Work Phone: [facility] 04-18-2025 07:52-0400 Diastolic blood pressure 77 mm[Hg] Dr. Mimi Martin DO Work Phone: [facility] 04-18-2025 07:52-0400 Heart rate 75 /min Dr. Mimi Martin DO Work Phone: [facility] 04-18-2025 07:52-0400 Respiratory rate 16 /min Dr. Mimi Martin DO Work Phone: [facility] 04-18-2025 07:52-0400 Systolic blood pressure 132 mm[Hg] Dr. Mimi Martin DO Work Phone: [facility] 04-09-2025 08:33-0400 Body height 154.[address] Mimi Martin DO Work Phone: [facility] 04-09-2025 08:33-0400 Body mass index (BMI) [Ratio] 38.1 kg/m2 Dr. Mimi Martin DO Work Phone: [facility] 04-09-2025 08:33-0400 Body weight 91.[address] Mimi Martin DO Work Phone: [facility] 04-09-2025 08:33-0400 Diastolic blood pressure 80 mm[Hg] Dr. Mimi Martin DO Work Phone: [facility] 04-09-2025 08:33-0400 Heart rate 71 /min Dr. Mimi Martin DO Work Phone: [facility] 04-09-2025 08:33-0400 SaO2% (BldA) [Mass fraction] 97 % Dr. Mimi Martin DO Work Phone: [facility] 04-09-2025 08:33-0400 Systolic blood pressure 123 mm[Hg] Dr. Mimi Martin DO Work Phone: [facility] 03-05-2025 08:02-0400 Body height 154.[address] Mimi Martin DO Work Phone: [facility] 03-05-2025 07:42-0400 Body mass index (BMI) [Ratio] 38.9 kg/m2 Dr. Mimi Martin DO Work Phone: [facility] 03-05-2025 07:42-0400 Body temperature 96.5 [degF] Dr. Mimi Martin DO Work Phone: [facility] 03-05-2025 07:42-0400 Body weight 93.[address] Mimi Martin DO Work Phone: [facility] 03-05-2025 07:42-0400 Diastolic blood pressure 92 mm[Hg] Dr. Mimi Martin DO Work Phone: [facility] 03-05-2025 07:42-0400 Heart rate 76 /min Dr. Mimi Martin DO Work Phone: [facility] 03-05-2025 07:42-0400 Respiratory rate 16 /min Dr. Mimi Martin DO Work Phone: [facility] 03-05-2025 07:42-0400 SaO2% (BldA) [Mass fraction] 96 % Dr. Mimi Martin DO Work Phone: [facility] 03-05-2025 07:42-0400 Systolic blood pressure 155 mm[Hg] Dr. Mimi Martin DO Work Phone: [facility] 01-06-2025 11:11-0400 Body height 154.[address] Mimi Martin DO Work Phone: [facility] 01-06-2025 11:11-0400 Body mass index (BMI) [Ratio] 39.5 kg/m2 Dr. Mimi Martin DO Work Phone: [facility] 01-06-2025 11:11-0400 Body weight 94.[address] Mimi Martin DO Work Phone: [facility] 01-06-2025 11:11-0400 Diastolic blood pressure 92 mm[Hg] Dr. Mimi Martin DO Work Phone: [facility] 01-06-2025 11:11-0400 Heart rate 84 /min Dr. Mimi Martin DO Work Phone: [facility] 01-06-2025 11:11-0400 SaO2% (BldA) [Mass fraction] 96 % Dr. Mimi Martin DO Work Phone: [facility] 01-06-2025 11:11-0400 Systolic blood pressure 139 mm[Hg] Dr. Mimi Martin DO Work Phone: [facility] 03-25-2024 08:02-0400 Body mass index (BMI) [Ratio] 41.16 kg/m2 Melany Saez APRN.[employer] Work Phone: [facility] 03-25-2024 08:02-0400 Body temperature 97.9 [degF] Melany Praisler-Wood OPHTHALMIC SURGEON.[employer]OUNDER & CEO Work Phone: [facility] 03-25-2024 08:02-0400 Body weight 98.8 kg Melany Praisler-Wood OPHTHALMIC SURGEON.[employer]OUNDER [employer] CEO Work Phone: [facility] 03-25-2024 08:02-0400 Diastolic blood pressure 70 mm[Hg] Melany Praisler-Wood OPHTHALMIC SURGEON.FOUNDER [employer] CEO Work Phone: [facility] 03-25-2024 08:02-0400 Heart rate 90 /min Melany Praisler-Wood OPHTHALMIC SURGEON.FOUNDER [employer] CEO Work Phone: [facility] 03-25-2024 08:02-0400 Respiratory rate 16 /min Melany Praisler-Wood OPHTHALMIC SURGEON.[employer]OUNDER [employer] CEO Work Phone: [facility] 03-25-2024 08:02-0400 SaO2% (BldA) [Mass fraction] 95 % Melany Praisler-Wood OPHTHALMIC SURGEON.FOUNDER [employer] CEO Work Phone: [facility] 03-25-2024 08:02-0400 Systolic blood pressure 142 mm[Hg] Melany Praisler-Wood OPHTHALMIC SURGEON.FOUNDER [employer] CEO Work Phone: [facility] 02-08-2023 07:39-0400 Body height 154.[address] Mimi Martin Work Phone: [facility] 02-08-2023 07:39-0400 Body mass index (BMI) [Ratio] 40 kg/m2 Dr. Mimi Martin Work Phone: [facility] 02-08-2023 07:39-0400 Body temperature 97.6 [degF] Dr. Mimi Martin Work Phone: [facility] 02-08-2023 07:39-0400 Body weight 96.[address] Mimi Martin Work Phone: [facility] 02-08-2023 07:39-0400 Diastolic blood pressure 95 mm[Hg] Dr. Mimi Martin Work Phone: [facility] 02-08-2023 07:39-0400 Heart rate 98 /min Dr. Mimi Martin Work Phone: [facility] 02-08-2023 07:39-0400 Respiratory rate 18 /min Dr. Mimi Martin Work Phone: [facility] 02-08-2023 07:39-0400 SaO2% (BldA) [Mass fraction] 98 % Dr. Mimi Martin Work Phone: [facility] 02-08-2023 07:39-0400 Systolic blood pressure 171 mm[Hg] Dr. Mimi Martin Work Phone: [facility] 01-25-2023 11:58-0400 Body height 154.94 cm [facility] 01-25-2023 11:58-0400 Body temperature 96.4 [degF] [facility] 01-25-2023 11:58-0400 Diastolic blood pressure 99 mm[Hg] [facility] 01-25-2023 11:58-0400 Heart rate 90 /min [facility] 01-25-2023 11:58-0400 Respiratory rate 18 /min [facility] 01-25-2023 11:58-0400 SaO2% (BldA) [Mass fraction] 99 % [facility] 01-25-2023 11:58-0400 Systolic blood pressure 154 mm[Hg] [facility] 08-09-2022 06:38-0400 Body height 154.[address] Mimi Martin Work Phone: [facility] Work Phone: 08-09-2022 06:38-0400 Body mass index (BMI) [Ratio] 39.5 kg/m2 Dr. Mimi Martin Work Phone: [facility] Work Phone: 08-09-2022 06:38-0400 Body temperature 98.2 [degF] Dr. Mimi Martin Work Phone: [facility] Work Phone: 08-09-2022 06:38-0400 Body weight 94.[address] Mimi Martin Work Phone: [facility] Work Phone: 08-09-2022 06:38-0400 Diastolic blood pressure 88 mm[Hg] Dr. Mimi Martin Work Phone: [facility] Work Phone: 08-09-2022 06:38-0400 Heart rate 67 /min Dr. Mimi Martin Work Phone: [facility] Work Phone: 08-09-2022 06:38-0400 Respiratory rate 16 /min Dr. Mimi Martin Work Phone: [facility] Work Phone: 08-09-2022 06:38-0400 SaO2% (BldA) [Mass fraction] 97 % Dr. Mimi Martin Work Phone: [facility] Work Phone: 08-09-2022 06:38-0400 Systolic blood pressure 154 mm[Hg] Dr. Mimi Martin Work Phone: [facility] Work Phone: 04-29-2022 15:35-0400 Body temperature 99.9 [degF] Dr. Mimi Martin Work Phone: [facility] Work Phone: 04-29-2022 15:35-0400 Diastolic blood pressure 100 mm[Hg] Dr. Mimi Martin Work Phone: [facility] Work Phone: 04-29-2022 15:35-0400 Heart rate 112 /min Dr. Mimi Martin Work Phone: [facility] Work Phone: 04-29-2022 15:35-0400 Respiratory rate 16 /min Dr. Mimi Martin Work Phone: [facility] Work Phone: 04-29-2022 15:35-0400 SaO2% (BldA) [Mass fraction] 99 % Dr. Mimi Martin Work Phone: [facility] Work Phone: 04-29-2022 15:35-0400 Systolic blood pressure 178 mm[Hg] Dr. Mimi Martin Work Phone: [facility] Work Phone: 01-25-2022 08:26-0400 Body height 162.56 cm [facility] Work Phone: Encounters Encounter Date Encounter Type Care Provider Facility Start: 05-21-2025 End: 05-21-[address] Mimi Martin DO Work Phone: [facility] Start: 05-21-2025 End: 05-21-[address] Alena Ahn DO -[facility] Work Phone: Start: 05-21-2025 End: 05-21-2025 ambulatory Alena Ahn Facility:[facility] Start: 04-18-2025 End: 04-18-[address] Chauncey Duong MD -[facility] Work Phone: Start: 04-18-2025 End: 04-18-[address] Mimi Martin DO Work Phone: [facility] Work Phone: Start: 04-17-2025 End: 04-17-[address] Mimi Martin DO Work Phone: -Outpatient Bone [facility]ometry Start: 04-17-2025 End: 04-17-2025 Patient encounter procedure Janey RAVI -[facility] Work Phone: Start: 04-17-2025 End: 04-17-2025 ambulatory Mimi Martin Facility:[facility] Start: 04-10-2025 End: 04-10-[address] Mimi Martin DO Work Phone: [facility] Work Phone: Start: 04-10-2025 End: 04-10-2025 Patient encounter procedure Janey Gutierrez CASH CLERK-C -[facility] Work Phone: Start: 04-09-2025 End: 04-09-2025 Patient encounter procedure Janey Gutierrez CASH CLERK-C -[facility] Work Phone: Start: 04-09-2025 End: 04-10-[address] Mimi Martin DO Work Phone: [facility] Work Phone: Start: 03-14-2025 ambulatory Mimi Martin Facility:[facility] Start: 03-05-2025 End: 03-05-2025 Patient encounter procedure Richa Mari CASH CLERK-C -[facility] Work Phone: Start: 03-05-2025 End: 03-05-[address] Mimi Martin DO Work Phone: [facility] Work Phone: Start: 01-14-2025 End: 01-14-[address] Mimi Martin DO Work Phone: [facility] Work Phone: Start: 01-14-2025 End: 01-14-2025 Patient encounter procedure Janey Gutierrez CASH CLERK-C -[facility] Work Phone: Start: 01-14-2025 End: 01-14-2025 ambulatory Janey Gutierrez Facility:[facility] Start: 01-06-2025 End: 01-06-2025 Patient encounter procedure Janey Gutierrez CASH CLERK-C -[facility] Work Phone: Start: 01-06-2025 End: 01-06-2025 ambulatory Mimi Martin Facility:[facility] Start: 09-11-2024 End: 09-11-2024 ambulatory Mimi Martin Facility:[facility] Start: 09-09-2024 End: 09-09-2024 ambulatory Alena Ahn Facility:[facility] Start: 08-16-2024 End: 08-16-2024 ambulatory Mimi Martin Facility:[facility] Start: 08-15-2024 End: 08-15-2024 ambulatory Alena Ahn Facility:[facility] Start: 06-03-2024 End: 06-03-2024 ambulatory Mimi Martin Facility:[facility] Start: 03-25-2024 End: 03-25-2024 ambulatory MIMI MARTIN Facility:[facility] Start: 03-25-2024 End: 03-25-2024 Patient encounter procedure Melany Saez APRN.[facility] Work Phone: [facility] Comment on above: Swelling of eyelid, unspecified laterality (Primary Dx); Insect bite of head, unspecified part, initial encounter Start: 01-10-2024 End: 01-10-2024 ambulatory [facility] Work Phone: Start: 01-10-2024 End: 01-10-2024 Patient encounter procedure [facility] Work Phone: Start: 08-14-2023 End: 08-14-2023 ambulatory [facility] Work Phone: Start: 08-14-2023 End: 08-14-2023 Patient encounter procedure [facility] Work Phone: Start: 08-11-2023 End: 08-11-2023 ambulatory [facility] Work Phone: Start: 08-11-2023 End: 08-11-2023 Patient encounter procedure [facility] Work Phone: Start: 05-17-2023 End: 05-17-[address] Mimi Martin Work Phone: [facility] Work Phone: Start: 05-17-2023 End: 05-17-[address] [facility] Start: 02-08-2023 End: 02-08-[address] Mimi Martin Work Phone: [facility]-Pulmonary Medicine [facility] Work Phone: Start: 01-25-2023 End: 01-25-2023 Emergency department patient visit [facility]-Emergency Department Start: 12-07-2022 End: 12-07-2022 ambulatory [facility] Work Phone: Start: 12-07-2022 End: 12-07-2022 Patient encounter procedure [facility] Start: 08-22-2022 End: 08-22-[address] Mimi Martin Work Phone: [facility] Work Phone: Start: 08-22-2022 End: 08-22-[address] Mimi Martin Work Phone: [facility] Start: 08-11-2022 End: 08-11-[address] Mimi Martin Work Phone: [facility] Work Phone: Start: 08-11-2022 End: 08-11-[address] Mimi Martin Work Phone: [facility]patient [facility] Start: 08-09-2022 End: 08-09-[address] Mimi Martin Work Phone: [facility] Start: 07-25-2022 End: 07-25-[address] Mimi Martin Work Phone: [facility] Start: 04-29-2022 End: 04-29-[address] Mimi Martin Work Phone: [facility] Start: 01-25-2022 End: 01-25-2022 Patient encounter procedure [facility] Procedures Date Procedure Procedure Detail Performing Clinician Start: 05-21-[address] Mimi Martin DO Work Phone: Start: 05-21-2025 Serum inorganic phos phate measurement Dr. Mimi Martin DO Work Phone: Start: 05-21-2025 Total iron binding capacity measurement Dr. Mimi Martin DO Work Phone: Start: 05-21-2025 Urine microalbumin/creatinine ratio measurement Dr. Mimi Martin DO Work Phone: Start: 04-17-2025 Dual energy X-ray absorptiometry Dr. Mimi Martin DO Work Phone: Start: 04-10-2025 Vitamin [...] 01-25-2022 Dual energy X-ray absorptiometry Start: 11-26-2015 Gisselle Charles APRN.[employer]OUNDER [employer] CEO Work Phone: Start: 07-27-2007 History of amputatio n of leg through tibia and fibula Status post below knee amputation Melany Saez APRN.[employer]OUNDER [employer] CEO Work Phone: History of cataract extraction History of cataract surgery Comment on above: 03/2021 Plan of Treatment Date Care Activity Detail Author Start: 11-26-2025 Screening for malignant neoplasm of colon [facility] Start: 06-03-2025 ambulatory Ambulatory Facility:[facility] Start: 04-17-2025 DXA Bone [Mass/Area] Bone density [facility] Start: 04-16-2025 Evaluation of diagnostic study results [facility] Start: 06-23-2024 Influenza vaccination Influenza Vaccine (Season Ended) [facility] Start: 05-28-2024 Screening for malignant neoplasm of cervix [facility] Start: 10-23-2023 Behavioral Health Screening Behavioral Health Screening [facility] Start: 06-23-2023 Covid-19 Vaccine ( season) Covid-19 Vaccine ( season) [facility] Start: 2023 RSV Vaccine (1 - 1-dose 60+ series) RSV Vaccine (1 - 1-dose 60+ series) [facility] Start: 05-28-2020 Screening for malignant neoplasm of breast Mammogram Screening [facility] Start: 03-09-2019 Urine microalbumin profile DTaP,Tdap,Td Vaccine (2 - Td or Tdap) [facility] Start: 01-04-2018 Diabetic foot examination Diabetic Foot Exam [facility] Start: 08-04-2017 Hemoglobin A1c measurement HbA1C [facility] Start: 07-11-2017 Glaucoma screening Dilated Retinal Exam [facility] Start: 05-31-2017 Hepatitis B screening Urine Albumin:Creatinine Ratio [facility] Start: 05-31-2017 Hepatitis B surface antibody level LDL Cholesterol [facility] Start: 01-23-2016 Screening for malignant neoplasm of colon Fecal Occult Blood [facility] Start: 2013 Shingrix Vaccine (1 of 2) Shingrix Vaccine (1 of 2) [facility] Start: 07-27-2008 Pneumococcal vaccination Pneumococcal Vaccine (2 of 2 - PCV) [facility] Start: 2008 Screening for malignant neoplasm of colon [facility] Start: 1981 Annual PCP Team Chronic Disease Visit Annual PCP Team Chronic Disease Visit [facility] Start: 1981 BP Controlled (<130/80) BP Controlled (<130/80) [facility] Start: 1981 HIV screening HIV Screening [facility] DXA Bone [Mass/Area] Bone density [facility] Lipid 1996 panel - S vannessa or Plasma [facility] Patient Education ED Chest Wall Contusion [facility] Work Phone: Patient referral [facility] Work Phone: T4 free measurement [facility] Thyroid stimulating hormone measurement [facility] Vitamin D, 25-hydrox y measurement [facility] Immunizations Immunization Date Immunization Notes Care Provider Agus ziegler 08-05-2019 influenza virus vacc ine, unspecified formulation Melany Praiscary-Milan OPHTHALMIC SURGEON.FOUNDER [employer] CEO Work Phone: [facility] 07-29-2015 influenza, seasonal, injectable Melany Pracori-Wood OPHTHALMIC SURGEON.[employer]OUNDER [employer] CEO Work Phone: [facility] 07-17-2013 influenza virus vacc ine, unspecified formulation Melany Praisler-Wood OPHTHALMIC SURGEON.[employer]OUNDER [employer] CEO Work Phone: [facility] 08-06-2009 influenza virus vacc ine, unspecified formulation Melany Praisler-Wood OPHTHALMIC SURGEON.[employer]OUNDER [employer] CEO Work Phone: [facility] 03-09-2009 tetanus toxoid, redu robert diphtheria toxoid, and acellular pertussis vaccine, adsorbed Melany Pracori-Wood OPHTHALMIC SURGEON.[facility] Work Phone: [facility] Work Phone: 08-22-2008 influenza virus vacc ine, unspecified formulation Melany Praisler-Wood OPHTHALMIC SURGEON.FOUNDER [employer] CEO Work Phone: [facility] Work Phone: 08-21-2007 influenza virus vacc ine, unspecified formulation Melany Praisler-Wood OPHTHALMIC SURGEON.[employer]OUNDER [employer] CEO Work Phone: [facility] Work Phone: 07-27-2007 pneumococcal polysaccharide vaccine, 23 valent Melany Praisler-Wood OPHTHALMIC SURGEON.[employer]OUNDER [employer] CEO Work Phone: [facility] 09-27-2006 influenza virus vacc ine, unspecified formulation Melany Praisler-Wood OPHTHALMIC SURGEON.[employer]OUNDER [employer] CEO Work Phone: [facility] 09-27-2006 pneumococcal polysaccharide vaccine, 23 valent Melany Saez APRN.FOUNDER [employer] CEO Work Phone: [facility] Payers Date Payer Category Payer Unknown [id number] 2024 Medicaid [id number] 2024 Self-pay [id number] 2024 Private Health Insurance [id number] 2023 Medicaid [employer] [facility] MEDICAID [id number] 2023-Present [phone] [address] [place] [id number] Medicaid [id number] 2023 Unknown [id number] 2009 Medicare [id number] Unknown [id number]. 462 Unknown [id number]. 462 Unknown [id number]. 462 Unknown [id number]. 462 Unknown [id number]. 462 Unknown [id number] .[id number]. 462 Unknown [id number] [id number]. 462 Unknown [id number] [id number]. 462 Unknown [id number] 2.16.840.1.814686.3.579.2. 462 Unknown [id number] [id number]. 462 Unknown [id number] [id number]. 462 Unknown [id number] [id number]. 462 Unknown [id number] [id number]. 462 Unknown [id number] [id number]. 462 Unknown [id number]. 462 Social History Date Type Detail Facility Start: 08-06-2021 End: 08-22-2023 Tobacco smoking status [facility] Unknown if ever smoked [facility] Start: 03-18-2020 Non-smoker [facility] Start: 1965 Sex Assigned At Female [facility] Start: 08-22-2023 End: 03-25-2024 Tobacco smoking status MDIS Ex-smoker [facility] End: 09-08-2006 History of tobacco use Current smoker [facility] End: 09-08-2006 History of tobacco use Cigarette Smoker [facility] Start: 09-27-2020 End: 03-25-2024 Cigarettes smoked current (pack per day) - Reported 2 [facility] Start: 03-25-2024 Tobacco use and exposure Smokeless tobacco non-user [facility] Start: 03-25-2024 Alcohol intake 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 250.00 [id number] Start: 12-13-2013 Blood Sugar Diagnostic (Freestyle Lite Strips) strip Start: 05-19-2025 Lancets (Freesty le Lancets) 28 gauge misc Start: 05-19-2025 Clinical Notes 01-25-2023 to 03-05-2025 Note Date & Type Note Facility 03-05-2025 Evaluation note Diagnosis Onset Date Resolution Asthma-COPD overlap syndrome chronic March 05, 2025 7:39am Morbid obesity due to excess calories chronic March 05, 2025 7:39am Obstructive sleep apnea syndrome chronic March 05, 2025 7:39am Chronic kidney disease, stage III (moderate) chronic April 09, 2025 8:32am Diabetic neuropathy chronic April 09, 2025 8:32am Hyperlipidemia chronic April 09, 2025 8:32am Hypertension chronic April 09, 025 8:32am Hypothyroidism chronic April 09, 2025 8:32am Obesity chronic April 09 8:32am Post-menopausal chronic March 8:32am Type 2 diabetes mellitus chronic April 09, 2025 8:32am Coronary artery calcification chronic April 18, 2025 7:49am Hyperlipidemia chronic April 18, 2025 7:49am Hypertension chronic April 18, 025 7:49am [facility] Work Phone: 1(603) 212-649703-17-2025 Evaluation note* Diagnosis Onset Date Resolution Status Admit Date Diabetes chronic January 06 11:05am Hyperlipidemia chronic December 11:05am Hypertension chronic January 06, 2025 11:05am Hypothyroidism chronic December 11:05am Obesity chronic January 06 11:05am Microalbuminuria resolved January 062024 11:05am CKD (chronic kidney disease) deleted January 06, 2025 11:05am [facility] Work Phone: 1(838) 306-585903-17-2025 Evaluation note* Diagnosis Onset Date Resolution Status [...] 2025 7 :39am Obstructive sleep apnea [facility] March 05, 2025 7:39am [facility] Work Phone: 1(183) 899-546203-17-2025 Evaluation note* Diagnosis Onset Date Resolution Status [...] 2025 7 :39am Obstructive sleep apnea syndrome [facility] on March 05, 2025 7:39am Chronic kidney disease, stag e III (moderate) chronic April 09, 2025 8:32am Diabetic neuropathy chronic April 09, 2025 8:32am Hyperlipidemia chronic April 09, 2025 8:32am Hypertension chronic April 09, 2 025 8:32am Hypothyroidism chronic April 09, 2025 8:32am Obesity chronic April 09 8:32am Post-menopausal chronic March 8:32am Type 2 diabetes mellitus chronic April 09, 2025 8:32am [facility] Work Phone: 1(345) 254-596103-17-2025 Evaluation note* Diagnosis Onset Date Resolution Status [...] syndrome chr onic March 05, 2025 7:39am Chronic kidney disease, stag e III (moderate) chronic April 09, 2025 8:32am Diabetic neuropathy chronic April 09, 2025 8:32am Hyperlipidemia chronic April 09, 2025 8:32am Hypertension chronic April 09, 025 8:32am Hypothyroidism chronic April 09, 2025 8:32am Obesity chronic April 09 8:32am Post-menopausal chronic March 8:32am Type 2 diabetes mellitus chronic April 09, 2025 8:32am Coronary artery calcification chroni c April 18, 2025 7:49am Hyperlipidemia chronic April 18, 2025 7:49am Hypertension chronic April 18 025 7:49am [facility] Work Phone: 1(607) 302-224506-03-2024 NoteHNO ID: [id number] Author: MELANY SAEZ APRN.FOUNDER [employer] CEO Service: ? Author Type: Nurse Practitioner Type: [...] COMPOUNDED PRESCRIPTION Left foot brace, arch support. [employer] Dx DM 2 blood sugar diagnostic (FREESTYLE [...] erythema or rash. Neurologica (more content not included)...[facility]06-03-2024 History of Present illness Narrative* Melany Saez APRN.[facility] - 03/25/2024 8:11 AM EDT Images from [...] COMPOUNDED PRESCRIPTION Left foot brace, arch support. [employer] Dx DM 2 blood sugar diagnostic (FREESTYLE [...] Discussed expected course of illness Melany Saez APRN.UBALDO [facility] Instructions* Patient Instructions* Melany Saez APRN.CNP - [...] Discussed expected course of illness Melany Saez APRN.FOUNDER & CEO [facility] Neil [facility] January 25, 2023 1:40pm Note Date/Time January 25, 2023 12:3 6pm [facility] Medical Records Department [address] [place] [address] Emergency Department Summary 01/25/23 MR#: [id number] Acct: [id number] Name: LYNDA BRADLEY Rep #:[id number] : 1965 57 From: Bridger Neil MD PCP: Dr. Mimi Martin, Status:REG ER Location: ED HPI HPI - [...] is up walking when I see her. [facility] Medical History Cancer Chronic [...] 25 mg tablet 12.5 mg PO DAILY 10/06/20 [History Last Taken Unknown] cholecalciferol (vitamin D3) [...] mcg/actuation aerosol inhaler (ProAir HFA) 1 inh [id number] PRN shortness of breath or wheezing #8.5 [...] sore than painful. She is okay using [id number] meds ice and rest. I explained that [...] your Primary Care Provider. Call [facility] ([phone]) or report to the closest Emergency Room. Call 911 if necessary. 01/25/23 1340 <Electronically signed by Bridger Neil MD> Cosigner Signature (if applicable): CC: Dr. Mimi Martin, DO ~ Signed [facility] Work Phone: Chief complaint+Reason for visit Narrative* Chief Complaint SINUS INFECTION/COVI D TEST 6 M FU SCREENING Reason for Visit COVID-19 Asthma-COPD overlap syndrome Morbid obesity due to excess calories Obstructive sleep apnea syndrome [facility] Work Phone: Evaluation noteNo assessment information available [facility] Work Phone: Evaluation note* Diagnosis Onset Date Resolution Status COVID-19 acute Asthma-COPD overlap syndrome chronic Morbid obesity due to excess calories chronic Obstructive sleep apnea syndrome chronic [facility] Work Phone: Evaluation note* Diagnosis Onset Date Resolution Status Asthma-COPD overlap syndrome chronic Morbid obesity due to excess calories chronic Obstructive sleep apnea syndrome chronic [facility] Work Phone: Evaluation note* Diagnosis Swelling of eyelid, unspecified laterality- Primary Insect bite of head, unspecified part, initial encounter documented in this encounter [facility] for referral (narrative)No reason for referral information availableF[facility] Hospital Work Phone: Chief Complaint and Reason [...] 7:39am Morbid obesity due to excess calories 2024 7:39am Obstructive sleep apnea syndrome February [...] 7:39am Morbid obesity due to excess calories Tn 2024 7:39am Obstructive sleep apnea syndrome February [...] 2025 11:05am Asthma-COPD overlap syndrome March 05, 025 7:39am Morbid obesity due to excess [...] am Hypertension April 18, 2025 7:49 am Chief Complaint Admit Date 1 Y FU March 05, 2025 7:39a m 3 M FU April 09, 2025 8:32 am E-ORDER April 10, 2025 7:04 am post menopausal April 17, 2025 8:16 am RE-EST (SELF) April 18, 2025 7:49 am LABS May 21, 2025 7:01 am Reason for Visit Admit Date Asthma-COPD overlap syndrome March 05 7:39am Morbid obesity due to excess calories [...] March 18, 2020 1 0:29am Power of Vp Transportation No March 18, 2020 10:29am Advance Directive Response Recorded Date/ Time Living Will No March 18, 2020 9 :29am Power of Vp Transportation No March 18, 2020 9:29am Advance Directive Response Recorded Date/ Time Living Will No January 25, 2023 2:01pm Power of Vp Transportation No January 25 2:01pm Advance Directive Response Recorded Date/ Time Living Will No January 25, 2023 2:01pm Do you have a Healthcare Power of Vp Transportation? No January 25, 2023 2:01pm Summary Purpose [...] Provider, Referring P rovider Active Richa Mari CASH CLERK, CASH CLERK-C Attending Provider Active Team Status: Inactive Member [...] Provide r, Attending Provider, Referring Provider Active Administrative Tech Relationship Specialty Start Date End Date Mimi Martin DO [address] [facility] [place] [address] PCP - General Family Medicine 09/19/17 Team Status: Active Member Role Status Dates Dr. Mimi Martin DO Primary Care Provider Active Team Status: Inactive Member Role Status Dates Dr. Mimi Martin DO Primary Care Provider Active Start: January 06, 2025 End: January 06, 2025 Dr. Mimi Martin DO Referring Provider Active St art: January 06, 2025 End: January 06, 2025 Janey Gutierrez , CASH CLERK-C Attending Provider Active Start: January 06, 2025 End: January 06, 2025 Team Status: Inactive Member Role Status Dates Dr. Mimi Martin DO Primary Care Provider Active Start: January 14, 2025 End: January 14, 2025 Dr. Alena Ahn DO Other Provider Active Sta rt: January 14, 2025 End: January 14, 2025 Janey Gutierrez , CASH CLERK-C Attending Provider Active Start: January 14, 2025 End: January 14, 2025 Janey Gutierrez , CASH CLERK-C Referring Provider Active Start: January 14, 2025 End: January 14, 2025 Team Status: Inactive Member Role Status Dates Dr. Mimi Martin DO Primary Care Provider Active Start: March 05, 2025 End: March 05, 2025 Dr. Mimi Martin DO Referring Provider Active St art: March 05, 2025 End: March 05, 2025 Richa Mari NP, CASH CLERK-C Attending Provider Active Start: March 05, 2025 End: March 05, 2025 Team Status: Inactive Member Role Status Dates Dr. Mimi Martin DO Primary Care Provider Active Start: April 09, 2025 End: April 09, 2025 Dr. Mimi Martin DO Referring Provider Active St art: April 09, 2025 End: April 09, 2025 Janey Gutierrez , CASH CLERK-C Attending Provider Active Start: April 09, 2025 End: April 09, 2025 Team Status: Inactive Member Role Status Dates Dr. Mimi Martin DO Primary Care Provider Active Start: April 10, 2025 End: April 10, 2025 Janey Gutierrez , CASH CLERK-C Attending Provider Active Start: April 10, 2025 End: April 10, 2025 Janey Gutierrez , CASH CLERK-C Referring Provider Active Start: April 10, 2025 End: April 10, 2025 Team Status: Active Member Role Status Dates Dr. Mimi Martin DO Primary Care Provider Active Start: April 17, 2025 Janey Gutierrez , CASH CLERK-C Attending Provider Active Start: April 17, 2025 Janey Gutierrez , CASH CLERK-C Referring Provider Active Start: April 17, 2025 [...] 2025 End: January 06, 2025 Janey Gutierrez NP-C Attending Provider Active Start: January 06, 2025 End: January 06, 2025 Team Status: Inactive Member Role/Relationship Status Dates Dr. Mimi Martin DO Primary Care Provider Active Start: January 14, 2025 End: January 14, 2025 Dr. Alena Ahn DO Other Provider Active Sta rt: January 14, 2025 End: January 14, 2025 Janey Gutierrez CASH CLERK-C Attending Provider Active Start: January 14, 2025 [...] End: March 05, 2025 Richa Mari NP CASH CLERK-C Attending Provider Active Start: March 05, 2025 End: March 05, 2025 Team Status: Inactive Member Role/Relationship Status Dates Dr. Mimi Martin DO Primary Care Provider Active Start: April 09, 2025 End: April 09, 2025 Dr. Mimi Martin DO Referring Provider Active St art: April 09, 2025 End: April 09, 2025 Janey Gutierrez CASH CLERK-C Attending Provider Active Start: April 09, 2025 End: April 09, 2025 Team Status: Inactive Member Role/Relationship Status Dates Dr. Mimi Martin DO Primary Care Provider Active Start: April 10, 2025 End: April 10, 2025 Janey Gutierrez CASH CLERK-C Attending Provider Active Start: April 10, 2025 End: April 10, 2025 Janey Gutierrez CASH CLERK-C Referring Provider Active Start: April 10, 2025 End: April 10, 2025 Team Status: Inactive Member Role/Relationship Status Dates Dr. Mimi Martin DO Primary Care Provider Active Start: April 17, 2025 End: April 17, 2025 Janey Gutierrez CASH CLERK-C Attending Provider Active Start: April 17, 2025 End: April 17, 2025 Janey Gutierrez CASH CLERK-C Referring Provider Active Start: April 17, 2025 [...] 2025 End: April 18, 2025 Team Status: Inactive Member Role/Relationship Status Dates Dr. Mimi Martin DO Primary Care Provider Active Start: March 05, 2025 End: March 05, 2025 Dr. Mimi Martin DO Referring Provider Active St art: March 05, 2025 End: March 05, 2025 Richa Mari NP, CASH CLERK-C Attending Provider Active Start: March 05, 2025 End: March 05, 2025 Team Status: Inactive Member Role/Relationship Status Dates Dr. Mimi Martin DO Primary Care Provider Active Start: April 09, 2025 End: April 09, 2025 Dr. Mimi Martin DO Referring Provider Active St art: April 09, 2025 End: April 09, 2025 Janey Gutierrez CASH CLERK-C Attending Provider Active Start: April 09, 2025 End: April 09, 2025 Team Status: Inactive Member Role/Relationship Status Dates Dr. Mimi Martin DO Primary Care Provider Active Start: April 10, 2025 End: April 10, 2025 Janey Matt , CASH CLERK-C Attending Provider Active Start: April 10, 2025 [...] 2025 End: April 18, 2025 Team Status: Inactive Member Role/Relationship Status Dates Dr. Mimi Martin DO Primary Care Provider Active Start: May 21, 2025 End: May 21, 2025 Dr. Alena Ahn DO Attending Provider Active Start: May 21, 2025 End: May 21, 2025 Dr. Alean Ahn DO Referring Provider Active Start: May 21, 2025 End: May 21, 2025 INFORMATION SOURCE (unrecogn ized section and content) DATE CREATED AUTHOR 03/25/2024 [facility] DATE CREATED AUTHOR AUTHOR'S ORGANIZ ATION 05/30/2025 [facility] Source Comments (unrecognize d section and content) In the event this informatio n is protected by the Federal Confidentiality of Alcohol and Drug Abuse Patient Records regulations: The Federal rules restrict any use of the information to criminally investigate or prosecute any alcohol or drug abuse patient.[facility] Reason for Visit (unrecogniz ed section [...] BE BASED ON THE PRIMARY CLINICAL RECORDS. [facility] [employer] [facility]. provides no warranty or guarantee of the accuracy or completeness of information in this document.
--- NOTE | 2025-06-03 17:26 | STRESSREP ---
Stress Test Report Pharmacologic myocardial perfusion stress test. 60-year-old lady with a history of coronary artery disease Resting EKG demonstrates sinus rhythm with a rate of 68 bpm. Resting blood pressure is 138/92 mmHg. 0.4 mg of regadenoson was infused per usual protocol followed by rapid intravenous saline flush injection. Continuous EKG monitoring was performed. The maximum heart rate was 108 bpm which was 68% of max impacted heart rate the maximum workload was 1 metabolic equivalent. At rest there were no ST or T wave changes noted to suggest ischemia and at peak infusion nonspecific ST changes were noted which did not meet the criteria for ischemia. No clinical angina is noted. The final blood pressure was 166/98 mmHg. Myocardial perfusion protocol. 15 mCi of technetium 99m sestamibi was injected at rest. 0.4 mg of regadenoson was infused per usual protocol. At peak infusion 32 mCi of technetium 99m sestamibi was injected stress images were obtained stress and rest images were reconstructed and compared in the short axis vertical long and horizontal long axis. Gated images were also obtained. Perfusion SPECT analysis: Review of the stress images demonstrate normal uptake of tracer noted in all areas of the myocardium. The resting images similar demonstrated normal uptake of tracer noted in all areas of the myocardium. No areas of reversibility are noted to suggest ischemia and no previous infarct is noted. Gated SPECT analysis: The gated ejection fraction is 62%. Conclusion: Normal pharmacologic myocardial perfusion stress test. Preserved ejection fraction.
== END | disposition home or self-care (01) ==
LOC: CVS 06:31
PROVIDERS: PCP Family Medicine; Referring Provider Internal Medicine Cardiovascular Disease; Visit Provider Internal Medicine Cardiovascular Disease
DX: I25.10 Atherosclerotic heart disease of native coronary artery without angina pectoris (principal); I25.84 Coronary atherosclerosis due to calcified coronary lesion; E78.5 Hyperlipidemia, unspecified; I10 Essential (primary) hypertension
CPT/HCPCS: 78452; 93017; A9500; A4216; J2785

== ENCOUNTER → 2025-08-18 | Outpatient (CLI) | payer MEDICARE, MEDICAID, SELFPAY ==
--- NOTE | 2025-08-18 07:17 | BI_ITS ---
EXAM: SCRN MAMM (CAD)W/JAYME BILAT DATE: 08/18/2025 CLINICAL HISTORY: F, Age 60 y/o , SCREENING TECHNIQUE: Procedure Code: [id number] Modality: MG Procedure: SCRN MAMM (CAD)W/JAYME BILAT COMPARISON: Prior exam(s) dated 08/15/2024, 08/14/2023 and 01/25/2022. FINDINGS: TISSUE DENSITY: The breasts are almost entirely fatty... Bilateral Breast Mammographic Findings: No significant masses, calcifications or other abnormalities are identified. Benign-appearing round calcifications are seen in the right breast. A stable 5 x 7 mm mass in the superior outer, junction of the middle and posterior 3rd aspects of the right breast is noted. On the jayme images this appears to represent an intramammary lymph node. BI/SCRN MAMM (CAD)W/JAYME BILAT IMPRESSION: Benign screening mammogram OVERALL FINAL ASSESSMENT BI-RADS 2: BENIGN RECOMMENDATION: Routine annual follow-up in 1 Year Additional Recommendation none A letter with findings and recommendations will be mailed to the patient. Reading Location: [id number]
--- OUTSIDE RECORDS SUMMARY | 2025-08-18 07:20 | XMS RPT_ITS | CCD ---
Author Organization [facility] Care Team Providers Care Options Trader Name Role Phone Dr. Mimi Martin Primary Care Provider Dr. Mimi Martin Referring Provider YASH Cisse Attending Provider Dr. Eddy Chen Attending Provider Dr. Mimi Martin Primary Care Provider [phone] Dr. Mimi Martin Referring Provider Jacey SUPERINTENDENT GENERATING PLANT, SUPERINTENDENT GENERATING PLANT-C Richa Attending Provider MIMI MARTIN Primary Care Unavailable Mimi Martin DO Primary Care Provider [phone] Dr. Mimi Martin DO Primary Care Provider [phone] Mimi Martin DO Referring Provider [phone] Matt SUPERINTENDENT GENERATING PLANT-Janey Lu Attending Provider Dr. Alena Ahn DO Other Provider Matt DURÁN-CJaney Referring Provider Richa Joshi Attending Provider Dr. Chauncey Duong MD Attending Provider Dr. Mimi Martin DO Primary Care Provider Dr. Mimi Martin DO Referring Provider Matt DURÁN-CJaney Attending Provider Matt DURÁN-CJaney Referring Provider Dr. Alena Ahn DO Attending Provider [phone]. Alena Ahn DO Referring Provider Rhoda BOJORQUEZ, Dr. Grossman Referring Provider [phone] Rhoda BOJORQUEZ, Dr. Grossman Other Provider Moe SUPERINTENDENT [employer]ATING [employer]ANT-C, Zandra Attending Provider [phone] Malys, Mimi Primary Care Unavailable Malys, Mimi Referring Unavailable Matt, Janey Attending Unavailable Malys, Mimi Primary Care Unavailable Malys, Mimi Referring Unavailable Matt, Janey Attending Unavailable Malys, Mimi Primary Care Unavailable Malys, Mimi Referring Unavailable Richa Mari NP Attending Unavailable Matt, Janey Attending Unavailable Malys, Mimi Primary Care Unavailable Malys, Mimi Referring Unavailable Malys, Mimi Primary Care Unavailable Malys, Mimi Referring Unavailable Rhoda, Waldo Attending Unavailable Malys, Mimi Primary Care Unavailable Malys, Mimi Referring Unavailable Matt, Janey Attending Unavailable Rhoda, Chauncey Consulting Unavailable Malys, Mimi Primary Care Unavailable Rhoda, Waldo Referring Unavailable Rhoda, Chauncey Attending Unavailable Rashad, Alena Consulting Unavailable Malys, Mimi Primary Care Unavailable Matt, Janey Referring Unavailable Matt, Janey Attending Unavailable Malys, Mimi Primary Care Unavailable Malys, Mimi Referring Unavailable Malys, Mimi Attending Unavailable Malys, Mimi Primary Care Unavailable Malys, Mimi Referring Unavailable Malys, Mimi Attending Unavailable Malys, Mimi Primary Care Unavailable Rashad, Alena Referring Unavailable Malys, Mimi Consulting Unavailable Rashad, Alena Attending Unavailable Malys, Mimi Primary Care Unavailable Malys, Mimi Referring Unavailable Malys, Mimi Attending Unavailable Malys, Mimi Primary Care Unavailable Rashad, Alena Referring Unavailable Rashad, Alena Attending Unavailable Malys, Mimi Primary Care Unavailable Rhoda, Chauncey Referring Unavailable Rhoda, Waldo Attending Unavailable Malys, Mimi Primary Care Unavailable Matt, Janey Attending Unavailable Matt, Janey Referring Unavailable Malys, Mimi Primary Care Unavailable Matt, Janey Attending Unavailable Matt, Janey Referring Unavailable Moe SUPERINTENDENT GENERATING PLANTZandra Attending Unavailable Malys, Mimi Primary Care Unavailable Allergies Allergy Classification Reported Allergen(s) Allergy Type Date of Onset Reaction(s) Facility Adhesive Tape (1 source) Adhesive Tape Substance Allergy 6 Rash [facility] Anti-Epileptic Agents (1 source) gabapentin Drug Allergy 4 Diarrhea [facility] Opioid Agonists (3 sources) HYDROmorphone Drug Allergy 6 Rash, Vomiting [facility] pregabalin (1 source) pregabalin Drug Allergy 4 Diarrhea [facility] (18 sources) Adhesive Tape; Translations: [adhesive tape] Allergy to substance 1 uknown [facility] (17 sources) gabapentin Drug Allergy 1 unknown [facility] (17 sources) HYDROmorphone Drug Allergy 1 unknown, Hives [facility] (17 sources) oxyCODONE Drug Allergy 1 unknown [facility] (17 sources) pregabalin Drug Allergy 1 Diarrhea [facility] (18 sources) traMADol; Translations: [TRAMADOL] Drug Allergy 6 [facility] (1 source) Adhesive Tape; Translations: [ADHESIVE TAPE (ROSINS)] Propensity to adverse reactions (disorder) 6 [facility] (1 source) HYDROmorphone; Translations: [HYDROMORPHONE (BULK)] Drug Allergy 6 [facility] (1 source) oxyCODONE; Translations: [OXYCODONE HCL] Drug Allergy 6 [facility] (8 sources) Lisinopril Drug Allergy 5 Cough [facility] (1 source) gabapentin Drug Allergy 5 [facility] (1 source) HYDROmorphone Drug Allergy 5 [facility] (1 source) Lisinopril Drug Allergy 5 [facility] (1 source) oxyCODONE Drug Allergy 5 [facility] (1 source) pregabalin Drug Allergy 5 [facility] (1 source) traMADol Drug Allergy 5 [facility] Medications Current Medications Medication [...] once daily. 30 tablet 11 02/23/2011 Active Blood-Glucose Meter (Freestyle Carmine Lite) kit (2 sources) Start: 05-19-2025 Blood-Glucose Meter (Freestyle [place] Lite) kit Active 0 .Route 1 0 [...] COMPOUNDED PRESCRIPTION Left foot brace, arch support. [email or web address] Dx DM 2 1 Device 0 05/28/2014 [...] Active 10 mg PO EVERY MORNING 30 February 26, 2025 8:03am Microalbuminuria Chronic kidney [...] Active ferrous sulfate 325 mg oral tablet (14 sources) Start: End: Ferrous Sulfate (Ferosul) 325 mg (65 mg iron) tablet Active 325 mg PO .Qweekly April 09, 2025 8:38am Yidkgbnmxnj-Mvmzrywwa-Tk lanter (20 sources) Anticholinergic, Corticosteroid, beta2-Adrenergic Agonist Start: Lvhqdmuzbhx-Mosieekey-Z ilanter (Trelegy Ellipta) 100-62.5-25 mcg blister with device Active 1 NMA INHALATION DAILY 3 February 10, 2025 8:11am Start: 02-10-2025 Fluticasone-Um eclidin-Vilanter (Trelegy Ellipta) 100-62.5-25 mcg blister with device Active 1 NMA INHALATION DAILY February 10, 2025 8:11am Start: 02-26-2024 TRELEGY ELLIPT A 100-62.5-25 mcg inhalation powder Start: 02-26-2024 End: 02-10-2025 Ghfhdxaodjt-Jycxrarlf-Gyvhtg er (Trelegy Ellipta) 100-62.5-25 mcg blister with device Discontinued 1 NMA INHALATION DAILY 3 February 26, 2024 8:20am February 10, 2025 8:12am Start: 02-26-2024 End: 02-10-2025 Cnkfmwwimqq-Jdzhxcmpo-Llojhu er (Trelegy Ellipta) 100-62.5-25 mcg blister with device Discontinued 1 NMA INHALATION DAILY 3 February 26, 2024 8:20am February 10, 2025 8:12am Start: 02-26-2024 Fluticasone-Um eclidin-Vilanter (Trelegy Ellipta) 100-62.5-25 mcg blister with device Active 1 NMA INHALATION DAILY 3 February 26, 2024 8:20am Start: 01-24-2024 End: 02-26-2024 Xkcqfjwofib-Jntsmusgp-Rtdgtu er (Trelegy Ellipta) 100-62.5-25 mcg blister with device Discontinued 1 NMA INHALATION DAILY 60 January 24, 2024 8:12am February 26, 2024 8:20am Start: 01-24-2024 End: 02-26-2024 Xfirghytdkf-Ptcwhipkf-Qeshbe er (Trelegy Ellipta) 100-62.5-25 mcg blister with device Discontinued 1 NMA INHALATION DAILY January 24, 2024 8:12am February 26, 2024 8:20am Start: 02-08-2023 End: 01-24-2024 Uofjgzopqrj-Mspskdcqk-Rsvmtr er (Trelegy Ellipta) 100-62.5-25 mcg blister with device Discontinued 1 NMA INHALATION DAILY 60 February 08, 2023 8:05am January 24, 2024 8:13am Start: 02-08-2023 End: 01-24-2024 Gtrefodehvr-Yimsebrlv-Uorxiq er (Trelegy Ellipta) 100-62.5-25 mcg blister with device Discontinued 1 NMA INHALATION DAILY 60 February 08, 2023 8:05am January 24, 2024 8:13am Start: 02-08-2023 Fluticasone-Um eclidin-Vilanter (Trelegy Ellipta) 100-62.5-25 mcg blister with device Active 1 INH INHALATION DAILY 60 February 08, 2023 8:05am Start: 08-09-2022 End: 02-08-2023 Hsqlqifmijo-Lsnveljfy-Lbxgzn er (Trelegy Ellipta) 100-62.5-25 mcg blister with device Discontinued 1 NMA INHALATION DAILY 60 August 09, 2022 6:53am February 08, 2023 8:05am Start: 08-09-2022 End: 02-08-2023 Qujkktrnqsz-Tutgyzovn-Knhwyh er (Trelegy Ellipta) 100-62.5-25 mcg blister with device Discontinued 1 NMA INHALATION DAILY 60 August 09, 2022 6:53am February 08, 2023 8:05am Start: 08-09-2022 End: 02-08-2023 Whjauicjnld-Duldqlsdg-Lyjylp er (Trelegy Ellipta) 100-62.5-25 mcg blister with [...] 09, 2022 6:53am Start: 02-07-2022 End: 08-09-2022 Satihenhyet-Qpguawhnt-Pwynfm er (Trelegy Ellipta) 100-62.5-25 mcg blister with device Discontinued 1 NMA INHALATION DAILY 60 5 February 07, 2022 8:12am August 09, 2022 6:53am Start: 02-07-2022 End: 08-09-2022 Kwttaumloxo-Jiwjpandl-Kkpmbj er (Trelegy Ellipta) 100-62.5-25 mcg blister with device Discontinued 1 NMA INHALATION DAILY 60 February 07, 2022 8:12am August 09, 2022 6:53am Start: 02-07-2022 End: 08-09-2022 Imlfkhpgyof-Dtcdpcxjq-Etnxja er (Trelegy Ellipta) 100-62.5-25 mcg blister with device Discontinued 1 INH INHALATION DAILY 60 February 07, 2022 7:12am August 09, 2022 5:53am Start: 02-07-2022 End: 08-09-2022 Tugcpnwbghw-Jxukkggsz-Mlivhg er (Trelegy Ellipta) 100-62.5-25 mcg blister with device Discontinued 1 INH INHALATION DAILY 60 February 07, 2022 8:12am August 09, 2022 6:53am Start: 08-06-2021 End: 02-07-2022 Sruvofqsdsa-Pnkcrsavy-Jysykv er (Trelegy Ellipta) 100-62.5-25 mcg blister with device Discontinued 1 NMA INHALATION DAILY 60 August 06, 2021 11:25am February 07, 2022 8:13am Start: 08-06-2021 End: 02-07-2022 Mvhwdwbbspt-Gnbvgzgrh-Ncpspz er (Trelegy Ellipta) 100-62.5-25 mcg blister with device Discontinued 1 NMA INHALATION DAILY 60 August 06, 2021 11:25am February 07, 2022 8:13am Start: 08-06-2021 End: 02-07-2022 Clwgtduhmaz-Ibayqmsdz-Rdbpxq er (Trelegy Ellipta) 100-62.5-25 mcg blister with device Discontinued 1 INH INHALATION DAILY 60 August 06, 2021 10:25am February 07, 2022 7:13am Start: 08-06-2021 End: 02-07-2022 Lrsdpymukic-Zosyiyvpy-Jpphdm er (Trelegy Ellipta) 100-62.5-25 mcg blister with device Discontinued 1 INH INHALATION DAILY 60 August 06, 2021 11:25am February 07, 2022 8:13am Start: 08-06-2021 Fluticasone-Um eclidin-Vilanter (Trelegy Ellipta) 100-62.5-25 mcg blister with device Active 1 INH INHALATION DAILY 60 August 06, 2021 11:25am Start: 11-03-2020 End: 08-06-2021 Owaigbcenhr-Epvwvxojg-Yzgvei er (Trelegy Ellipta) 100-62.5-25 mcg blister with device Discontinued 1 INH INHALATION DAILY 60 November 03, 2020 8:53am August 06, 2021 11:25am Start: 11-03-2020 End: 08-06-2021 Fzdfqnqsogb-Kxyuajobg-Qkmeeq er (Trelegy Ellipta) 100-62.5-25 mcg blister with device Discontinued 1 NMA INHALATION DAILY 60 5 November 03, 2020 1:00am August 06, 2021 11:25am Start: 11-03-2020 End: 08-06-2021 Loenpoajloh-Fvznfllbg-Qgewol er (Trelegy Ellipta) 100-62.5-25 mcg blister with device Discontinued 1 NMA INHALATION DAILY 60 November 03, 2020 1:00am August 06, 2021 11:25am Start: 11-03-2020 End: 08-06-2021 Kxxswopuwyz-Nreaflkck-Lmbidn er (Trelegy Ellipta) 100-62.5-25 mcg blister with device Discontinued 1 INH INHALATION DAILY 60 November 03, 2020 12:00am August 06, 2021 10:25am Start: 11-03-2020 End: 08-06-2021 Bttyijmhbli-Qzitrxdnr-Sncyzo er (Trelegy Ellipta) 100-62.5-25 mcg blister with [...] mcg capsul e Discontinued 125 ug PO MOWEFR July 12, 2019 12:00am May 24, 2021 2:55pm [...] May 24, 2021 12:00am polyethylene glycol 3350 99628 mg powder for oral solution (4 sources) Osmotic Laxative Start: 04-16-2025 Polyethylene Glycol [...] 8:15am vitamin b12 0.5 mg oral tablet (9 sources) Vitamin B12 Start: 08-22-2023 take 1 tablet by mouth once daily Cyanocobalamin (Vitamin B-12) 500 mcg tablet Active 500 ug PO DAILY August 22, 2023 12:00am Zinc (1 source) ZINC ORAL Take 5 0 mg by mouth. 0 Active zinc acetate 50 mg oral capsule (8 sources) Start: 02-26-2024 take 1 capsule by mouth once daily Zinc Acetate 50 mg (zinc) capsule Active 50 mg PO DAILY February 26, 2024 12:00am zinc oxide 100 mg/ml topical cream (12 sources) Start: 04-16-2025 Zinc Oxide 10 % [...] Drug Class(es) Dates Sig (Normalized) Sig (Original) [id number] 200 actuat albuterol 0.09 mg/actuat metered dose inhaler (20 sources) beta2-Adrenergic Agonist Start: 08-09-2022 End: 03-05-2025 Albuterol Sulfate 90 mcg/actuation HFA aerosol inhaler Discontinued 1 NMA INHALATION Q4H as needed for shortness of breath or wheezing 8.02 25October 14, 2024 9:49am March 05, 2025 8:04am [...] aerosol inhaler Discontinued 1 NMA INHALATION ONCE 8.5 December 14, 2021 11:27am [...] WHEEZING 54 g 3 03/09/2017 Active Budesonide-Formoterol (18 sources) Corticosteroid, beta2-Adrenergic Agonist Start: 07-28-2020 End: [...] Active calcium carbonate 1500 mg oral tablet (17 sources) Start: 03-18-2020 End: 05-24-2021 take 1 [...] 7:58am diclofenac sodium 0.01 mg/mg topical gel (17 sources) Nonsteroidal Anti-inflammatory Drug Start: 05-24-2021 End: [...] 7:51am 0.5 ml dulaglutide 3 mg/ml auto-injector (8 sources) GLP-1 Receptor Agonist Start: 01-17-2025 End: 02-10-2025 Dulaglutide (Trulicity) 1.5 mg/0.5 mL pen injector Discontinued 1.5 mg SC EVERY WEEK January 17, 2025 12:00am February 10, 2025 7:35am ferrous fumarate 325 mg oral tablet (9 sources) Start: 08-22-2023 End: 02-26-2024 take 1 tablet by mouth once daily Ferrous Fumarate 325 mg (106 mg iron) tablet Discontinued 325 mg PO DAILY August 22, 2023 12:00am February 26, 2024 7:58am gabapentin 300 mg oral capsule (17 sources) Anti-epileptic Agent Start: 07-12-2019 End: 07-12-2019 take 1 capsule by mouth twice daily Gabapentin 300 mg capsule Discontinued 300 mg PO TWICE A DAY July 12, 2019 12:00am July 12, 2019 10:34am glimepiride 1 mg oral tablet (17 sources) Sulfonylurea Start: 01-17-2025 End: 04-09-2025 take [...] 10:26am metFORMIN hydrochloride 1000 mg oral tablet (18 sources) Biguanide Start: 09-19-2017 End: 02-26-2024 take 1 tablet by mouth twice daily Metformin 1,000 mg tablet Discontinued 1000 mg PO TWICE A DAY September 19, 2018 1:00am February 26, 2024 7:59am Multivitamin tablet (16 sources) Start: 01-17-2025 End: 04-09-2025 Multivitamin tablet Discontinued 1 {tbl} PO daily January 17, 2025 12:00am April 09, 2025 8:38am Start: 01-17-2025 Multivitamin t ablet Active 1 {tbl} PO daily January 17, 2025 12:00am Start: 05-24-2021 End: 01-06-2025 Multivitamin tablet Disconti nued 1 {tbl} PO DAILY May 24, 2021 12:00am January 06, 2025 11:15am Nirmatrelvir-Ritonavir (16 sources) Start: 04-29-2022 End: 02-08-2023 Nirmatrelvir-Ritonavir (Paxl [...] / nitrofurantoin, monohydrate 75 mg oral capsule (17 sources) Nitrofuran Antibacterial Start: 09-19-2018 End: 07-12-2019 [...] Polyethylene Glycol 3350 (Miralax) 17 gram/dose powder (8 sources) Start: 01-06-2025 End: 04-16-2025 Polyethylene Glycol [...] 2025 12:00am sertraline 25 mg oral tablet (17 sources) Serotonin Reuptake Inhibitor Start: 05-24-2021 End: 02-08-2023 take 1 tablet by mouth once daily Sertraline 25 mg tablet Discontinued 25 mg PO DAILY May 24, 2021 12:00am February 08, 2023 7:51am tretinoin 0.63219 mg/mg topical gel (17 sources) Retinoid Start: 05-24-2021 End: 02-26-2024 Tretinoin 0.025 % gel Discontinued 1 NMA TOPICAL AT BEDTIME May 24, 2021 12:00am February 26, 2024 8:00am Start: 05-24-2021 Tretinoin Acti ve 1 APPLIC TOPICAL AT BEDTIME May 24, 2021 12:00am Problems Active Problems Problem Classification Problem Date Documented Da te Episodic/Chronic Cancer of bone and connective tissue (18 sources) Osteosarcoma of bone; 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, unspecified] Onset: 09-11-2006 07-27-2020 Chronic Comment on above: chemo 05/2007 Chronic kidney disease (20 sources) Chronic kidney disease stage 3; Translations: [Stage 3 chronic kidney disease] Onset: 09-11-2024 01-17-2025 Chronic Chronic kidney disease (1 source) Chronic kidney disease; Translations: [Chronic kidney disease, stage 3b] Onset: 08-06-2025 Chronic obstructive pulmonary disease and bronchiectasis (20 sources) Asthma-chronic obstructive pulmonary disease overlap syndrome; Translations: [Chronic obstructive pulmonary disease, unspecified] Onset: 04-14-2025 Chronic Coronary atherosclerosis and other heart disease (20 sources) Calcification of coronary artery; Translations: [Atherosclerotic heart disease of [place] coronary artery without angina pectoris] Onset: 05-21-2025 07-27-2020 Chronic Diabetes mellitus with complications (15 sources) Neuropathy due to diabetes mellitus; Translations: [Type 2 diabetes mellitus with diabetic neuropathy, unspecified] Onset: 06-02-2025 01-17-2025 Chronic Diabetes mellitus without complication (20 [...] 05-04-2009 05-31-2016 Chronic Fever of unknown origin (16 sources) Fever; Translations: [Fever, unspecified] 04-29-2022 Episodic Menopausal disorders (1 source) Postmenopausal bleeding; Translations: [Postmenopausal bleeding] Onset: 12-27-2013 12-27-2013 Chronic Nutritional deficiencies (11 sources) Vitamin D deficiency; Translations: [Vitamin D deficiency, unspecified] Onset: 03-09-2010 03-09-2010 Chronic Other eye disorders (1 source) Swelling of eyelid; Translations: [Edema of unspecified eye, unspecified eyelid] 03-25-2024 Episodic Other inflammatory condition of skin (8 sources) Disorder of female perineum; Translations: [Anogenital pruritus, unspecified] 01-17-2025 Episodic Other inflammatory condition of skin (1 source) Anogenital pruritus, unspecified; Translations: [Anogenital pruritus, unspecified] Onset: 05-21-2025 Episodic Other nervous system disorders (9 sources) Abnormal gait; Translations: [Unspecified abnormalities of gait and mobility] Onset: 07-27-2007 07-27-2007 Episodic Other nutritional; endocrine; and metabolic disorders (20 sources) Morbid obesity; Translations: [Morbid (severe) obesity due to excess calories] 11-03-2020 Chronic Other nutritional; endocrine; and metabolic disorders (4 sources) Morbid (severe) obesity due to excess calories; Translations: [Morbid obesity] Onset: 06-02-2025 Chronic Other nutritional; endocrine; and metabolic disorders (1 source) Body mass index 30+ - obesity; Translations: [Body mass index (BMI) 39.0-39.9, adult] Onset: 12-27-2014 12-27-2014 Chronic Other nutritional; endocrine; and metabolic disorders (20 sources) Obesity; Translations: [Obesity, unspecified] Onset: 08-10-2011 Resolved: 12-27-2014 12-27-2014 Chronic Other nutritional; endocrine; and metabolic disorders (1 source) Body mass index (BMI) 40.0-44.9, adult; Translations: [Body mass index [BMI] 40.0-44.9, adult] Onset: 06-02-2025 Chronic Other screening for suspected conditions (not mental disorders or infectious disease) (19 sources) Computed tomography result abnormal; Translations: [Abnormal findings on diagnostic imaging of heart and coronary circulation] Onset: 09-06-2024 07-27-2020 Episodic Residual codes; unclassified (20 sources) Obstructive sleep apnea syndrome; Translations: [Obstructive sleep apnea (adult) (pediatric)] Onset: 08-10-2011 08-06-2021 Chronic Comment on above: CPAP 17 cm of water with residual AHI of 0.2 Residual codes; unclassified (4 sources) Obstructive sleep apnea (adult) (pediatric); Translations: [Obstructive sleep apnea (adult)(pediatric)] Onset: 04-14-2025 Chronic Residual codes; unclassified (10 sources) Postmenopausal state; Translations: [Asymptomatic menopausal state] 04-09-2025 Episodic Residual codes; unclassified (1 source) Asymptomatic menopausal state; Translations: [Asymptomatic menopausal state] Onset: 08-06-2025 Episodic Substance-related disorders (9 sources) Cigarette smoker ; Translations: [Nicotine dependence, cigarettes, uncomplicated] 01-27-2021 Chronic Superficial injury; contusion (14 sources) Contusion of right chest wall; Translations: [Contusion of right front wall of thorax, initial encounter] 01-25-2023 Episodic Thyroid disorders (20 sources) Toxic multinodular goiter; Translations: [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 storm] Onset: 06-26-2009 06-26-2009 Chronic Unclassified (1 source) Obesity, class 3; Translations: [Obesity, class 3] Onset: 06-02-2025 Urinary tract infections (17 sources) Urinary tract infectious disease; Translations: [Urinary tract infection, site not specified] 07-12-2019 Episodic Viral infection (18 sources) Disease caused by 2019-nCoV; Translations: [COVID-19] [...] 11-13-2006 Episodic Genitourinary symptoms and ill-defined conditions (15 sources) Microalbuminuria; Translations: [Proteinuria, unspecified] Onset: 09-11-2024 01-17-2025 Episodic Nutritional deficiencies (1 source) Deficiency of other specified B group vitamins; Translations: [Deficiency of other specified B group vitamins] Onset: 03-10-2025 Episodic Other lower respiratory disease (1 source) Disorder of lung; Translations: [Other disorders of lung] Onset: 10-02-2006 03-09-2009 Episodic Results Test Name Value Interpretation Reference Range Facility Endocrinology Visit Reporton 08-06-2025 Endocrinology Visit Report [facility] [address] [place] [address] OFFICE VISIT Date of Service: 08/06/25 MR#: [id number] Acct: [id number] Name: LYNDA BRADLEY Rep #: [id number] : 1965 Provider: TRAV crooks Age/Sex: 60/F [place] [facility] [place]: Signed Intake Vital Signs 04/09/25 08:33 04/18/25 07:52 08/06/25 08:40 Height 5 ft 1 in 5 ft 1 in 5 ft 1 in Weight: 195 lb BMI 36.8 BP 127/80 H Blood Pressure Location Lt brachial Position Sitting Pulse 86 Pulse Source Monitor Pulse Oximetry (%) 94 Oxygen Delivery Method room air Intake Visit Reasons: 3 M FU Chief Complaint: f/u diabetes Tenter Frame Back Tender Required: No Accompanied by: Self Is patient in pain?: No Allergies pregabalin (From Lyrica) Allergy (Intermediate, Verified 08/06/25 08:39) Diarrhea adhesive tape Allergy (Unknown, Verified 08/06/25 08:39) uknown hydromorphone (From Dilaudid) Allergy (Unknown, Verified 08/06/25 08:39) Hives oxycodone Allergy (Unknown, Verified 08/06/25 08:39) unknown tramadol Allergy (Unknown, Verified 08/06/25 08:39) unknown gabapentin Allergy (Verified 08/06/25 08:39) unknown lisinopril Adverse Reaction (Intermediate, Verified 08/06/25 08:39) Cough Medications ???Medication ???Instructions ???Recorded ???Confirmed ???Type cyanocobalamin (vitamin B-12) 500 500 mcg PO DAILY 08/22/23 5 History mcg tablet losartan 25 mg tablet 25 mg PO DAILY 02/26/24 08/06/25 H istory zinc acetate 50 mg (zinc) capsule 50 mg PO DAILY 02/26/24 08/06/25 History levothyroxine 125 mcg tablet 125 mcg PO DAILY 01/06/25 08/06/25 History cholecalciferol (vitamin D3) 25 50 mcg PO DAILY 01/17/25 08/06/25 History mcg (1,000 unit) capsule fluticasone fur. 100 mcg-umeclid 1 inh inhalation DAILY #3 ea 02/1008/06/25 Rx 62.5 mcg-vilant 25 mcg inhalat.powder (Trelegy Ellipta) empagliflozin 10 mg tablet 10 mg PO QAM #30 tabs 02/26/25 Rx (Jardiance) albuterol sulfate 90 mcg/actuation 1 inh inhalation Q4H PRN shortne ss 03/05/25 08/06/25 Rx aerosol inhaler of breath or wheezing #8.5 grams ferrous sulfate 325 mg (65 mg 325 mg PO .Qweekly 04/09/25 History iron) tablet (FeroSul) polyethylene glycol 3350 17 4 g PO ONCE PRN 04/16/25 08/06/25 History gram/dose oral powder (Miralax) simvastatin 20 mg tablet 20 mg PO QHS #90 tabs 04/18/25 Rx blood sugar diagnostic (FreeStyle #100 ea 05/19/25 08/06/25 Rx Lite Strips) blood-glucose meter (FreeStyle #1 ea 05/19/25 08/06/25 Rx Carmine Lite kit) lancets 28 gauge (FreeStyle #100 ea 05/19/25 08/06/25 Rx Lancets) semaglutide 1 mg/dose (4 mg/3 mL) 1 mg (0.75 mL) subcut QWEEK #3 mL 06/24/25 08/06/25 Rx subcutaneous pen injector (Ozempic) [facility] Medical History Gait instability Vitamin D deficiency [...] f/u diabetes Details: LYNDA BRADLEY, is a 60 F who presents to the office today for evaluation and management of diabetes. A1C today is 5.6%, improved from 04/09/25 at 5.7%. She has lost an additional 7 lbs. She is pleased with her progress. Currently taking Jardiance 10 mg once daily and Ozempic 1 mg qweek- tolerating well. Reports typical fasting blood sugar is in 90's. She is being mindful of food volume and making better selections. BP controlled. Currently taking losartan 25 mg once daily. She has CAD and is prescribed simvastatin 20 mg once daily. Dose was recently increased by cardiology to achieve LDL of <70. Since simvastatin dose was increased from 10 mg to 20 mg she has stopped taki (more content not included)... Normal [facility] Cardiovascular stress test r eportOrdered By: Chauncey Duong on 06-03-2025 Study report [facility] [address] [place] [address] MR#: [id number] Acct: [id number] Name: LYNDA BRADLEY Rep #: [id number] : 1965 60 From: Chauncey Duong MD Primary Care: Dr. Mimi Martin, DO Status: REG CLI Referring Dr: Chauncey Duong MD Sex: F C Stress Test Report Pharmacologic myocardial perfusion stress test. 60-year-old lady with a history of coronary artery disease Resting EKG demonstrates sinus rhythm with a rate of 68 bpm. Resting blood pressure is 138/92 mmHg. 0.4 mg of regadenoson was infused per usual protocol followed by rapid intravenous saline flush injection. Continuous EKG monitoringwas performed. The maximum heart rate was 108 bpm which was 68% of max impactedheart rate the maximum workload was 1 metabolic equivalent. At rest there were no ST or T wave changes noted to suggest ischemia and at peak infusion nonspecific ST changes were noted which did not meet the criteria for ischemia. No clinical angina is noted. The final blood pressure was 166/98 mmHg. Myocardial perfusion protocol. 15 mCi of technetium 99m sestamibi was injected at rest. 0.4 mg of regadenoson was infused per usual protocol. At peak infusion 32 mCi of technetium 99m sestamibi was injected stress images were obtained stress and rest images were reconstructed and compared in the short axis vertical long and horizontal long axis. Gated images were also obtained. Perfusion SPECT analysis: Review of the stress images demonstrate normal uptake of tracer noted in all areas of the myocardium. The resting images similar demonstrated normal uptake of tracer noted in all areas of the myocardium. No areas of reversibility are noted to suggest ischemia and no previous infarct is noted. Gated SPECT analysis: The gated ejection fraction is 62%. Conclusion: Normal pharmacologic myocardial perfusion stress test. Preserved ejection fraction. 06/03/25 1727 Date _ Chauncey Duong MD CC: Dr. Chauncey Duong MD; Dr. Mimi Martin DO ~ Date Dictated: 06/03/251725 Date Transcribed: 06/03/251725 [employer] Plate: CO Signed [facility] Work Phone: Stress Reporton 06-03-2025 Stress Report [facility] Services [address] [place] [address] MR#: [id number] Acct: [id number] Name: LYNDA BRADLEY Rep #: [id number] : 1965 60 From: Chauncey Duong MD Primary Care: Dr. Mimi Martin DO Status: R EG CLI Referring Dr: Chauncey Duong MD Sex: F C Stress Test Report Pharmacologic myocardial perfusion stress test. 60-year-old lady with a history of coronary artery disease Resting EKG demonstrates sinus rhythm with a rate of 68 bpm. Resting blood pressure is 138/92 mmHg. 0.4 mg of regadenoson was infused per usual protocol followed by rapid intravenous saline flush injection. Continuous EKG monitoring was performed. The maximum heart rate was 108 bpm which was 68% of max impacted heart rate the maximum workload was 1 metabolic equivalent. At rest there were no ST or T wave changes noted to suggest ischemia and at peak infusion nonspecific ST changes were noted which did not meet the criteria for ischemia. No clinical angina is noted. The final blood pressure was 166/98 mmHg. Myocardial perfusion protocol. 15 mCi of technetium 99m sestamibi was injected at rest. 0.4 mg of regadenoson was infused per usual protocol. At peak infusion 32 mCi of technetium 99m sestamibi was injected stress images were obtained stress and rest images were reconstructed and compared in the short axis vertical long and horizontal long axis. Gated images were also obtained. Perfusion SPECT analysis: Review of the stress images demonstrate normal uptake of tracer noted in all areas of the myocardium. The resting images similar demonstrated normal uptake of tracer noted in all areas of the myocardium. No areas of reversibility are noted to suggest ischemia and no previous infarct is noted. Gated SPECT analysis: The gated ejection fraction is 62%. Conclusion: Normal pharmacologic myocardial perfusion stress test. Preserved ejection fraction. 06/03/251726 Date Chauncey Duong MD CC: Dr. Chauncey Duong MD; Dr. Mimi Martin DO Date Dictated: 06/03/251725 Date Transcribed: 06/03/251725 [employer] Plate: CO Signed Normal [facility] Anion gap in Serum or Plasma Ordered By: Alena Ahn on 05-21-2025 Anion gap [Moles/Vol] 14 mmol/L 03-06 [facility] BUN/creatinine ratioOrdered By: Alena Ahn on 05-21-2025 Urea nitrogen/Creatinine [Mass ratio] 21.3 mg/mg High 08-11 [facility] CBC-Complete Blood Cnt No Di ffon 05-21-2025 Erythrocyte distribution width (RBC) [Ratio] 13.1 % Normal 11.6-14.6 [facility] Comment on above: Performed By: #### L 509.1000, L100.0500, L503.6030, L500.3600, L503.6550, L502.0250 #### [facility] [address] [place], [address] Hematocrit (Bld) [Volume fraction] 35.9 % Low 37-47 [facility] Comment on above: Performed By: #### L 509.1000, L100.0500, L503.6030, L500.3600, L503.6550, L502.0250 #### [facility] [address] [place], [address] Hemoglobin (Bld) [Mass/Vol] 12.0 g/dL Normal 12.0-15.0 [facility] Comment on above: Performed By: #### L 509.1000, L100.0500, L503.6030, L500.3600, L503.6550, L502.0250 #### [facility] [address] [place], [address] MCH (RBC) [Entitic mass] 30.5 pg Normal 27.0-32.0 [facility] Comment on above: Performed By: #### L 509.1000, L100.0500, L503.6030, L500.3600, L503.6550, L502.0250 #### [facility] [address] [place], [address] MCHC (RBC) [Mass/Vol] 33.4 g/dL Normal 32-36 [facility] Comment on above: Performed By: #### L 509.1000, L100.0500, L503.6030, L500.3600, L503.6550, L502.0250 #### [facility] [address] [place], [address] MCV (RBC) [Entitic vol] 91.3 fL Normal 81-99 [facility] Comment on above: Performed By: #### L 509.1000, L100.0500, L503.6030, L500.3600, L503.6550, L502.0250 #### [facility] [address] [place], [address] Platelet mean volume (Bld) [Entitic vol] 11.4 fL Normal 6.2-12.0 [facility] Comment on above: Performed By: #### L 509.1000, L100.0500, L503.6030, L500.3600, L503.6550, L502.0250 #### [facility] [address] [place], [address] Platelets (Bld) [#/Vol] 182 10*3/uL Normal 150-450 [facility] Comment on above: Performed By: #### L 509.1000, L100.0500, L503.6030, L500.3600, L503.6550, L502.0250 #### [facility] [address] [place], [address] RBC (Bld) [#/Vol] 3.93 10*6/uL Low 4.2-5.4 [facility] Comment on above: Performed By: #### L 509.1000, L100.0500, L503.6030, L500.3600, L503.6550, L502.0250 #### [facility] [address] [place], [address] RDW SD 44.1 fl High 35.1-43.9 [facility] Comment on above: Performed By: #### L 509.1000, L100.0500, L503.6030, L500.3600, L503.6550, L502.0250 #### [facility] [address] [place], [address] WBC (Bld) [#/Vol] 6.0 10*3/uL Normal 4.4-11.0 [facility] Comment on above: Performed By: #### L 509.1000, L100.0500, L503.6030, L500.3600, L503.6550, L502.0250 #### [facility] [address] [place], [address] Carbon dioxide, total [Moles /volume] in Central venous bloodOrdered By: Alena Ahn on 05-21-2025 CO2 [Moles/Vol] 20.3 mmol/L Low 21.0-32.0 [facility] Chloride assayOrdered By: Nick Ahn on 05-21-2025 Chloride [Moles/Vol] 105 mmol/L 98-108 [facility] Erythrocyte distribution wid th ratioOrdered By: Alena Ahn on 05-21-2025 Erythrocyte distribution width (RBC) [Ratio] 13.1 % 11.6-14.6 [facility] Erythrocyte distribution wid th standard deviationOrdered By: Alena Ahn on 05-21-2025 Erythrocyte distribution width (RBC) [Ratio] 44.1 fl High 35.1-43.9 [facility] Ferritinon 05-21-2025 Ferritin [Mass/Vol] 137 ng/mL Normal 22-378 [facility] Comment on above: Performed By: #### L 509.1000, L100.0500, L503.6030, L500.3600, L503.6550, L502.0250 ####[facility] [address] [place], [address] Glomerular filtration rate ( GFR) estimation/1.73 sq m using serum, plasma, or whole bOrdered By: Alena Ahn on 05-21-2025 GFR/1.73 sq M.predicted among non-blacks MDRD (S/P/Bld) [Vol rate/Area] 39 mL/min/{1.73_m2} Low >60 [facility] Comment on above: mL/min/1.73m2 CKD-EP I Creatinine Equation (2020) Hematocrit Auto (Bld) [Volum e fraction]Ordered By: Alena Ahn on 05-21-2025 Hematocrit (Bld) [Volume fraction] 35.9 % Low 37-47 [facility] Hemoglobin measurementOrdere d By: Alena Ahn on 05-21-2025 Hemoglobin (Bld) [Mass/Vol] 12.0 g/dL 12.0-15.0 [facility] Iron measurement (mass/mass) Ordered By: Alena Ahn on 05-21-2025 Iron (Unsp spec) [Mass/Mass] 60 ug/dL 50-170 [facility] Iron+Iron Binding Capacityon 05-21-2025 Iron [Mass/Vol] 60 ug/dL Normal 50-170 [facility] Comment on above: Performed By: #### L 509.1000, L100.0500, L503.6030, L500.3600, L503.6550, L502.0250 ####[facility] [address] [place], [address] IRON SATURATION 21.0 Normal 13-59 [facility] Comment on above: Performed By: #### L 509.1000, L100.0500, L503.6030, L500.3600, L503.6550, L502.0250 ####[facility] [address] [place], [address] TIBC 290 ug/dL Normal 250-450 [facility] Comment on above: Performed By: #### L 509.1000, L100.0500, L503.6030, L500.3600, L503.6550, L502.0250 ####[facility] [address] [place], [address] UIBC 230 ug/dL Normal 228-428 [facility] Comment on above: Performed By: #### L 509.1000, L100.0500, L503.6030, L500.3600, L503.6550, L502.0250 ####[facility] [address] [place], [address] MCV (mean corpuscular volume ) determinationOrdered By: Alena Ahn on 05-21-2025 MCV (RBC) [Entitic vol] 91.3 fL 81-99 [facility] Mean corpuscular hemoglobin (MCH) determinationOrdered By: Alena Ahn on 05-21-2025 MCH (RBC) [Entitic mass] 30.5 pg 27.0-32.0 [facility] Mean corpuscular hemoglobin concentration (MCHC) determinationOrdered By: Alena Ahn on 05-21-2025 MCHC (RBC) [Mass/Vol] 33.4 g/dL 32-36 [facility] Mean platelet volume determi nationOrdered By: Alena Ahn on 05-21-2025 Platelet mean volume (Bld) [Entitic vol] 11.4 fL 6.2-12.0 [facility] Microalb:Creat Ratio,Random URon 05-21-2025 Creatinine [Mass/Vol] 70.80 mg/dL Normal 28.00-217.00 [facility] Comment on above: Performed By: #### L 509.1000, L100.0500, L503.6030, L500.3600, L503.6550, L502.0250 ####[facility] [address] [place], [address] MALB:CREAT 28.5 mg/g CRE Normal <30 mg/g CRE [facility] Comment on above: Performed By: #### L 509.1000, L100.0500, L503.6030, L500.3600, L503.6550, L502.0250 ####[facility] [address] [place], [address] MICROALBUMIN,UR 20.2 mg/L Normal <20 mg/L [facility] Comment on above: Performed By: #### L 509.1000, L100.0500, L503.6030, L500.3600, L503.6550, L502.0250 ####[facility] [address] [place], [address] No Panel InformationOrdered By: Alena Ahn on 05-21-2025 Unsaturated Iron Binding Capacity 230 ug/dL 228-428 [facility] PTHINon 05-21-2025 PTH 75 pg/mL High 11-61 [facility] Comment on above: Performed By: #### L 509.1000, L100.0500, L503.6030, L500.3600, L503.6550, L502.0250 #### [facility] [address] [place], [address] Platelet countOrdered By: Nick Ahn on 05-21-2025 Platelets (Bld) [#/Vol] 182 10*3/uL 150-450 [facility] Potassium measurement (mass/ volume)Ordered By: Alena Ahn on 05-21-2025 Potassium (Unsp spec) [Mass/Vol] 4.0 mmol/L 3.3-5.1 [facility] RBC Auto (Bld) [#/Vol]Ordere d By: Alena Ahn on 05-21-2025 RBC (Bld) [#/Vol] 3.93 10*6/uL Low 4.2-5.4 [facility] Random urine creatinine anamaria urement (mass/volume)Ordered By: Alena Ahn on 05-21-2025 Creatinine Unsp time (U) [Mass/Vol] 70.80 mg/dL 28.00-217.00 [facility] Renal Profileon 05-21-2025 Phosphate [Mass/Vol] 3.5 mg/dL Normal 2.7-4.5 [facility] Comment on above: Performed By: #### L 509.1000, L100.0500, L503.6030, L500.3600, L503.6550, L502.0250 ####[facility] [address] [place], [address] Serum creatinine measurement (mass/volume)Ordered By: Alena Ahn on 05-21-2025 Creatinine [Mass/Vol] 1.50 mg/dL High 0.70-1.20 [facility] Serum glucose measurement (m ass/volume)Ordered By: Alena Ahn on 05-21-2025 Glucose [Mass/Vol] 107 mg/dL High 70-99 [facility] Serum or plasma albumin anamaria urement (mass/volume)Ordered By: Alena Ahn on 05-21-2025 Albumin [Mass/Vol] 4.2 g/dL 3.4-4.8 [facility] Serum or plasma calcium anamaria urement (mass/volume)Ordered By: Alena Ahn on 05-21-2025 Calcium [Mass/Vol] 9.4 mg/dL 7.6-11.0 [facility] Serum or plasma ferritin rk surement (mass/volume)Ordered By: Alena Ahn on 05-21-2025 Ferritin [Mass/Vol] 137 ng/mL 22-378 [facility] Serum or plasma iron saturat ion measurement (mass fraction)Ordered By: Alena Ahn on 05-21-2025 Iron saturation [Mass fraction] 21.0 % 13-59 [facility] Serum or plasma urea nitroge n measurement (mass/volume)Ordered By: Alena Ahn on 05-21-2025 Urea nitrogen [Mass/Vol] 32 mg/dL High 4-19 [facility] Sodium levelOrdered By: Everardo Ahn on 05-21-2025 Sodium [Moles/Vol] 139 mmol/L 133-145 [facility] Urine albumin measurement [facility] detection limit of 20 mg/L or less (mass/volume)Ordered By: Alena Ahn on 05-21-2025 Albumin DL <= 20 mg/L (U) [Mass/Vol] 20.2 mg/L <20 mg/L [facility] White blood cell (WBC) count Ordered By: Alena Ahn on 05-21-2025 WBC (Bld) [#/Vol] 6.0 10*3/uL 4.4-11.0 [facility] Cardiology Visit Reporton Cardiology Visit Report [facility] [address] [place], [place] [address] OFFICE VISIT Date of Service: 04/18/25 MR#: [id number] Acct: [id number] Name: LYNDA BRADLEY Rep #: [id number] : 1965 Provider: Dr. Chauncey Duong MD Age/Sex: 59/F Location: [facility] Status: Signed HPI HPI History of Present [...] room air Intake Visit Reasons: RE-EST (SELF) Tenter Frame Back Tender Required: No Accompanied by: Self Is patient [...] activity do (more content not included)... Normal [facility] Bone density reportOrdered B y: Amado Mayen on 04-17-2025 Study report Skeletal system DXA [facility] Imaging Services [address] [place] [address] Dexa Bone Density Study MR#: [id number] Acct: [id number] Name: LYNDA BRADLEY Rep #: [id number] : 1965 F 59 From: Sly Mayen MD PCP: Dr. Mimi Martin DO Status: REG CLI Study:Dexa Bone Density Study Date of Exam: 04/17/25 Exam# [id number] Ordering Dr: Janey Gutierrez PROCEDURE: DEXA BONE [...] TRAV Gutierrez; Dr. Mimi Martin DO ~ [employer] Plate: Signed [facility] Dexa Bone Density Studyon Dexa Bone Density Study [facility] Imaging Services [address] [place] [id number] Dexa Bone Density Study MR#: [id number] Acct: [id number] Name: LYNDA BRADLEY Rep #: [id number] : 1965 F 59 From: Amado horowitz MD PCP: Dr. Mimi Martin DO Status: REG CLI Study: Dexa Bone Density Study Date of Exam: 04/17/25 Exam# [id number] Ordering Dr: Janey Gutierrez PROCEDURE: DEXA BONE [...] Recommend follow-up as clinically warranted. Reading Location: [id number] CC: TRAV Gutierrez; Dr. Mimi Martin DO [employer] Plate: Signed Normal [facility] Calculated very low density lipoprotein (VLDL) cholesterol measurementOrdered By: Janey Gutierrez on 04-10-2025 Calculated very low density lipoprotein (VLDL) cholesterol measurement 28 mg/dL 5-40 [facility] LDL calc ser/plasOrdered By: Janey Gutierrez on 04-10-2025 Cholesterol in LDL [Mass/Vol] 92 mg/dL [facility] Comment on above: Crksqoffqa=838-364 m g/dL & Higher Pykm=498 mg/dL or greater Lipid Profileon 04-10-2025 CHOL:HDL 3.39 Normal [facility] Comment on above: Performed By: #### L 502.0250, L100.0500, L503.6030, L500.3600, L503.6550 #### [facility] [address] [place], [address] Cholesterol [Mass/Vol] 170 mg/dL Normal <=200 [facility] Comment on above: Result Comment: Chol esterol level, Desirable <200 mg/dL Borderline high cholesterol 200-239 mg/dL High cholesterol >=240 mg/dL Recommendations of the NCEP Adult Treatment Panel for the following risk-cutoff thresholds for the [place] population. Performed By: #### L 502.0250, L100.0500, L503.6030, L500.3600, L503.6550 #### [facility] [address] [place], [address] Cholesterol in HDL [Mass/Vol] 50 mg/dL Normal [facility] Comment on above: Result Comment: Yeny onal Cholesterol Education Program (NCEP) guidelines: <40 mg/dL: Low HDL-cholesterol (major risk factor for CHD) >= 60 mg/dL: High HDL-cholesterol (negative risk factor for CHD) HDL-cholesterol is affected by a number of factors, e.g. smoking, exercise, hormones, sex and age. Performed By: #### L 502.0250, L100.0500, L503.6030, L500.3600, L503.6550 #### [facility] [address] [place], [address] Cholesterol in LDL [Mass/Vol] 92 mg/dL Normal [facility] Comment on above: Result Comment: Bord busjhs=552-605 mg/dL Higher Aaiz=960 mg/dL or greater Performed By: #### L 502.0250, L100.0500, L503.6030, L500.3600, L503.6550 #### [facility] [address] [place], [address] Cholesterol in VLDL [Mass/Vol] 28 mg/dL Normal 5-40 [facility] Comment on above: Performed By: #### L 502.0250, L100.0500, L503.6030, L500.3600, L503.6550 #### [facility] [address] [place], [address] Triglyceride [Mass/Vol] 139 mg/dL Normal [facility] Comment on above: Result Comment: The drugs N-Acetylcysteine and Metamizole may falsely depress this assay. Normal range: <150 mg/dL Borderline High: 150-199 mg/dL High: 200-499 mg/dL Very High: >500 mg/dL Performed By: #### L 502.0250, L100.0500, L503.6030, L500.3600, L503.6550 #### [facility] [address] [place], [address] Screening total cholesterol/ high density lipoprotein (HDL) cholesterol ratioOrdered By: Janey Gutierrez on 04-10-2025 Cholesterol.total/Choles terol in HDL [Mass ratio] 3.39 {ratio} [facility] Serum or plasma cholesterol in HDL measurement (mass/volume)Ordered By: Janey Gutierrez on 04-10-2025 Cholesterol in HDL [Mass/Vol] 50 mg/dL >40 [facility] Comment on above: National Cholesterol Education Program (NCEP) guidelines:<40 mg/dL: Low HDL-cholesterol (major risk factor for CHD)>= 60 mg/dL: High HDL-cholesterol (negative risk factor for CHD)HDL-cholesterol is affected by a number of factors, e.g. smoking, exercise, hormones, sex and age. Serum or plasma cholesterol measurement (mass/volume)Ordered By: Janey Gutierrez on 04-10-2025 Cholesterol [Mass/Vol] 170 mg/dL <201 [facility] Comment on above: Cholesterol level, D esirable <200 mg/dLBorderline high cholesterol 200-239 mg/dLHigh cholesterol >=240 mg/dLRecommendations of the NCEP Adult Treatment Panel for the following risk-cutoff thresholds for the [place] population. T4 Free Directon 04-10-2025 T4 FREE DIRECT 1.40 ng/dL Normal 0.76-1.46 [facility] Comment on above: Performed By: #### L 502.0250, L100.0500, L503.6030, L500.3600, L503.6550 #### [facility] [address] [place], [place], [address] T4 freeOrdered By: Emilie on 04-10-2025 Free T4 [Mass/Vol] 1.40 ng/dL 0.76-1.46 [facility] TSH DL <= 0.005 mIU/L QnOrde red By: Janey Gutierrez on 04-10-2025 TSH Qn 0.972 uIU/mL 0.300-4.200 [facility] Thyroid Stim Hormone (TSH)on 04-10-2025 TSH 0.972 uIU/mL Normal 0.300-4.200 [facility] Comment on above: Performed By: #### L 502.0250, L100.0500, L503.6030, L500.3600, L503.6550 #### [facility] [address] [place], [place], [address] Triglycerides measurementOrd ered By: Janey Gutierrez on 04-10-2025 Triglyceride [Mass/Vol] 139 mg/dL <199 [facility] Comment on above: The drugs N-Acetylcy steine and Metamizole may falsely depress this assay. Normal range: <150 mg/dLBorderline High: 150-199 mg/dLHigh: 200-499 mg/dLVery High: >500 mg/dL Vitamin D,25 Hydroxyon 04-10 Vitamin D 25-OH 49.0 ng/mL Normal 30-100 [facility] Comment on above: Result Comment: Leisa min D Status Deficiency: <20 ng/mL (50nmol/L) Insufficiency: 20-30 ng/mL (50-75 nmol/L) Sufficiency: 30-100 ng/mL (75-250 nmol/L) Toxicity: >100 ng/mL (>250 nmol/L) Performed By: #### L 502.0250, L100.0500, L503.6392, L500.3600, L503.6594 #### [facility] [address] [place], [address] Endocrinology Visit Reporton 04-09-2025 Endocrinology Visit Report [facility] [address] [place] [address] OFFICE VISIT Date of Service: 04/09/25 MR#: [id number] Acct: [id number] Name: LYNDA BRADLEY Rep #: [id number] : 1965 Provider: TRAV crooks Age/Sex: 59/F [place] [facility] Status: Signed Intake Vital Signs 01/06/25 11:11 03/05/25 08:02 04/09/25 08:33 Height 5 ft 1 in 5 ft 1 in 5 ft 1 in Weight: 202 lb BMI 38.1 BP 123/80 H Blood Pressure Location Rt brachial Position Sitting Pulse 71 Pulse Source Monitor Pulse Oximetry (%) 97 Oxygen Delivery Method room air Intake Visit Reasons: 3 M FU Chief Complaint: f/u diabetes Tenter Frame Back Tender Required: No Accompanied by: Self Is patient [...] PO .Qweekly 04/09/25 History [facility] (Updated 04/09/25 @ 09:24 by Janey Gutierrez NP-C) Gait instability Vitamin D deficiency Hypertension Obesity [...] controlled choleste (more content not included)... Normal [facility] - Hematology and Cell countsOrdered By: Janey Gutierrez on 04-09-2025 HbA1c (Bld) [Mass fraction] 5.7 % 4.2-6.3 [facility] Pulmonary Visit Reporton Pulmonary Visit Report [facility] [place] [address] [place] [address] OFFICE VISIT Date of Service: 03/05/25 MR#: [id number] Acct: [id number] Name: LYNDA BRADLEY Rep #: [id number] : 1965 Provider: TRAV Mari Age/Sex: 59/F Location: [facility] Status: Signed Assessment and Plan [...] Additional Comments: This note was generated with [email or web address] dictation software. It may contain incorrect words, [...] acetate 50 (more content not included)... Normal [facility] Anion gap in Serum or Plasma Ordered By: Janey Gutierrez on 01-14-2025 Anion gap [Moles/Vol] 13 mmol/L 03-06 [facility] BUN/creatinine ratioOrdered By: Janey Gutierrez on 01-14-2025 Urea nitrogen/Creatinine [Mass ratio] 14.6 mg/mg 08-11 [facility] Bilirubin, totalOrdered By: Janey Gutierrez on 01-14-2025 Bilirubin [Mass/Vol] 0.46 mg/dL 0.00-1.30 [facility] Carbon dioxide, total [Moles /volume] in Central venous bloodOrdered By: Janey Gutierrez on 01-14-2025 CO2 [Moles/Vol] 20.3 mmol/L Low 21.0-32.0 [facility] Chloride assayOrdered By: Me kevon Gutierrez on 01-14-2025 Chloride [Moles/Vol] 108 mmol/L 98-108 [facility] Comprehensive Metabolic Prof ilon 01-14-2025 Albumin [Mass/Vol] 3.9 g/dL Normal 3.4-4.8 [facility] Comment on above: Order Comment: JANEY GUTIERREZ AND DR. AHN GET RESULTS OF LAB TEST Performed By: #### L 500.4050 #### [facility] [address] [place], [address] Albumin/Globulin [Mass ratio] 1.4 {ratio} Normal 0.9-2.4 [facility] Comment on above: Order Comment: JANEY GUTIERREZ AND DR. AHN GET RESULTS OF LAB TEST Performed By: #### L 500.4050 #### [facility] [address] [place], [address] ALK PHOS 80 U/L Normal 35-104 [facility] Comment on above: Order Comment: JANEY GUTIERREZ AND DR. AHN GET RESULTS OF LAB TEST Performed By: #### L 500.4050 #### [facility] [address] [place], [address] ALT [Catalytic activity/Vol] 15 U/L Normal <=34 [facility] Comment on above: Order Comment: JANEY GUTIERREZ AND DR. AHN GET RESULTS OF LAB TEST Performed By: #### L 500.4050 #### [facility] [address] [place], [address] AST [Catalytic activity/Vol] 21 U/L Normal <=31 [facility] Comment on above: Order Comment: JANEY GUTIERREZ AND DR. AHN GET RESULTS OF LAB TEST Performed By: #### L 500.4050 #### [facility] [address] [place], [address] Bilirubin [Mass/Vol] 0.46 mg/dL Normal 0.00-1.30 [facility] Comment on above: Order Comment: JANEY AHN GET RESULTS OF LAB TEST Performed By: #### L 500.4050 #### [facility] [address] [place], [address] BUN/CRE 14.6 RATIO Normal 10-20 [facility] Comment on above: Order Comment: JANEY AHN GET RESULTS OF LAB TEST Performed By: #### L 500.4050 #### [facility] [address] [place], [address] Calcium [Mass/Vol] 8.9 mg/dL Normal 7.6-11.0 [facility] Comment on above: Order Comment: JANEY AHN GET RESULTS OF LAB TEST Performed By: #### L 500.4050 #### [facility] [address] [place], [address] Chloride [Moles/Vol] 108 mmol/L Normal 98-108 [facility] Comment on above: Order Comment: JANEY GUTIERREZ AND DR. AHN GET RESULTS OF LAB TEST Performed By: #### L 500.4050 #### [facility] [address] [place], [address] CO2 [Moles/Vol] 20.3 mmol/L Low 21.0-32.0 [facility] Comment on above: Order Comment: JANEY GUTIERREZ AND DR. AHN GET RESULTS OF LAB TEST Performed By: #### L 500.4050 #### [facility] [address] [place], [address] Creatinine [Mass/Vol] 1.60 mg/dL High 0.70-1.20 [facility] Comment on above: Order Comment: JANEY GUTIERREZ AND DR. AHN GET RESULTS OF LAB TEST Performed By: #### L 500.4050 #### [facility] [address] [place], [address] GAP 13 Normal 5-15 [facility] Comment on above: Order Comment: JANEY AHN GET RESULTS OF LAB TEST Performed By: #### L 500.4050 #### [facility] [address] [place], [address] GFR/1.73 sq M.predicted among non-blacks MDRD (S/P/Bld) [Vol rate/Area] 36 mL/min/{1.73_m2} Low >60 [facility] Comment on above: Order Comment: JANEY AHN GET RESULTS OF LAB TEST Result Comment: mL/m in/1.73m2 CKD-EPI Creatinine Equation (2020) Performed By: #### L 500.4050 #### [facility] [address] [place], [address] Globulin (S) [Mass/Vol] 2.8 g/dL Normal 2.2-4.2 [facility] Comment on above: Order Comment: JAENY AHN GET RESULTS OF LAB TEST Performed By: #### L 500.4050 #### [facility] [address] [place], [address] Glucose [Mass/Vol] 114 mg/dL High 70-99 [facility] Comment on above: Order Comment: JANEY GUTIERREZ AND DR. AHN GET RESULTS OF LAB TEST Performed By: #### L 500.4050 #### [facility] [address] [place], [address] Potassium [Moles/Vol] 3.9 mmol/L Normal 3.3-5.1 [facility] Comment on above: Order Comment: JANEY GUTIERREZ AND DR. AHN GET RESULTS OF LAB TEST Performed By: #### L 500.4050 #### [facility] [address] [place], [address] Sodium [Moles/Vol] 141 mmol/L Normal 133-145 [facility] Comment on above: Order Comment: JANEY GUTIERREZ AND DR. AHN GET RESULTS OF LAB TEST Performed By: #### L 500.4050 #### [facility] [address] [place], [address] T PROT 6.7 g/dL Normal 5.9-8.4 [facility] Comment on above: Order Comment: JANEY GUTIERREZ AND DR. AHN GET RESULTS OF LAB TEST Performed By: #### L 500.4050 #### [facility] [address] [place], [address] Urea nitrogen [Mass/Vol] 23 mg/dL High 4-19 [facility] Comment on above: Order Comment: JANEY GUTIERREZ AND DR. AHN GET RESULTS OF LAB TEST Performed By: #### L 500.4050 #### [facility] [address] [place], [address] GFR/1.73 sq M.predicted shira g non-blacks MDRD (S/P/Bld) [Vol rate/Area]Ordered By: Janey Gutierrez on 01-14-2025 Estimated GFR (MDRD) Non-Af Amer 36 Low >60 [facility] Comment on above: mL/min/1.73m2 CKD-EP I Creatinine Equation (2020) Glomerular filtration rate ( GFR) estimation/1.73 sq m using serum, plasma, or whole bOrdered By: Janey Gutierrez on 01-14-2025 GFR/1.73 sq M.predicted among non-blacks MDRD (S/P/Bld) [Vol rate/Area] 36 mL/min/{1.73_m2} Low >60 [facility] Comment on above: mL/min/1.73m2 CKD-EP I Creatinine Equation (2020) Laboratory - Chemistry and C hemistry - challengeOrdered By: Janey Gutierrez on 01-14-2025 AST [Catalytic activity/Vol] 21 U/L <32 [facility] Potassium (Unsp spec) [Mass/ Vol]Ordered By: Janey Gutierrez on 01-14-2025 Potassium [Moles/Vol] 3.9 mmol/L 3.3-5.1 [facility] Potassium measurement (mass/ volume)Ordered By: Janey Gutierrez on 01-14-2025 Potassium (Unsp spec) [Mass/Vol] 3.9 mmol/L 3.3-5.1 [facility] Serum creatinine measurement (mass/volume)Ordered By: Janey Gutierrez on 01-14-2025 Creatinine [Mass/Vol] 1.60 mg/dL High 0.70-1.20 [facility] Serum globulin measurementOr dered By: Janey Gutierrez on 01-14-2025 Globulin (S) [Mass/Vol] 2.8 g/dL 2.2-4.2 [facility] Serum glucose measurement (m ass/volume)Ordered By: Janey Gutierrez on 01-14-2025 Glucose [Mass/Vol] 114 mg/dL High 70-99 [facility] Serum or plasma alanine sabillon otransferase (ALT) measurementOrdered By: Janey Gutierrez on 01-14-2025 ALT [Catalytic activity/Vol] 15 U/L <35 [facility] Serum or plasma albumin anamaria urement (mass/volume)Ordered By: Janey Guteirrez on 01-14-2025 Albumin [Mass/Vol] 3.9 g/dL 3.4-4.8 [facility] Serum or plasma albumin/glob ulin mass ratioOrdered By: Janey Gutierrez on 01-14-2025 Albumin/Globulin [Mass ratio] 1.4 {ratio} 0.9-2.4 [facility] Serum or plasma alkaline wayne sphatase measurementOrdered By: Janey Gutierrez on 01-14-2025 ALP [Catalytic activity/Vol] 80 U/L 35-104 [facility] Serum or plasma calcium anamaria urement (mass/volume)Ordered By: Janey Gutierrez on 01-14-2025 Calcium [Mass/Vol] 8.9 mg/dL 7.6-11.0 [facility] Serum or plasma urea nitroge n measurement (mass/volume)Ordered By: Janey Gutierrez on 01-14-2025 Urea nitrogen [Mass/Vol] 23 mg/dL High 4-19 [facility] Sodium levelOrdered By: Alek Gutierrez on 01-14-2025 Sodium [Moles/Vol] 141 mmol/L 133-145 [facility] Total proteinOrdered By: Karen Gutierrez on 01-14-2025 Protein [Mass/Vol] 6.7 g/dL 5.9-8.4 [facility] Endocrinology Visit Reporton 01-06-2025 Endocrinology Visit Report [facility] [address] [place] [address] OFFICE VISIT Date of Service: 01/06/25 MR#: [id number] Acct: [id number] Name: LYNDA BRADLEY Rep #: [id number] : 1965 Provider: TRAV crooks Age/Sex: 59/F [place] [facility] Status: Signed Intake Vital Signs 09/11/24 09:27 [...] grams 01/06/25 Rx gram/dose oral powder (Miralax) [facility] Medical History Fall Coronary artery calcification History [...] No dizziness/ve (more content not included)... Normal [facility] - Hematology and Cell countsOrdered By: Janey Gutierrez on 01-06-2025 HbA1c (Bld) [Mass fraction] 5.9 % 4.2-6.3 [facility] Endocrinology Visit Reporton 09-11-2024 Endocrinology Visit Report [facility] [address] [place] [address] OFFICE VISIT Date of Service: 09/11/24 MR#: [id number] Acct: [id number] Name: LYNDA BRADLEY Rep #: [id number] : 1965 Provider: TRAV crooks Age/Sex: 59/F Location[place] [facility] Status: Signed Intake Vital Signs 02/26/24 08:03 09/11/24 09:27 Height 5 ft 1 in 5 ft 1 in Weight: 213 lb BMI 40.2 BP 142/82 H Blood Pressure Location Lt brachial Position Sitting Pulse 79 Pulse Source Monitor Pulse Oximetry (%) 94 Oxygen Delivery Method room air Intake Visit Reasons: Diabetes Chief Complaint: establish care- diabetes Tenter Frame Back Tender Required: No Accompanied by: Self Is patient [...] Medical History (Updated 09/11/24 @ 14:12 by TRAV Calderón) Fall Coronary artery calcification History of change [...] Labs a (more content not included)... Normal [facility] CBC-Complete Blood Cnt No Di ffon 09-09-2024 Erythrocyte distribution width (RBC) [Ratio] 13.4 % Normal 11.6-14.6 [facility] Comment on above: Performed By: #### L 503.6030, L501.9985, L500.3600, L100.0500, L500.4100, L503.6550 ####[facility] [address] [place], [address] Hematocrit (Bld) [Volume fraction] 37.8 % Normal 37-47 [facility] Comment on above: Performed By: #### L 503.6030, L501.9985, L500.3600, L100.0500, L500.4100, L503.6550 ####[facility] [address] [place], [address] Hemoglobin (Bld) [Mass/Vol] 12.4 g/dL Normal 12.0-15.0 [facility] Comment on above: Performed By: #### L 503.6030, L501.9985, L500.3600, L100.0500, L500.4100, L503.6550 ####[facility] [address] [place], [address] MCH (RBC) [Entitic mass] 31.3 pg Normal 27.0-32.0 [facility] Comment on above: Performed By: #### L 503.6030, L501.9985, L500.3600, L100.0500, L500.4100, L503.6550 ####[facility] [address] [place], [address] MCHC (RBC) [Mass/Vol] 32.8 g/dL Normal 32-36 [facility] Comment on above: Performed By: #### L 503.6030, L501.9985, L500.3600, L100.0500, L500.4100, L503.6550 ####[facility] [address] [place], [address] MCV (RBC) [Entitic vol] 95.5 fL Normal 81-99 [facility] Comment on above: Performed By: #### L 503.6030, L501.9985, L500.3600, L100.0500, L500.4100, L503.6550 ####[facility] [address] [place], [address] Platelet mean volume (Bld) [Entitic vol] 11.1 fL Normal 6.2-12.0 [facility] Comment on above: Performed By: #### L 503.6030, L501.9985, L500.3600, L100.0500, L500.4100, L503.6550 ####[facility] [address] [place], [address] Platelets (Bld) [#/Vol] 215 10*3/uL Normal 150-450 [facility] Comment on above: Performed By: #### L 503.6030, L501.9985, L500.3600, L100.0500, L500.4100, L503.6550 ####[facility] [address] [place], [address] RBC (Bld) [#/Vol] 3.96 10*6/uL Low 4.2-5.4 [facility] Comment on above: Performed By: #### L 503.6030, L501.9985, L500.3600, L100.0500, L500.4100, L503.6550 ####[facility] [address] [place], [address] RDW SD 47.0 fl High 35.1-43.9 [facility] Comment on above: Performed By: #### L 503.6030, L501.9985, L500.3600, L100.0500, L500.4100, L503.6550 ####[facility] [address] [place], [address] WBC (Bld) [#/Vol] 7.3 10*3/uL Normal 4.4-11.0 [facility] Comment on above: Performed By: #### L 503.6030, L501.9985, L500.3600, L100.0500, L500.4100, L503.6550 ####[facility] [address] [place], [address] Ferritinon 09-09-2024 Ferritin [Mass/Vol] 83 ng/mL Normal 8-252 [facility] Comment on above: Performed By: #### L 503.6030, L501.9985, L500.3600, L100.0500, L500.4100, L503.6550 ####[facility] [address] [place], [place], [address] Hemoglobin A1con 09-09-2024 HbA1c (Bld) [Mass fraction] 6.4 % High 3.8-5.6 [facility] Comment on above: Result Comment: Norm al < 5.7 % Prediabetic 5.7 - 6.4 % Diabetic >or= 6.5 % Please note range changes. Performed By: #### L 503.6030, L501.9985, L500.3600, L100.0500, L500.4100, L503.6550 ####[facility] [address] [place], [address] Iron+Iron Binding Capacityon 09-09-2024 Iron [Mass/Vol] 106 ug/dL Normal 50-170 [facility] Comment on above: Performed By: #### L 503.6030, L501.9985, L500.3600, L100.0500, L500.4100, L503.6550 ####[facility] [address] [place], [place], [phone] IRON SATURATION 32.7 Normal 15.0-55.0 [facility] Comment on above: Performed By: #### L 503.6030, L501.9985, L500.3600, L100.0500, L500.4100, L503.6550 ####[facility] [address] [place], [place], [phone] TIBC 324 ug/dL Normal 250-450 [facility] Comment on above: Performed By: #### L 503.6030, L501.9985, L500.3600, L100.0500, L500.4100, L503.6550 ####[facility] [address] [place], [place], [phone] Lipid Profileon 09-09-2024 Cholesterol [Mass/Vol] 238 mg/dL High 200 [facility] Comment on above: Result Comment: <200 mg/dL Desirable 200-240 mg/dL Borderline >240 mg/dL High Risk Performed By: #### L 503.6030, L501.9985, L500.3600, L100.0500, L500.4100, L503.6550 ####[facility] [address] [place], [address] Cholesterol in HDL [Mass/Vol] 57 mg/dL Normal [facility] Comment on above: Result Comment: The drugs N-Acetylcysteine and Metamizole may falsely depress this assay. Reference Range HDL <40 mg/dL Low HDL Cholesterol HDL >or= 60 mg/dL High HDL Cholesterol Performed By: #### L 503.6030, L501.9985, L500.3600, L100.0500, L500.4100, L503.6550 ####[facility] [address] [place], [address] Cholesterol in LDL [Mass/Vol] 122 mg/dL Normal 0-130 [facility] Comment on above: Performed By: #### L 503.6030, L501.9985, L500.3600, L100.0500, L500.4100, L503.6550 ####[facility] [address] [place], [address] Cholesterol in VLDL [Mass/Vol] 59 mg/dL High 5-40 [facility] Comment on above: Performed By: #### L 503.6030, L501.9985, L500.3600, L100.0500, L500.4100, L503.6550 ####[facility] [address] [place], [address] Triglyceride [Mass/Vol] 296 mg/dL High [facility] Comment on above: Result Comment: The drugs N-Acetylcysteine and Metamizole may falsely depress this assay. Serum Triglycerides Reference Interval Normal <150 mg/dL Borderline high 150 - 199 mg/dL High 200 - 499 mg/dL Very High > or = 500 mg/dL Performed By: #### L 503.6030, L501.9985, L500.3600, L100.0500, L500.4100, L503.6550 ####[facility] [address] [place], [address] Renal Profileon 09-09-2024 Albumin [Mass/Vol] 3.7 g/dL Normal 3.2-5.0 [facility] Comment on above: Performed By: #### L 503.6030, L501.9985, L500.3600, L100.0500, L500.4100, L503.6550 ####[facility] [address] [place], [address] BUN/CRE 21.8 RATIO High 10-20 [facility] Comment on above: Performed By: #### L 503.6030, L501.9985, L500.3600, L100.0500, L500.4100, L503.6550 ####[facility] [address] [place], [address] CA,Total 9.0 mg/dL Normal 8.5-10.1 [facility] Comment on above: Performed By: #### L 503.6030, L501.9985, L500.3600, L100.0500, L500.4100, L503.6550 ####[facility] [address] [place], [address] Chloride [Moles/Vol] 108 mmol/L High 98-107 [facility] Comment on above: Performed By: #### L 503.6030, L501.9985, L500.3600, L100.0500, L500.4100, L503.6550 ####[facility] [address] [place], [address] CO2 [Moles/Vol] 24.0 mmol/L Normal 21.0-32.0 [facility] Comment on above: Performed By: #### L 503.6030, L501.9985, L500.3600, L100.0500, L500.4100, L503.6550 ####[facility] [address] [place], [address] Creatinine [Mass/Vol] 1.65 mg/dL High 0.55-1.02 [facility] Comment on above: Result Comment: The validity of the calculated GFR GFRAA in patients over 70 years has not been determined. Clinical correlation is essential. Performed By: #### L 503.6030, L501.9985, L500.3600, L100.0500, L500.4100, L503.6550 ####[facility] [address] [place], [place], [id number] EST GFR - AA 41 mL/min Low >60 [facility] Comment on above: Result Comment: Afri can Palauan GFR Calc Performed By: #### L 503.6030, L501.9985, L500.3600, L100.0500, L500.4100, L503.6550 ####[facility] [address] [place], [place], [address] GFR/1.73 sq M.predicted among non-blacks MDRD (S/P/Bld) [Vol rate/Area] 34 mL/min/{1.73_m2} Low >60 [facility] Comment on above: Result Comment: Non- GFR Calc Performed By: #### L 503.6030, L501.9985, L500.3600, L100.0500, L500.4100, L503.6550 ####[facility] [address] [place], [place], [phone] Glucose [Mass/Vol] 151 mg/dL High 74-106 [facility] Comment on above: Result Comment: Fast ing Glucose result greater than or equal to 126 mg/dL suggests DIABETES MELLITUS per A.D.A. criteria. Performed By: #### L 503.6030, L501.9985, L500.3600, L100.0500, L500.4100, L503.6550 ####[facility] [address] [place], [address] Phosphate [Mass/Vol] 2.9 mg/dL Normal 2.5-4.9 [facility] Comment on above: Performed By: #### L 503.6030, L501.9985, L500.3600, L100.0500, L500.4100, L503.6550 ####[facility] [address] [place], [address] Potassium [Moles/Vol] 3.7 mmol/L Normal 3.5-5.1 [facility] Comment on above: Performed By: #### L 503.6030, L501.9985, L500.3600, L100.0500, L500.4100, L503.6550 ####[facility] [address] [place], [address] Sodium [Moles/Vol] 138 mmol/L Normal 136-145 [facility] Comment on above: Performed By: #### L 503.6030, L501.9985, L500.3600, L100.0500, L500.4100, L503.6550 ####[facility] [address] [place], [address] Urea nitrogen [Mass/Vol] 36 mg/dL High 7-18 [facility] Comment on above: Performed By: #### L 503.6030, L501.9985, L500.3600, L100.0500, L500.4100, L503.6550 ####[facility] [address] [place], [address] Breast Limited Unilateralon 08-16-2024 Breast Limited Unilateral [facility] Services [address] [place] [address] Breast Limited Unilateral MR#: [id number] Acct: [id number] Name: LYNDA BRADLEY #: [id number] : 1965 F 59 From: Amado horowitz MD PCP: Dr. Mimi Martin DO Status: REG CLI Study: Breast Limited Unilateral Date of Exam: Exam# [id number] Ordering Dr: Mimi Martin DO [id number] STUDY: ULTRASOUND BREAST - RIGHT REASON FOR [...] EDT , CC: Dr. Mimi Martin DO Vulcanizer Rubber Plate: Signed Normal [facility] CBC-Complete Blood Cnt No Di ffon 08-15-2024 Erythrocyte distribution width (RBC) [Ratio] 13.2 % Normal 11.6-14.6 [facility] Comment on above: Performed By: #### L 502.0250, L100.0500, L503.6030, L500.3600, L503.6550 #### [facility] [address] [place], [address] Hematocrit (Bld) [Volume fraction] 34.6 % Low 37-47 [facility] Comment on above: Performed By: #### L 502.0250, L100.0500, L503.6030, L500.3600, L503.6550 #### [facility] [address] [place], [address] Hemoglobin (Bld) [Mass/Vol] 11.4 g/dL Low 12.0-15.0 [facility] Comment on above: Performed By: #### L 502.0250, L100.0500, L503.6030, L500.3600, L503.6550 #### [facility] [address] [place], [address] MCH (RBC) [Entitic mass] 31.2 pg Normal 27.0-32.0 [facility] Comment on above: Performed By: #### L 502.0250, L100.0500, L503.6030, L500.3600, L503.6550 #### [facility] [address] [place], [address] MCHC (RBC) [Mass/Vol] 32.9 g/dL Normal 32-36 [facility] Comment on above: Performed By: #### L 502.0250, L100.0500, L503.6030, L500.3600, L503.6550 #### [facility] [address] [place], [address] MCV (RBC) [Entitic vol] 94.8 fL Normal 81-99 [facility] Comment on above: Performed By: #### L 502.0250, L100.0500, L503.6030, L500.3600, L503.6550 #### [facility] [address] [place], [address] Platelet mean volume (Bld) [Entitic vol] 10.3 fL Normal 6.2-12.0 [facility] Comment on above: Performed By: #### L 502.0250, L100.0500, L503.6030, L500.3600, L503.6550 #### [facility] [address] [place], [address] Platelets (Bld) [#/Vol] 189 10*3/uL Normal 150-450 [facility] Comment on above: Performed By: #### L 502.0250, L100.0500, L503.6030, L500.3600, L503.6550 #### [facility] [address] [place], [address] RBC (Bld) [#/Vol] 3.65 10*6/uL Low 4.2-5.4 [facility] Comment on above: Performed By: #### L 502.0250, L100.0500, L503.6030, L500.3600, L503.6550 #### [facility] [address] [place], [address] RDW SD 45.1 fl High 35.1-43.9 [facility] Comment on above: Performed By: #### L 502.0250, L100.0500, L503.6030, L500.3600, L503.6550 #### [facility] [address] [place], [address] WBC (Bld) [#/Vol] 7.1 10*3/uL Normal 4.4-11.0 [facility] Comment on above: Performed By: #### L 502.0250, L100.0500, L503.6030, L500.3600, L503.6550 #### [facility] [address] [place], [address] Ferritinon 08-15-2024 Ferritin [Mass/Vol] 69 ng/mL Normal 8-252 [facility] Comment on above: Order Comment: F Performed By: #### L 502.0250, L100.0500, L503.6030, L500.3600, L503.6550 #### [facility] [address] [place], [address] Iron+Iron Binding Capacityon 08-15-2024 Iron [Mass/Vol] 64 ug/dL Normal 50-170 [facility] Comment on above: Order Comment: F Performed By: #### L 502.0250, L100.0500, L503.6030, L500.3600, [id number] #### [facility] [address] [place], [address] IRON SATURATION 20.8 Normal 15.0-55.0 [facility] Comment on above: Order Comment: F Performed By: #### L 502.0250, L100.0500, L503.6030, L500.3600, [id number] #### [facility] [address] [place], [address] TIBC 308 ug/dL Normal 250-450 [facility] Comment on above: Order Comment: F Performed By: #### L 502.0250, L100.0500, L503.6030, L500.3600, [id number] #### [facility] [address] [place], [address] Microalb:Creat Ratio,Random URon 08-15-2024 Creatinine [Mass/Vol] 39.50 mg/dL Normal NO RANGE EST. [facility] [facility] Comment on above: Performed By: #### L 502.0250, L100.0500, L503.6030, L500.3600, L503.6550 #### [facility] [address] [place], [address] MALB:CRE 50.1 mg/g CRE High <30 mg/g CRE [facility] Comment on above: Performed By: #### L 502.0250, L100.0500, L503.6030, L500.3600, L503.6550 #### [facility] [address] [place], [address] MICROALBUMIN,UR 19.8 mg/L Normal NO RANGE EST. [facility] Comment on above: Performed By: #### L 502.0250, L100.0500, L503.6030, L500.3600, L503.6550 #### [facility] [address] [place], [address] Renal Profileon 08-15-2024 Albumin [Mass/Vol] 3.7 g/dL Normal 3.2-5.0 [facility] Comment on above: Order Comment: F Performed By: #### L 502.0250, L100.0500, L503.6030, L500.3600, L503.6550 #### [facility] [address] [place], [address] BUN/CRE 20.2 RATIO High - [facility] Comment on above: Order Comment: F Performed By: #### L 502.0250, L100.0500, L503.6030, L500.3600, L503.6550 #### [facility] [address] [place], [address] CA,Total 9.2 mg/dL Normal 8.5-10.1 [facility] Comment on above: Order Comment: F Performed By: #### L 502.0250, L100.0500, L503.6030, L500.3600, L503.6550 #### [facility] [address] [place], [address] Chloride [Moles/Vol] 109 mmol/L High 98-107 [facility] Comment on above: Order Comment: F Performed By: #### L 502.0250, L100.0500, L503.6030, L500.3600, L503.6550 #### [facility] [address] [place], [address] CO2 [Moles/Vol] 20.0 mmol/L Low 21.0-32.0 [facility] Comment on above: Order Comment: F Performed By: #### L 502.0250, L100.0500, L503.6030, L500.3600, L503.6550 #### [facility] [address] [place], [address] Creatinine [Mass/Vol] 1.78 mg/dL High 0.55-1.02 [facility] Comment on above: Order Comment: F Result Comment: The validity of the calculated GFR GFRAA in patients over 70 years has not been determined. Clinical correlation is essential. Performed By: #### L 502.0250, L100.0500, L503.6030, L500.3600, L503.6550 #### [facility] [address] [place], [address] EST GFR - AA 37 mL/min Low >60 [facility] Comment on above: Order Comment: F Result Comment: Afri can Palauan GFR Calc Performed By: #### L 502.0250, L100.0500, L503.6030, L500.3600, L503.6550 #### [facility] [address] [place], [address] GFR/1.73 sq M.predicted among non-blacks MDRD (S/P/Bld) [Vol rate/Area] 31 mL/min/{1.73_m2} Low >60 [facility] Comment on above: Order Comment: F Result Comment: Non- GFR Calc Performed By: #### L 502.0250, L100.0500, L503.6030, L500.3600, L503.6550 #### [facility] [address] [place], [address] Glucose [Mass/Vol] 155 mg/dL High 74-106 [facility] Comment on above: Order Comment: F Result Comment: Fast ing Glucose result greater than or equal to 126 mg/dL suggests DIABETES MELLITUS per A.D.A. criteria. Performed By: #### L 502.0250, L100.0500, L503.6030, L500.3600, L503.6550 #### [facility] [address] [place], [address] Phosphate [Mass/Vol] 3.6 mg/dL Normal 2.5-4.9 [facility] Comment on above: Order Comment: F Performed By: #### L 502.0250, L100.0500, L503.6030, L500.3600, L503.6550 #### [facility] [address] [place], [address] Potassium [Moles/Vol] 3.8 mmol/L Normal 3.5-5.1 [facility] Comment on above: Order Comment: F Performed By: #### L 502.0250, L100.0500, L503.6030, L500.3600, L503.6550 #### [facility] [address] [place], [address] Sodium [Moles/Vol] 138 mmol/L Normal 136-145 [facility] Comment on above: Order Comment: F Performed By: #### L 502.0250, L100.0500, L503.6030, L500.3600, L503.6550 #### [facility] [address] [place], [address] Urea nitrogen [Mass/Vol] 36 mg/dL High 7-18 [facility] Comment on above: Order Comment: F Performed By: #### L 502.0250, L100.0500, L503.5630, L500.3600, L503.1652 #### [facility] [address] [place], [address] CNOVon 03-25-2024 CNOV Office Visit (UCWSTR ) LYNDA BRADLEY ([id number]) 1965 F Date Time Provider Department 03/25/24 8:15 AM MELANY SAEZ [facility] During your visit today, we [...] right ESOPHAGOGASTRODUODENO SCOPY TRANSORAL DIAGNOSTIC 11/26/15 EGD (MAC) PAST SURGICAL [...] COMPOUNDED PRESCRIPTION Left foot brace, arch support. [employer] Dx DM 2 blood sugar diagnostic (FREESTYLE [...] Paternal Aunt (more content not included)... Normal [facility] - Chemistry and C hemistry - challengeOrdered By: Mimi Martin on 01-10-2024 Cobalamin (Vitamin B12) [Mass/Vol] 1131 pg/mL 211-911 [facility] No Panel InformationOrdered By: Mimi Martin on 01-10-2024 Free Triiodothyronine (T3) pg/dL 2.3 pg/mL 2.18-3.98 [facility] Serum or plasma thyroid stim ulating hormone (TSH) measurement (units/volume)Ordered By: Mimidamari Martin on 01-10-2024 TSH Qn 2.08 uIU/mL 0.358-3.74 [facility] Thin prep Papanicolaou smear with manual screeningOrdered By: Mimidamari Martin on 01-10-2024 Thin prep Papanicolaou smear with manual screening 1.23 ng/dL 0.76-1.46 [facility] Whole blood hemoglobin A1c/t otal hemoglobin ratio (mass fraction)Ordered By: Mimi Martin on 01-10-2024 HbA1c (Bld) [Mass fraction] 5.9 % 3.8-5.6 [facility] Comment on above: Normal < 5.7 % Predi abetic 5.7 - 6.4 % Diabetic >or= 6.5 % Please note range changes. Laboratory - Chemistry and C hemistry - challengeOrdered By: Alena Ahn on 08-14-2023 Cobalamin (Vitamin B12) [Mass/Vol] 466 pg/mL 211-911 [facility] Basophil percentageOrdered B y: Alena Ahn on 08-11-2023 Basophil percentage 3.3 mg/dL 2.5-4.9 [facility] Chloride [Moles/Vol] 109 mmol/L 98-107 [facility] Cholesterol [Mass/Vol] 173 mg/dL <200 [facility] Comment on above: <200 mg/dL Desirable 200-240 mg/dL Borderline >240 mg/dL High Risk Glucose [Mass/Vol] 141 mg/dL 74-106 [facility] Comment on above: Fasting Glucose resu lt greater than or equal to 126 mg/dL suggests DIABETES MELLITUS per A.D.A. criteria. Potassium [Moles/Vol] 4.0 mmol/L 3.5-5.1 [facility] Sodium [Moles/Vol] 140 mmol/L 136-145 [facility] Triglyceride [Mass/Vol] 227 mg/dL <199 [facility] Comment on above: The drugs N-Acetylcy steine and Metamizole may falsely depress this assay.Serum Triglycerides Reference Interval Normal <150 mg/dL Borderline high 150 - 199 mg/dL High 200 - 499 mg/dL Very High > or = 500 mg/dL WBC (Bld) [#/Vol] 4.4 10*3/uL 4.4-11.0 [facility] Blood erythrocytes count (nu mber/volume)Ordered By: Alena Ahn on 08-11-2023 RBC (Bld) [#/Vol] 3.45 10*6/uL 4.2-5.4 [facility] Blood hemoglobin measurement (mass/volume)Ordered By: Alena Ahn on 08-11-2023 Hemoglobin (Bld) [Mass/Vol] 10.6 g/dL 12.0-15.0 [facility] Blood platelet mean volumeOr dered By: Alena Ahn on 08-11-2023 Platelet mean volume (Bld) [Entitic vol] 11.1 fL 6.2-12.0 [facility] Determination of erythrocyte mean corpuscular volume (MCV)Ordered By: Alena Ahn on 08-11-2023 MCV (RBC) [Entitic vol] 96.8 fL 81-99 [facility] Hematocrit Auto (Bld) [Volum e fraction]Ordered By: Alena Ahn on 08-11-2023 Hematocrit (Bld) [Volume fraction] 33.4 % 37-47 [facility] Iron measurement (mass/mass) Ordered By: Alena Ahn on 08-11-2023 Iron (Unsp spec) [Mass/Mass] 56 ug/dL 50-170 [facility] - Chemistry and C hemistry - challengeOrdered By: Alena Ahn on 08-11-2023 CO2 [Moles/Vol] 23.0 mmol/L 21.0-32.0 [facility] Free T4 [Mass/Vol] 1.23 ng/dL 0.76-1.46 [facility] Urea nitrogen/Creatinine [Mass ratio] 25.2 mg/mg 08-11 [facility] - Hematology and Cell countsOrdered By: Alena Ahn on 08-11-2023 Erythrocyte distribution width (RBC) [Entitic vol] 47.6 fL 35.1-43.9 [facility] Erythrocyte distribution width (RBC) [Ratio] 13.4 % 11.6-14.6 [facility] MCH (RBC) [Entitic mass] 30.7 pg 27.0-32.0 [facility] MCHC Auto (RBC) [Mass/Vol]Or dered By: Alena Ahn on 08-11-2023 MCHC (RBC) [Mass/Vol] 31.7 g/dL 32-36 [facility] No Panel InformationOrdered By: Alena Ahn on 08-11-2023 Estimated GFR (MDRD) Amer 53 mL/min >60 [facility] Comment on above: GFR Calc Estimated GFR (MDRD) Non-Af Amer 44 mL/min >60 [facility] Comment on above: Non- GFR Calc Free Triiodothyronine (T3) pg/dL 2.4 pg/mL 2.18-3.98 [facility] Thyroid Stimulating Hormone (TSH) 0.46 uIU/mL 0.358-3.74 [facility] Platelets bldOrdered By: Destiny Ahn on 08-11-2023 Platelets (Bld) [#/Vol] 192 10*3/uL 150-450 [facility] Serum or plasma albumin anamaria urement (mass/volume)Ordered By: Alena Ahn on 08-11-2023 Albumin [Mass/Vol] 3.4 g/dL 3.2-5.0 [facility] Serum or plasma calcium anamaria urement (mass/volume)Ordered By: Alena Ahn on 08-11-2023 Calcium [Mass/Vol] 9.0 mg/dL 8.5-10.1 [facility] Serum or plasma cholesterol in HDL measurement (mass/volume)Ordered By: Alena Ahn on 08-11-2023 Cholesterol in HDL [Mass/Vol] 50 mg/dL >40 [facility] Comment on above: The drugs N-Acetylcy steine and Metamizole may falsely depress this assay. Reference Range HDL <40 mg/dL Low HDL Cholesterol HDL >or= 60 mg/dL High HDL Cholesterol Serum or plasma cholesterol in VLDL measurement (mass/volume)Ordered By: Alena Ahn on 08-11-2023 Cholesterol in VLDL [Mass/Vol] 45 mg/dL 5-40 [facility] Serum or plasma creatinine m easurement (mass/volume)Ordered By: Alena Ahn on 08-11-2023 Creatinine [Mass/Vol] 1.31 mg/dL 0.55-1.02 [facility] Comment on above: The validity of the calculated GFR & GFRAA in patients over 70 years has not been determined. Clinical correlation is essential. Serum or plasma ferritin rk surement (mass/volume)Ordered By: Alena Ahn on 08-11-2023 Ferritin [Mass/Vol] 44 ng/mL 8-252 [facility] Serum or plasma low density lipoprotein (LDL) cholesterol measurement (mass/volume)Ordered By: Alena Ahn on 08-11-2023 Cholesterol in LDL [Mass/Vol] 78 mg/dL 0-130 [facility] Serum or plasma urea nitroge n measurement (mass/volume)Ordered By: Alena Ahn on 08-11-2023 Urea nitrogen [Mass/Vol] 33 mg/dL 7-18 [facility] Absolute lymphocyte countOrd ered By: Mimi Martin on 05-17-2023 Lymphocytes Auto (Unsp spec) [#/Vol] 1.24 10*3/uL 0.83-4.51 [facility] Basophil percentageOrdered B y: Mimi Martin on 05-17-2023 Basophils/100 WBC (Bld) 0.5 % 0-1 [facility] Eosinophils/100 WBC (Bld) 3.7 % 0-5 [facility] Neutrophils (Bld) [#/Vol] 3.7 10*3/uL 2.0-7.7 [facility] Neutrophils/100 WBC (Bld) 68.4 % 47-70 [facility] WBC (Bld) [#/Vol] 5.5 10*3/uL 4.4-11.0 [facility] Blood erythrocytes count (nu mber/volume)Ordered By: Mimi Martin on 05-17-2023 RBC (Bld) [#/Vol] 3.50 10*6/uL 4.2-5.4 [facility] Blood hemoglobin measurement (mass/volume)Ordered By: Mimi Martin on 05-17-2023 Hemoglobin (Bld) [Mass/Vol] 11.3 g/dL 12.0-15.0 [facility] Blood lymphocytes/100 leukoc ytesOrdered By: Mimi Martin on 05-17-2023 Lymphocytes/100 WBC (Bld) 22.7 % 19-41 [facility] Blood monocytes/100 leukocyt esOrdered By: Mimi Martin on 05-17-2023 Monocytes/100 WBC (Bld) 4.2 % 0-10 [facility] Blood platelet mean volumeOr dered By: Mimi Martin on 05-17-2023 Platelet mean volume (Bld) [Entitic vol] 11.4 fL 6.2-12.0 [facility] Determination of erythrocyte mean corpuscular volume (MCV)Ordered By: Mimi Martin on 05-17-2023 MCV (RBC) [Entitic vol] 96.6 fL 81-99 [facility] Hematocrit Auto (Bld) [Volum e fraction]Ordered By: Mimi Martin on 05-17-2023 Hematocrit (Bld) [Volume fraction] 33.8 % 37-47 [facility] - Chemistry and C hemistry - challengeOrdered By: Mimi Martin on 05-17-2023 Cobalamin (Vitamin B12) [Mass/Vol] 458 pg/mL 211-911 [facility] Free T4 [Mass/Vol] 1.20 ng/dL 0.76-1.46 [facility] - Hematology and Cell countsOrdered By: Mimi Martin on 05-17-2023 Erythrocyte distribution width (RBC) [Entitic vol] 47.3 fL 35.1-43.9 [facility] Erythrocyte distribution width (RBC) [Ratio] 13.4 % 11.6-14.6 [facility] Immature granulocytes/100 WBC (Bld) 0.500 % 0.0-0.9 [facility] Comment on above: IG% - Immature Granu locytes (promyelocytes, myelocytes and metamyelocytes) > 1% indicates that a LEFT SHIFT is Present. MCH (RBC) [Entitic mass] 32.3 pg 27.0-32.0 [facility] Nucleated RBC/100 WBC (Bld) [Ratio] 0 % 0-5 [facility] MCHC Auto (RBC) [Mass/Vol]Or dered By: Mimi Martin on 05-17-2023 MCHC (RBC) [Mass/Vol] 33.4 g/dL 32-36 [facility] No Panel InformationOrdered By: Mimi Martin on 05-17-2023 Free Triiodothyronine (T3) pg/dL 2.2 pg/mL 2.18-3.98 [facility] Miscellaneous Test See comment [facility] Comment on above: TEST RESULTS LIMITSI anthony 55 ug/dL 38 - 169 TESTING PERFORMED AT [facility]. ORIGINAL REPORT ON FILE IN LAB CONTAINS ADDITIONAL TEST SITE INFORMATION. Thyroid Stimulating Hormone (TSH) 3.06 uIU/mL 0.358-3.74 [facility] Platelets bldOrdered By: Kelly Martin on 05-17-2023 Platelets (Bld) [#/Vol] 204 10*3/uL 150-450 [facility] Serum or plasma ferritin rk surement (mass/volume)Ordered By: Mimi Martin on 05-17-2023 Ferritin [Mass/Vol] 36 ng/mL 8-252 [facility] Basophil percentageOrdered B y: Dr. Ahn on 12-07-2022 Basophil percentage 2.6 mg/dL 2.5-4.9 [facility] Chloride [Moles/Vol] 106 mmol/L 98-107 [facility] Glucose [Mass/Vol] 189 mg/dL 74-106 [facility] Comment on above: Fasting Glucose resu lt greater than or equal to 126 mg/dL suggests DIABETES MELLITUS per A.D.A. criteria. Potassium [Moles/Vol] 3.6 mmol/L 3.5-5.1 [facility] Sodium [Moles/Vol] 141 mmol/L 136-145 [facility] - Chemistry and C hemistry - challengeOrdered By: Dr. Ahn on 12-07-2022 CO2 [Moles/Vol] 24.0 mmol/L 21.0-32.0 [facility] Urea nitrogen/Creatinine [Mass ratio] 18.5 mg/mg 10-20 [facility] No Panel InformationOrdered By: Dr. Ahn on 12-07-2022 Estimated GFR (MDRD) Amer 47 mL/min >60 [facility] Comment on above: GFR Calc Estimated GFR (MDRD) Non-Af Amer 39 mL/min >60 [facility] Comment on above: Non- GFR Calc Serum or plasma albumin anamaria urement (mass/volume)Ordered By: Dr. Ahn on 12-07-2022 Albumin [Mass/Vol] 3.7 g/dL 3.2-5.0 [facility] Serum or plasma calcium anamaria urement (mass/volume)Ordered By: Dr. Ahn on 12-07-2022 Calcium [Mass/Vol] 8.9 mg/dL 8.5-10.1 [facility] Serum or plasma creatinine m easurement (mass/volume)Ordered By: Dr. Ahn on 12-07-2022 Creatinine [Mass/Vol] 1.46 mg/dL 0.55-1.02 [facility] Comment on above: The validity of the calculated GFR & GFRAA in patients over 70 years has not been determined. Clinical correlation is essential. Serum or plasma urea nitroge n measurement (mass/volume)Ordered By: Dr. Ahn on 12-07-2022 Urea nitrogen [Mass/Vol] 27 mg/dL 7-18 [facility] Absolute lymphocyte counton 07-25-2022 Lymphocytes Auto (Unsp spec) [#/Vol] 1.85 10*3/uL 0.83-4.51 [facility] Work Phone: Basophil percentageon 2021 Basophils/100 WBC (Bld) 0.7 % 0-1 [facility] Work Phone: Bilirubin [Mass/Vol] 0.60 mg/dL 0.20-1.00 [facility] Work Phone: Comment on above: For patients on eltr ombopag therapy, use of Dimension [place] TBIL is not recommended. Chloride [Moles/Vol] 107 mmol/L 98-107 [facility] Work Phone: Cholesterol [Mass/Vol] 162 mg/dL <200 [facility] Work Phone: Comment on above: <200 mg/dL Desirable 200-240 mg/dL Borderline >240 mg/dL High Risk Eosinophils/100 WBC (Bld) 3.7 % 0-5 [facility] Work Phone: Glucose [Mass/Vol] 116 mg/dL 74-106 [facility] Work Phone: [phone] Comment on above: Fasting Glucose resu lt from 100 to 125 mg/dL suggests IMPAIRED HOMEOSTASIS per A.D.A. criteria. Neutrophils (Bld) [#/Vol] 3.3 10*3/uL 2.0-7.7 [facility] Work Phone: [phone] Neutrophils/100 WBC (Bld) 57.5 % 47-70 [facility] Work Phone: Potassium [Moles/Vol] 3.9 mmol/L 3.5-5.1 [facility] Work Phone: Protein [Mass/Vol] 7.3 g/dL 6.4-8.2 [facility] Work Phone: [phone] Sodium [Moles/Vol] 141 mmol/L 136-145 [facility] Work Phone: Triglyceride [Mass/Vol] 199 mg/dL <199 [facility] Work Phone: Comment on above: The drugs N-Acetylcy steine and Metamizole may falsely depress this assay.Serum Triglycerides Reference Interval Normal <150 mg/dL Borderline high 150 - 199 mg/dL High 200 - 499 mg/dL Very High > or = 500 mg/dL WBC (Bld) [#/Vol] 5.7 10*3/uL 4.4-11.0 [facility] Work Phone: Blood erythrocytes count (nu mber/volume)on 07-25-2022 RBC (Bld) [#/Vol] 3.55 10*6/uL 4.2-5.4 [facility] Work Phone: Blood hemoglobin measurement (mass/volume)on 07-25-2022 Hemoglobin (Bld) [Mass/Vol] 11.2 g/dL 12.0-15.0 [facility] Work Phone: Blood lymphocytes/100 leukoc yteson 07-25-2022 Lymphocytes/100 WBC (Bld) 32.5 % 19-41 [facility] Work Phone: Blood monocytes/100 leukocyt eson 07-25-2022 Monocytes/100 WBC (Bld) 5.6 % 0-10 [facility] Work Phone: Blood platelet mean volumeon 07-25-2022 Platelet mean volume (Bld) [Entitic vol] 10.4 fL 6.2-12.0 [facility] Work Phone: Determination of erythrocyte mean corpuscular volume (MCV)on 07-25-2022 MCV (RBC) [Entitic vol] 92.4 fL 81-99 [facility] Work Phone: Hematocrit Auto (Bld) [Volum e fraction]on 07-25-2022 Hematocrit (Bld) [Volume fraction] 32.8 % 37-47 [facility] Work Phone: Laboratory - Chemistry and C hemistry - challengeon 07-25-2022 ALP [Catalytic activity/Vol] 75 U/L 45-117 [facility] Work Phone: ALT [Catalytic activity/Vol] 24 U/L 13-56 [facility] Work Phone: CO2 [Moles/Vol] 24.0 mmol/L 21.0-32.0 [facility] Work Phone: Free T4 [Mass/Vol] 1.31 ng/dL 0.76-1.46 [facility] Work Phone: Globulin (S) [Mass/Vol] 3.6 g/dL 2.2-4.2 [facility] Work Phone: Urea nitrogen/Creatinine [Mass ratio] 22.8 mg/mg 10-20 [facility] Work Phone: Laboratory - Hematology and Cell countson 07-25-2022 Erythrocyte distribution width (RBC) [Entitic vol] 43.8 fL 35.1-43.9 [facility] Work Phone: [phone] Erythrocyte distribution width (RBC) [Ratio] 12.9 % 11.6-14.6 [facility] Work Phone: [phone] Immature granulocytes/100 WBC (Bld) 0.000 % 0.0-0.9 [facility] Work Phone: [phone] Comment on above: IG% - Immature Granu locytes (promyelocytes, myelocytes and metamyelocytes) > 1% indicates that a LEFT SHIFT is Present. MCH (RBC) [Entitic mass] 31.5 pg 27.0-32.0 [facility] Work Phone: [phone] Nucleated RBC/100 WBC (Bld) [Ratio] 0 % 0-5 [facility] Work Phone: [phone] MCHC Auto (RBC) [Mass/Vol]on 07-25-2022 MCHC (RBC) [Mass/Vol] 34.1 g/dL 32-36 [facility] Work Phone: [phone] No Panel Informationon 07-25 Estimated GFR (MDRD) Amer 51 mL/min >60 [facility] Work Phone: [phone] Comment on above: GFR Calc Estimated GFR (MDRD) Non-Af Amer 42 mL/min >60 [facility] Work Phone: [phone] Comment on above: Non- GFR Calc Free Triiodothyronine (T3) pg/dL 2.3 pg/mL 2.18-3.98 [facility] Work Phone: [phone] Thyroid Stimulating Hormone (TSH) 2.54 uIU/mL 0.358-3.74 [facility] Work Phone: [phone] Urine Microalbumin/Creatinine Ratio 35.0 mg/g CRE <30 [facility] Work Phone: [phone] Vitamin D 25-Hydroxy 52.0 ng/mL [facility] Work Phone: [phone] Comment on above: Vitamin D 25(OH) Sta tus Range Deficiency <20 ng/mL (50nmol/L) Insufficiency 20 - 30 ng/mL (50 - 75 nmol/L) Sufficiency 30 - 100 ng/mL (75 - 250 nmol/L) Toxicity >100 ng/mL (>250 nmol/L) Platelets bldon 07-25-2022 Platelets (Bld) [#/Vol] 181 10*3/uL 150-450 [facility] Work Phone: Serum or plasma albumin anamaria urement (mass/volume)on 07-25-2022 Albumin [Mass/Vol] 3.7 g/dL 3.2-5.0 [facility] Work Phone: Serum or plasma albumin/glob ulin mass ratioon 07-25-2022 Albumin/Globulin [Mass ratio] 1.0 {ratio} 0.9-2.4 [facility] Work Phone: Serum or plasma calcium anamaria urement (mass/volume)on 07-25-2022 Calcium [Mass/Vol] 9.2 mg/dL 8.5-10.1 [facility] Work Phone: Serum or plasma cholesterol in HDL measurement (mass/volume)on 07-25-2022 Cholesterol in HDL [Mass/Vol] 54 mg/dL >40 [facility] Work Phone: Comment on above: The drugs N-Acetylcy steine and Metamizole may falsely depress this assay. Reference Range HDL <40 mg/dL Low HDL Cholesterol HDL >or= 60 mg/dL High HDL Cholesterol Serum or plasma cholesterol in VLDL measurement (mass/volume)on 07-25-2022 Cholesterol in VLDL [Mass/Vol] 40 mg/dL 5-40 [facility] Work Phone: Serum or plasma creatinine m easurement (mass/volume)on 07-25-2022 Creatinine [Mass/Vol] 1.36 mg/dL 0.55-1.02 [facility] Work Phone: Comment on above: The validity of the calculated GFR & GFRAA in patients over 70 years has not been determined. Clinical correlation is essential. Serum or plasma low density lipoprotein (LDL) cholesterol measurement (mass/volume)on 07-25-2022 Cholesterol in LDL [Mass/Vol] 68 mg/dL 0-130 [facility] Work Phone: Serum or plasma urea nitroge n measurement (mass/volume)on 07-25-2022 Urea nitrogen [Mass/Vol] 31 mg/dL 7-18 [facility] Work Phone: Thin prep Papanicolaou smear with manual screeningon 07-25-2022 Thin prep Papanicolaou smear with manual screening 18 U/L 15-37 [facility] Work Phone: Thin prep Papanicolaou smear with manual screening 10 5-15 [facility] Work Phone: Thin prep Papanicolaou smear with manual screening 29.1 mg/L NO RANGE EST. [facility] Work Phone: Urine creatinine measurement (mass/volume)on 07-25-2022 Creatinine (U) [Mass/Vol] 83.20 mg/dL NO RANGE EST. [facility] Work Phone: Whole blood hemoglobin A1c/t otal hemoglobin ratio (mass fraction)on 07-25-2022 HbA1c (Bld) [Mass fraction] 5.9 % 3.8-5.6 [facility] Work Phone: Comment on above: Normal < 5.7 % Predi abetic 5.7 - 6.4 % Diabetic >or= 6.5 % Please note range changes. No Panel Informationon 04-29 POC SARS CoV-2 Antigen Positive [facility] Work Phone: Vital Signs Date Time Vital Sign Value Performing Clinician Kvng lemus 04-18-2025 07:52-0400 Body height 154.[address] Mimi Martin DO Work Phone: [facility] 04-18-2025 07:52-0400 Body mass index (BMI) [Ratio] 38 kg/m2 Dr. Mimi Martin DO Work Phone: [facility] 04-18-2025 07:52-0400 Body weight 91.[address] Mimi Martin DO Work Phone: [facility] 04-18-2025 07:52-0400 Diastolic blood pressure 77 mm[Hg] Dr. Mimi Martin DO Work Phone: [facility] 04-18-2025 07:52-0400 Heart rate 75 /min Dr. Mimi Martin DO Work Phone: [facility] 04-18-2025 07:52-0400 Respiratory rate 16 /min Dr. Mimi Martin DO Work Phone: [facility] 04-18-2025 07:52-0400 Systolic blood pressure 132 mm[Hg] Dr. Mimi Martin DO Work Phone: [facility] 04-09-2025 08:33-0400 Body height 154.[address] Miim Martin DO Work Phone: [facility] 04-09-2025 08:33-0400 Body mass index (BMI) [Ratio] 38.1 kg/m2 Dr. Mimi Martin DO Work Phone: [facility] 04-09-2025 08:33-0400 Body weight 91.[address] Mimi Martin DO Work Phone: [facility] 04-09-2025 08:33-0400 Diastolic blood pressure 80 mm[Hg] Dr. Mimi Martin DO Work Phone: [facility] 04-09-2025 08:33-0400 Heart rate 71 /min Dr. Mimi Martin DO Work Phone: [facility] 04-09-2025 08:33-0400 SaO2% (BldA) [Mass fraction] 97 % Dr. Mimi Martin DO Work Phone: [facility] 04-09-2025 08:33-0400 Systolic blood pressure 123 mm[Hg] Dr. Mimi Martin DO Work Phone: [facility] 03-05-2025 08:02-0400 Body height 154.[address] Mimi Martin DO Work Phone: [facility] 03-05-2025 07:42-0400 Body mass index (BMI) [Ratio] 38.9 kg/m2 Dr. Mimi Martin DO Work Phone: [facility] 03-05-2025 07:42-0400 Body temperature 96.5 [degF] Dr. Mimi Martin DO Work Phone: [facility] 03-05-2025 07:42-0400 Body weight 93.[address] Mimi Martin DO Work Phone: [facility] 03-05-2025 07:42-0400 Diastolic blood pressure 92 mm[Hg] Dr. Mimi Martin DO Work Phone: [facility] 03-05-2025 07:42-0400 Heart rate 76 /min Dr. Mimi Martin DO Work Phone: [facility] 03-05-2025 07:42-0400 Respiratory rate 16 /min Dr. Mimi Martin DO Work Phone: [facility] 03-05-2025 07:42-0400 SaO2% (BldA) [Mass fraction] 96 % Dr. Mimi Martin DO Work Phone: [facility] 03-05-2025 07:42-0400 Systolic blood pressure 155 mm[Hg] Dr. Mimi Maritn DO Work Phone: [facility] 01-06-2025 11:11-0400 Body height 154.[address] Mimi Martin DO Work Phone: [facility] 01-06-2025 11:11-0400 Body mass index (BMI) [Ratio] 39.5 kg/m2 Dr. Mimi Martin DO Work Phone: [facility] 01-06-2025 11:11-0400 Body weight 94.[address] Mimi Martin DO Work Phone: [facility] 01-06-2025 11:11-0400 Diastolic blood pressure 92 mm[Hg] Dr. Mimi Martin DO Work Phone: [facility] 01-06-2025 11:11-0400 Heart rate 84 /min Dr. Mimi Martin DO Work Phone: [facility] 01-06-2025 11:11-0400 SaO2% (BldA) [Mass fraction] 96 % Dr. Mimi Martin DO Work Phone: [facility] 01-06-2025 11:11-0400 Systolic blood pressure 139 mm[Hg] Dr. Mimi Martin DO Work Phone: [facility] 03-25-2024 08:02-0400 Body mass index (BMI) [Ratio] 41.16 kg/m2 Melany Praisler-Milan CHIEF INSPECTOR.NURSING HOME SOCIAL WORKER Work Phone: [facility] 03-25-2024 08:02-0400 Body temperature 97.9 [degF] Melany Praisler-Wood CHIEF INSPECTOR.NURSING HOME SOCIAL WORKER Work Phone: [facility] 03-25-2024 08:02-0400 Body weight 98.8 kg Melany Praisler-Wood CHIEF INSPECTOR.NURSING HOME SOCIAL WORKER Work Phone: [facility] 03-25-2024 08:02-0400 Diastolic blood pressure 70 mm[Hg] Melany Praisler-Wood CHIEF INSPECTOR.NURSING HOME SOCIAL WORKER Work Phone: [facility] 03-25-2024 08:02-0400 Heart rate 90 /min Melany Praisler-Wood CHIEF INSPECTOR.NURSING HOME SOCIAL WORKER Work Phone: [facility] 03-25-2024 08:02-0400 Respiratory rate 16 /min Melany Praisler-Wood CHIEF INSPECTOR.NURSING HOME SOCIAL WORKER Work Phone: [facility] 03-25-2024 08:02-0400 SaO2% (BldA) [Mass fraction] 95 % Melany Praisler-Wood CHIEF INSPECTOR.NURSING HOME SOCIAL WORKER Work Phone: [facility] 03-25-2024 08:02-0400 Systolic blood pressure 142 mm[Hg] Melany Saez APRN.CNP Work Phone: [facility] 02-08-2023 07:39-0400 Body height 154.[address] Mimi Martin Work Phone: [facility] 02-08-2023 07:39-0400 Body mass index (BMI) [Ratio] 40 kg/m2 Dr. Mimi Martin Work Phone: [facility] 02-08-2023 07:39-0400 Body temperature 97.6 [degF] Dr. Mimi Martin Work Phone: [facility] 02-08-2023 07:39-0400 Body weight 96.[address] Mimi Martin Work Phone: [facility] 02-08-2023 07:39-0400 Diastolic blood pressure 95 mm[Hg] Dr. Mimi Martin Work Phone: [facility] 02-08-2023 07:39-0400 Heart rate 98 /min Dr. Mimi Martin Work Phone: [facility] 02-08-2023 07:39-0400 Respiratory rate 18 /min Dr. Mimi Martin Work Phone: [facility] 02-08-2023 07:39-0400 SaO2% (BldA) [Mass fraction] 98 % Dr. Mimi Martin Work Phone: [facility] 02-08-2023 07:39-0400 Systolic blood pressure 171 mm[Hg] Dr. Mimi Martin Work Phone: [facility] 01-25-2023 11:58-0400 Body height 154.94 cm [facility] 01-25-2023 11:58-0400 Body temperature 96.4 [degF] [facility] 01-25-2023 11:58-0400 Diastolic blood pressure 99 mm[Hg] [facility] 01-25-2023 11:58-0400 Heart rate 90 /min [facility] 01-25-2023 11:58-0400 Respiratory rate 18 /min [facility] 01-25-2023 11:58-0400 SaO2% (BldA) [Mass fraction] 99 % [facility] 01-25-2023 11:58-0400 Systolic blood pressure 154 mm[Hg] [facility] 08-09-2022 06:38-0400 Body height 154.[address] Mimi Martin Work Phone: [facility] Work Phone: 08-09-2022 06:38-0400 Body mass index (BMI) [Ratio] 39.5 kg/m2 Dr. Mimi Martin Work Phone: [facility] Work Phone: 08-09-2022 06:38-0400 Body temperature 98.2 [degF] Dr. Mimi Martin Work Phone: [facility] Work Phone: 08-09-2022 06:38-0400 Body weight 94.[address] Mimi Martin Work Phone: [facility] Work Phone: 08-09-2022 06:38-0400 Diastolic blood pressure 88 mm[Hg] Dr. Mimi Martin Work Phone: [facility] Work Phone: 08-09-2022 06:38-0400 Heart rate 67 /min Dr. Mimi Martin Work Phone: [facility] Work Phone: 08-09-2022 06:38-0400 Respiratory rate 16 /min Dr. Mimi Martin Work Phone: [facility] Work Phone: 08-09-2022 06:38-0400 SaO2% (BldA) [Mass fraction] 97 % Dr. Mimi Martin Work Phone: [facility] Work Phone: 08-09-2022 06:38-0400 Systolic blood pressure 154 mm[Hg] Dr. Mimi Martin Work Phone: [facility] Work Phone: 04-29-2022 15:35-0400 Body temperature 99.9 [degF] Dr. Mimi Martin Work Phone: [facility] Work Phone: 04-29-2022 15:35-0400 Diastolic blood pressure 100 mm[Hg] Dr. Mimi Martin Work Phone: [facility] Work Phone: 04-29-2022 15:35-0400 Heart rate 112 /min Dr. Mimi Martin Work Phone: [facility] Work Phone: 04-29-2022 15:35-0400 Respiratory rate 16 /min Dr. Mimi Martin Work Phone: [facility] Work Phone: 04-29-2022 15:35-0400 SaO2% (BldA) [Mass fraction] 99 % Dr. Mimi Martin Work Phone: [facility] Work Phone: 04-29-2022 15:35-0400 Systolic blood pressure 178 mm[Hg] Dr. Mimi Martin Work Phone: [facility] Work Phone: 01-25-2022 08:26-0400 Body height 162.56 cm [facility] Work Phone: Encounters Encounter Date Encounter Type Care Provider Facility Start: 08-18-2025 ambulatory Mimi Martin Facility:[facility] Start: 08-06-2025 End: 08-06-2025 ambulatory Janey Gutierrez Facility:[facility] Start: 06-05-2025 Non-patient / Non-visit Zandra RAVI -[facility] Work Phone: Start: 06-05-2025 ambulatory Zandra Rosa NP Facili ty:[facility] Start: 06-03-2025 ambulatory Chauncey Duong Facility:[facility] Start: 06-03-2025 Non-patient / Non-visit Dr. Heber BOJORQUEZ -[facility] Start: 06-03-2025 End: 06-03-[address] Mimi Martin DO Work Phone: -Cardiovascular Services Start: 06-03-2025 End: 06-03-[address] Chauncye Duong MD -Cardiovascular Services Work Phone: Start: 06-03-2025 End: 06-03-2025 ambulatory [facility] Facility:[facility] Start: 05-21-2025 End: 05-21-[address] Mimi Martin DO Work Phone: -Laboratory [place] Start: 05-21-2025 End: 05-21-[address] Alena Ahn DO -[facility] [place] Work Phone: Start: 05-21-2025 End: 05-21-2025 ambulatory [facility] Facility:[facility] Start: 04-18-2025 End: 04-18-[address] Chauncey Duong MD -[facility] Work Phone: Start: 04-18-2025 End: 04-18-[address] Mimi Martin DO Work Phone: [facility] Work Phone: Start: 04-17-2025 End: 04-17-[address] Mimi Martin DO Work Phone: -Outpatient Bone Densitometry Start: 04-17-2025 End: 04-17-2025 Patient encounter procedure Janey RAVI -Outpatient [facility] Work Phone: Start: 04-17-2025 End: 04-17-2025 ambulatory [facility] Facility:[facility] Start: 04-10-2025 End: 04-10-[address] Mimi Martin DO Work Phone: [facility] Work Phone: Start: 04-10-2025 End: 04-10-2025 Patient encounter procedure Janey Gutierrez [employer] -[facility] [place] Work Phone: Start: 04-09-2025 End: 04-09-2025 Patient encounter procedure Janey Gutierrez [employer] -[facility] Work Phone: Start: 04-09-2025 End: 04-10-[address] Mimi Martin DO Work Phone: [facility] Work Phone: Start: 03-14-2025 ambulatory Mimi Martin Facility:[facility] Start: 03-05-2025 End: 03-05-2025 Patient encounter procedure Richa Mari [employer] -[facility] Work Phone: Start: 03-05-2025 End: 03-05-[address] Mimi Martin DO Work Phone: [facility] Work Phone: Start: 01-14-2025 End: 01-14-[address] Mimi Martin DO Work Phone: [facility] Work Phone: Start: 01-14-2025 End: 01-14-2025 Patient encounter procedure Janey Gutierrez [employer] -Laboratory, [place] Work Phone: Start: 01-14-2025 End: 01-14-2025 ambulatory Alena Ahn Facility:[facility] Start: 01-06-2025 End: 01-06-2025 Patient encounter procedure Janey Gutierrez [employer] -[facility] Work Phone: Start: 01-06-2025 End: 01-06-2025 ambulatory Mimi Martin Facility:[facility] Start: 09-11-2024 End: 09-11-2024 ambulatory Mimi Martin Facility:[facility] Start: 09-09-2024 End: 09-09-2024 ambulatory Mimi Martin Facility:[facility] Start: 08-16-2024 End: 08-16-2024 ambulatory Mimi Martin Facility:[facility] Start: 03-25-2024 End: 03-25-2024 ambulatory MIMI MARTIN Facility:[facility] Start: 03-25-2024 End: 03-25-2024 Patient encounter procedure Melany Saez APRN.CNP Work Phone: [facility] Comment on above: Swelling of eyelid, unspecified laterality (Primary Dx); Insect bite of head, unspecified part, initial encounter Start: 01-10-2024 End: 01-10-2024 ambulatory [facility] Work Phone: Start: 01-10-2024 End: 01-10-2024 Patient encounter procedure [facility] Work Phone: Start: 08-14-2023 End: 08-14-2023 ambulatory [facility] Work Phone: Start: 08-14-2023 End: 08-14-2023 Patient encounter procedure [facility]-Outpatient Breast Imaging Work Phone: Start: 08-11-2023 End: 08-11-2023 ambulatory [facility] Work Phone: Start: 08-11-2023 End: 08-11-2023 Patient encounter procedure [facility] Work Phone: Start: 05-17-2023 End: 05-17-[address] Mimi Martin Work Phone: [facility] Work Phone: Start: 05-17-2023 End: 05-17-[address] Mimi Martin Work Phone: [facility] Start: 02-08-2023 End: 02-08-[address] Mimi Martin Work Phone: [facility]-Pulmonary Medicine [facility] Work Phone: Start: 01-25-2023 End: 01-25-2023 Emergency department patient visit [facility]-Emergency Department Start: 12-07-2022 End: 12-07-2022 ambulatory [facility] Work Phone: Start: 12-07-2022 End: 12-07-2022 Patient encounter procedure [facility] Start: 08-22-2022 End: 08-22-[address] Mimi Martin Work Phone: [facility] Work Phone: Start: 08-22-2022 End: 08-22-[address] Mimi Martin Work Phone: [facility] [place], [facility] Start: 08-11-2022 End: 08-11-[address] Mimi Martin Work Phone: [facility] Work Phone: Start: 08-11-2022 End: 08-11-[address] Mimi Martin Work Phone: [facility]-Outpatient Breast Imaging Start: 08-09-2022 End: 08-09-[address] Mimi Martin Work Phone: [facility]-Pulmonary Medicine [facility] Start: 07-25-2022 End: 07-25-[address] Mimi Martin Work Phone: [facility] Start: 04-29-2022 End: 04-29-[address] Mimi Martin Work Phone: [facility] Start: 01-25-2022 End: 01-25-2022 Patient encounter procedure [facility]-Outpatient Bone Densitometry Procedures Date Procedure Procedure Detail Performing Clinician Start: 06-03-2025 Cardiovascular stres s test using pharmacologic stress agent Dr. Mimi Martin DO Work Phone: Start: 05-21-[address] Mimi [...] X-ray absorptiometry Start: 11-26-2015 Colonoscopy Melany Charles CHIEF INSPECTOR.NURSING HOME SOCIAL WORKER Work Phone: Start: 07-27-2007 History of amputatio n of leg through tibia and fibula Status post below knee amputation Melany Saez CHIEF INSPECTOR.NURSING HOME SOCIAL WORKER Work Phone: History of cataract extraction History of cataract surgery Comment on above: 03/2021 Plan of Treatment Date Care Activity Detail Author Start: 11-26-2025 Screening for malignant neoplasm of colon [facility] Start: 04-17-2025 DXA Bone [Mass/Area] Bone density [facility] Start: 04-16-2025 Evaluation of diagnostic study results [facility] Start: 06-23-2024 Influenza vaccination Influenza Vaccine (Season Ended) [facility] Start: 05-28-2024 Screening for malignant neoplasm of cervix [facility] Start: 10-23-2023 Behavioral Health Screening Behavioral Health Screening [facility] Start: 06-23-2023 Covid-19 Vaccine ( season) Covid-19 Vaccine ( season) [facility] Start: 2023 RSV Vaccine (1 - 1-dose 60+ series) RSV Vaccine (1 - 1-dose 60+ series) [facility] Start: 05-28-2020 Screening for malignant neoplasm of breast Mammogram Screening [facility] Start: 03-09-2019 Urine microalbumin profile DTaP,Tdap,Td Vaccine (2 - Td or Tdap) [facility] Start: 01-04-2018 Diabetic foot examination Diabetic Foot Exam [facility] Start: 08-04-2017 Hemoglobin A1c measurement HbA1C [facility] Start: 07-11-2017 Glaucoma screening Dilated Retinal Exam [facility] Start: 05-31-2017 Hepatitis B screening Urine Albumin:Creatinine Ratio [facility] Start: 05-31-2017 Hepatitis B surface antibody level LDL Cholesterol [facility] Start: 01-23-2016 Screening for malignant neoplasm of colon Fecal Occult Blood [facility] Start: 2013 Shingrix Vaccine (1 of 2) Shingrix Vaccine (1 of 2) [facility] Start: 07-27-2008 Pneumococcal vaccination Pneumococcal Vaccine (2 of 2 - PCV) [facility] Start: 2008 Screening for malignant neoplasm of colon [facility] Start: 1981 Annual PCP Team Chronic Disease Visit Annual PCP Team Chronic Disease Visit [facility] Start: 1981 BP Controlled (<130/80) BP Controlled (<130/80) [facility] Start: 1981 HIV screening HIV Screening [facility] DXA Bone [Mass/Area] Bone density [facility] Lipid 1996 panel - S vannessa or Plasma [facility] Patient Education ED Chest Wall Contusion [facility] Work Phone: Patient referral [facility] Work Phone: T4 free measurement [facility] Thyroid stimulating hormone measurement [facility] Vitamin D, 25-hydrox y measurement [facility] Immunizations Immunization Date Immunization Notes Care Provider Agus ziegler 08-05-2019 influenza virus vacc ine, unspecified formulation Melany Praisler-Wood CHIEF INSPECTOR.NURSING HOME SOCIAL WORKER Work Phone: [facility] 07-29-2015 influenza, seasonal, injectable Melany Praisler-Wood CHIEF INSPECTOR.NURSING HOME SOCIAL WORKER Work Phone: [facility] 07-17-2013 influenza virus vacc ine, unspecified formulation Melany Praisler-Wood CHIEF INSPECTOR.NURSING HOME SOCIAL WORKER Work Phone: [facility] 08-06-2009 influenza virus vacc ine, unspecified formulation Melany Praisler-Wood CHIEF INSPECTOR.NURSING HOME SOCIAL WORKER Work Phone: [facility] 03-09-2009 tetanus toxoid, redu robert diphtheria toxoid, and acellular pertussis vaccine, adsorbed Melany Praisler-Wood CHIEF INSPECTOR.NURSING HOME SOCIAL WORKER Work Phone: [facility] Work Phone: 08-22-2008 influenza virus vacc ine, unspecified formulation Melany Praisler-Wood CHIEF INSPECTOR.[facility] Work Phone: [facility] Work Phone: 08-21-2007 influenza virus vacc ine, unspecified formulation Melany Praisler-Wood CHIEF INSPECTOR.NURSING HOME SOCIAL WORKER Work Phone: [facility] Work Phone: 07-27-2007 pneumococcal polysaccharide vaccine, 23 valent Melany Praisler-Wood CHIEF INSPECTOR.NURSING HOME SOCIAL WORKER Work Phone: [facility] 09-27-2006 influenza virus vacc ine, unspecified formulation Melany Praisler-Wood CHIEF INSPECTOR.NURSING HOME SOCIAL WORKER Work Phone: [facility] 09-27-2006 pneumococcal polysaccharide vaccine, 23 valent Melany Praisler-Wood CHIEF INSPECTOR.NURSING HOME SOCIAL WORKER Work Phone: [facility] Payers Date Payer Category Payer Unknown [id number] 2024 Self-pay [id number] 2024 Medicaid [id number] 2024 Private Health Insurance [facility] [id number] 2023 Medicaid [employer] [id number] 2023-[facility] [phone] [address] [place] [address] Medicaid [id number] 2023 Unknown [id number] 2009 Medicare [id number] Unknown [id number]. 462 Unknown [id number] [id number]. 462 Unknown [id number] [id number]. 462 Unknown [id number] [id number]. 462 Unknown [id number] [id number]. 462 Unknown [id number] [id number]. 462 Unknown [id number] 2.16.840.1.274226.3.579.2. 462 Unknown [id number] 2.16.840.1.874055.3.579.2. 462 Unknown [id number] [id number]. 462 Unknown [id number] 2.16.840.1.960661.3.579.2. 462 Unknown [id number] 2.16.840.1.255702.3.579.2. 462 Unknown [id number] 2.16.840.1.014926.3.579.2. 462 Unknown [id number] 2.16.840.1.951400.3.579.2. 462 Unknown [id number] [id number]. 462 Unknown [id number] [id number]. 462 Unknown [id number] [id number]. 462 Unknown [id number]. 462 Social History Date Type Detail Facility Start: 08-06-2021 End: 08-22-2023 Tobacco smoking status [facility] Unknown if ever smoked [facility] Start: 03-18-2020 Non-smoker [facility] Start: 1965 Sex Assigned At Female [facility] Start: 08-22-2023 End: 03-25-2024 Tobacco smoking status MAIS Ex-smoker [facility] End: 09-08-2006 History of tobacco use Current smoker [facility] End: 09-08-2006 History of tobacco use Cigarette Smoker [facility] Start: 09-27-2020 End: 03-25-2024 Cigarettes smoked current (pack per day) - Reported 2 [facility] Start: 03-25-2024 Tobacco use and exposure Smokeless tobacco non-user [facility] Start: 03-25-2024 Alcohol intake Current non-dr [employer] of alcohol (finding) [facility] Start: 09-27-2020 End: 03-25-2024 Tobacco use panel [facility] National Score (1-10 0), lower number is lower risk Not on file [facility] Start: 1965 Sex Assigned At Not on file [facility] Start: 01-18-2025 Sex Female (finding) [facility] Equipment Procedure Code Equipment Code Equipment Origin al Text Equipment Identifier Dates Dev Cncptv Essur e Perm - [id number] Start: 10-27-2011 TEST BLOOD SUGAR S DAILY. 250.00 [id number] Start: 12-13-2013 Blood Sugar Diagnostic (Freestyle Lite Strips) strip Start: 05-19-2025 Lancets (Freesty le Lancets) 28 gauge misc Start: 05-19-2025 Blood Sugar Diagnostic (Freestyle Lite Strips) strip [...] 7:49am Hypertension chronic April 18, 025 7:49am [facility] Work Phone: 1(253) 361-392403-17-2025 Evaluation note* Diagnosis Onset Date Resolution Status Admit Date Diabetes chronic January 06 11:05am Hyperlipidemia chronic December 11:05am Hypertension chronic January 06, 2025 11:05am Hypothyroidism chronic December 11:05am Obesity chronic January 06 11:05am Microalbuminuria resolved January 062024 11:05am CKD (chronic kidney disease) deleted January 06, 2025 11:05am [facility] Work Phone: 1(465) 291-133303-17-2025 Evaluation note* Diagnosis Onset Date Resolution Status [...] 2025 7 :39am Obstructive sleep apnea syndrome [facility] March 05, 2025 7:39am [facility] Work Phone: 1(587) 153-230803-17-2025 Evaluation note* Diagnosis Onset Date Resolution Status [...] 2025 7 :39am Obstructive sleep apnea syndrome [facility] on March 05, 2025 7:39am Chronic kidney disease, stag e III (moderate) chronic April 09, 2025 8:32am Diabetic neuropathy chronic April 09, 2025 8:32am Hyperlipidemia chronic April 09, 2025 8:32am Hypertension chronic April 09, 2 025 8:32am Hypothyroidism chronic April 09, 2025 8:32am Obesity chronic April 09 8:32am Post-menopausal chronic March 8:32am Type 2 diabetes mellitus chronic April 09, 2025 8:32am [facility] Work Phone: 1(517) 548-953703-17-2025 Evaluation note* Diagnosis Onset Date Resolution Status [...] 7:49am Hypertension chronic April 18, 025 7:49am [facility] Work Phone: 1(208) 650-529806-03-2024 NoteHNO ID: [id number] Author: MELANY SAEZ APRN.NURSING HOME SOCIAL WORKER Service: ? Author Type: Nurse Practitioner Type: [...] COMPOUNDED PRESCRIPTION Left foot brace, arch support. [employer] Dx DM 2 blood sugar diagnostic (FREESTYLE [...] erythema or rash. Neurologica (more content not included)...[facility]06-03-2024 History of Present illness Narrative* Melany Saez, JERAD.NURSING HOME SOCIAL WORKER - 03/25/2024 8:11 AM EDT Images from [...] COMPOUNDED PRESCRIPTION Left foot brace, arch support. [employer] Dx DM 2 blood sugar diagnostic (FREESTYLE [...] illness Melany Saez APRN.CNP [facility] Inst[facility]* Patient Instructions* Melany Saez APRN.CNP [...] Discussed expected course of illness Melany Saez APRN.NURSING HOME SOCIAL WORKER [facility] Neil [facility] January 25, 2023 1:40pm Note Date/Time January 25, 2023 12:3 6pm [facility] Medical Records Department [address] [place] [address] Emergency Department Summary 01/25/23 MR#: [id number] Acct: [id number] Name: LYNDA BRADLEY Rep #:[id number] : 1965 57 From: Bridger Neil MD [...] is up walking when I see her. [facility] Medical History Cancer Chronic kidney disease, [...] mcg/actuation aerosol inhaler (ProAir HFA) 1 inh [id number] PRN shortness of breath or wheezing #8.5 [...] sore than painful. She is okay using [id number] meds ice and rest. I explained that [...] your Primary Care Provider. Call [facility] ([phone]) or report to the closest Emergency Room. Call 911 if necessary. 01/25/23 1340 <Electronically signed by Bridger Neil MD> Cosigner Signature (if applicable): CC: Dr. Mimi Martin, DO ~ Signed [facility] Work Phone: Chief complaint+Reason for visit Narrative* Chief Complaint SINUS INFECTION/COVI D TEST 6 M FU SCREENING Reason for Visit COVID-19 Asthma-COPD overlap syndrome Morbid obesity due to excess calories Obstructive sleep apnea syndrome [facility] Work Phone: Evaluation noteNo assessment information available [facility] Work Phone: Evaluation note* Diagnosis Onset Date Resolution Status COVID-19 acute Asthma-COPD overlap syndrome chronic Morbid obesity due to excess calories chronic Obstructive sleep apnea syndrome chronic [facility] Work Phone: Evaluation note* Diagnosis Onset Date Resolution Status Asthma-COPD overlap syndrome chronic Morbid obesity due to excess calories chronic Obstructive sleep apnea syndrome [facility] Work Phone: Evaluation note* Diagnosis Swelling of eyelid, unspecified laterality- Primary Insect bite of head, unspecified part, initial encounter [facility]No reason for referral [facility] Work Phone: Chief Complaint and Reason [...] 2025 11:05am Asthma-COPD overlap syndrome March 05 2 025 7:39am Morbid obesity due to [...] 7:39am Morbid obesity due to excess calories Or 2024 7:39am Obstructive sleep apnea syndrome May 14t h, 2025 7:39am Chronic kidney disease, stage III (moder [...] Visit Admit Date Asthma-COPD overlap syndrome March 05, 025 7:39am [...] am LABS May 21, 2025 7:01 am coronary artery calcification May 6:30am coronary artery calcification May 5:26pm Amb Documentation June 05, 2025 11 :06am Family History No Family History Records Found [...] March 18, 2020 1 0:29am Power of Jewellery Designer No March 18, 2020 10:29am Advance Directive Response Recorded Date/ Time Living Will No March 18, 2020 9 :29am Power of Jewellery Designer No March 18, 2020 9:29am Advance Directive Response Recorded Date/ Time Living Will No January 25, 2023 2:01pm Power of Jewellery Designer No January 25 2:01pm Advance Directive Response Recorded Date/ Time Living Will No January 25, 2023 2:01pm Do you have a Healthcare Power of Jewellery Designer? No January 25, 2023 2:01pm Summary Purpose [...] Primary Care Provider, Referring P rovider Active Rciha Mari [employer], [employer] Attending Provider Active Team Status: Inactive Member [...] Other Provi matt Active Dr. Alena Ahn , DO Attending Provider Active Alena PETER MD Referring Provider Active Team Status: Active Member Role Status Dates Dr. Mimi Martin DO Primary Care Provide r, Attending Provider, Referring Provider Active Options Trader Relationship Specialty Start Date End Date Mimi Martin DO [address] [address] PCP - General Family Medicine 09/19/17 Team Status: Active Member Role Status Dates Dr. Mimi Martin DO Primary Care Provider Active Team Status: Inactive Member Role Status Dates Dr. Mimi Martin DO Primary Care Provider Active Start: January 06, 2025 End: January 06, 2025 Dr. Mimi Martin DO Referring Provider Active St art: January 06, 2025 End: January 06, 2025 TRVA Calderón Attending Provider Active Start: January 06, [...] End: March 05, 2025 Richa Mari NP, [employer] Attending Provider Active Start: March 05, 2025 End: March 05, 2025 Team Status: Inactive Member Role Status Dates Dr. Mimi Martin DO Primary Care Provider Active Start: April 09, 2025 End: April 09, 2025 Dr. Mimi Martin DO Referring Provider Active St art: April 09, 2025 End: April 09, 2025 TRAV Calderón Attending Provider Active Start: April 09, 2025 End: April 09, 2025 Team Status: Inactive Member Role Status Dates Dr. Mimi Martin DO Primary Care Provider Active Start: April 10, 2025 End: April 10, 2025 Janey Gutierrez [employer] Attending Provider Active Start: April 10, 2025 End: April 10, 2025 Janey Gutierrez [employer] Referring Provider Active Start: April 10, 2025 End: April 10, 2025 Team Status: Active Member Role Status Dates Dr. Mimi Martin DO Primary Care Provider Active Start: April 17, 2025 Janey Gutierrez [employer] Attending Provider Active Start: April 17, 2025 Janey Gutierrez [employer] Referring Provider Active Start: April 17, 2025 [...] 2025 End: January 06, 2025 Janey Gutierrez [employer] Attending Provider Active Start: January 06, 2025 End: January 06, 2025 Team Status: Inactive Member Role/Relationship Status Dates Dr. Mimi Martin DO Primary Care Provider Active Start: January 14, 2025 End: January 14, 2025 Dr. Alena Ahn DO Other Provider Active Sta rt: January 14, 2025 End: January 14, 2025 Janey Gutierrez [employer] Attending Provider Active Start: January 14, 2025 End: January 14, 2025 Janey Gutierrez [employer] Referring Provider Active Start: January 14, 2025 End: January 14, 2025 Team Status: Inactive Member Role/Relationship Status Dates Dr. Mimi Martin DO Primary Care Provider Active Start: March 05, 2025 End: March 05, 2025 Dr. Mimi Martin DO Referring Provider Active St art: March 05, 2025 End: March 05, 2025 Richa Mari [employer], [employer] Attending Provider Active Start: March 05, 2025 End: March 05, 2025 Team Status: Inactive Member Role/Relationship Status Dates Dr. Mimi Martin DO Primary Care Provider Active Start: April 09, 2025 End: April 09, 2025 Dr. Mimi Martin DO Referring Provider Active St art: April 09, 2025 End: April 09, 2025 Janey Gutierrez [employer] Attending Provider Active Start: April 09, 2025 End: April 09, 2025 Team Status: Inactive Member Role/Relationship Status Dates Dr. Mimi Martin DO Primary Care Provider Active Start: April 10, 2025 End: April 10, 2025 Janey Gutierrez [employer] Attending Provider Active Start: April 10, 2025 End: April 10, 2025 Janey Gutierrez [employer] Referring Provider Active Start: April 10, 2025 End: April 10, 2025 Team Status: Inactive Member Role/Relationship Status Dates Dr. Mimi Martin DO Primary Care Provider Active Start: April 17, 2025 End: April 17, 2025 Janey Gutierrez [employer] Attending Provider Active Start: April 17, 2025 End: April 17, 2025 Janey Gutierrez [employer] Referring Provider Active Start: April 17, 2025 [...] End: March 05, 2025 Richa Mari NP [employer] Attending Provider Active Start: March 05, 2025 End: March 05, 2025 Team Status: Inactive Member Role/Relationship Status Dates Dr. Mimi Martin DO Primary Care Provider Active Start: April 09, 2025 End: April 09, 2025 Dr. Mimi Martin DO Referring Provider Active St art: April 09, 2025 End: April 09, 2025 Janey Gutierrez [employer] Attending Provider Active Start: April 09, 2025 End: April 09, 2025 Team Status: Inactive Member Role/Relationship Status Dates Dr. Mimi Martin DO Primary Care Provider Active Start: April 10, 2025 End: April 10, 2025 Janey Gutierrez [employer] Attending Provider Active Start: April 10, 2025 End: April 10, 2025 Janey Gutierrez [employer] Referring Provider Active Start: April 10, 2025 End: April 10, 2025 Team Status: Inactive Member Role/Relationship Status Dates Dr. Mimi Martin DO Primary Care Provider Active Start: April 17, 2025 End: April 17, 2025 Janey Gutierrez [employer] Attending Provider Active Start: April 17, 2025 End: April 17, 2025 Janey Gutierrez [employer] Referring Provider Active Start: April 17, 2025 [...] May 21, 2025 Dr. Alena Ahn DO Referring Provider Active Start: May 21, 2025 End: May 21, 2025 Team Status: Inactive Member Role/Relationship Status Dates Dr. Mimi Martin DO Primary Care Provider Active Start: June 03, 2025 End: June 03, 2025 Dr. Chauncey Duong MD Attending Provider Active S tart: June 03, 2025 End: June 03, 2025 Dr. Chauncey Duong MD Referring Provider Active S tart: June 03, 2025 End: June 03, 2025 Team Status: Active Member Role/Relationship Status Dates Dr. Mimi Martin DO Primary Care Provider Active Start: June 03, 2025 Dr. Chauncey Duong MD Attending Provider Active S tart: June 03, 2025 Dr. Chauncey Duong MD Referring Provider Active S tart: June 03, 2025 Dr. Chauncey Duong MD Other Provider Active Start : June 03, 2025 Team Status: Active Member Role/Relationship Status Dates Dr. Mimi Martin DO Primary Care Provider Active Start: June 05, 2025 Zandra Rosa [employer], [employer] Attending Provider Active Start: June 05, 2025 INFORMATION SOURCE (unrecogn ized section and content) DATE CREATED AUTHOR 03/25/2024 [facility] DATE CREATED AUTHOR AUTHOR'S ORGANIZ ATION 08/15/2025 [facility] Source Comments (unrecognize d section and content) In the event this informatio n is protected by the Federal Confidentiality of Alcohol and Drug Abuse Patient Records regulations: The Federal rules restrict any use of the information to criminally investigate or prosecute any alcohol or drug abuse patient.[facility] Reason for Visit (unrecogniz ed section [...] BE BASED ON THE PRIMARY CLINICAL RECORDS. [facility] To [facility]. provides no warranty or guarantee of the accuracy or completeness of information in this document.
[2025-08-18 07:52] LABS: Hematocrit 37.6 % (37-47); Hemoglobin 12.6 g/dL (12.0-15.0); Immature Granulocytes Count 0.020 X10^3/uL (0.0-0.0); Mean Corp Hgb Conc 33.5 g/dL (32-36); Mean Corpuscular Volume 91.7 fL (81-99); Mean Platelet Vol. 10.2 fl (6.2-12.0); NRBC Flagged by Analyzer 0 % (0-5); Platelet Count 199 K/mm3 (150-450); RBC Distribution Width CV 12.8 % (11.6-14.6); RBC Distribution Width SD 42.2 fl (35.1-43.9); Red Blood Count 4.10 M/mm3 (4.2-5.4); White Blood Count 6.4 K/mm3 (4.4-11.0)
[2025-08-18 08:57] LABS: AST(SGOT) 21 U/L (<=31); Alanine Aminotransfer ALT/SGPT 18 U/L (<=34); Albumin, Serum 4.3 g/dL (3.4-4.8); Alkaline Phosphatase 86 U/L (35-104); Anion Gap 12 (5-15); BUN 28 mg/dL (4-19); BUN/Creat Ratio 18.6 RATIO (10-20); Calcium,Total 9.6 mg/dL (7.6-11.0); Carbon Dioxide 22.4 mmol/L (21.0-32.0); Chloride 107 mmol/L (98-108); Cholesterol 221 mg/dL (<=200); Free T3 2.4 pg/mL (2.18-3.98); Globulin 2.9 g/dL (2.2-4.2); Glucose 116 mg/dL (70-99); Low Density Lipoprotein Calc. 141 mg/dL; Potassium 4.0 mmol/L (3.3-5.1); Triglycerides 148 mg/dL; Very Low Density Lipoprotein 30 mg/dL (5-40); Vitamin B12 1066 pg/mL (180-914); Vitamin D,25 Hydroxy 49.7 ng/mL (30-100); cholesterol:hdl ratio screen 4.12
== END | disposition home or self-care (01) ==
PROVIDERS: PCP Family Medicine; Referring Provider Family Medicine; Visit Provider Family Medicine
DX: Z12.31 Encounter for screening mammogram for malignant neoplasm of breast (principal); I10 Essential (primary) hypertension; E03.9 Hypothyroidism, unspecified; E55.9 Vitamin D deficiency, unspecified; E78.5 Hyperlipidemia, unspecified
CPT/HCPCS: 36415; 77063; 77067; 80053; 80061; 82306; 82607; 84439; 84443; 84481; 85025